=== PATIENT | female | born 1990 | race Caucasian/White ===

== ENCOUNTER 2018-08-21 18:00 | Emergency (ER) | payer MEDICAID, SELFPAY ==
[2018-08-21 18:00] VITALS: BP 108/74; PULSE 102; RESP 16; TEMP 36.4; O2SAT 98; BMI 21.2
--- NOTE | 2018-08-21 18:36 | ED.DCSUM_ITS ---
- ER Visit Summary Date of Service: 08/21/18 Chief Complaint: Left lower back pain rating the left leg History of Present Illness: The patient is a 27 F history of prior sciatica. No prior back surgery. Patient states she developed some lower back pain primarily in the left radiating down her left hamstring. No numbness or tingling. No weakness. No trauma. No fever. No prior back surgery. Denies any bowel or bladder incontinence or retention. Physical Examination: Well-appearing young female. Vital signs are stable afebrile. No distress. HEENT exam unremarkable. Neck nontender. Lungs clear to auscultation bilaterally. Heart regular rate and rhythm no murmur. Abdomen soft nontender normal bowel sounds no peritoneal signs. Moving all 4 extremities. Neurovascular intact. 5 out of 5 dorsi plantarflexion. No cauda equina. No saddle anesthesia. No medial thigh sensation. Negative straight leg raise bilaterally. Back exam spine is nontender tender mildly over the left SI joint. No redness or warmth. Right unremarkable. Neurologically she is awake alert with no focal motor or sensory deficits. No cauda equina. Test Results: None Emergency Department Course and Treatment: Motrin for pain and inflammation discharge. Treatment Plan: Motrin 600 3 times daily. Ice to her lower back. Follow-up if not improving return if worse. Disposition: Discharge Impression: Acute low back pain secondary to left-sided sciatica This note was generated with [employer] dictation software. It may contain incorrect words, spelling, and punctuation that were not noted in review of the chart prior to signing ED Disposition - Plan for ED Patient: Referrals: [facility] ,Out of [Primary Care Provider] -
--- NOTE | 2018-08-21 18:36 | ED.DEP ---
ED Disposition - Plan for ED Patient: Disposition: Home or Assisted Living Prescriptions: Ibuprofen [Motrin] 600 mg PO Q8H #20 tab Referrals: [facility],Out of [Primary Care Provider] - 1 Week if not improving Additional Instructions: Ice to left low back. Hot shower warm bath to relax the muscles. Motrin for pain and inflammation. Follow-up with your doctor if not improving or return to the ER if any bowel or bowel bladder incontinence or lower extremity weakness.
[2018-08-21] MEDS: Ibuprofen 600 MG Tablet PO (19:13)
== END 2018-08-21 19:15 | disposition home or self-care (01) ==
LOC: ED 18:49
PROVIDERS: Emergency Provider Emergency Medicine; Family Provider Nurse Practitioner Primary Care; PCP Nurse Practitioner Primary Care
DX: M54.42 Lumbago with sciatica, left side (principal); F32.9 Major depressive disorder, single episode, unspecified; F41.9 Anxiety disorder, unspecified; Z79.899 Other long term (current) drug therapy; Z72.0 Tobacco use
CPT/HCPCS: 99283

== ENCOUNTER 2022-10-25 02:19 | Emergency (ER) | payer MEDICAID, SELFPAY ==
[2022-10-25 02:22] VITALS: BP 110/64; PULSE 84; RESP 16; TEMP 36; O2SAT 95; BMI 20.2
--- NOTE | 2022-10-25 02:37 | EDS_ITS ---
HPI HPI - Psych History of Present Illness Chief Complaint: Suicidal Detail of Chief Complaint: Suicidal threats. Informant: patient and EMS Onset/Context/Timing Onset: Today Current Severity: Mild Maximum Severity: Mild Worsened by: Alcohol intoxication Associated Symptoms Associated Symptoms - Psych: Positive for Depressed; Negative for Angry, Hostile, Threatening, Confusion or Paranoia Narrative Narrative: 32-year-old female history of depression. History of drug and alcohol abuse. Admits to drinking alcohol tonight. Last used methamphetamines yesterday and marijuana today. Reportedly an ex-boyfriend called the police today because he was concerned she was suicidal. She may have sent text either him or his family talking about killing yourself. She has had prior similar incidences and prior admissions. The last one was 1 to 2 years ago she believes. She does see the counseling center but has not seen them since July. Prior similar symptoms: Yes Recent Illness/Hospitalization: No PFSH PFSH Home Medications Unobtainable 10/25/22 [History Last Taken Unknown] Allergy/AdvReac Type Severity Reaction Status Date / Time No Known Allergies Allergy Verified 10/25/22 02:20 Social History Smoking Status: Current every day smoker tobacco type: cigarettes ROS ROS ED ROS Narrative Denies recent illness. Review of Systems ROS Unobtainable: Denies due to encephalopathy Constitutional Constitutional ED: Denies chills or fever(s) Eyes Eyes: Denies blurry vision ENT ENT ED: Denies ear pain Cardiovascular Cardiovascular: Denies chest pain Respiratory/Chest Respiratory/Chest: Denies cough or dyspnea Gastrointestinal Gastrointestinal: Denies abdominal pain Genitourinary Genitourinary ED: Denies dysuria Musculoskeletal Musculoskeletal: Denies arthralgias Integumentary Denies abscess Neurologic Neurologic: Denies headache(s) Psychiatric Psychiatric: Reports depression and suicidal ideation; Denies anxiety Endocrine Endocrinology: Denies polydipsia Hematologic/Lymphatic Hematologic/Lymphatic: Denies easy bleeding Allergic/Immunologic Allergic/Immunologic ED: Denies mouth swelling EXAM Physical Exam Narrative Exam Narrative: 32-year-old female no acute distress. Vital signs stable afebrile. Does not look septic or toxic. He is diaphoretic. Awake and alert. H EENT exam unremarkable. Neck nontender no lymphadenopathy. No trauma. Lungs clear to auscultation bilaterally. Heart regular rhythm no murmur rate about 80. Chest were nontender. Abdomen soft nontender. Moving all 4 extremities. No trauma. No significant track yancey. Back nontender. Neurologically she is appears to b e intoxicated with a either alcohol or drugs or both but is awake alert. Answering questions and following commands. Const Vital Signs: 10/25/22 02:22 10/25/22 04:50 10/25/22 07:09 Temperature 96.8 F L Temperature Source Temporal Pulse Rate 84 16 L Respiratory Rate 16 16 Blood Pressure 110/64 Blood Pressure Mean 79 Pulse Ox 95 Oxygen Delivery Method Room Air Positive well nourished and well developed; Negative for obese, cachectic, contractures or unkempt General Appearance ED: well developed and NAD; Negative for unkempt, cachectic, contractures or pallor Nutritional Appearance: Negative for cachectic or obese HEENT Reports moist mucous membranes normocephalic and atraumatic; Negative for trauma or tenderness Eyes PERRL and EOMs intact bilaterally General Eye ED: Negative for pale conjunctiva or scleral icterus Neck no lymphadenopathy, supple and no JVD General: Negative for tenderness Resp normal respiratory effort and clear to auscultation bilaterally Effort and Inspection: Negative for retractions Auscultation: Negative for rales, rhonchi or wheezes Cardio S1 normal heart sound, S2 normal heart sound and no murmurs Palpation: Negative for other Rate: regular rate Rhythm: regular rhythm GI non-tender, non-distended and no masses Inspection: Negative for abdominal distention Palpation: soft; Negative for tender or guarding Bladder / Kidney Exam: No other Back/Spine no CVA tenderness General Back: Negative for CVA tenderness Cervical Spine: Negative for cervical spine tenderness Thoracic Spine / Upper Back: Negative for thoracic spinal tenderness Lumbar Spine / Lower Back: Negative for lumbar spinal tenderness Coccyx: Negative for other Extremity normal to inspection General Extremety ED: Negative for edema or tenderness General Extremity: Negative for edema Neuro oriented x3 and CN's II-XII intact bilaterally Sensorium / Orientation: alert, oriented to person, oriented to place, oriented to time and stuporous Motor Exam: strength 5/5 throughout Psych mental status grossly normal, thought process normal and cooperative; Negative for denies suicidal ideation Appearance: grossly normal; Negative for unkempt Attitude: calm Activity / Motor Behavior: appropriate eye contact Speech: normal speech Mood & Affect: depressed Thought Process: normal thought process Thought Content: suicidality Memory / Cognition: memory grossly intact Insight: limited Judgement: judgement good Skin Skin Narrative: Diaphoretic. General Skin Exam: Negative for jaundice or pallor Rashes: no rashes Trauma: Negative for abrasion or laceration Wounds: Negative for amputation MDM MDM MDM Narrative Medical decision making narrative: 32-year-old female history of methamphetamine and marijuana abuse. Admits to drinking tonight. Reportedly made threatening text to harm herself. She was brought in by police. She does have an underlying psychiatric history. Has not seen the counseling center for at least 3 to 4 months. Has had prior admissions and prior suicide attempts. She will undergo an ED mental health evaluation. She is medically cleared at this time. Her exam is benign other than she is intoxicated. Patient is resting comfortably at 3:15 AM. Her alcohol level is elevated. She will remain here until the morning and be assessed either by our social workers or the crisis team once her intoxication resolves. She be turned over to the morning physician. Patient will be admitted to a psychiatric facility that is being worked on currently by crisis. Repeat alcohol level came back and is only 74 now. Patient is currently resting comfortably at 7:30 in the morning. History & Record Review Discussion w/independent historian: Patient Additional record(s) reviewed:: No prior records and Other (No prior labs available in our system for comparison.) Lab Data Attestation: I reviewed the patient's lab results. Lab results narrative: CBC normal. White count of 10. H&H 13 and 40. Platelets 320. BMP shows gap of 6. Normal BUN and creatinine. Glucose 109. Serum test negative. Alcohol is elevated at 116. Repeat alcohol level is Labs: Laboratory Results - last 24 hr 10/25/22 10/25/22 10/25/22 02:40 04:31 04:42 WBC 10.2 RBC 4.28 Hgb 13.4 Hct 40.1 MCV 93.7 MCH 31.3 MCHC 33.4 RDW Std Deviation 45.1 H RDW Coeff of Abelardo 13.1 Plt Count 320 MPV 8.0 Immature Gran % (Auto) 0.400 Neut % (Auto) 59.3 Lymph % (Auto) 36.5 Cavalier % (Auto) 2.6 Eos % (Auto) 0.3 Baso % (Auto) 0.9 Absolute Neuts (auto) 6.1 Absolute Lymphs (auto) 3.73 Nucleated RBC % 0 Sodium 144 Potassium 3.5 Chloride 111 H Carbon Dioxide 27.0 Anion Gap 6 BUN 8 Creatinine 0.76 Estim Creat Clear Calc 87.05 Est GFR (MDRD) Af Amer 113 Est GFR (MDRD) Non-Af 94 BUN/Creatinine Ratio 10.5 Glucose 109 H Calcium 8.6 Serum , Qual NEGATIVE Urine Opiates Screen NEGATIVE Urine Methadone Screen NEGATIVE Ur Barbiturates Screen NEGATIVE Ur Phencyclidine Scrn NEGATIVE Ur Amphetamines Screen POSITIVE H MDMA (Ecstasy) Screen NEGATIVE U Benzodiazepines Scrn NEGATIVE Urine Cocaine Screen NEGATIVE U Cannabinoids Screen POSITIVE H Ur Drug Screen Comment Ethyl Alcohol 116.0 74.0 Discharge Plan Triage Chief Complaint: Suicidal Other Complaint: Substance Abuse ED Provider: Lefty Borrego Dx/Rx/DC Orders Clinical Impression: Chronic drug abuse, Depression with suicidal ideation, Depression, Acute alcohol intoxication Prescriptions: No Action Unobtainable Primary Care Provider: Care Physician,No Primary Referrals: Care Physician,No Primary [Primary Care Provider] -
[2022-10-25 02:47] LABS: Absolute Lymphocyte Count 3.73 X10^3/uL (0.83-4.51); Absolute Neutrophil Count 6.1 X10^3/uL (2.0-7.7); Basophil# 0.09 X10^3/uL; Basophil% 0.9 % (0-1); Eosinophil# 0.03 X10^3/uL; Eosinophils% 0.3 % (0-5); Hematocrit 40.1 % (37-47); Hemoglobin 13.4 g/dL (12.0-15.0); Lymphocyte # 3.73 X10^3/ul (0.83-4.51); Lymphocyte % 36.5 % (19-41); Mean Corp Hgb Conc 33.4 g/dL (32-36); Mean Corpuscular Hgb 31.3 pg (27.0-32.0); Mean Corpuscular Volume 93.7 fL (81-99); Monocyte# 0.27 X10^3/uL; Monocyte% 2.6 % (0-10); NRBC Flagged by Analyzer 0 % (0-5); Neutrophil # 6.05 X10^3/uL (2.7-7.7); Neutrophil % 59.3 % (47-70); Platelet Count 320 K/mm3 (150-450); RBC Distribution Width CV 13.1 % (11.6-14.6); RBC Distribution Width SD 45.1 fl (35.1-43.9); Red Blood Count 4.28 M/mm3 (4.2-5.4); White Blood Count 10.2 K/mm3 (4.4-11.0)
[2022-10-25 03:05] LABS: Internal QC Validated? YES +Cl - CLEAR BKGD; Pregnancy, Serum, hCG Quali. NEGATIVE Negative
[2022-10-25 03:10] LABS: Anion Gap 6 (5-15); BUN 8 mg/dL (7-18); BUN/Creat Ratio 10.5 RATIO (10-20); Calcium,Total 8.6 mg/dL (8.5-10.1); Chloride 111 mmol/L (98-107); Creatinine, Serum 0.76 mg/dL (0.55-1.02); EST Glomerular Filtration Rate 94 mL/min (>60); Est Glom Filt Rate - Afr Amer 113 mL/min (>60); Estimated Creatinine Clearance 87.05 ml/min; Glucose 109 mg/dL (74-106); Potassium 3.5 mmol/L (3.5-5.1); Sodium Level 144 mmol/L (136-145)
[2022-10-25] MEDS: Ondansetron ODT 4 MG Tablet PO (04:45)
[2022-10-25 04:50] VITALS: PULSE 16
[2022-10-25 05:04] LABS: Amphetamine Urine VISTA POSITIVE (<1000 ng/mL); Barbiturate Urine VISTA NEGATIVE (< 200 ng/mL); Benzodiazepine Urine VISTA NEGATIVE (< 200 ng/mL); Cocaine Urine VISTA NEGATIVE (< 300 ng/mL); Ecstacy Urine VISTA NEGATIVE (< 500 ng/mL); Methadone Urine VISTA NEGATIVE (< 300 ng/mL); PCP Urine VISTA NEGATIVE (< 25 ng/mL); THC Urine VISTA POSITIVE (< 50 ng/mL); Vista UDS pH Range 5
--- NOTE | 2022-10-25 05:08 | NURSING ---
CRISIS CALLED AT [id number]
[2022-10-25 07:09] VITALS: RESP 16
[2022-10-25 08:00] VITALS: RESP 16
--- NOTE | 2022-10-25 08:07 | NURSING ---
PT WAS ACCEPTED TO [facility]-- DINESH RAYA--DUAL DIAGNOSIS-- RN TO RN -[phone]--- CALLED PHYSICIANS TO SET UP TRANSPORT --ETA GIVEN [id number]
[2022-10-25 08:55] VITALS: BP 128/84; PULSE 77; RESP 16; TEMP 36.3; O2SAT 97
== END 2022-10-25 11:00 ==
PROVIDERS: Emergency Provider Emergency Medicine; Visit Provider Emergency Medicine
DX: F32.A Depression, unspecified (principal); F10.129 Alcohol abuse with intoxication, unspecified; F15.10 Other stimulant abuse, uncomplicated; R45.851 Suicidal ideations; F17.210 Nicotine dependence, cigarettes, uncomplicated; Y90.5 Blood alcohol level of 100-119 mg/100 ml
CPT/HCPCS: 36415; 80048; 80307; 82077; 84703; 85025; 87811; 99285

== ENCOUNTER 2023-06-10 15:09 | Emergency (ER) | payer MEDICAID, SELFPAY ==
[2023-06-10 15:11] VITALS: BP 104/62; PULSE 86; RESP 16; TEMP 36.2; O2SAT 97
--- NOTE | 2023-06-10 15:23 | EX.ED.DYSGE1 ---
HPI <DIONICIO Reno - Last Filed: 06/10/23 16:08> History of Present Illness Chief Complaint: Lower Extremity Injury Narrative Narrative: 32-year-old female with no significant medical history presents to the emergency department the right heel pain. Patient states that she woke up this morning and significant pain to the right heel. When thinking about her lifestyle the last several days, she is unable to remember if she had any injury, she did have a slight jog from the store to the car however does not remember any pain. She denies any history of surgery to this foot. Patient denies any other injury or fever or chills. PFSH <DIONICIO Reno - Last Filed: 06/10/23 16:08> PFS Home Medications buspirone 10 mg tablet 10 mg PO TID 08/21/18 [History Last Taken Unknown] ibuprofen 400 mg tablet 600 mg (1.5 x 400 mg) PO Q8H #20 tabs 08/21/18 [Rx Last Taken Unknown] mirtazapine 30 mg tablet 30 mg PO QHS 08/21/18 [History Last Taken Unknown] venlafaxine 150 mg capsule,extended release 24 hr 150 mg PO DAILY 08/21/18 [History Last Taken Unknown] ibuprofen 600 mg tablet 600 mg PO Q6H PRN PRN pain #20 TABLETS 06/10/23 [Rx Last Taken Unknown] Allergy/AdvReac Type Severity Reaction Status Date / Time No Known Allergies Allergy Verified 06/10/23 15:10 Social History Smoking Status: Current every day smoker tobacco type: cigarettes ROS <DIONICIO Reno - Last Filed: 06/10/23 16:08> ROS ED ROS Narrative Constitutional: Negative for fever, chills, weight loss, weakness Eyes: Negative for vision loss, vision change, double vision ENT: Negative for any sore throat, ear pain, congestion Cardiovascular: Negative for any chest pain, tightness, palpitations Respiratory: Negative for any cough, sputum production, hemoptysis, dyspnea, dyspnea on exertion, orthopnea Gastrointestinal: Negative for any abdominal pain, nausea, vomiting, diarrhea, constipation, blood in stool, blood in vomit : Negative for any urinary frequency, dysuria, retention, blood in urine Muscle skeletal: Negative for any neck pain, back pain. Positive for right foot pain right heel pain Neurological: Negative for any headache, syncope, dizziness Skin: Negative for any rashes, itching, abrasions, lacerations Psychiatric: Negative for any depression, anxiety, stress, suicidal ideation, homicidal ideation Hematologic: Negative for any excessive bruising, easy bleeding EXAM <Sae SebastianDIONICIO - Last Filed: 06/10/23 16:08> Physical Exam Narrative Exam Narrative: Vital signs reviewed. HEET: Head normocephalic atraumatic, TMs clear bilaterally. Posterior pharynx is clear, moist mucous membranes. Nares clear bilaterally. Neck: Supple with no lymphadenopathy or tenderness. No signs of meningismus. Cardiac: Regular rate and rhythm no murmurs gallops or rubs, equal peripheral pulses bilaterally. Respiratory: Lungs clear to auscultation bilaterally. No chest tenderness. Abdomen: Soft, nontender, nondistended. No abdominal bruit or pulsatile masses. No hepatosplenomegaly Extremities: No peripheral edema, no signs of gross trauma or deformity. Active full range of motion of all extremities. Full range of motion of the right foot. +2 pedal pulse. Patient does have some pain on palpation to the solar surface of the heel however there is no redness, there is no inflammation. There is no evidence of trauma or cellulitis. Neuro: Cranial nerves II through XII intact, no focal neurological deficits. Skin: Clean dry and intact with no rash, purpura, petechiae, vesicles or pustules. Backs/flank: No CVA tenderness, no midline spinal tenderness, no deformity. Psych: Normal mood and affect. No SI, HI or acute psychosis. Const Vital Signs: 06/10/23 15:11 06/10/23 16:17 Temperature 97.1 F L 97.2 F L Temperature Source Temporal Pulse Rate 86 65 Respiratory Rate 16 16 Blood Pressure 104/62 104/66 Blood Pressure Mean 76 78 Pulse Ox 97 97 Oxygen Delivery Method Room Air <Dr. Radha Manrique DO - Last Filed: 06/11/23 00:09> Physical Exam Const Vital Signs: 06/10/23 15:11 06/10/23 16:17 Temperature 97.1 F L 97.2 F L Temperature Source Temporal Pulse Rate 86 65 Respiratory Rate 16 16 Blood Pressure 104/62 104/66 Blood Pressure Mean 76 78 Pulse Ox 97 97 Oxygen Delivery Method Room Air [facility] <JAYDEN RenoC - Last Filed: 06/10/23 16:08> [facility] Radiography Diagnostic Testing: Clinical Impression(s) from Imaging Studies Foot X-Ray 06/10/23 15:33 IMPRESSION: Normal x-ray examination of the foot. Electronically Signed: Nilo Doe MD at 16:01 EST , Treatment and Re-Evaluation :: Patient appears to be in no obvious respiratory distress, patient's vital signs are stable, patient looks nontoxic. Presenting to the emergency department with 1 day of right foot pain. Patient's pain is mostly around the heel. Patient received x-rays of the right foot, she will also receive Tylenol. All radiologic examinations were read, reviewed by the emergency department attending. From these reads, a plan of care will be put in place. Patient's x-ray Of the foot shows no acute process. At this time, patient be given a postop shoe. Will follow-up with podiatry as well as be given a prescription for ibuprofen. She is instructed to ice, form gentle stretching. All questions answered, she was given strict return precaution. Patient is happy with the plan of care, patient stable for discharge <Dr. Radha Manrique DO - Last Filed: 06/11/23 00:09> [facility] Narrative Medical decision making narrative: I have personally performed a face to face assessment of the patient and have reviewed the HARRY Note. I performed a substantive portion of the visit including all aspects of the following. My cortes findings include: History is [patient presents to the emergency department complaint of right foot pain. Patient states that she woke up and when she stepped she noticed the pain in her heel that tends to radiate towards the big toe. She denies injury or trauma otherwise. She thought it might get better with time but has not. She not had discomfort like this before. Denies recent illness.] Exam is [HEENT-PERRLA, EOMI. Cranial nerves II through XII grossly intact. TMs clear. Mucous membranes moist. No adenopathy. Cardiovascular-regular rate and rhythm without murmur or ectopy Lungs-clear to auscultation, chest wall stable without crepitus or subcu emphysema Abdomen-normoactive bowel sounds, soft, nontender, no rebound or rigidity, no peritoneal signs. Extremities-intact ?4, normal range of motion, normal pulses, atraumatic] right foot-patient with tenderness palpation over the plantar aspect of the heel that reproduces her pain. There is no erythema or warmth. No puncture wounds. Neurovascular intact distally. Medical Decison Making [x-rays of patient's foot obtained 3 views were unremarkable. This point etiology of her pain unclear however I feel it is soft tissue. Not classic for plantar fasciitis. Patient advised to follow-up with podiatry and use ibuprofen for discomfort.] Other additions or changes: [None] Radiography Diagnostic Testing: Clinical Impression(s) from Imaging Studies Foot X-Ray 06/10/23 15:33 IMPRESSION: Normal x-ray examination of the foot. Electronically Signed: Nilo Doe MD at 16:01 EST , Three-view x-rays of the right foot obtained interpreted by myself as no evidence of fracture or dislocation. Radiology in agreement. Discharge Plan Triage Chief Complaint: Lower Extremity Injury ED Midlevel Provider: Sae Sebastian ED Provider: Radha Manrique Dx/Rx/DC Orders Clinical Impression: Acute foot pain Instructions: Shoes Choosing for Comfort, ED RICE Prescriptions: New ibuprofen 600 mg tablet 600 mg PO Q6H PRN PRN (Reason: pain) Qty: 20 0RF No Action venlafaxine 150 MG capsule,extended release 24hr 150 mg PO DAILY mirtazapine 30 tablet 30 mg PO QHS buspirone 10 MG tablet 10 mg PO TID ibuprofen 400 MG tablet 600 mg PO Q8H Qty: 20 0RF Primary Care Provider: Care Physician,No Primary Referrals: Tyrone Cano DPM [Med Staff - Active Staff] - Alice Solares [employer]LECTRON[employer]SEMBLER, ELECTRONICS ASSEMBLER-C [Non-Staff] - Disposition Disposition: Home, Self Care Discharge Date/Time: 06/10/23 16:18
--- NOTE | 2023-06-10 15:33 | RAD_ITS ---
STUDY: X-RAY - RIGHT FOOT CLINICAL: Female, 32 years old. foot pain TECHNIQUE: 3 view(s) of the foot. COMPARISON: None. FINDINGS: Normal talus, calcaneus, and tarsal bones. Normal visualized subtalar, talonavicular, calcaneocuboid, tarsal and tarsometatarsal articulations. Normal metatarsi. Normal metatarsophalangeal joint of the great toe. Normal tibial and fibular sesamoid bones. Normal interphalangeal joint of the great toe. Normal phalanges of the great toe. Normal second through fifth metatarsophalangeal joints. Normal interphalangeal joints and phalanges of the lesser toes. The soft tissue structures are unremarkable. There is no demonstrated fracture. RAD/Foot min 3 Views IMPRESSION: Normal x-ray examination of the foot. Electronically Signed: Nilo Doe MD at 16:01 EST ,
[2023-06-10] MEDS: Acetaminophen 500 MG Tablet 1000 MG PO (15:34)
--- OUTSIDE RECORDS SUMMARY | 2023-06-10 16:05 | XMS RPT_ITS | CCD ---
Author Name Unknown Address [address] [place] [address] Organization [facility] Care Team Providers Care Phone Banker Name Role Phone RICHA GRACE Attending Unavailable SUKUMAR PENA Primary Care [facility] Primary Care Provider FRANCESCO Grady Attending [facility] Primary Care Unavailable Medications Current Medications Medication Drug Class(es) Dates Sig (Normalized) Sig (Original) microencapsulated potassium chloride 10 meq extended release oral tablet (6 sources) Start: 02-12-2023 End: 02-15-2023 potassium chloride CR (Klor-Con M10) 10 MEQ ER tablet Take 2 tablets (20 mEq) by mouth daily for 3 days. Do not crush or chew. Do not start before February 12, 2023. 6 tablet 0 02/12/2023 02/15/2023 Active Completed/Discontinued Medications Medication Drug Class(es) Dates Sig (Normalized) Sig (Original) 50 ml sodium chloride 9 mg/ml injection (2 sources) Start: 02-11-2023 End: 02-11-2023 sodium chloride 0.9 % bolus 1,000 mL Problems Problem Classification Problem Date Documented Da te Episodic/Chronic Acute and unspecified renal failure (4 sources) Acute injury of kidney; Translations: [Acute kidney failure, unspecified] Onset: 02-11-2023 02-11-2023 Episodic Fluid and electrolyte disorders (4 sources) Hypokalemia; Translations: [Hypokalemia] Onset: 02-11-2023 02-11-2023 Episodic Poisoning by other medications and drugs (4 sources) Accidental furosemide overdose; Translations: [Poisoning by loop [high-ceiling] diuretics, accidental (unintentional), initial encounter] Onset: 02-11-2023 02-11-2023 Episodic Results Test Name Value Interpretation Reference Range Facil ity Vital Signs Date Time Vital Sign Value Performing Clinician Mera young 02-11-2023 17:30-0500 Diastolic blood pressure 84 mm[Hg] Francesco Phan MD Work Phone: [facility] 02-11-2023 17:30-0500 Heart rate 106 /min Francesco Phan MD Work Phone: [facility] 02-11-2023 17:30-0500 Respiratory rate 19 /min Francesco Phan MD Work Phone: [facility] 02-11-2023 17:30-0500 SaO2% (BldA) [Mass fraction] 100 % Francesco Phan MD Work Phone: [facility] 02-11-2023 17:30-0500 Systolic blood pressure 112 mm[Hg] Francesco mcfadden MD Work Phone: [facility] 02-11-2023 13:58-0500 Body temperature 99.3 [degF] Francesco Phan MD Work Phone: [facility] Encounters Encounter Date Encounter Type Care Provider Facility Start: 02-11-2023 End: 02-11-2023 Emergency department patient visit [facility] Start: 02-11-2023 End: 02-11-2023 Emergency department patient visit Francesco Phan MD Work Phone: [facility] ED Procedures Date Procedure Procedure Detail Performing Clinician Start: 02-11-2023 Urinalysis complete panel - Urine Francesco Phan MD Work Phone: Start: 02-11-2023 Urine test visual color cmprsn meths Francesco Phan MD Work Phone: Start: 02-11-2023 Urnls dip stick/tabl et reagent auto microscopy Francesco Phan MD Work Phone: Start: 02-11-2023 Comprehensive metabo lic panel Francesco Phan MD Work Phone: Start: 02-11-2023 End: 02-11-2023 Drug screen analgesics non-opioid 1 or 2 Francesco Phan MD Work Phone: Start: 02-11-2023 Ecg routine ecg w/le ast 12 lds trcg only w/o i&r Francesco Phan MD Work Phone: Plan of Treatment Date Care Activity Detail Author Start: 2040 Zoster Vaccines (1 of 2) Zoster Vacc morris (1 of 2) [facility] Start: 12-02-2022 Influenza vaccination Influenza Vacc ine (#1) [facility] Start: 2020 Screening for malign ant neoplasm of cervix [facility] Start: 09-21-2011 Screening for malign ant neoplasm of cervix Pap Smear [facility] Start: 2009 DTaP/Tdap/Td Vaccine s (1 - Tdap) DTaP/Tdap/Td Vaccines (1 - Tdap) [facility] Start: 2008 Hepatitis C screening Hepatitis C Sc reening [facility] Start: 2002 Depression Screening Depression Scre ening [facility] Start: 1996 Pneumococcal Vaccine : Pediatrics (0 to 5 Years) and At-Risk Patients (6 to 64 Years) (1 - PCV) Pneumococcal Vaccine: Pediatrics (0 to 5 Years) and At-Risk Patients (6 to 64 Years) (1 - PCV) [facility] Start: 09-21-1991 MMR Vaccines (1 of 1 - Standard series) MMR Vaccines (1 of 1 - Standard series) [facility] Start: 09-21-1991 Varicella vaccination Varicell a Vaccines (1 of 2 - 2-dose childhood series) [facility] Start: 03-22-1991 COVID-19 Vaccine (#1) COVID-19 Vacci ne (#1) [facility] Start: 1990 Hepatitis B Vaccines (1 of 3 - 3-dose series) Hepatitis B Vaccines (1 of 3 - 3-dose series) [facility] Start: 1990 HIV screening [facility] Screening [facility] Start: 1990 Lipid panel Lipid Panel [facility] Immunizations Immunization Date Immunization Notes Care Provider Remy hernandez 01-28-2013 influenza virus vacc ine, unspecified formulation Francesco Phan MD Work Phone: [facility] Payers Date Payer Category Payer Medicaid [employer] [facility] MEDICA[facility] ODM [id number] 2022-Present [phone] [address] [place] [address] Medicaid HMO [id number] 2022 Medicaid [id number] 2018 Medicaid [id number] 1990 Unknown [id number] Social History Date Type Detail Facility Start: 02-11-2023 Tobacco smoking status MEIS Smokes t obacco daily [facility] History of tobacco use Cigarette Smoker [facility] Start: 02-11-2023 Cigarettes smoked cu rrent (pack per day) - Reported 0.5 [facility] Start: 02-11-2023 Tobacco use and exposure Smoke less tobacco non-user [facility] Start: 02-11-2023 Alcohol intake Current drinke r of alcohol (finding) [facility] Start: 02-11-2023 Alcohol Use Disorder Identification Test - Consumption [AUDIT-C] [facility] How often to you hav e a drink containing alcohol? 2-3 time sa week [facility] How many standard dr inks containing alcohol do you have on a typical day? 10 or more [facility] How often do you hav e 6 or more drinks on 1 occasion? Daily or almost daily [facility] Start: 1990 Sex Assigned At Not on file [facility] Discharge instructions 02-11-2023 Discharge Instructions Note Date & Type Note Facility 02-11-2023 Hospital Discharg e instructions Francesco Phan MD - 02/11/2023 4:30 PM EST You were seen in the Emergency Department after taking lasix pills. Your workup here showed that you have dehydration, a mild kidney injury, and low potassium. You should take very frequent small sips of fluids to stay hydrated. Make sure to eat robust diet. Do not take any more Lasix. Follow-up with your primary care provider soon as possible. Return to the Emergency Department if you have: - Severe pain - High fever (102F) - Any other symptoms that concern you Please sign up for MyChart and review all results from your visit today. Please follow up with your primary care provider with any questions or concerns about your results today. Thank you for choosing [facility] for your care. Sincerely, Francesco Phan MD documented in this encounter [facility] Emergency department Note 02-11-2023 Misty Best RN - 02/11/2023 4:14 PM EST Note Date & Type Note Facility 02-11-2023 Emergency departm ent Note ASAM assessment has been completed. Pt presents after using an unknown substance that was found in belongings of a friend that she is holding. Pt believes the pills to have been lasix. She is an unemployed woman who lives in a trailer by herself. She has 3 children who are in the custody of others. Pt states that last year she was taken to court and due to not having electric or heat or water, she lost custody of her children. She states that she is barely holding onto this trailer and she thinks she may have to move in with someone as she still does not have any heat. She has an AA sponsor, Luiz, that is supportive of her. Pt states that Luiz has let her come over to do laundry and she does believe Luiz would allow her to stay with her. Pt has triggers related to the people, places and things that remind her of using. 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 She also states that she uses alcohol when she can get it, as well as consumes as much as she can. 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 Her last alcohol drink was 2 days ago. She states that not having her children is a trigger as she has decreased motivation to say no when she does not have responsibilities. She appears to be in a precontemplation stage of change. She states that she is connected with [address] and does have contact information when she wants to return. She voices an understanding that she needs to be ready to change before anyone can help her. 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 Pt was provided with verbal encouragement to actively change, allows for [facility] to follow up with her at cell [phone] and states that she thinks she will reach out to her AA sponsor. Misty Best RN 02/11/23 8180 [facility] Emergency department Note 02-11-2023 Misty Best RN - 02/11/2023 4:14 PM Jose Saul LPN - 02/11/2023 3:22 PM Jeanna Phan MD - 02/11/2023 1:39 PM Jose Saul LPN - 02/11/2023 1:39 PM EST Note Date & Type Note Facility 02-11-2023 Emergency departm ent Note ASA assessment has been completed. Pt presents after using an unknown substance that was found in belongings of a friend that she is holding. Pt believes the pills to have been lasix. She is an unemployed woman who lives in a trailer by herself. She has 3 children who are in the custody of others. Pt states that last year she was taken to court and due to not having electric or heat or water, she lost custody of her children. She states that she is barely holding onto this trailer and she thinks she may have to move in with someone as she still does not have any heat. She has an AA sponsor, Luiz, that is supportive of her. Pt states that Luiz has let her come over to do laundry and she does believe uLiz would allow her to stay with her. Pt has triggers related to the people, places and things that remind her of using. 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 She also states that she uses alcohol when she can get it, as well as consumes as much as she can. 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 Her last alcohol drink was 2 days ago. She states that not having her children is a trigger as she has decreased motivation to say no when she does not have responsibilities. She appears to be in a precontemplation stage of change. She states that she is connected with [employer] and does have contact information when she wants to return. She voices an understanding that she needs to be ready to change before anyone can help her. 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 Pt was provided with verbal encouragement to actively change, allows for [facility] to follow up with her at cell [phone] and states that she thinks she will reach out to her AA sponsor. Misty Best RN 02/11/23 1638 Father Cirilo, left for a few hours to run home, if we need him for anything in the mean time to give him a call. He is listed as the emergency contact. Kita Saul LPN 02/11/23 1523 [facility] ED EMERGENCY DEPARTMENT ENCOUNTER Pt Name: Glenda Barnett Birthdate 1990 Date of evaluation: 02/11/2023 Provider: Francesco Phan MD CHIEF COMPLAINT No chief complaint on file. HISTORY OF PRESENT ILLNESS I wore proper PPE for the entirety of this encounter. Glenda Barnett is a 32 y.o. female who presents to the emergency department with feeling crampy and dehydrated to about 24 hours after taking Lasix to get high. Patient says she typically takes uppers. She thought the reaction would be similar to that. She says that the pills were in an unlabeled bottle with Lasix written on a piece of paper in the bottle with the pills. She says she obtain this from a friend. She denies other drug use recently. She said that she feels improved with the fluids that EMS started. She says that yesterday she was nauseous and vomiting a lot. She continues to have mild abdominal cramping. Patient says that she does have adjustment disorder and occasionally will have suicidal thoughts but is not had any suicidal thoughts in the last 2 days and she confirms that she did not take the Lasix to kill herself. She was trying to get high. Nursing Notes were reviewed. REVIEW OF SYSTEMS Constitutional: as noted in HPI, and negative for fever/chills Eyes: as noted in HPI, and negative for vision changes ENT: as noted in HPI, and negative for cough CV: as noted in HPI, and negative for chest pain, negative for palpitations Resp: as noted in HPI, and negative for shortness of breath GI: as noted in HPI : as noted in HPI, and negative for urinary symptoms MSK: as noted in HPI Skin: as noted in HPI, and negative for rash Neuro: as noted in HPI, and negative for headaches, negative for acute focal weakness/numbness PAST MEDICAL HISTORY History reviewed. No pertinent past medical history. SURGICAL HISTORY History reviewed. No pertinent surgical history. CURRENT MEDICATIONS Previous Medications No medications on file ALLERGIES Patient has no known allergies. FAMILY HISTORY No family history on file. SOCIAL HISTORY Social History Socioeconomic History Marital status: Single Tobacco Use Smoking status: Every Day Packs/day: 0.50 Years: 17.00 Additional pack years: 0.00 Total pack years: 8.50 Types: Cigarettes Smokeless tobacco: Never Substance and Sexual Activity Alcohol use: Yes Drug use: Yes Types: Marijuana, Methamphetamines Sexual activity: Yes Partners: Male SCREENINGS PHYSICAL EXAM ED Triage Vitals Temp Pulse Resp BP -- -- -- -- SpO2 Temp src Heart Rate Source Patient Position -- -- -- -- BP Location FiO2 (%) -- -- Constitutional: No acute distress HEENT:Head: Atraumatic/normocephalic Eyes: Conjunctivae normal. ENT: Mucous membranes moist. CV: Tachycardic, regular RESP: CTAB, good respiratory effort, no increased wob GI: Abdomen soft, non-tender, non-distended, +BS, no guarding or rebound tenderness MSK: Normal bulk and tone, no gross deformity EXTR: Warm and well perfused, no edema SKIN: No rash/bruising/erythema PSYCH: Appropriate affect, cooperative behavior NEURO: Alert and oriented x 3, face symmetric, no slurred speech DIAGNOSTIC RESULTS Interpretation per the Radiologist below, if available at the time of this note: No orders to display LABS: Labs Reviewed COMPREHENSIVE METABOLIC PANEL - Abnormal Result Value SODIUM 136 POTASSIUM 2.9 (*) CHLORIDE 90 (*) CARBON DIOXIDE 28 ANION GAP 19 (*) UREA NITROGEN 23 (*) CREATININE 1.89 (*) GLUCOSE 92 CALCIUM 10.2 AST (SGOT) 61 (*) ALT 26 ALKALINE PHOSPHATASE 57 ALBUMIN 5.6 (*) BILIRUBIN, TOTAL 0.8 TOTAL PROTEIN 10.5 (*) eGFR 35.8 (*) CBC (HEMOGRAM) - Abnormal Auto WBC 15.5 (*) RBC 5.75 (*) Hemoglobin 18.1 (*) Hematocrit 50.4 (*) MCV 87.7 MCH 31.5 MCHC 35.9 RDW 12.3 Platelets 402 MPV 8.4 ACETAMINOPHEN LEVEL - Abnormal ACETAMINOPHEN <10.0 (*) COMPLETE URINALYSIS - Abnormal Color, Urine Light Yellow Clarity, Urine Clear pH, Urine 6.5 Leukocytes, Urine Negative Nitrite, Urine Negative Protein, Urine Negative Glucose, Urine Normal Bilirubin, Urine Negative Ketones, Urine Negative Urobilinogen, Urine Normal Blood, Urine 0.1 (*) Volume, Urine 12 mL RBC, Urine 0-2 WBC, Urine 0-2 Squamous Epithelial, Urine 3-5 Bacteria, Urine Few (*) Hyaline Casts, Urine 0-2 (*) Granular Casts, Urine 0-2 (*) SPECIFIC GRAVITY OF URINE (NUMERIC) 1.007 MAGNESIUM - Normal MAGNESIUM 2.2 SALICYLATE - Normal SALICYLATES <1.0 ETHANOL - Normal ETHANOL IN SER/PLAS <0.010 Narrative: NOTE: This result is for medical treatment only. Analysis performed using non-forensic procedures. COMPLETE URINALYSIS WITH REFLEX TO CULTURE Narrative: The following orders were created for panel order Urinalysis complete with reflex to Culture. Procedure Abnormality Status --------- ------ Complete Urinalysis[[id number]] Abnormal Final result Please view results for these tests on the individual orders. HCG QUALITATIVE URINE HCG,URINE QUAL Negative Narrative: is the most common reason for HCG in urine, although choriocarcinoma, hydatidiform mole, and certain nontrophoblastic malignancies also result in detectable urinary HCG levels. Sensitivity = 20mIU/mL. DRUGS OF ABUSE AMPHETAMINE SCREEN Negative BARBITURATES SCREEN Negative BENZODIAZEPINE SCREEN Negative COCAINE METAB. SCREEN Negative METHADONE SCREEN Negative OPIATES SCREEN Negative OXYCODONE SCREEN Negative PHENCYCLIDINE SCREEN Negative Narrative: The expected value for all of the drugs listed above is Negative. The following drugs or drug groups have been screened for by Immunoassay at the following thresholds: Amphetamine class (1000 ng/mL) Barbiturates (200 ng/mL) Benzodiazepines (200 ng/mL) Cocaine (300 ng/mL) Methadone (300 ng/mL) Opiates (300 ng/mL) Oxycodone (100 ng/mL) PCP (25 ng/mL) NOTE: These results are for medical treatment only. Analysis performed using non-forensic procedures. POSITIVE results are NOT confirmed by a more specific alternative method unless requested. If confirmation is needed, request confirmation under separate order. EMERGENCY DEPARTMENT COURSE and DIFFERENTIAL DIAGNOSIS/MDM: Vitals: Vitals: 02/11/23 1645 02/11/23 1700 02/11/23 1715 02/11/23 1730 BP: 112/84 112/84 112/84 112/84 BP Location: Right arm Right arm Patient Position: Lying Lying Pulse: 104 102 101 106 Resp: 16 19 13 19 Temp: TempSrc: SpO2: 100% 96% 100% 100% Medications sodium chloride 0.9 % bolus 1,000 mL (0 mL IntraVENous Stopped 02/11/231456) potassium chloride (Klor-Con) packet 60 mEq (60 mEq Oral Given 02/11/231456) potassium chloride IVPB 10 mEq (0 mEq IntraVENous Stopped 02/11/231716) I personally saw the patient and performed a substantive portion of the visit including all aspects of the medical decision making. Patient appears nontoxic. Tachycardic but normotensive. IV fluids running that EMS started. I given additional liter of IV fluids. Heart rate improved. Patient found to have severe hypokalemia and a mild acute kidney injury. P.o. and IV potassium given. Magnesium normal. Given the patient was not exactly sure that she took Lasix except for a piece of paper saying that was Lasix, I tested for other substances such as ethanol, urine drug screen, salicylates, Tylenol and they were all negative. Patient is a feels significantly improved here given her improvement in vitals and the fact that she is tolerating p.o. believe it was both safe and reasonable for her to be discharged home. I prescribed 3 days of potassium supplements and instructed to follow-up with her primary care provider soon as possible for repeat testing. Discharged home in good condition. ED Course as of 02/11/231737 Sat Feb 11, 2023 1459 CBC(!) Likely hemoconcentrated [DEJAH] 1509 Urinalysis complete with reflex to Culture(!) Few bacteria but negative leuk esterase, negative nitrate, only 0-2 WBCs so unlikely to be UTI [DEJAH] ED Course User Index [DEJAH] Francesco Phan MD Diagnoses as of 02/11/231737 Furosemide overdose, accidental or unintentional, initial encounter Acute kidney injury (HCC) Hypokalemia PROCEDURES: Unless otherwise noted below, none Procedures Patients symptoms are consistent with sepsis, severe sepsis, or septic shock (If yes use .sepsiscoremeasure ): no FINAL IMPRESSION 1. Furosemide overdose, accidental or unintentional, initial encounter 2. Acute kidney injury (HCC) 3. Hypokalemia DISPOSITION/PLAN Discharge 02/11/2023 05:32:14 PM PATIENT REFERRED TO: [place] [id number] Schedule an appointment as soon as possible for a visit DISCHARGE MEDICATIONS: New Prescriptions POTASSIUM CHLORIDE CR (KLOR-CON M10) 10 MEQ ER TABLET Take 2 tablets (20 mEq) by mouth daily for 3 days. Do not crush or chew. Do not start before February 12, 2023. (Please note: Portions of this note were completed with a voice recognition program. Efforts were made to edit the dictations but occasionally words and phrases are mis-transcribed.) Francesco Phan MD [facility] Physician [facility] Francesco Phan MD 02/11/231737 Pt presents to the ED via [facility]. Pt states yesterday she took unprescribed medication that she thinks was Lasix. The medication bottle did not have a pharmacy label on it, but had a paper inside the bottle with Lasix written on it. Pt states she took a lot in hopes to get high and didn't know this would be the effect it would have on her. Per ambulance pt was found in the bath tub when they arrived. Pt states she was hot and couldn't breathe at that time. Pt has a 20 in right hand placed by EMS with patency and fluids running. Pt is verbalizing weakness, cramping, emesis and unable to keep anything down, acid reflux, dry moth and states she feels dehydrated. Pt is alert and oriented x's 4. Pt is able to converse with said nurse and answer questions. documented in this encounter [facility] Emergency department Note 02-11-2023 Kita Saul LPN - 02/11/2023 3:22 PM EST Note Date & Type Note Facility 02-11-2023 Emergency department Note For matting of this note might be different from the original. Father Cirilo, left for a few hours to run home, if we need him for anything in the mean time to give him a call. He is listed as the emergency contact. Kita Saul LPN 02/11/23 1523 [facility] Ethanol (Bld) [Mass/Vol] 02-11-2023 Note Date & Type Note Facility 02-11-2023 Note NOTE: This result is for medical treatment only. Analysis performed using non-forensic procedures. [facility] Emergency department Triage note 02-11-2023 Kita Saul LPN - 02/11/2023 1:39 PM EST Note Date & Type Note Facility 02-11-2023 Emergency departm ent Triage note Pt presents to the ED via [facility]. Pt states yesterday she took unprescribed medication that she thinks was Lasix. The medication bottle did not have a pharmacy label on it, but had a paper inside the bottle with Lasix written on it. Pt states she took a lot in hopes to get high and didn't know this would be the effect it would have on her. Per ambulance pt was found in the bath tub when they arrived. Pt states she was hot and couldn't breathe at that time. Pt has a 20 in right hand placed by EMS with patency and fluids running. Pt is verbalizing weakness, cramping, emesis and unable to keep anything down, acid reflux, dry moth and states she feels dehydrated. Pt is alert and oriented x's 4. Pt is able to converse with said nurse and answer questions. [facility] Physician Emergency department Note 02-11-2023 Francesco Phan MD - 02/11/2023 1:39 PM EST Note Date & Type Note Facility 02-11-2023 Physician Emergen cy department Note [facility] ED EMERGENCY DEPARTMENT ENCOUNTER Pt Name: Glenda Barnett Birthdate 1990 Date of evaluation: 02/11/2023 Provider: Francesco Phan MD CHIEF COMPLAINT No chief complaint on file. HISTORY OF PRESENT ILLNESS I wore proper PPE for the entirety of this encounter. Glenda Barnett is a 32 y.o. female who presents to the emergency department with feeling crampy and dehydrated to about 24 hours after taking Lasix to get high. Patient says she typically takes uppers. She thought the reaction would be similar to that. She says that the pills were in an unlabeled bottle with Lasix written on a piece of paper in the bottle with the pills. She says she obtain this from a friend. She denies other drug use recently. She said that she feels improved with the fluids that EMS started. She says that yesterday she was nauseous and vomiting a lot. She continues to have mild abdominal cramping. Patient says that she does have adjustment disorder and occasionally will have suicidal thoughts but is not had any suicidal thoughts in the last 2 days and she confirms that she did not take the Lasix to kill herself. She was trying to get high. Nursing Notes were reviewed. REVIEW OF SYSTEMS Constitutional: as noted in HPI, and negative for fever/chills Eyes: as noted in HPI, and negative for vision changes ENT: as noted in HPI, and negative for cough CV: as noted in HPI, and negative for chest pain, negative for palpitations Resp: as noted in HPI, and negative for shortness of breath GI: as noted in HPI : as noted in HPI, and negative for urinary symptoms MSK: as noted in HPI Skin: as noted in HPI, and negative for rash Neuro: as noted in HPI, and negative for headaches, negative for acute focal weakness/numbness PAST MEDICAL HISTORY History reviewed. No pertinent past medical history. SURGICAL HISTORY History reviewed. No pertinent surgical history. CURRENT MEDICATIONS Previous Medications No medications on file ALLERGIES Patient has no known allergies. FAMILY HISTORY No family history on file. SOCIAL HISTORY Social History Socioeconomic History Marital status: Single Tobacco Use Smoking status: Every Day Packs/day: 0.50 Years: 17.00 Additional pack years: 0.00 Total pack years: 8.50 Types: Cigarettes Smokeless tobacco: Never Substance and Sexual Activity Alcohol use: Yes Drug use: Yes Types: Marijuana, Methamphetamines Sexual activity: Yes Partners: Male SCREENINGS PHYSICAL EXAM ED Triage Vitals Temp Pulse Resp BP -- -- -- -- SpO2 Temp src Heart Rate Source Patient Position -- -- -- -- BP Location FiO2 (%) -- -- Constitutional: No acute distress HEENT:Head: Atraumatic/normocephalic Eyes: Conjunctivae normal. ENT: Mucous membranes moist. CV: Tachycardic, regular RESP: CTAB, good respiratory effort, no increased wob GI: Abdomen soft, non-tender, non-distended, +BS, no guarding or rebound tenderness MSK: Normal bulk and tone, no gross deformity EXTR: Warm and well perfused, no edema SKIN: No rash/bruising/erythema PSYCH: Appropriate affect, cooperative behavior NEURO: Alert and oriented x 3, face symmetric, no slurred speech DIAGNOSTIC RESULTS Interpretation per the Radiologist below, if available at the time of this note: No orders to display LABS: Labs Reviewed COMPREHENSIVE METABOLIC PANEL - Abnormal Result Value SODIUM 136 POTASSIUM 2.9 (*) CHLORIDE 90 (*) CARBON DIOXIDE 28 ANION GAP 19 (*) UREA NITROGEN 23 (*) CREATININE 1.89 (*) GLUCOSE 92 CALCIUM 10.2 AST (SGOT) 61 (*) ALT 26 ALKALINE PHOSPHATASE 57 ALBUMIN 5.6 (*) BILIRUBIN, TOTAL 0.8 TOTAL PROTEIN 10.5 (*) eGFR 35.8 (*) CBC (HEMOGRAM) - Abnormal Auto WBC 15.5 (*) RBC 5.75 (*) Hemoglobin 18.1 (*) Hematocrit 50.4 (*) MCV 87.7 MCH 31.5 MCHC 35.9 RDW 12.3 Platelets 402 MPV 8.4 ACETAMINOPHEN LEVEL - Abnormal ACETAMINOPHEN <10.0 (*) COMPLETE URINALYSIS - Abnormal Color, Urine Light Yellow Clarity, Urine Clear pH, Urine 6.5 Leukocytes, Urine Negative Nitrite, Urine Negative Protein, Urine Negative Glucose, Urine Normal Bilirubin, Urine Negative Ketones, Urine Negative Urobilinogen, Urine Normal Blood, Urine 0.1 (*) Volume, Urine 12 mL RBC, Urine 0-2 WBC, Urine 0-2 Squamous Epithelial, Urine 3-5 Bacteria, Urine Few (*) Hyaline Casts, Urine 0-2 (*) Granular Casts, Urine 0-2 (*) SPECIFIC GRAVITY OF URINE (NUMERIC) 1.007 MAGNESIUM - Normal MAGNESIUM 2.2 SALICYLATE - Normal SALICYLATES <1.0 ETHANOL - Normal ETHANOL IN SER/PLAS <0.010 Narrative: NOTE: This result is for medical treatment only. Analysis performed using non-forensic procedures. COMPLETE URINALYSIS WITH REFLEX TO CULTURE Narrative: The following orders were created for panel order Urinalysis complete with reflex to Culture. Procedure Abnormality Status --------- ------ Complete Urinalysis[[id number]] Abnormal Final result Please view results for these tests on the individual orders. HCG QUALITATIVE URINE HCG,URINE QUAL Negative Narrative: is the most common reason for HCG in urine, although choriocarcinoma, hydatidiform mole, and certain nontrophoblastic malignancies also result in detectable urinary HCG levels. Sensitivity = 20mIU/mL. DRUGS OF ABUSE AMPHETAMINE SCREEN Negative BARBITURATES SCREEN Negative BENZODIAZEPINE SCREEN Negative COCAINE METAB. SCREEN Negative METHADONE SCREEN Negative OPIATES SCREEN Negative OXYCODONE SCREEN Negative PHENCYCLIDINE SCREEN Negative Narrative: The expected value for all of the drugs listed above is Negative. The following drugs or drug groups have been screened for by Immunoassay at the following thresholds: Amphetamine class (1000 ng/mL) Barbiturates (200 ng/mL) Benzodiazepines (200 ng/mL) Cocaine (300 ng/mL) Methadone (300 ng/mL) Opiates (300 ng/mL) Oxycodone (100 ng/mL) PCP (25 ng/mL) NOTE: These results are for medical treatment only. Analysis performed using non-forensic procedures. POSITIVE results are NOT confirmed by a more specific alternative method unless requested. If confirmation is needed, request confirmation under separate order. EMERGENCY DEPARTMENT COURSE and DIFFERENTIAL DIAGNOSIS/MDM: Vitals: Vitals: 02/11/23 1645 02/11/23 1700 02/11/23 1715 02/11/23 1730 BP: 112/84 112/84 112/84 112/84 BP Location: Right arm Right arm Patient Position: Lying Lying Pulse: 104 102 101 106 Resp: 16 19 13 19 Temp: TempSrc: SpO2: 100% 96% 100% 100% Medications sodium chloride 0.9 % bolus 1,000 mL (0 mL IntraVENous Stopped 02/11/231456) potassium chloride (Klor-Con) packet 60 mEq (60 mEq Oral Given 02/11/231456) potassium chloride IVPB 10 mEq (0 mEq IntraVENous Stopped 02/11/231716) I personally saw the patient and performed a substantive portion of the visit including all aspects of the medical decision making. Patient appears nontoxic. Tachycardic but normotensive. IV fluids running that EMS started. I given additional liter of IV fluids. Heart rate improved. Patient found to have severe hypokalemia and a mild acute kidney injury. P.o. and IV potassium given. Magnesium normal. Given the patient was not exactly sure that she took Lasix except for a piece of paper saying that was Lasix, I tested for other substances such as ethanol, urine drug screen, salicylates, Tylenol and they were all negative. Patient is a feels significantly improved here given her improvement in vitals and the fact that she is tolerating p.o. believe it was both safe and reasonable for her to be discharged home. I prescribed 3 days of potassium supplements and instructed to follow-up with her primary care provider soon as possible for repeat testing. Discharged home in good condition. ED Course as of 02/11/23 1738 Sat Feb 11, 2023 1459 CBC(!) Likely hemoconcentrated [DEJAH] 1509 Urinalysis complete with reflex to Culture(!) Few bacteria but negative leuk esterase, negative nitrate, only 0-2 WBCs so unlikely to be UTI [DEJAH] ED Course User Index [DEJAH] Francesco Phan MD Diagnoses as of 02/11/23 1738 Furosemide overdose, accidental or unintentional, initial encounter Acute kidney injury (HCC) Hypokalemia PROCEDURES: Unless otherwise noted below, none Procedures Patients symptoms are consistent with sepsis, severe sepsis, or septic shock (If yes use .sepsiscoremeasure ): no FINAL IMPRESSION 1. Furosemide overdose, accidental or unintentional, initial encounter 2. Acute kidney injury (HCC) 3. Hypokalemia DISPOSITION/PLAN Discharge 02/11/2023 05:32:14 PM PATIENT REFERRED TO: [facility] [place] [id number] Schedule an appointment as soon as possible for a visit DISCHARGE MEDICATIONS: New Prescriptions POTASSIUM CHLORIDE CR (KLOR-CON M10) 10 MEQ ER TABLET Take 2 tablets (20 mEq) by mouth daily for 3 days. Do not crush or chew. Do not start before February 12, 2023. (Please note: Portions of this note were completed with a voice recognition program. Efforts were made to edit the dictations but occasionally words and phrases are mis-transcribed.) Francesco Phan MD [facility] Physician Acute [facility] Francesco Phan MD 02/11/23 1738 [facility] Evaluation note Note Date & Type Note Facility documented in this encounter [facility] Health Summary Purpose Family History No Family History Records FoundNo Family History Records FoundNo Family History Records FoundNo Family History Records Found Advance Directives No Advanced Directives Records FoundNo Advanced Directives Records FoundNo Advanced Directives Records FoundNo Advanced Directives Records Found Additional Source Comments INFORMATION SOURCE (unrecogn ized section and content) DATE CREATED AUTHOR AUTHOR'S ORGANIZ ATION 07/05/2021 [facility] DATE CREATED AUTHOR AUTHOR'S ORGANIZ ATION 12/05/2021 [facility] DATE CREATED AUTHOR AUTHOR'S ORGANIZ ATION 02/12/2023 [facility] Scheduled Active and Recently Administ ered Medications (unrecognized section and content) Care Teams (unrecognized sec tion and content) FOR RECORDS PERTAINING TO PATIENTS WHO ARE OR HAVE BEEN ENROLLED IN A CHEMICAL DEPENDENCY/SUBSTANCEABUSE PROGRAM, SOME INFORMATION MAY BE OMITTED. This clinical summary was aggregated from multiple sources. Caution should be exercised in using it in the provision of clinical care. This summary normalizes information from multiple sources, and as a consequence, information in this document may materially change the coding, format and clinical context of patient data. In addition, data may be omitted in some cases. CLINICAL DECISIONS SHOULD BE BASED ON THE PRIMARY CLINICAL RECORDS. [facility] [employer] [facility]. provides no warranty or guarantee of the accuracy or completeness of information in this document.
[2023-06-10 16:17] VITALS: BP 104/66; PULSE 65; RESP 16; TEMP 36.2; O2SAT 97
== END 2023-06-10 16:18 | disposition home or self-care (01) ==
PROVIDERS: Emergency Provider Emergency Medicine; Visit Provider Emergency Medicine
DX: M79.671 Pain in right foot (principal); F17.210 Nicotine dependence, cigarettes, uncomplicated
CPT/HCPCS: 73630; 99283

== ENCOUNTER 2023-09-17 07:47 | Emergency (ER) | payer MEDICAID, SELFPAY ==
[2023-09-17 07:49] VITALS: BP 134/74; PULSE 97; RESP 16; TEMP 36.9; O2SAT 100; BMI 19.7
--- NOTE | 2023-09-17 08:04 | EDS_ITS ---
HPI HPI - Female History of Present Illness Chief Complaint: Vag Bld, Preg Detail of Chief Complaint: Patient presents with concern for dehydration Informant: patient Narrative Narrative: Patient presents with dark urine and lower abdominal cramping. She is little over 8 weeks . She had a pelvic ultrasound on the of this month that showed a viable . She had diagnosed on the with trichomonas vaginalis and started on Flagyl. She has been having vomiting and night frequently over the last 2 days. She is concerned she may be dehydrated. She is having no vaginal bleeding. She thought maybe she was miscarrying because she had lower abdominal cramping and numbness and tingling in her hands. Patient is G4, P3 with no prior miscarriages. [facility] Medical History (Updated 09/17/23 @ 09:[address] Radha Manrique DO) ETOH abuse Depression Home Medications ?Medication ?Instructions ?Recorded ?Last Taken ?Type metronidazole 500 mg tablet 500 mg PO BID 09/17/23 Unknown History ondansetron 4 mg disintegrating 4 mg PO Q6H PRN nausea and 09/17/23 Unknown Rx tablet vomiting #10 tabs sertraline 50 mg tablet 50 mg PO DAILY 09/17/23 Unknown History Allergy/AdvReac Type Severity Reaction Status Date / Time Penicillins (PCN) Allergy Hives Verified 09/17/23 07:48 Social History Smoking Status: Current every day smoker tobacco type: cigarettes ROS ROS ED Review of Systems ROS Unobtainable: other Constitutional Constitutional ED: Reports lethargy; Denies chills, fever(s), sweats or weight loss Eyes Eyes: Denies blurry vision, change in vision or diplopia ENT ENT ED: Denies rhinorrhea or sore throat Cardiovascular Cardiovascular: Denies chest pain, orthopnea or racing heartbeat Respiratory/Chest Respiratory/Chest: Denies cough, dyspnea, dyspnea on exertion, orthopnea or sputum Gastrointestinal Gastrointestinal: Reports abdominal pain, diarrhea, nausea and vomiting Genitourinary Genitourinary ED: Denies dysuria, hematuria or urinary frequency Musculoskeletal Musculoskeletal: Denies arthralgias, back pain, myalgias or neck pain Integumentary Denies abscess, Abrasions or rash Neurologic Neurologic: Denies headache(s) or weakness Psychiatric Psychiatric: Denies anxiety, depression or suicidal thoughts Endocrine Endocrinology: Denies polydipsia, polyphagia or polyuria Hematologic/Lymphatic Hematologic/Lymphatic: Denies easy bleeding, easy bruising or lymphadenopathy Allergic/Immunologic Allergic/Immunologic ED: Denies mouth swelling, tongue swelling or urticaria EXAM Physical Exam Const Vital Signs: 09/17/23 07:49 09/17/23 09:20 Temperature 98.4 F 98.4 F Temperature Source Oral Pulse Rate 97 71 Respiratory Rate 16 16 Blood Pressure 134/74 H 130/76 H Blood Pressure Mean 94 94 Pulse Ox 100 97 Oxygen Delivery Method Room Air Positive well nourished and well developed General Appearance ED: well developed and NAD HEENT Reports TM's clear and moist mucous membranes normocephalic and atraumatic; Negative for trauma or tenderness Tympanic Membrane ED: Yes TM's clear Eyes PERRL and EOMs intact bilaterally General Eye ED: Negative for pale conjunctiva or scleral icterus Neck no lymphadenopathy, supple and no JVD General: Negative for tenderness Chest Wall inspection of chest normal and palpation of chest normal Chest: Negative for tenderness Resp normal respiratory effort and clear to auscultation bilaterally Effort and Inspection: Negative for respiratory distress or pain with movement Auscultation: Negative for rhonchi, wheezes or diminished lung sounds Cardio regular rate, regular rhythm, S1 normal heart sound, S2 normal heart sound and no murmurs Peripheral Pulses: pulses 2+ throughout GI normal to inspection, nondistended, normoactive bowel sounds, soft to palpation, non-tender, non-distended and no masses Back/Spine no CVA tenderness and no thoracic nor lumbar tenderness Extremity normal to inspection General Extremety ED: Negative for edema General Extremity: Negative for edema Neuro oriented x3, CN's II-XII intact bilaterally, no sensory deficits noted and gait normal Sensorium / Orientation: awake, alert, oriented to person, oriented to place and oriented to time Motor Exam: strength 5/5 throughout and strength abnormal Psych mental status grossly normal Skin no rashes or lesions noted and no wounds MDM MDM MDM Narrative Medical decision making narrative: Patient presents with vomiting and diarrhea and lower abdominal cramping. Diagnosed few days ago with trichomonas and started on Flagyl 2 days ago. Patient believes she is about 8 weeks . She was concerned about miscarriage because of the lower abdominal cramping but she has had no vaginal bleeding. She is never had a miscarriage before. Had a transvaginal pelvic ultrasound from what she tells me 3 days ago and everything looked normal. I do not think she needs an emergent pelvic ultrasound. Clinically I do not think she is having a miscarriage. IV line established. She was given liter normal saline fluid bolus. CBC with differential white count 10.6 with hemoglobin 14 and platelet count of 369. Chemistries unremarkable other than a slightly depressed potassium of 3.2 for which I did give her 40 mEq potassium chloride p.o. Patient had a quantitative hCG which was 62,000. Urinalysis was normal. She did have ketones in her urine but no signs of infection. She did receive a liter fluid bolus here. Clinically she looks well. I do not feel she is having a miscarriage. I suspect her symptoms may be related possibly to viral gastroenteritis versus medication side effect of Flagyl. Patient will be given a prescription for Reglan. Advised to follow-up with her [facility] within next 3 to 5 days. Vies to return if worsening abdominal pain, fever, vomiting, vaginal bleeding, or condition should worsen anyway. Lab Data Attestation: I reviewed the patient's lab results. Labs: Laboratory Results - last 24 hr 09/17/23 09/17/23 08:19 08:25 WBC 10.6 RBC 4.59 Hgb 14.3 Hct 40.6 MCV 88.5 MCH 31.2 MCHC 35.2 RDW Std Deviation 40.4 RDW Coeff of Abelardo 12.4 Plt Count 369 MPV 8.1 Immature Gran % (Auto) 0.400 Neut % (Auto) 72.4 H Lymph % (Auto) 22.2 [place] % (Auto) 4.3 Eos % (Auto) 0.2 Baso % (Auto) 0.5 Absolute Neuts (auto) 7.7 Absolute Lymphs (auto) 2.35 Nucleated RBC % 0 Sodium 134 L Potassium 3.2 L Chloride 104 Carbon Dioxide 21.0 Anion Gap 9 BUN 8 Creatinine 0.68 Estim Creat Clear Calc 97.69 Est GFR (MDRD) Af Amer 127 Est GFR (MDRD) Non-Af 105 BUN/Creatinine Ratio 11.7 Glucose 96 Calcium 9.6 HCG, Quant 52459 H Urine Color Yellow Urine Clarity Clear Urine pH 6.0 Ur Specific [place] 1.020 Urine Protein 30 H Urine Glucose (UA) Normal Urine Ketones 150 A* Urine Occult Blood Negative Urine Nitrite Negative Urine Bilirubin Negative Urine Urobilinogen 4 H Ur Leukocyte Esterase 100 H Urine RBC 0 SEEN Urine WBC 0-5 SEEN Ur Squamous Epith Cells 0-5 SEEN Urine Bacteria RARE Urine Mucus 0 SEEN Discharge Plan Triage Chief Complaint: Vag Bld, Preg ED Provider: Radha Manrique Dx/Rx/DC Orders Clinical Impression: Vomiting, Abdominal pain, Acute dehydration, Acute hypokalemia Instructions: ED Abdominal Pain Unkn Cause Fem, ED Dehydration (Adult), ED Diet Vomiting Diarrhea Prescriptions: New ondansetron 4 mg tablet,disintegrating 4 mg PO Q6H PRN (Reason: nausea and vomiting) Qty: 10 0RF No Action metronidazole 500 mg tablet 500 mg PO BID sertraline 50 mg tablet 50 mg PO DAILY Primary Care Provider: Care Physician,No Primary Referrals: Nicole Aguilar MD [Med Staff - Active Staff] - 3-5 Days Care Physician,No Primary [Primary Care Provider] - Print Language: Upper Sorbian Disposition Disposition: Home, Self Care Discharge Date/Time: 09/17/23 09:22
[2023-09-17] MEDS: 0.9% Normal Saline (1000mL) 1,000 ML 1000 ML IV (08:23)
[2023-09-17] MEDS: Metoclopramide 10 MG/2 ML Vial IV (08:23)
[2023-09-17 08:31] LABS: Mucous, Urine 0 SEEN /hpf (<or=2+); Red Blood Cells-Urine 0 SEEN /hpf (0-5)
[2023-09-17 08:40] LABS: Anion Gap 9 (5-15); BUN 8 mg/dL (7-18); BUN/Creat Ratio 11.7 RATIO (10-20); Calcium,Total 9.6 mg/dL (8.5-10.1); Chloride 104 mmol/L (98-107); Creatinine, Serum 0.68 mg/dL (0.55-1.02); EST Glomerular Filtration Rate 105 mL/min (>60); Est Glom Filt Rate - Afr Amer 127 mL/min (>60); Estimated Creatinine Clearance 97.69 ml/min; Glucose 96 mg/dL (74-106); Potassium 3.2 mmol/L (3.5-5.1); Sodium Level 134 mmol/L (136-145)
[2023-09-17 08:46] LABS: Absolute Lymphocyte Count 2.35 X10^3/uL (0.83-4.51); Absolute Neutrophil Count 7.7 X10^3/uL (2.0-7.7); Basophil# 0.05 X10^3/uL; Basophil% 0.5 % (0-1); Eosinophil# 0.02 X10^3/uL; Eosinophils% 0.2 % (0-5); Hematocrit 40.6 % (37-47); Hemoglobin 14.3 g/dL (12.0-15.0); Lymphocyte # 2.35 X10^3/ul (0.83-4.51); Lymphocyte % 22.2 % (19-41); Mean Corp Hgb Conc 35.2 g/dL (32-36); Mean Corpuscular Hgb 31.2 pg (27.0-32.0); Mean Corpuscular Volume 88.5 fL (81-99); Mean Platelet Vol. 8.1 fl (6.2-12.0); Monocyte# 0.45 X10^3/uL; Monocyte% 4.3 % (0-10); NRBC Flagged by Analyzer 0 % (0-5); Neutrophil # 7.66 X10^3/uL (2.7-7.7); Neutrophil % 72.4 % (47-70); Platelet Count 369 K/mm3 (150-450); RBC Distribution Width CV 12.4 % (11.6-14.6); RBC Distribution Width SD 40.4 fl (35.1-43.9); Red Blood Count 4.59 M/mm3 (4.2-5.4); White Blood Count 10.6 K/mm3 (4.4-11.0)
[2023-09-17 08:52] LABS: Color, Urine Yellow (Yellow); Glucose, Dipstick Normal (Normal); Leukocyte Esterase-Dipstick 100 /ul (Negative); Nitrite-Dipstick Negative (Negative); Occult Blood-Urine Negative /ul (Negative); Protein-Dipstick 30 mg/dl (Negative); Urine Bilirubin Dipstick Negative (Negative); Urine Clarity Clear (Clear); Urine Urobilinogen 4 mg/dl (Normal)
[2023-09-17] MEDS: Potassium Chloride Oral Tablet 20 MEQ 40 MEQ PO (08:54)
[2023-09-17 08:55] LABS: Ketone-Dipstick 150 mg/dl (Negative)
[2023-09-17 09:00] LABS: hCG Titer Quant., Serum 62640 mIU/mL (1-3)
[2023-09-17 09:03] LABS: Bacteria RARE /hpf (None Seen); Squamous Epithelial Cells - UA 0-5 SEEN /hpf (5-10); White Blood Cells 0-5 SEEN /hpf (0-5)
[2023-09-17 09:20] VITALS: BP 130/76; PULSE 71; RESP 16; TEMP 36.9; O2SAT 97
== END 2023-09-17 09:22 | disposition home or self-care (01) ==
PROVIDERS: Emergency Provider Emergency Medicine; Visit Provider Emergency Medicine
DX: O99.341 Other mental disorders complicating pregnancy, first trimester (principal); Z3A.08 8 weeks gestation of pregnancy; E86.0 Dehydration; O99.281 Endocrine, nutritional and metabolic diseases complicating pregnancy, first trimester; R10.9 Unspecified abdominal pain; F32.A Depression, unspecified; Z79.899 Other long term (current) drug therapy; O21.9 Vomiting of pregnancy, unspecified; E87.6 Hypokalemia; O99.331 Smoking (tobacco) complicating pregnancy, first trimester; F17.210 Nicotine dependence, cigarettes, uncomplicated
CPT/HCPCS: 80048; 81001; 84702; 85025; 96361; 96374; 99283; J7030; A4216

== ENCOUNTER 2025-01-26 10:29 | Emergency (ER) | payer MEDICAID, SELFPAY ==
[2025-01-26 10:29] VITALS: BP 109/93; PULSE 81; RESP 14; TEMP 35.6; O2SAT 98; BMI 24.5
[2025-01-26 10:57] LABS: Hematocrit 43.9 % (37-47); Hemoglobin 14.5 g/dL (12.0-15.0); Immature Granulocytes Count 0.030 X10^3/uL (0.0-0.0); Mean Corp Hgb Conc 33.0 g/dL (32-36); Mean Corpuscular Volume 85.6 fL (81-99); Mean Platelet Vol. 8.5 fl (6.2-12.0); NRBC Flagged by Analyzer 0 % (0-5); Platelet Count 384 K/mm3 (150-450); RBC Distribution Width CV 14.6 % (11.6-14.6); RBC Distribution Width SD 45.6 fl (35.1-43.9); Red Blood Count 5.13 M/mm3 (4.2-5.4); White Blood Count 12.8 K/mm3 (4.4-11.0)
[2025-01-26 11:02] LABS: Internal QC Validated? YES +Cl - CLEAR BKGD; Pregnancy, Serum, hCG Quali. NEGATIVE Negative; Record Kit Lot#, Serum Preg. 980607
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
--- OUTSIDE RECORDS SUMMARY | 2025-01-26 11:24 | XMS RPT_ITS | CCD ---
Author Organization [facility] Care Team Providers Care Front End Loader Driver Name Role Phone RICHA GRACE Attending Unavailable ALICE SOLARES Primary Care Unavailable [facility] Primary Care Provider Unav ailable Kar Deluca MD Primary Care Provider [phone] KAR DELUCA Attending Unavailable KAR DELUCA Primary Care Unavailable Unavailable Primary Care Provider UnavailLEDA Oseguera Attending Unavailable Melisa Woodard MD Primary Care Provider [phone] Néstor Hill APRN, CNP Unavailable [facility] Primary Care Provider Unav ailable LUCINDA AVELAR MD Primary Care Unavailable MARII GAY Referring Unavailable KANWAL BOND Attending Unavailable KANWAL BOND Attending Unavailable LUCINDA PRIMARY MD ROSIO Primary Care Unavailable MARII GAY Referring Unavailable Care Physician, No Primary Primary Care Provider Unavailable Care Physician, No Primary Referring Provider Un available Alvarado Lara Attending Provider Care Physician, No Primary Primary Care Unava ilable Care Physician, No Primary Referring Unava ilable Alvarado Lara Attending Unavailable Care Physician, No Primary Primary Care Unava ilable Radha Manrique Attending Unavailable NO, PHYSICIAN Primary Care Unavailable LAVELL REA Attending Unavaila Néstor Gutierrez APRN, CNP Unavailable Melisa Woodard MD Primary Care Provider Néstor Hill APRN, CNP Unavailable Gianni LEAD BLEND[employer] - [employer], Néstor Contreras Unavailable MONO GIFFORD Attending Unavailable [facility] Primary Care Unavailable WEEMAN, MELISA Primary Care Unavailable MARII GAY Attending Unavailable WEEMAN, MELISA Primary Care Unavailable MARII GAY Attending Unavailable WEEMAN, MELISA Primary Care Unavailable KAMILLE PARR Attending Unavailable WEEMAN, MELISA Primary Care Unavailable MARII GAY Attending Unavailable MARII GAY Admitting Unavailable MARII GAY Attending Unavailable MARII GAY Admitting Unavailable CHERRIE MENDOZA Attending Unavailable WEEMAN, MELISA Primary Care Unavailable DANISHA, ALICE Admitting Unavailable DANISHA, ALICE Attending Unavailable WEEMAN, MELISA Primary Care Unavailable NÉSTOR ARCHER Attending Unavailable WEEMAN, MELISA Primary Care Unavailable MARII GAY Attending Unavailable WEEMAN, MELISA Primary Care Unavailable MARII GAY Attending Unavailable WEEMAN, MELISA Primary Care Unavailable MARII GAY Attending Unavailable NEVIN MAYER Attending Unavailable WEEMAN, MELISA Primary Care Unavailable WEEMAN, MELISA Primary Care Unavailable MARII GAY Referring Unavailable WEEMAN, MELISA Primary Care Unavailable MARII GAY Attending Unavailable Allergies Allergy Classification Reported Allergen(s) Allergy Type Date of Onset Reaction(s) Facility Penicillins (antibiotic) (7 sources) Penicillins Drug Allergy 04-09-2013 [facility] Work Phone: (20 sources) Penicillins; Translations: [PENICILLINS] Drug Allergy 04-09-2013 [facility] (2 sources) Penicillins Drug Allergy 04-09-2013 [facility] Work Phone: (1 source) Penicillins Allergy to substance 09-17-2023 [facility] (1 source) Penicillins Drug allergy (disorder) 09-17-2023 [facility] Repository Medications Current Medications Medication Drug Class(es) Dates Sig (Normalized) Sig (Original) benzocaine 0.2 mg/mg rectal ointment (2 sources) Standardized Chemical Allergen Start: 11-18-2024 End: 11-28-2024 benzocaine (Americaine) 20 % rectal ointment Insert into the rectum every 3 hours as needed for itching or hemorrhoids for up to 10 days. 28.4 g 11/18/2024 11/28/2024 Active ethinyl estradiol 0.035 mg / norgestimate 0.25 mg oral tablet (4 sources) Progestin, Estrogen Start: 12-30-2024 take 1 tablet by mouth once daily norgestimate-ethiny l estradiol (Sprintec 28) 0.25-35 MG-MCG tablet Indications: Encounter for initial prescription of contraceptive pills Take 1 tablet by mouth daily. 28 tablet 12 12/30/2024 Active Start: 04-09-2013 End: 09-14-2023 take 1 tablet by mouth once daily norgestimate 0.25 mg-ethinyl estradiol 35 mcg (SPRINTEC) 0.25-35 mg-mcg per tablet Take 1 tablet by mouth once daily. 0 04/09/2013 09/14/2023 Discontinued (Patient chooses alternative therapy) Start: 04-09-2013 take 1 tablet by louisa th once daily norgestimate 0.25 mg-ethinyl estradiol 35 mcg (SPRINTEC) 0.25-35 mg-mcg per tablet Take 1 tablet by mouth once daily. 0 04/09/2013 Active hydrocortisone 25 mg/ml rectal cream (2 sources) Corticosteroid Start: 11-18-2024 End: 12-18-2024 hydrocortisone (Anusol-HC) 2.5 % rectal cream Insert 1 Application into the rectum 2 times daily. Apply rectally 2 times daily 28 g 11/18/2024 12/18/2024 Active ibuprofen 600 mg oral tablet (11 sources) Nonsteroidal Anti-inflammatory Drug Start: 04-20-2024 End: 05-02-2024 take 1 tablet by mouth every six hours as needed for pain and pain ibuprofen 600 MG tablet Take 1 tablet (600 mg) by mouth every 6 hours as needed for mild pain (1-3) or moderate pain (4-6) for up to 10 days. 40 tablet 04/22/2024 05/02/2024 Active Start: 07-02-2021 End: 09-17-2023 take 1 tablet by mouth every six hours as needed for pain Ibuprofen 600 mg tablet Discontinued 600 mg PO EVERY 6 HOURS NEEDED as needed for pain June 10, 2023 1:00am September 17, 2023 7:57am Start: 08-21-2018 End: 09-17-2023 Ibuprofen 400 MG tablet Disc ontinued 600 mg PO Q8H August 21, 2018 12:00am September 17, 2023 7:57am Start: 08-21-2018 take 600 mg by mouth every eight hours Ibuprofen Active 600 MG PO Q8H August 20, 2018 11:00pm ondansetron 4 mg disintegrating oral tablet (1 source) Serotonin-3 Receptor Antagonist Start: 09-17-2023 take 1 tablet by mouth every six hours as needed for nausea and vomiting Ondansetron 4 mg tablet,disintegrating Active 4 mg PO EVERY 6 HOURS as needed for nausea and vomiting September 17, 2023 12:00am vit37/iron/folic acid (PRENATA ORAL) (5 sources) take 1 tablet by mouth once daily vit37/iron/folic acid (PRENATA ORAL) Take 1 tablet by mouth once daily. 0 Active sertraline 25 mg oral tablet (20 sources) Serotonin Reuptake Inhibitor Start: 12-05-2023 End: 04-22-2024 take 1 tablet by mouth in the morning sertraline (Zoloft) 25 MG tablet TAKE 1 TABLET BY MOUTH IN THE MORNING AND TAKE 1 TABLET AT BEDTIME 12/05/2023 Active Start: 09-14-2023 End: 11-06-2023 take 1 tablet by mouth once daily Sertraline 50 mg tablet Active 50 mg PO DAILY September 17, 2023 12:00am Start: 08-25-2020 End: 09-14-2023 sertraline (ZOLOFT) 100 mg t ablet terconazole 4 mg/ml vaginal cream (1 source) Azole Antifungal Start: 10-12-2023 End: 10-19-2023 terconazole (Terazol 7) 0.4 % vaginal cream Insert 1 applicator into the vagina Nightly for 7 days. 1 g 10/12/2023 10/19/2023 Active Completed/Discontinued Medications Medication Drug Class(es) Dates Sig (Normalized) Sig (Original) acetaminophen 325 mg oral tablet (2 sources) Start: 04-20-2024 End: 04-22-2024 take 1 tablet by mouth every six hours as needed aspirin 81 mg delayed release oral tablet (20 sources) Platelet Aggregation Inhibitor, Nonsteroidal Anti-inflammatory Drug Start: 09-14-2023 End: 04-22-2024 take 1 tablet by mouth in the morning aspirin 81 MG EC tablet Take 81 mg by mouth in the morning. 09/14/2023 04/22/2024 Discontinued (Stop taking at discharge) atomoxetine 10 mg oral capsule (3 sources) Norepinephrine Reuptake Inhibitor End: 09-14-2023 take 1 capsule by mouth once daily atomoxetine (STRATTERA) 10 mg capsule Take 10 mg by mouth once daily. 0 09/14/2023 Discontinued (Patient chooses alternative therapy) benzethonium chloride 2 mg/ml / benzocaine 200 mg/ml topical spray (2 sources) Standardized Chemical Allergen Start: 04-20-2024 End: 04-22-2024 Topical, As needed, pain, , Starting on 04/20/24 at 2050, , Apply to perineal area. Patient is capable and may self administer at bedside. busPIRone hydrochloride 10 mg oral tablet (2 sources) Start: 08-21-2018 End: 09-17-2023 take 1 tablet by mouth three times daily Buspirone 10 MG tablet Discontinued 10 mg PO THREE TIMES A DAY August 21, 2018 12:00am September 17, 2023 7:57am calcium chloride 0.0014 meq/ml / potassium chloride 0.004 meq/ml / sodium chloride 0.103 meq/ml / sodium lactate 0.028 meq/ml injectable solution (2 sources) Start: 04-20-2024 End: 04-20-2024 take 125 mL intravenously every hour 125 mL/hr, IntraVENous, Continuous, Starting on 04/20/24 at 0615, Pre-Delivery cariprazine 3 mg oral capsule (3 sources) Atypical Antipsychotic Start: 08-25-2020 End: 09-14-2023 VRAYLAR 3 mg capsule chlorhexidine (Hibiclens) 4 % solution 1 Application (2 sources) Start: 04-20-2024 End: 04-20-2024 1 Application, Topical, Daily, First dose on 04/20/24 at 0615, Pre-Delivery, Use solution to clean abdomen upon admission then once daily until delivered ciprofloxacin 500 mg oral tablet (5 sources) Quinolone Antimicrobial Start: 10-29-2024 End: 10-29-2024 take 500 mg by mouth once 500 mg, Oral, Once, On Mon10/29/24 at 1545, For 1 dose, Separate at least 2 hours before or 6 hours after antacids or other products containing calcium, iron, or zinc., Suspected Indication (Select all that apply): Intra-Abdominal Infection Start: 10-29-2024 End: 11-08-2024 take 1 tablet by mouth twice daily ciprofloxacin (Cipro) 500 MG tablet Take 1 tablet (500 mg) by mouth 2 times daily for 10 days. 20 tablet 10/29/2024 11/08/2024 Active docusate sodium 50 mg / sennosides, longterm 8.6 mg oral tablet (2 sources) Start: 04-22-2024 End: 04-22-2024 take 2 tablets by mouth every twenty-four hours as needed for constipation 2 tablet, Oral, Daily PRN, constipation, Starting on Mon04/22/24 at 0536 famotidine 20 mg oral tablet (2 sources) Histamine-2 Receptor Antagonist Start: 04-20-2024 End: 04-22-2024 ferrous sulfate 325 mg oral tablet (15 sources) Start: 04-20-2024 End: 04-22-2024 End: 04-22-2024 take 1 tablet by mouth once daily at breakfast ferrous sulfate 325 (65 Fe) MG EC tablet Take 325 mg by mouth daily (with breakfast). Do not crush, chew, or split. 04/22/2024 Discontinued (Stop taking at discharge) iopamidol (Isovue-370) 76 % injection 75 mL (2 sources) Start: 10-29-2024 End: 10-29-2024 take 75 mL intravenously once as needed 75 mL, IntraVENous, IMG once PRN, contrast, Starting on Mon10/29/24 at 1229, For 1 dose 1 ml ketorolac tromethamine 15 mg/ml cartridge (2 sources) Nonsteroidal Anti-inflammatory Drug, Cyclooxygenase Inhibitor Start: 11-18-2024 End: 11-18-2024 15 mg, IntraVENous, Once, On Mon11/18/24 at 2015, For 1 dose lamoTRIgine 200 mg oral tablet (3 sources) Mood Stabilizer, Anti-epileptic Agent Start: 08-25-2020 End: 09-14-2023 lamoTRIgine (LAMICTAL) 200 mg tablet lanolin 1000 mg/ml topical cream (2 sources) Start: 04-20-2024 End: 04-22-2024 Topical, As needed, dry skin, nipple discomfort, Starting on 04/20/24 at 2050, , Apply to affected area. lithium carbonate 150 mg oral capsule (3 sources) Start: 11-12-2024 End: 12-30-2024 lithium 150 MG capsule 11/12/2024 12/30/2024 Discontinued (Therapy completed) metroNIDAZOLE 500 mg oral tablet (10 sources) Nitroimidazole Antimicrobial Start: 10-29-2024 End: 10-29-2024 take 500 mg by mouth once 500 mg, Oral, Once, On Tu10/29/24 at 1545, For 1 dose, Suspected Indication (Select all that apply): Intra-Abdominal Infection Start: 10-29-2024 End: 11-08-2024 take 1 tablet by mouth three times daily metroNIDAZOLE (Flagyl) 500 MG tablet Take 1 tablet (500 mg) by mouth 3 times daily for 10 days. 30 tablet 10/29/2024 11/08/2024 Active Start: 09-15-2023 End: 09-22-2023 take 1 tablet by mouth twice daily Metronidazole 500 mg tablet Active 500 mg PO TWICE A DAY September 17, 2023 12:00am mineral oil 0.14 mg/mg / petrolatum 0.749 mg/mg / phenylephrine hydrochloride 0.0025 mg/mg rectal ointment (2 sources) alpha-1 Adrenergic Agonist Start: 04-22-2024 End: 04-22-2024 Rectal, 2 times daily PRN, hemorrhoids, Starting on 04/22/24 at 0537 mirtazapine 30 mg oral tablet (2 sources) Start: 08-21-2018 End: 09-17-2023 take 1 tablet by mouth at bedtime Mirtazapine 30 tablet Discontinued 30 mg PO AT BEDTIME August 21, 2018 12:00am September 17, 2023 7:58am mometasone furoate 1 mg/ml topical cream (3 sources) Corticosteroid Start: 04-09-2013 End: 09-14-2023 mometasone 0.1 % cream Indications: Dyshidrotic eczema Apply to areas twice a day. On for 4 days and off for 3 days. Repeat as needed. 15 g 1 04/09/2013 09/14/2023 Discontinued (Patient chooses alternative therapy) 24 hr nicotine 0.583 mg/hr transdermal system (20 sources) Cholinergic Nicotinic Agonist Start: 09-26-2023 End: 11-06-2023 nicotine (Nicoderm, Step 2) 14 MG/24HR patch Indications: High risk due to smoking in first trimester Place 1 patch on the skin Every 24 hours. 30 patch 09/26/2023 11/06/2023 Discontinued (Med list cleanup) Start: 09-26-2023 End: 11-06-2023 nicotine (Nicoderm, Step 3) 7 MG/24HR patch Indications: High risk due to smoking in first trimester Place 1 patch on the skin Every 24 hours. 30 patch 09/26/2023 11/06/2023 Discontinued (Med list cleanup) ondansetron ODT (Zofran-ODT) disintegrating tablet 4 mg (2 sources) Start: 04-20-2024 End: 04-22-2024 take 1 tablet by mouth every eight hours as needed for nausea and vomiting ondansetron ODT (Zofran-ODT) disintegrating tablet 4 mg oxytocin (Pitocin) 30 units in 500 mL infusion (6 sources) Start: 04-20-2024 End: 04-22-2024 125 annmarie-units/min (125 mL/hr), IntraVENous, Continuous PRN, bleeding, Starting on 04/20/24 at 1912, For 48 hours, , For Immediate Post Use Only. Give after delivery of placenta and initial 30 unit bolus. Bag 2 of 2: 125cc/hr (125 mu/min) for an additional infusion of 500cc (30 units). Start: 04-20-2024 End: 04-22-2024 Start: 04-20-2024 End: 04-20-2024 1-20 annmarie-units/min (1-20 m L/hr), IntraVENous, Continuous, Starting on 04/20/24 at 0945, Begin infusion at 1 annmarie-unit/min (1 annmarie-unit per min = 1 mL per hour) and increase by 1 annmarie-unit/min after 30 minutes. Then increase by 2 annmarie-units/min as needed, no faster than every 30 minutes, until labor is achieved. Labor is defined as contractions every 2-3 minutes with cervical changes or [place] units (MVU) greater than 200 in a 10-minute window. Maximum infusion rate: 20 annmarie-unit/min. Contact provider if maximum rate does not achieve desired response. Provider may order alternative titration goal or other clinically appropriate goal of titration rate (s). Smaller titration increments of 1 annmarie-units/min, not faster than every 30 minutes, may be used when approaching therapeutic goal. potassium chloride 20 meq powder for oral solution (8 sources) Start: 11-18-2024 End: 11-18-2024 take 1 [oz_av] by mouth once 40 mEq, Oral, Once, On Mon11/18/24 at 2125, For 1 dose, Dissolve each packet in 4 ounces of water = 5 mEq per 1 oz fluid., Indications: Hypokalemia Start: 02-12-2023 End: 02-15-2023 potassium chloride CR (Klor- Con M10) 10 MEQ ER tablet Take 2 tablets (20 mEq) by mouth daily for 3 days. Do not crush or chew. Do not start before February 12, 2023. 6 tablet 0 02/12/2023 02/15/2023 Active Start: 02-11-2023 End: 02-11-2023 potassium chloride IVPB 10 m Eq Start: 02-11-2023 End: 02-11-2023 potassium chloride (Klor-Con ) packet 60 mEq Vit-Fe Fumarate-FA ( Vitamins) 28-0.8 MG tablet (20 sources) Start: 01-30-2024 End: 11-04-2024 take 1 tablet by mouth once daily Vit-Fe Fumarate-FA ( Vitamins) 28-0.8 MG tablet Take 1 tablet by mouth daily. 90 tablet 11 01/30/2024 11/04/2024 Discontinued Start: 01-30-2024 End: 01-29-2025 take 1 tablet by mouth once daily Vit-Fe Fumarate-FA ( Vitamins) 28-0.8 MG tablet Take 1 tablet by mouth daily. 90 tablet 11 01/30/2024 01/29/2025 Active Start: 10-26-2023 End: 01-25-2024 take 1 tablet by mouth once daily Vit-Fe Fumarate-FA ( Vitamins) 28-0.8 MG tablet Take 1 tablet by mouth daily. 90 tablet 3 10/26/2023 01/25/2024 Discontinued (Reorder) Start: 10-26-2023 End: 10-25-2024 take 1 tablet by mouth once daily Vit-Fe Fumarate-FA ( Vitamins) 28-0.8 MG tablet Take 1 tablet by mouth daily. 90 tablet 3 10/26/2023 10/25/2024 Active vitamin (Prenatabs Rx) 29-1 MG tablet (12 sources) End: 11-06-2023 take 1 tablet by mouth in the morning vitamin (Prenatabs Rx) 29-1 MG tablet Take 1 tablet by mouth in the morning. 11/06/2023 Discontinued (Duplicate order) take 1 tablet by mouth in the mo rning vitamin (Prenatabs Rx) 29-1 MG tablet Take 1 tablet by mouth in the morning. Active promethazine hydrochloride 25 mg oral tablet (3 sources) Phenothiazine Start: 09-06-2020 End: 09-14-2023 take 1 tablet by mouth every eight hours as needed promethazine (PHENERGAN) 25 mg tablet Take 1 tablet by mouth every 8 hours as needed for nausea/vomiting. 9 tablet 0 09/06/2020 09/14/2023 Discontinued (Patient chooses alternative therapy) 50 ml sodium chloride 9 mg/ml injection (4 sources) Start: 11-18-2024 End: 11-18-2024 1,000 mL, IntraVENous, at 1,000 mL/hr, Administer over 1 Hours, Once, On Mon11/18/24 at 2014, For 1 dose Start: 02-11-2023 End: 02-11-2023 sodium chloride 0.9 % bolus 1,000 mL traMADol hydrochloride 50 mg oral tablet (3 sources) Opioid Agonist Start: 06-11-2013 End: 09-14-2023 take 1 tablet by mouth every six hours as needed traMADol (ULTRAM) 50 mg tablet Take 1 tablet by mouth every 6 hours as needed for Pain. 0 06/11/2013 09/14/2023 Discontinued (Patient chooses alternative therapy) 24 hr venlafaxine 150 mg extended release oral capsule (2 sources) Serotonin and Norepinephrine Reuptake Inhibitor Start: 08-21-2018 End: 09-17-2023 take 1 capsule by mouth once daily Venlafaxine 150 MG capsule,extended release 24hr Discontinued 150 mg PO DAILY August 21, 2018 12:00am September 17, 2023 7:58am witch veronica 500 mg/ml medicated pad (2 sources) Start: 04-20-2024 End: 04-22-2024 Topical, As needed, hemorrhoids, For perineal pain or discomfort, Starting on 04/20/24 at 2049, , Apply to perineal area. Patient is capable and may self administer at bedside. Problems Active Problems Problem Classification Problem Date Documented Da te Episodic/Chronic Acute and unspecified renal failure (2 sources) Acute injury of kidney; Translations: [Acute kidney failure, unspecified] 02-11-2023 Episodic Anxiety disorders (7 sources) Posttraumatic stress disorder; Translations: [Post-traumatic stress disorder, unspecified] Onset: 5 11-04-2024 Chronic Calculus of urinary tract (3 sources) Renal pain; Translations: [Unspecified renal colic] Onset: 4 08-29-2023 Episodic Conditions associated with dizziness or vertigo (3 sources) Dizziness; Translations: [Dizziness and giddiness] Onset: 5 11-04-2024 Episodic Contraceptive and procreative management (4 sources) Encounter for initial prescription of contraceptive pills; Translations: [Encounter for sterilization] Onset: Episodic Fluid and electrolyte disorders (4 sources) Hypokalemia; Translations: [Hypokalemia] 02-11-2023 Episodic Genitourinary symptoms and ill-defined conditions (1 source) Increased frequency of urination; Translations: [Frequency of micturition] 12-12-2023 Episodic Hemorrhoids (4 sources) Hemorrhoids; Translations: [Unspecified hemorrhoids] Onset: 5 11-18-2024 Episodic Mood disorders (14 sources) Depressive disorder; Translations: [Depression with suicidal ideation] Onset: 5 11-02-2022 Chronic Mood disorders (20 sources) Mood disorders; Translations: [Depression, unspecified] Onset: 4 09-26-2023 Nausea and vomiting (1 source) Vomiting; Translations: [Vomiting, unspecified] 09-25-2023 Episodic Neoplasms of unspecified nature or uncertain behavior (1 source) Essential thrombocythemia; Translations: [Essential (hemorrhagic) thrombocythemia] 11-15-2024 Chronic Noninfectious gastroenteritis (4 sources) Enteritis of small intestine; Translations: [Noninfective gastroenteritis and colitis, unspecified] Onset: 5 10-29-2024 Episodic Other complications of (2 sources) ultrasound scan abnormal; Translations: [Abnormal ultrasonic finding on screening of mother] 04-01-2024 Episodic Other connective tissue disease (2 sources) Foot pain; Translations: [Pain in unspecified foot] 06-10-2023 Episodic Other female genital disorders (1 source) Vaginal discharge; Translations: [Other specified noninflammatory disorders of vagina] 12-30-2024 Episodic Other female genital disorders (2 sources) Other specified noninflammatory disorders of vagina; Translations: [Other specified noninflammatory disorders of vagina] Onset: Episodic Other gastrointestinal disorders (4 sources) Diarrhea; Translations: [Diarrhea, unspecified] 11-18-2024 Episodic Other gastrointestinal disorders (2 sources) Diarrhea, unspecified; Translations: [Diarrhea, unspecified] Onset: Episodic Other screening for suspected conditions (not mental disorders or infectious disease) (1 source) ultrasound scan abnormal 04-01-2024 Chronic Poisoning by other medications and drugs (2 sources) Accidental furosemide overdose; Translations: [Poisoning by loop [high-ceiling] diuretics, accidental (unintentional), initial encounter] 02-11-2023 Episodic Residual codes; unclassified (1 source) Gestation period, 8 weeks; Translations: [8 weeks gestation of ] 09-14-2023 Episodic Residual codes; unclassified (1 source) Gestation period, 9 weeks; Translations: [9 weeks gestation of ] 09-26-2023 Episodic Residual codes; unclassified (1 source) 10 weeks gestation of ; Translations: [10 weeks gestation of ] Onset: Episodic Residual codes; unclassified (3 sources) Gestation period, 11 weeks; Translations: [11 weeks gestation of ] 10-10-2023 Episodic Residual codes; unclassified (1 source) Gestation period, 15 weeks; Translations: [15 weeks gestation of ] 11-07-2023 Episodic Residual codes; unclassified (1 source) Gestation period, 22 weeks; Translations: [22 weeks gestation of ] 12-26-2023 Episodic Residual codes; unclassified (2 sources) Gestation period, 26 weeks; Translations: [26 weeks gestation of ] 01-23-2024 Episodic Residual codes; unclassified (2 sources) Gestation period, 38 weeks; Translations: [38 weeks gestation of ] 04-16-2024 Episodic Screening and history of mental health and substance abuse codes (7 sources) H/O: depression; Translations: [Personal history of other mental and behavioral disorders] Onset: 4 09-11-2023 Episodic Substance-related disorders (20 sources) Chronic drug abuse; Translations: [Other psychoactive substance abuse, uncomplicated] Onset: 4 11-02-2022 Chronic Unclassified (2 sources) Routine Visit; Translations: [Routine Visit] Onset: 5 Unclassified (1 source) Maternal care for (suspected) central nervous system malformation or damage in fetus, choroid plexus cysts, fetus 1; Translations: [Maternal care for (suspected) central nervous system malformation or damage in fetus, choroid plexus cysts, fetus 1] Onset: 4 Unclassified (1 source) Other underimmunization status; Translations: [Other underimmunization status] Onset: 4 Unclassified (1 source) Maternal care for (suspected) central nervous system malformation or damage in fetus, choroid plexus cysts, not applicable or unspecified; Translations: [Maternal care for (suspected) central nervous system malformation or damage in fetus, choroid plexus cysts, not applicable or unspecified] Onset: 4 Past or Other Problems Problem Classification Problem Date Documented Date Episodic/Chronic Abdominal pain (5 sources) Abdominal pain; Translations: [Unspecified abdominal pain] Onset: 04-16-2024 09-25-2023 Episodic Alcohol-related disorders (20 sources) Alcohol use, unspecified with intoxication, unspecified; Translations: [Acute alcoholic intoxication] Onset: 11-06-2023 11-02-2022 Episodic Immunizations and screening for infectious disease (20 sources) Patient encounter status; Translations: [Encounter for screening for human papillomavirus (HPV)] Onset: 02-05-2024 09-14-2023 Episodic Other complications of ; puerperium affecting management of mother (20 sources) Central nervous system malformation in fetus affecting obstetrical care; Translations: [Choroid plexus cyst of fetus affecting care of mother, antepartum, single or unspecified fetus] Onset: 12-12-2023 12-12-2023 Episodic Other complications of (20 sources) H/O: premature delivery; Translations: [Supervision of other high risk pregnancies, unspecified trimester] Onset: 09-14-2023 Resolved: 12-26-2023 09-14-2023 Episodic Other complications of (20 sources) Trichomonal vaginitis in ; Translations: [Infection of other part of genital tract in , first trimester] Onset: 09-26-2023 09-26-2023 Episodic Other complications of (20 sources) High risk ; Translations: [Smoking (tobacco) complicating , first trimester] Onset: 09-26-2023 09-26-2023 Episodic Other complications of (20 sources) Depressive disorder in mother complicating ; Translations: [Other mental disorders complicating , unspecified trimester] Onset: 09-26-2023 09-26-2023 Episodic Other complications of (20 sources) Rubella non-immune; Translations: [Supervision of other high risk pregnancies, unspecified trimester] Onset: 10-04-2023 10-04-2023 Episodic Other complications of (2 sources) Infections of the genital tract in ; Translations: [Infection of other part of genital tract in , first trimester] Onset: 04-01-2024 10-11-2023 Episodic Other complications of (1 source) Other mental disorders complicating , first trimester; Translations: [Other mental disorders complicating , first trimester] Onset: 2023 Episodic Other complications of (2 sources) Other mental disorders complicating , unspecified trimester; Translations: [Other mental disorders complicating , unspecified trimester] Onset: 09-26-2023 Episodic Other complications of (1 source) Infection of other part of genital tract in , first trimester; Translations: [Infection of other part of genital tract in , first trimester] Onset: 11-07-2023 Episodic Other complications of (2 sources) Abnormal ultrasonic finding on screening of mother; Translations: [Abnormal ultrasonic finding on screening of mother] Onset: 04-01-2024 Episodic Other complications of (2 sources) Supervision of other high risk pregnancies, unspecified trimester; Translations: [Supervision of other high risk pregnancies, unspecified trimester] Onset: 10-04-2023 Episodic Other complications of (2 sources) Smoking (tobacco) complicating , first trimester; Translations: [Smoking (tobacco) complicating , first trimester] Onset: 09-26-2023 Episodic Other infections; including parasitic (20 sources) Infection by Trichomonas; Translations: [Trichomoniasis, unspecified] Onset: 09-15-2023 09-15-2023 Episodic Other infections; including parasitic (2 sources) Trichomonal vulvovaginitis; Translations: [Trichomonal vulvovaginitis] Onset: 04-01-2024 10-11-2023 Episodic Other infections; including parasitic (1 source) Trichomonal vulvovaginitis; Translations: [Trichomonal vulvovaginitis] Onset: 11-07-2023 Episodic Other and delivery including normal (14 sources) with uncertain dates; Translations: [Encounter for supervision of normal , unspecified, first trimester] Onset: 09-14-2023 09-14-2023 Episodic Other screening for suspected conditions (not mental disorders or infectious disease) (3 sources) Cancer cervix screening status; Translations: [Encounter for screening for malignant neoplasm of cervix] Onset: 02-05-2024 09-14-2023 Episodic Other skin disorders (7 sources) Vesicular eczema; Translations: [Dyshidrosis [pompholyx]] Onset: 04-09-2013 04-09-2013 Episodic Residual codes; unclassified (2 sources) Gestation period, 28 weeks; Translations: [28 weeks gestation of ] Onset: 02-05-2024 02-05-2024 Episodic Residual codes; unclassified (4 sources) Gestation period, 30 weeks; Translations: [30 weeks gestation of ] Onset: 02-20-2024 02-20-2024 Episodic Residual codes; unclassified (2 sources) Gestation period, 33 weeks; Translations: [33 weeks gestation of ] Onset: 03-11-2024 03-11-2024 Episodic Residual codes; unclassified (2 sources) Gestation period, 36 weeks; Translations: [36 weeks gestation of ] Onset: 04-01-2024 03-30-2024 Episodic Residual codes; unclassified (2 sources) Gestation period, 37 weeks; Translations: [37 weeks gestation of ] Onset: 04-08-2024 04-08-2024 Episodic Residual codes; unclassified (16 sources) Gestation period, 39 weeks; Translations: [39 weeks gestation of ] Onset: 04-20-2024 04-20-2024 Episodic Residual codes; unclassified (1 source) 39 weeks gestation of ; Translations: [39 weeks gestation of ] Onset: 04-20-2024 Episodic Residual codes; unclassified (1 source) 37 weeks gestation of ; Translations: [37 weeks gestation of ] Onset: 04-08-2024 Episodic Residual codes; unclassified (1 source) 36 weeks gestation of ; Translations: [36 weeks gestation of ] Onset: 04-01-2024 Episodic Residual codes; unclassified (1 source) 33 weeks gestation of ; Translations: [33 weeks gestation of ] Onset: 03-11-2024 Episodic Residual codes; unclassified (1 source) 30 weeks gestation of ; Translations: [30 weeks gestation of ] Onset: 02-20-2024 Episodic Residual codes; unclassified (1 source) 28 weeks gestation of ; Translations: [28 weeks gestation of ] Onset: 02-05-2024 Episodic Unclassified (1 source) Onset: 08-29-2023 08-29-2023 Unclassified (1 source) Maternal care for (suspected) central nervous system malformation or damage in fetus, choroid plexus cysts, fetus 1; Translations: [Maternal care for (suspected) central nervous system malformation or damage in fetus, choroid plexus cysts, fetus 1] Onset: 04-01-2024 Unclassified (1 source) Other underimmunization status; Translations: [Other underimmunization status] Onset: 02-20-2024 Unclassified (1 source) Maternal care for (suspected) central nervous system malformation or damage in fetus, choroid plexus cysts, not applicable or unspecified; Translations: [Maternal care for (suspected) central nervous system malformation or damage in fetus, choroid plexus cysts, not applicable or unspecified] Onset: 02-20-2024 Results Test Name Value Interpretation Reference Range Facil ity 36on 01-23-2025 36 Corrected result Alk Phos on 11/18/2024 should have been 59. This was done at an ER visit. Normal [facility] 36 Name of caller: Roma @ [facility] Contact phone number: [phone] Relationship to Patient: n/a Provider: Melisa Woodard Practice: [facility] Chief Complaint/Reason for Call: Lab had analyzer issues; as result, incorrect testing resulted. Please call Roma for explanation. Best time of day caller can be reached: any Patient advised that office/PCP has 24-48 business hours to return their call: No Normal [facility] Office Visiton 12-30-2024 Follow-up visit [id number] TusharcarynGlenda haskins 1990 F Date Provider Department Center 12/30/2024 [id number] GAY [facility] Family History Problem Relation Age of Onset No Known Problems Paternal Grandfather No Known Problems Paternal Grandmother No Known Problems Maternal Grandmother COPD Maternal Grandfather No Known Problems Father No Known Problems Mother No Known Problems Half-Brother No Known Problems Half-Brother Breast cancer Neg Hx Ovarian cancer Neg Hx Colon cancer Neg Hx Family Status - Relation Status Age at Paternal Grandfather Paternal Grandmother Maternal Grandmother Maternal Grandfather Father Alive Mother Alive Half-Brother Alive Half-Brother Alive Neg Hx Level of Service:36159 [place] PERIODIC PREVENTIVE MED EST PATIENT 18-39 YRS Reason for Visit and Comments: Annual Exam [83] Contraception [60] Normal [facility] Progress Noteon 12-30-2024 Progress Note Glenda Tobar Alonzo er 12/30/2024 34 y.o. Chief Complaint Patient presents with Annual Exam Contraception Primary Care Physician: Melisa Woodard MD HPI: Glenda Craftcarynjozef is a 34 y.o. female here today for annual exam. This is a Established patient patient. Recent c diff infection which has resolved, otherwise has been doing well, No other major medical changes. Having regular MP, feels like they are heavier with small clots and cramping since delivery. Also having some mood changes the week leading up to MP. No LMP recorded. Menses: regular. Flow moderate Intermenstrual bleeding: no Dysmenorrhea:moderate, occurring first 1-2 days of flow Contraception: no method [employer] Complaints: yes Sexually Active: yes Dyspareunia: No STD History: yes Pap smear: NILM in 2023, -HPV Family History: Denies history of breast, colon, ovarian, uterine, prostate or pancreatic cancer. Medical History[1] Surgical History[2] Family History[3] OB History Para Term AB Living 4 4 4 4 SAB IAB Ectopic Multiple Live Births 0 4 # Outcome Date GA Lbr Wesley/2nd Weight Sex Type Anes PTL Lv 4 Term 04/20/24 39w2d / 00:25 6 lb 4.7 oz (2.855 kg) M Vag-Spont None N SHAHZAD 3 Term 04/29/15 40w0d 7 lb 8 oz (3.402 kg) F Vag-Spont None N SHAHZAD 2 Term 01/23/13 37w0d 4 lb 6 oz (1.984 kg) M Vag-Spont None Y SHAHZAD 1 Term 11/24/11 39w0d 7 lb 6 oz (3.345 kg) F Vag-Spont None N SHAHZAD MEDICATIONS: Current Medications[4] ALLERGIES: Allergies as of 12/30/2024 - Reviewed 12/30/2024 Allergen Reaction Noted Penicillins Hives 04/09/2013 REVIEW OF SYSTEMS Review of Systems All other systems reviewed and are negative. PHYSICAL EXAMINATION: BP 114/62 Ht 5' 3 (1.6 m) Wt 147 lb (66.7 kg) No BMI 26.04 kg/m? Physical Exam Vitals and nursing note reviewed. Constitutional: General: She is not in acute distress. Appearance: Normal appearance. She is not toxic-appearing. HENT: Head: Normocephalic and atraumatic. Eyes: Extraocular Movements: Extraocular movements intact. Pulmonary: Effort: Pulmonary effort is normal. No respiratory distress. Abdominal: Palpations: Abdomen is soft. Tenderness: There is no abdominal tenderness. There is no guarding or rebound. Genitourinary: General: Normal vulva. Vagina: Normal. Cervix: Normal. Uterus: Normal. Adnexa: Right adnexa normal and left adnexa normal. Skin: General: Skin is warm and dry. Neurological: General: No focal deficit present. Mental Status: She is alert and oriented to person, place, and time. Psychiatric: Mood and Affect: Mood normal. Behavior: Behavior normal. Thought Content: Thought content normal. ASSESSMENT: 34 y.o. Diagnosis Plan 1. Women's annual routine gynecological examination 2. Vaginal discharge Sureswab(R) Advanced Vaginitis Plus, TMA ([facility]) 3. Encounter for initial prescription of contraceptive pills norgestimate-ethinyl estradiol (Sprintec 28) 0.25-35 MG-MCG tablet PLAN: - Having heavier MP and cramping with mood changes, would like to start on contraception. Will trial on OCPs, rx sent - Pap deferred, NILM in 2023 with neg HPV, sureswab collected for hx STI and increased discharge - Counseled on breast self awareness. - Counseled to exercise at least 30min three times per week. Take a daily multivitamin or 1000 Units of Vit D. - control and barrier recommendations discussed. - STD counseling and prevention reviewed. - Gardisil counseling completed for all patients 9-45 yo. - Routine health maintenance per patients PCP. Follow up in about 1 year (around 12/30/2025) for annual. Orders Placed This Encounter Procedures Sureswab(R) Advanced Vaginitis Plus, TMA ([facility]) [1] Past Medical History: Diagnosis Date Bipolar 1 disorder (HCC) Depression [2] Past Surgical History: Procedure Laterality Date ARM SURGERY (HISTORICAL) Left WISDOM TOOTH EXTRACTION [3] Family History Problem Relation Name Age of Onset No Known Problems Paternal Grandfather No Known Problems Paternal Grandmother No Known Problems Maternal Grandmother COPD Maternal Grandfather No Known Problems Father No Known Problems Mother No Known Problems Half-Brother No Known Problems Half-Brother Breast cancer Neg Hx Ovarian cancer Neg Hx Colon cancer Neg Hx [4] Current Outpatient Medications Medication Sig Dispense Refill sertraline (Zoloft) 25 MG tablet TAKE 1 TABLET BY MOUTH IN THE MORNING AND TAKE 1 TABLET AT BEDTIME lithium 150 MG capsule (Patient not taking: Reported on 11/18/2024) norgestimate-ethinyl estradiol (Sprintec 28) 0.25-35 MG-MCG tablet Take 1 tablet by mouth daily. 28 tablet 12 No current facility-administered medications for this visit. [facility] 36on 12-19-2024 36 Letter uploaded and mychart mssg sent [facility] 36 PT had appt this am that had to be cancelled due to provider being called away and she needs a note for her work stating she had an appt Please place in My Chart and let pt know Thank you Normal [facility] Progress Noteon 11-21-2024 Progress Note Chart reviewed of ED follow up Seen in [facility] ED on 11/19/2024 Reason: Diarrhea Discharge instructions: Result reviewed. Please contact patient, notify her of positive C. difficile result and prescribe oral vancomycin 125 mg orally 4 times daily for 10 days. Upcoming appointment date 11/05/2025 Notes and education provided Called and spoke to patient. Discussed importance of hand washing with warm water and soap, that purell will not work. After using restrooms and before food prep. Pt verbalized understanding and will follow orders completely, spoke with pcp and no follow up needed. Normal [facility] C. difficile toxin genes GREGG +probe Ql (Stl)on 11-19-2024 C. difficile toxin B tcdB gene GREGG+probe Ql (Stl) Detected Abnormal Not Detected [facility] Interpretation and review of laboratory results Abnormal [facility] This test screens fo r possible C. difficile infection. Additional testing is required and has been ordered by Laboratory. See C. difficile Toxins EIA for final results. Additional charges apply. Methodology: Real-time PCR [facility] ECG 12-LEADon 11-19-2024 ECG 12-LEAD IMPRESSION: Sinus rhythm Compared to ECG 02/11/23 Rate has slowed Repol abnormality no longer noted Electronically Signed On 11-19-2024 03:55:49 EDT by Kamille Parr Normal [facility] Gastrointestinal pathogens p joaquin GREGG+probe (Stl)Ordered By: Colleen Barragan on 11-19-2024 Adenovirus F 40/41 Not detected Not Detected [facility] Astrovirus Not detected Not Detected [facility] Campylobacter Not detected Not Detected [facility] ealt Cryptosporidium Not detected Not Detected [facility] Cyclospora cayetanensis Not detected Not Detected [facility] Entamoeba histolytica Not detected Not Detected [facility] Enterotoxigenic E coli (ETEC) Not detected Not Detected [facility] Escherichia coli O157 N/A Not Detected [facility] Giardia lamblia Not detected Not Detected [facility] Interpretation and review of laboratory results Normal [facility] Norovirus GI/GII Not detected Not Detected [facility] Plesiomonas shigelloides Not detected Not Detected [facility] Rotavirus A Not detected [facility] Salmonella Not detected Not Detected [facility] Sapovirus Not detected Not Detected [facility] Shiga toxin-producing E coli (STEC) Not detected Not Detected [facility] Shigella/Enteroinvasi ve E coli (EIEC) Not detected Not Detected [facility] Vibrio cholerae Not detected Not Detected [facility] Vibrio species Not detected Not Detected [facility] Yersinia enterocolitica Not detected Not Detected [facility] A positive Norovirus result on the Film Array GI panel should be interpreted in the context of the patient's history and clinical picture. If results are not consistent, result should be confirmed with a Norovirus specific assay. Methodology: Multiplex PCR [facility] No Panel Informationon 11-19 P [place] 58 degrees [facility] [place] Interval 179 ms [facility] QRS [place] 71 degrees [facility] QRSD Interval 83 ms [facility] h QT Interval 384 ms [facility] QTC Interval 437 ms [facility] T Wave [place] 38 degrees [facility] Sinus rhythm Compared to ECG 02/11/23 Rate has slowed Repol abnormality no longer noted Electronically Signed On 11-19-2024 03:55:49 EDT by Kamille Mclean D O - 11/19/2024 IMPRESSION: Sinus rhythm Compared to ECG 02/11/23 Rate has slowed Repol abnormality no longer noted Electronically Signed On 11-19-2024 03:55:49 EDT by Kamille Parr [facility] Vital signson 11-19-2024 Heart rate 78 /min bpm [facility] C. DIFFICILE BY PCR WITH REF ALEKSANDAR TO EIAon 11-18-2024 C. DIFFICILE BY PCR WITH REFLEX TO EIA C. DIFFICILE TOXIN PCR (A) Reference Detected Not Detected ORDER COMMENTS: (A) This test screens for possible C. difficile infection. Additional testing is required and has been ordered by Laboratory. See C. difficile Toxins EIA for final results. Additional charges apply. Methodology: Real-time PCR Normal [facility] Comment on above: Performed By: #### L [id number], [id number], [id number] #### Security Screener: KAVITA ZAMARRIPA ([phone]) [facility] ([facility]) [address] [place] [address] CBC W Auto Differential pane l (Bld)on 11-18-2024 Basophils (Bld) [#/Vol] 0.1 10*3/uL 0.0 - 0.2 10*3/uL [facility] Basophils/100 WBC (Bld) 0.3 % 0.0 - 2.0 % [facility] Eosinophils (Bld) [#/Vol] 0.1 10*3/uL 0.0 - 0.5 10*3/uL [facility] Eosinophils/100 WBC (Bld) 0.4 % 0.0 - 6.0 % [facility] Erythrocyte distribution width (RBC) [Ratio] 15 % 11.5 - 15.0 % [facility] Hematocrit (Bld) [Volume fraction] 35.4 % 35.0 - 47.0 % [facility] Hemoglobin (Bld) [Mass/Vol] 11.9 g/dL 11.7 - 16.0 g/dL [facility] Immature granulocytes (Bld) [#/Vol] 0.1 10*3/uL High NINF - 0.1 10*3/uL [facility] Immature granulocytes/100 WBC (Bld) 0.4 % 0.0 - 2.0 % [facility] Interpretation and review of laboratory results Abnormal [facility] Lymphocytes (Bld) [#/Vol] 2.1 10*3/uL 1.0 - 4.3 10*3/uL [facility] Lymphocytes/100 WBC (Bld) 12 % Low 15.0 - 45.0 % [facility] MCH (RBC) [Entitic mass] 27.9 pg 26.0 - 34.0 pg [facility] MCHC (RBC) [Mass/Vol] 33.6 % 30.5 - 36.0 % [facility] MCV (RBC) [Entitic vol] 83.1 fL 77.0 - 99.0 fL [facility] Monocytes (Bld) [#/Vol] 1.3 10*3/uL High 0.0 - 0.9 10*3/uL [facility] Monocytes/100 WBC (Bld) 7.5 % 5.0 - 13.0 % [facility] Neutrophils (Bld) [#/Vol] 13.8 10*3/uL High 1.8 - 7.5 10*3/uL [facility] Neutrophils/100 WBC (Bld) 79.4 % 38.0 - 82.0 % [facility] Nucleated RBC/100 WBC (Bld) [Ratio] 0 % [facility] Platelet mean volume (Bld) [Entitic vol] 8.6 fL Low 9.0 - 12.7 fL [facility] Comment on above: MPV is a calculated measurement using platelet volume ratio Platelets (Bld) [#/Vol] 351 10*3/uL 140 - 440 10*3/uL [facility] RBC (Bld) [#/Vol] 4.26 10*6/uL 3.80 - 5.2 0 10*6/uL [facility] WBC (Bld) [#/Vol] 17.4 10*3/uL High 3.6 - 10.7 10*3/uL [facility] CBC WITH AUTO DIFFERENTIALon 11-18-2024 Basophils (Bld) [#/Vol] 0.1 10*3/uL Normal 0.0-0.2 [facility] Comment on above: Performed By: #### L [id number] ####Security Screener: KAVITA ZAMARRIPA ([phone])[facility] YAMILE RITTMAN (SWRLAB)[address] [place] [address] [place] Basophils/100 WBC (Bld) 0.3 % Normal 0.0-2.0 [facility] Comment on above: Performed By: #### L [id number] ####Security Screener: KAVITA ZAMARRIPA ([phone])[facility] [place]AMILE RITTMAN (SWRLAB)[address] [place] [address] [place] Eosinophils (Bld) [#/Vol] 0.1 10*3/uL Normal 0.0-0.5 [facility] Comment on above: Performed By: #### L [id number] ####Security Screener: KAVITA ZAMARRIPA ([phone])[facility] [place]ILE [place]TM[place] (SWRLAB)[address] [place] [address] [place] Eosinophils/100 WBC (Bld) 0.4 % Normal 0.0-6.0 [facility] Comment on above: Performed By: #### L [id number] ####Security Screener: KAVITA ZAMARRIPA ([phone])[facility] [place] (SWRLAB)[address] [place] [address] Erythrocyte distribution width (RBC) [Ratio] 15.0 % Normal 11.5-15.0 [facility] Comment on above: Performed By: #### L [id number] ####Security Screener: KAVITA ZAMARRIPA ([phone])[facility] [place] (SWRLAB)[address] [place] [address] Hematocrit (Bld) [Volume fraction] 35.4 % Normal 35.0-47.0 [facility] Comment on above: Performed By: #### L [id number] ####Security Screener: KAVITA ZAMARRIPA ([id number])[facility] [place] (SWRLAB)[address] [place] [address] Hemoglobin (Bld) [Mass/Vol] 11.9 g/dL Normal 11.7-16.0 [facility] Comment on above: Performed By: #### L [id number] ####Security Screener: KAVITA ZAMARRIPA ([phone])[facility] [place] (SWRLAB)[address] [place] [address] IMMATURE GRANS % 0.4 % Normal 0.0-2.0 [facility] Comment on above: Performed By: #### L [id number] ####Security Screener: KAVITA ZAMARRIPA ([phone])[facility] [place] (SWRLAB)[address] [place] [address] IMMATURE GRANS ABSOLUTE 0.1 10*3/uL High <0.1 [facility] Comment on above: Performed By: #### L [id number] ####Security Screener: KAVITA ZAMARRIPA ([phone])[facility] [place] (SWRLAB)[address] [place] [address] Lymphocytes (Bld) [#/Vol] 2.1 10*3/uL Normal 1.0-4.3 [facility] Comment on above: Performed By: #### L [id number] ####Security Screener: KAVITA ZAMARRIPA ([phone])[facility] [place] (SWRLAB)[address] [place] [address] [place] Lymphocytes/100 WBC (Bld) 12.0 % Low 15.0-45.0 [facility] Comment on above: Performed By: #### L [id number] ####Security Screener: KAVITA ZAMARRIPA ([phone])[facility] [place] (SWRLAB)[address] [place] [address] MCH (RBC) [Entitic mass] 27.9 pg Normal 26.0-34.0 [facility] Comment on above: Performed By: #### L [id number] ####Security Screener: KAVITA ZAMARRIPA ([id number])[facility] [place] (SWRLAB)[address] [place] [address] MCHC 33.6 % Normal 30.5-36.0 [facility] Comment on above: Performed By: #### L [id number] ####Security Screener: KAVITA ZAMARRIPA ([phone])[facility] [place] (SWRLAB)[address] [place] [address] MCV (RBC) [Entitic vol] 83.1 fL Normal 77.0-99.0 [facility] Comment on above: Performed By: #### L [id number] ####Security Screener: KAVITA ZAMARRIPA ([phone])[facility] [place] (SWRLAB)[address] [place] [address] [place] Monocytes (Bld) [#/Vol] 1.3 10*3/uL High 0.0-0.9 [facility] Comment on above: Performed By: #### L [id number] ####Security Screener: KAVITA ZAMARRIPA ([phone])[facility] [place] (SWRLAB)[address] [place] [address] [place] Monocytes/100 WBC (Bld) 7.5 % Normal 5.0-13.0 [facility] Comment on above: Performed By: #### L [id number] ####Security Screener: KAVITA ZAMARRIPA ([phone])[facility] [place] (SWRLAB)[address] [place] [address] NEUTROPHILS ABSOLUTE 13.8 10*3/uL High 1.8-7.5 [facility] Comment on above: Performed By: #### L [id number] ####Security Screener: KAVITA ZAMARRIPA ([phone])[facility] [place] (SWRLAB)[address] [place] [address] Neutrophils/100 WBC (Bld) 79.4 % Normal 38.0-82.0 [facility] Comment on above: Performed By: #### L [id number] ####Security Screener: KAVITA ZAMARRIPA ([phone])[facility] [place] (SWRLAB)[address] [place] [address] NRBC 0.0 /100 WBCs Normal 0.0-2.0 [facility] Comment on above: Performed By: #### L [id number] ####Security Screener: KAVITA ZAMARRIPA ([phone])[facility], INCAntonieta OVALLE RITTMAN (SWRLAB)[address] [place] [address] Platelet mean volume (Bld) [Entitic vol] 8.6 fL Low 9.0-12.7 [facility] Comment on above: Result Comment: MPV is a calculated measurement using platelet volume ratio Performed By: #### L [id number] ####Security Screener: KAVITA ZAMARRIPA ([phone])[facility], INCAntonieta PAZYAMILE RITTMAN (SWRLAB)[address] [place] [address] [place] Platelets (Bld) [#/Vol] 351 10*3/uL Normal 140-440 [facility] Comment on above: Performed By: #### L [id number] ####Security Screener: KAVITA ZAMARRIPA ([phone])[facility], INCAntonieta OVALLE RITTMAN (SWRLAB)[address] [place] [address] [place] RBC (Bld) [#/Vol] 4.26 10*6/uL Normal 3.80-5.20 [facility] Comment on above: Performed By: #### L [id number] ####Security Screener: KAVITA ZAMARRIPA ([phone])[facility], INCAntonieta OVALLE RITTMAN (SWRLAB)[address] WBC (Bld) [#/Vol] 17.4 10*3/uL High 3.6-10.7 [facility] Comment on above: Performed By: #### L [id number] ####Security Screener: KAVITA ZAMARRIPA ([phone])[facility], INCAntonieta OVALLE RITTMAN (SWRLAB)[address] [place] [address] COMPLETE URINALYSIS WITH REF ALEKSANDAR TO CULTURE 11-18-2024 BILIRUBIN, TOTAL PRESENCE IN URINE Negative Normal Negative [facility] Comment on above: Performed By: #### L [id number] ####Security Screener: KAVITA ZAMARRPIA ([phone])[facility] INCAntonieta OVALLE RITTMAN (SWRLAB)[address] [place] [address] Clarity (U) Clear Normal Clear [facility] Comment on above: Performed By: #### L [id number] ####Security Screener: KAVITA ZAMARRIPA ([phone])[facility] INCAntonieta PAZYAMILE RITTMAN (SWRLAB)[address] [place] [address] Color (U) Colorless Normal Lt. Yellow [facility] Comment on above: Performed By: #### L [id number] ####Security Screener: KAVITA ZAMARRIPA ([phone])[facility] INCAntonieta PAZYAMILE RITTMAN (SWRLAB)[address] [place] [address] GLUCOSE (MG/DL) IN URINE Normal Normal Normal (<70) [facility] Comment on above: Performed By: #### L [id number] ####Security Screener: KAVITA ZAMARRIPA ([phone])[facility] INCA YAMILE RITTMAN (SWRLAB)[address] [place] [address] [place] HEMOGLOBIN PRESENCE IN URINE Negative Normal Negative [facility] Comment on above: Performed By: #### L [id number] ####Security Screener: KAVITA ZAMARRIPA ([phone])[facility], INCAntonieta OVALLE RITTMAN (SWRLAB)[address] [place] [address] [place] Ketones Ql (U) Negative Normal Negative [facility] Comment on above: Performed By: #### L [id number] ####Security Screener: KAVITA ZAMARRIPA ([phone])[facility] INCAntonieta OVALLE RITTMAN (SWRLAB)[address] [place] [address] LEUKOCYTE ESTERASE PRESENCE IN URINE BY TEST STRIP Negative Normal Negative [facility] Comment on above: Performed By: #### L [id number] ####Security Screener: KAVITA ZAMARRIPA ([phone])[facility], INCAntonieta O[place]LE RITTMAN (SWRLAB)[address] [place] [address] NITRITE PRESENCE IN URINE Negative Normal Negative [facility] Comment on above: Performed By: #### L [id number] ####Security Screener: KAVITA ZAMRARIPA ([phone])[facility] INCAntonieta OVALLE RITTMAN (SWRLAB)[address] [place] [address] pH (U) 5.0 [pH] Normal 5.0-8.0 [facility] Comment on above: Performed By: #### L [id number] ####Security Screener: KAVITA ZAMARRIPA ([phone])[facility], INCAntonieta OVALLE RITTMAN (SWRLAB)[address] [place] [address] [place] Protein (U) [Mass/Vol] Negative Normal Negative [facility] Comment on above: Performed By: #### L [id number] ####Security Screener: KAVITA ZAMARRIPA ([phone])[facility] INCAntonieta OVALLE RITTMAN (SWRLAB)[address] [place] [address] Specific gravity (U) [Rel density] 1.005 Normal 1.005-1.030 [facility] Comment on above: Result Comment: ORDE R COMMENTS: A specimen with <=10 WBC is not consistent with inflammation. This specimen will not reflex to a urine culture. Performed By: #### L [id number] ####Security Screener: KAVITA ZAMARRIPA ([phone])[facility] INCAntonieta OVALLE RITTMAN (SWRLAB)[address] [place] [address] UROBILINOGEN (MG/DL) IN URINE Normal Normal Normal (0-1) [facility] Comment on above: Performed By: #### L [id number] ####Security Screener: KAVITA ZAMARRIPA ([phone])[facility] YAMILE RITTMAN (SWRLAB)[address] [place] [address] COMPREHENSIVE METABOLIC PANE Arnold 11-18-2024 Albumin [Mass/Vol] 3.7 g/dL Normal 3.5-5.0 [facility] Comment on above: Performed By: #### Raquel WHALEN, [id number], [id number] ####Security Screener: KAVITA ZAMARRIPA ([phone])[facility], INCAntonieta YAMILE RITTMAN (SWRLAB)[address] [place] [address] ALP [Catalytic activity/Vol] 59 U/L Normal 40-150 [facility] Comment on above: Result Comment: Indra ected result: Previously reported as 589 U/L (reference range: 40-150 U/L) on 11/18/2024 at 2107 EDT. Performed By: #### Raquel WHALEN, [id number], [id number] ####Security Screener: KAVITA ZAMARRIPA ([phone])[facility], INCAntonieta YAMILE RITTMAN (SWRLAB)[address] [place] [address] ALT [Catalytic activity/Vol] 18 U/L Normal <30 [facility] Comment on above: Performed By: #### Raquel LYN99, [id number], [id number] ####Security Screener: KAVITA ZAMARRIPA ([phone])[facility] YAMILE RITTMAN (SWRLAB)[address] [place] [address] Anion gap [Moles/Vol] 8 mmol/L Normal 3-13 [facility] Comment on above: Performed By: #### L AB99, [id number], [id number] ####Security Screener: KAVITA ZAMARRIPA ([id number])[facility], INCAntonieta OVALLE RITTMAN (SWRLAB)[address] AST [Catalytic activity/Vol] 23 U/L Normal <34 [facility] Comment on above: Performed By: #### Raquel AB99, [id number], LAB17 ####Security Screener: KAVITA ZAMARRIPA ([id number])[facility] INCA YAMILE RITTMAN (SWRLAB)[address] Bilirubin [Mass/Vol] 0.3 mg/dL Normal <1.2 [facility] Comment on above: Performed By: #### Raquel LYN99, [id number], LAB17 ####Security Screener: KAVITA ZAMARRIPA ([phone])[facility] IN[facility] YAMILE RITTMAN (SWRLAB)[address] [place] [address] Calcium [Mass/Vol] 9.0 mg/dL Normal 8.4-10.2 [facility] Comment on above: Performed By: #### Raquel LYN99, [id number], LAB17 ####Security Screener: KAVITA ZAMARRIPA ([phone])[facility], INCAntonieta PAZYAMILE RITTMAN (SWRLAB)[address] [place] [address] [place] Chloride [Moles/Vol] 108 mmol/L High 98-107 [facility] Comment on above: Performed By: #### L AB99, [id number], LAB17 ####Security Screener: KAVITA ZAMARRIPA ([phone])[facility] INCAntonieta PAZYAMILE RITTMAN (SWRLAB)[address] [place] [address] [place] CO2 [Moles/Vol] 23 mmol/L Normal 22-29 [facility] Comment on above: Performed By: #### L AB99, [id number], LAB17 ####Security Screener: KAVITA ZAMARRIPA ([phone])[facility] IN[facility] YAMILE RITTMAN (SWRLAB)[address] [place] [address] [place] Creatinine [Mass/Vol] 0.74 mg/dL Normal 0.57-1.11 [facility] Comment on above: Performed By: #### L AB99, [id number], LAB17 ####Security Screener: KAVITA ZAMARRIPA ([id number])[facility], INCAntonieta SHAHTMAN (SWRLAB)[address] [place] [address] GLOMERULAR FILTRATION RATE ML/MIN/1.73 SQ M.PREDICTED >90.0 Normal >60.0 [facility] Comment on above: Result Comment: Calc ulation based on the Chronic Kidney Disease Epidemiology Collaboration (CKD-EPI) equation refit without adjustment for race Performed By: #### L AB99, [id number], LAB17 ####Security Screener: KAVITA ZAMARRIPA ([phone])[facility], INCAntonieta ORELLANAAN (SWRLAB)[address] [place] [address] [place] Glucose [Mass/Vol] 106 mg/dL High 74-100 [facility] Comment on above: Performed By: #### L AB99, [id number], LAB17 ####Security Screener: KAVITA ZAMARRIPA ([phone])[facility] INCAntonieta ORELLANAAN (SWRLAB)[address] [place] [address] [place] Potassium [Moles/Vol] 3.3 mmol/L Low 3.5-5.1 [facility] Comment on above: Result Comment: [facility] potassium values may be up to 0.5 mmol/L lower than serum values. Performed By: #### L AB99, [id number], LAB17 ####Security Screener: KAVITA ZAMARRIPA ([phone])[facility] INCAntonieta SHAHTMAN (SWRLAB)[address] [place] [address] [place] Protein [Mass/Vol] 7.1 g/dL Normal 6.4-8.3 [facility] Comment on above: Performed By: #### L AB99, [id number], LAB17 ####Security Screener: KAVITA ZAMARRIPA ([id number])[facility] YAMILE SHAHTMAN (SWRLAB)[address] Sodium [Moles/Vol] 139 mmol/L Normal 136-145 [facility] Comment on above: Performed By: #### L AB99, [id number], LAB17 ####Security Screener: KAVITA ZAMARRIPA ([id number])[facility] PABLOT[facility] (SWRLAB)[address] Urea nitrogen [Mass/Vol] 8 mg/dL Normal 8-21 [facility] Comment on above: Performed By: #### L AB99, [id number], LAB17 ####Security Screener: KAVITA ZAMARRIPA ([phone])[facility] PABLOTMAN (SWRLAB)[address] Comprehensive metabolic 1998 panelon 11-18-2024 Albumin [Mass/Vol] 3.7 g/dL 3.5 - 5.0 g/dL [facility] ALP [Catalytic activity/Vol] 589 U/L High 40 - 150 U/L [facility] ALT [Catalytic activity/Vol] 18 U[facility] Anion gap [Moles/Vol] 8 mmol/L 3 - 13 mmol/L [facility] AST [Catalytic activity/Vol] 23 U/L [facility] - [facility] U/L [facility] Bilirubin [Mass/Vol] 0.3 mg/dL [facility] 1.[facility] mg/dL [facility] Calcium [Mass/Vol] 9 mg/dL 8.4 - 10. 2 mg/dL [facility] Chloride [Moles/Vol] 108 mmol/L High 98 - 107 mmol/L [facility] CO2 [Moles/Vol] 23 mmol/L 22 - 29 mmol/L [facility] Creatinine [Mass/Vol] 0.74 mg/dL 0.57 - 1.11 mg/dL [facility] GFR/1.73 sq M.predicted (S/P/Bld) [Vol rate/Area] - PINF [facility] Comment on above: Calculation based on the Chronic Kidney Disease Epidemiology Collaboration (CKD-EPI) equation refit without adjustment for race Glucose [Mass/Vol] 106 mg/dL High 74 - 100 mg/dL [facility] Interpretation and review of laboratory results Abnormal [facility] Potassium [Moles/Vol] 3.3 mmol/L Low 3.5 - 5.1 mmol/L [facility] Comment on above: Plasma potassium jason ues may be up to 0.5 mmol/L lower than serum values. Protein [Mass/Vol] 7.1 g/dL 6.4 - 8.3 g/dL [facility] Sodium [Moles/Vol] 139 mmol/L 136 - 145 mmol/L [facility] Urea nitrogen [Mass/Vol] 8 mg/dL 8 - 21 mg/dL [facility] ED Nursing Noteon 11-18-2024 ED Nursing Note Pt to ER with complaint of lower abd pain and painful urination x 5 days. Pt seen recently for enteritis and took antibiotics which she states dehydrated her. Started taking lithium salts after finishing her antibiotic. States this was causing her problems and she stopped taking it. Now having lower abd pressure and pain with urination states she is not sure if it is related to the enteritis, or hemorrhoids or if something else is going on. Pt to bathroom to obtain urine specimen. Call light in reach. Normal [facility] ED Provider Noteon ED Provider Note Emergency Department Encounter [facility] ED Patient: Glenda Lara : 1990 Date of Evaluation: 11/18/2024 ED Provider: Kamille Parr DO Chief Complaint Chief Complaint Patient presents with Abdominal Pain Painful urination x 5 days SUN'AQ Glenda Lara is a 34 y.o. female who presents to the emergency department complaining of abdominal pain. Patient reports pain in the abdomen. She reported to triage nursing that she was having pain with urination. However she tells me that she is having issues with diarrhea. It seems she was seen in the emergency department for some abdominal pain, underwent CT scan and was found to have colitis. She was started on ciprofloxacin and Flagyl. She states she developed diarrhea a few days later. She followed up with her doctor following completion of the antibiotics and that she was started on lithium for bipolar disorder. She had diarrhea and discussed that so they actually stopped the lithium thinking this was a side effect of the medication. Patient continues to have diarrhea. She has developed hemorrhoids. She does have persistent abdominal pain. Additional history obtained from : n/a Barriers to obtaining history from patient: n/a ROS: Review of Systems completed as follows: (Bold = positive, Not bold = negative) GENERAL: fevers, chills, malaise NEURO: weakness, numbness of tingling, headache CARDIOVASCULAR: chest pain, syncope PULMONARY: shortness of breath, cough, wheezing GASTROINTESTINAL: nausea, vomiting, abdominal pain, diarrhea, constipation, MUSCULOSKELETAL: pain GENITAL/URINARY: dysuria, hematuria, increased urinary frequency, hesitancy, flank pain SKIN: rash, lesions, wound Past History Medical History[1] Surgical History[2] Social History[3] I have reviewed the history above as provided by nursing notes. Medications/Allergies Discharge Medication List as of 11/18/2024 10:08 PM CONTINUE these medications which have NOT CHANGED Details lithium 150 MG capsule Historical Med sertraline (Zoloft) 25 MG tablet TAKE 1 TABLET BY MOUTH IN THE MORNING AND TAKE 1 TABLET AT BEDTIME, Historical Med Allergies[4] I have reviewed the history above as provided by nursing notes. Physical Exam ED Triage Vitals Temp Heart Rate Resp BP 11/18/24195311/18/24195311/18/24195311/18/241953 36.7 ?C (98 ?F) 84 16 122/82 SpO2 Temp Source Heart Rate Source Patient Position 11/18/24195311/18/24195311/18/24 2221 11/18/241953 97 % Oral Monitor Sitting BP Location FiO2 (%) 11/18/241953 -- Right arm GENERAL: The patient appears nourished and normally developed. Vital signs as documented. EYES: PERRL. No scleral icterus or orbital trauma noted. HEENT: Mucous membranes moist. Nares patent without copious rhinorrhea. LUNGS: Lungs are clear to auscultation, without any respiratory distress. CARDIAC: Rhythm is regular. No murmur appreciated ABDOMEN: Mild diffuse tenderness, soft, with no obvious masses, and no peritoneal signs. Rectal examination performed with nurse at bedside. At the 8 o'clock position there is a small nonthrombosed hemorrhoid that is tender to palpation. No obvious bleeding. EXTREMITIES: Non edematous, with no obvious deformities. SKIN: Good color, with no significant rashes. No pallor. NEURO: No obvious neurological deficits, normal sensation and strength bilaterally. Diagnostics Labs: Results for orders placed or performed during the hospital encounter of 11/18/24 ECG 12 lead Collection Time: 11/18/24 8:22 PM Result Value Ref Range Heart Rate 78 bpm QRSD Interval 83 ms QT Interval 384 ms QTC Interval 437 ms P [place] 58 degrees QRS [place] 71 degrees T Wave [place] 38 degrees [place] Interval 179 ms Urinalysis Complete with reflex to Culture Collection Time: 11/18/24 8:24 PM Result Value Ref Range Color, Urine Colorless Lt. Yellow Clarity, Urine Clear Clear pH, Urine 5.0 5.0 - 8.0 pH Leukocytes, Urine Negative Negative Elena/uL Nitrite, Urine Negative Negative Protein, Urine Negative Negative mg/dL Glucose, Urine Normal Normal (<70) mg/dL Bilirubin, Urine Negative Negative mg/dL Ketones, Urine Negative Negative mg/dL Urobilinogen, Urine Normal Normal (0-1) mg/dL Blood, Urine Negative Negative mg/dL SPECIFIC GRAVITY OF URINE (NUMERIC) 1.005 1.005 - 1.030 hCG, urine, qualitative Collection Time: 11/18/24 8:24 PM Result Value Ref Range HCG,URINE QUAL Negative Negative CBC auto differential Collection Time: 11/18/24 8:30 PM Result Value Ref Range Auto WBC 17.4 (H) 3.6 - 10.7 10*3/uL RBC 4.26 3.80 - 5.20 10*6/uL Hemoglobin 11.9 11.7 - 16.0 g/dL Hematocrit 35.4 35.0 - 47.0 % MCV 83.1 77.0 - 99.0 fL MCH 27.9 26.0 - 34.0 pg MCHC 33.6 30.5 - 36.0 % RDW 15.0 11.5 - 15.0 % Platelets 351 140 - 440 10*3/uL MPV 8.6 (L) 9.0 - 12.7 fL nRBC 0.0 0.0 - 2.0 /100 WBCs Neutrophils Relative 79.4 38.0 - 82.0 % Lymphocytes Re (more content not included)... Normal [facility] GASTROINTESTINAL PCR PANELon 11-18-2024 GASTROINTESTINAL PCR PANEL CAMPYLOBACTER Reference Not Detected Not Detected PLESIOMONAS SHIGELLOIDES Reference Not Detected Not Detected SALMONELLA Reference Not Detected Not Detected VIBRIO SPECIES Reference Not Detected Not Detected VIBRIO CHOLERAE Reference Not Detected Not Detected YERSINIA ENTEROCOLITICA Reference Not Detected Not Detected ENTEROTOXIGENIC E COLI (ETEC) Reference Not Detected Not Detected SHIGA TOXIN-PRODUCING E COLI (STEC) Reference Not Detected Not Detected ESCHERICHIA COLI O157 Reference N/A Not Detected SHIGELLA/ENTEROINVASIV E E COLI (EIEC) Reference Not Detected Not Detected CRYPTOSPORIDIUM Reference Not Detected Not Detected CYCLOSPORA CAYETANENSIS Reference Not Detected Not Detected ENTAMOEBA HISTOLYTICA Reference Not Detected Not Detected GIARDIA LAMBLIA Reference Not Detected Not Detected ADENOVIRUS F 40/41 Reference Not Detected Not Detected ASTROVIRUS Reference Not Detected Not Detected NOROVIRUS GI/GII Reference Not Detected Not Detected ROTAVIRUS A Reference Not Detected Not Detected SAPOVIRUS Reference Not Detected Not Detected ORDER COMMENTS: A positive Norovirus result on the Film Array GI panel should be interpreted in the context of the patient's history and clinical picture. If results are not consistent, result should be confirmed with a Norovirus specific assay. Methodology: Multiplex PCR Normal [facility] Comment on above: Performed By: #### L [id number], [id number], [id number] #### Security Screener: KAVITA ZAMARRIPA ([phone]) [facility] ([facility]) [address] [place] [address] HCG QUALITATIVE URINEon 11-01 Beta HCG ( test) Ql (U) Negative Normal Negative [facility] Comment on above: Result Comment: Plea se note: Very dilute urine specimens, as indicated by a low specific gravity, may not contain desk representative levels of hCG. If is still suspected, a first morning urine specimen should be collected 48 hours later and tested. ORDER COMMENTS: is the most common reason for HCG in urine, although choriocarcinoma, hydatidiform mole, and certain nontrophoblastic malignancies also result in detectable urinary HCG levels. Sensitivity = 20mIU/mL. Performed By: #### L [id number] ####Security Screener: KAVITA ZAMARRIPA ([phone])[facility] (SWRLAB)[address] [place] [address] HIGH SENSITIVITY TROPONIN, S ERIAL BASELINEon 11-18-2024 TROPONIN HS SERIAL BASELINE <3 Normal <=14 [facility] Comment on above: Result Comment: In i ndividuals presenting with symptoms > 2h, a baseline troponin <= 5 ng/L suggests acute cardiac injury is unlikely and further serial testing is generally not indicated. Performed By: #### L AB99, [id number], LAB17 ####Security Screener: KAVITA ZAMARRIPA ([phone])[facility] (RLAB)[address] [place] [address] LAB ONLY - C DIFF EIAon 11-01 LAB ONLY - C DIFF EIA C DIFFICILE TOXINS A+B, EIA Reference Negative Negative ORDER COMMENTS: Results indicate colonization with C. Difficile. Correlate with clinical data and/or consider other causes for symptoms. Methodology: Enzyme Immunoassay Normal [facility] Comment on above: Performed By: #### L [id number], [id number], [id number] #### Security Screener: KAVITA ZAMARRIPA ([phone]) [facility] ([facility]) [address] [place] [address] LIPASEon 11-18-2024 Lipase [Catalytic activity/Vol] 81 U/L High <55 [facility] Comment on above: Performed By: #### L AB99, [id number], LAB17 ####Security Screener: KAVITA ZAMARRIPA ([phone])[facility] (RL[facility])[address] [place] [address] Laboratory - Chemistry and C hemistry - challengeon 11-18-2024 Lipase [Catalytic activity/Vol] 81 U/L High NINF - 55 U/L [facility] Laboratory - Chemistry and C hemistry - challengeOrdered By: Nevin Saul on 11-18-2024 Beta HCG ( test) Ql Negative Negative [facility] Comment on above: Please note: Very di lute urine specimens, as indicated by a low specific gravity, may not contain desk representative levels of hCG. If is still suspected, a first morning urine specimen should be collected 48 hours later and tested. Beta HCG ( test) Ql (U) is the most common reason for HCG in urine, although choriocarcinoma, hydatidiform mole, and certain nontrophoblastic malignancies also result in detectable urinary HCG levels. Sensitivity = 20mIU/mL. [facility] Lipase [Catalytic activity/V ol]on 11-18-2024 Interpretation and review of laboratory results Abnormal [facility] No Panel Informationon 11-18 Interpretation and review of laboratory results Normal [facility] Troponin HS Serial Baseline ng/L NINF - 14 ng/L [facility] Comment on above: In individuals prese nting with symptoms > 2h, a baseline troponin <= 5 ng/L suggests acute cardiac injury is unlikely and further serial testing is generally not indicated. [facility] No Panel InformationOrdered By: Nevin Saul on 11-18-2024 [facility] Urinalysis complete panel (U )on 11-18-2024 Bilirubin Ql (U) Negative Negative mg/dL [facility] Clarity (U) Clear Clear [facility] Color (U) Colorless Lt. Yellow [facility] Glucose Ql (U) Normal Normal (<70) mg/dL [facility] Hemoglobin Ql (U) Negative Negative mg/dL [facility] Interpretation and review of laboratory results Normal [facility] Ketones (U) [Mass/Vol] Negative Negative mg/dL [facility] Leukocyte esterase Test strip Ql (U) Negative Negative Elena/uL [facility] Nitrite Ql (U) Negative Negative [facility] th pH (U) 5.0 [pH] 5.0 - 8.0 pH [facility] Protein (U) [Mass/Vol] Negative Negative mg/dL [facility] Specific gravity (U) [Rel density] 1.005 1.005 - 1.030 [facility] Urobilinogen (U) [Mass/Vol] Normal Normal (0-1) mg/dL [facility] A specimen with <=10 WBC is not consistent with inflammation. This specimen will not reflex to a urine culture. [facility] XR Chest Single viewon 11-18 1. No acute finding. Report Dictated on Electronically Signed By: Melisa Levi MD Electronically Signed Date/Time: 11/18/2024 8:45 PM EDT [facility] RAD[facility]Y [facility] Patient Name: GLENDA LARA : 1990 Exam Date/Time: 11/18/2024 20:28 Procedure: XR CHEST 1 VIEW Ordering Provider: PARR DUSTIN Reason For Exam: shortness of breath SINGLE FRONTAL VIEW OF THE CHEST CLINICAL INDICATION: shortness of breath TECHNIQUE: Single frontal view of the chest COMPARISON: None FINDINGS: Lungs show no significant consolidation. No pleural effusion or pneumothorax. No vascular congestion. Heart size normal. [facility] Melisa Levi MD - 11/18/2024 Patient Name: GLENDA LARA : 1990 Exam Date/Time: 11/18/2024 20:28 Procedure: XR CHEST 1 VIEW Ordering Provider: PARR DUSTIN Reason For Exam: shortness of breath SINGLE FRONTAL VIEW OF THE CHEST CLINICAL INDICATION: shortness of breath TECHNIQUE: Single frontal view of the chest COMPARISON: None FINDINGS: Lungs show no significant consolidation. No pleural effusion or pneumothorax. No vascular congestion. Heart size normal. IMPRESSION: 1. No acute finding. Report Dictated on Electronically Signed By: Melisa Levi MD Electronically Signed Date/Time: 11/18/2024 8:45 PM EDT [facility] Radiology Study observation (narrative) [facility] XR Chest Single viewOrdered By: Melisa Levi on 11-18-2024 [facility] Work Phone: [phone] 11-15-2024 36 Message released to patient as written. Labs are good Please contact patient and let her know I have reordered some blood work her platelets were a bit elevated. Patient's further questions if applicable: no Were all questions from office addressed or relayed to the patient from encounter: Yes Normal [facility] 36 Left message for patient to call onto the office to go over lab results Normal [facility] 36 ----- Message from MONICA Fuentes CNP sent at 11/15/2024 8:41 AM EDT ----- Please contact patient and let her know I have reordered some blood work her platelets were a bit elevated. ----- Message ----- From: Albina Rivas Lab Results In Sent: 11/15/2024 4:22 AM EDT To: MONICA Leonardo CNP Normal [facility] Office Visiton 11-04-2024 Follow-up visit [id number] Glenda Lara 1990 F Date Provider Department Center 11/04/2024 [id number] ARCHER [facility] Family History Problem Relation Age of Onset No Known Problems Paternal Grandfather No Known Problems Paternal Grandmother No Known Problems Maternal Grandmother COPD Maternal Grandfather No Known Problems Father No Known Problems Mother No Known Problems Half-Brother No Known Problems Half-Brother Breast cancer Neg Hx Ovarian cancer Neg Hx Colon cancer Neg Hx Family Status - Relation Status Age at Paternal Grandfather Paternal Grandmother Maternal Grandmother Maternal Grandfather Father Alive Mother Alive Half-Brother Alive Half-Brother Alive Neg Hx Level of Service:96224 [place] INITIAL PREVENTIVE MEDICINE NEW PT AGE 18-39YRS Reason for Visit and Comments: Annual Exam [83] - Wellness visit Dizziness [172285] - Was seen in ED for Enterisit, present today with dizziness and fatigue Normal [facility] Progress Noteon 11-04-2024 Progress Note . [facility] [address] [facility] [address] [place] [address] Dept: [phone] Dept Visit type: Established Reason for Visit: Annual Exam (Wellness visit ) and Dizziness (Was seen in ED for Enterisit, present today with dizziness and fatigue ) Assessment and Plan Patient has been counseled on and is up to date on immunizations and age appropriate screening or has refused. Encouraged avoidance of tobacco and alcohol, safe sex practices, eat a healthy diet with plenty of vegetables, whole grains, and lean proteins. Exercise 3-5 times per week for 30-45 minutes, wear seatbelts, sunscreen. Dizziness - acute Labs ordered. Will follow-up with results once available. Depression - stable Followed by psychiatry 1. Routine general medical examination at a health care facility 2. Dizziness - CBC auto differential - Comprehensive metabolic panel - TSH - Vitamin D Deficiency Screening (Vit D 25) - Vitamin B12 3. Recurrent major depressive disorder, remission status unspecified (HCC) Follow up in about 1 year (around 11/04/2025). Subjective This is a 34-year-old female history significant for major depression, PTSD, adjustment disorder, polysubstance abuse today for annual exam. Depression/PTSD Patient currently taking sertraline 100 mg daily as prescribed by her psychiatrist. Ports stable mood no thoughts of self-harm no thoughts of SI. Dizziness Reports episodes of dizziness from time to time. She states episodes are not severe and do resolve spontaneously. Review of Systems Respiratory: Negative. Cardiovascular: Negative. Gastrointestinal: Negative. Endocrine: Negative for polyuria. Genitourinary: Negative. Musculoskeletal: Negative. Skin: Negative. Neurological: Positive for dizziness. Allergies[1] Current Medications[2] Medical History[3] Social History Tobacco Use Smoking status: Every Day Current packs/day: 0.50 Average packs/day: 0.5 packs/day for 17.0 years (8.5 ttl pk-yrs) Types: Cigarettes Smokeless tobacco: Never Substance Use Topics Alcohol use: Not Currently Surgical History[4] Family History[5] Objective BP 117/75 Pulse 68 Ht 5' 3 (1.6 m) Wt 145 lb (65.8 kg) SpO2 97% BMI 25.69 kg/m? Physical Exam Vitals reviewed. Constitutional: Appearance: Normal appearance. Cardiovascular: Rate and Rhythm: Normal rate and regular rhythm. Heart sounds: Normal heart sounds. Pulmonary: Effort: Pulmonary effort is normal. Breath sounds: Normal breath sounds. Musculoskeletal: General: Normal range of motion. Neurological: General: No focal deficit present. Mental Status: She is alert. Psychiatric: Mood and Affect: Mood normal. Data Reviewed and Summarized Labs: Imaging/Testing: Néstor Archer APRN - [facility] [1] Allergies Allergen Reactions Penicillins Hives [2] Current Outpatient Medications Medication Sig Dispense Refill ciprofloxacin (Cipro) 500 MG tablet Take 1 tablet (500 mg) by mouth 2 times daily for 10 days. 20 tablet 0 metroNIDAZOLE (Flagyl) 500 MG tablet Take 1 tablet (500 mg) by mouth 3 times daily for 10 days. 30 tablet 0 sertraline (Zoloft) 25 MG tablet TAKE 1 TABLET BY MOUTH IN THE MORNING AND TAKE 1 TABLET AT BEDTIME No current facility-administered medications for this visit. [3] Past Medical History: Diagnosis Date Bipolar 1 disorder (HCC) Depression [4] Past Surgical History: Procedure Laterality Date ARM SURGERY (HISTORICAL) Left WISDOM TOOTH EXTRACTION [5] Family History Problem Relation Name Age of Onset No Known Problems Paternal Grandfather No Known Problems Paternal Grandmother No Known Problems Maternal Grandmother COPD Maternal Grandfather No Known Problems Father No Known Problems Mother No Known Problems Half-Brother No Known Problems Half-Brother Breast cancer Neg Hx Ovarian cancer Neg Hx Colon cancer Neg Hx Normal [facility] CBC W Auto Differential pane l (Bld)on 10-29-2024 Basophils (Bld) [#/Vol] 0.1 10*3/uL 0.0 - 0.2 10*3/uL [facility] Basophils/100 WBC (Bld) 0.5 % 0.0 - 2.0 % [facility] Eosinophils (Bld) [#/Vol] 0.1 10*3/uL 0.0 - 0.5 10*3/uL [facility] Eosinophils/100 WBC (Bld) 0.5 % 0.0 - 6.0 % [facility] Erythrocyte distribution width (RBC) [Ratio] 15 % 11.5 - 15.0 % [facility] Hematocrit (Bld) [Volume fraction] 39.2 % 35.0 - 47.0 % [facility] Hemoglobin (Bld) [Mass/Vol] 13.1 g/dL 11.7 - 16.0 g/dL [facility] Immature granulocytes (Bld) [#/Vol] 0 10*3/uL NINF - 0.1 10*3/uL [facility] Immature granulocytes/100 WBC (Bld) 0.3 % 0.0 - 2.0 % [facility] Interpretation and review of laboratory results Abnormal [facility] Lymphocytes (Bld) [#/Vol] 2.2 10*3/uL 1.0 - 4.3 10*3/uL [facility] Lymphocytes/100 WBC (Bld) 19.4 % 15.0 - 45.0 % [facility] MCH (RBC) [Entitic mass] 27.9 pg 26.0 - 34.0 pg [facility] MCHC (RBC) [Mass/Vol] 33.4 % 30.5 - 36.0 % [facility] MCV (RBC) [Entitic vol] 83.4 fL 77.0 - 99.0 fL [facility] Monocytes (Bld) [#/Vol] 0.6 10*3/uL 0.0 - 0.9 10*3/uL [facility] Monocytes/100 WBC (Bld) 5.4 % 5.0 - 13.0 % [facility] Neutrophils (Bld) [#/Vol] 8.5 10*3/uL High 1.8 - 7.5 10*3/uL [facility] Neutrophils/100 WBC (Bld) 73.9 % 38.0 - 82.0 % [facility] Nucleated RBC/100 WBC (Bld) [Ratio] 0 % [facility] Platelet mean volume (Bld) [Entitic vol] 8.3 fL Low 9.0 - 12.7 fL [facility] Comment on above: MPV is a calculated measurement using platelet volume ratio Platelets (Bld) [#/Vol] 378 10*3/uL 140 - 440 10*3/uL [facility] RBC (Bld) [#/Vol] 4.7 10*6/uL 3.80 - 5.2 0 10*6/uL [facility] WBC (Bld) [#/Vol] 11.6 10*3/uL High 3.6 - 10.7 10*3/uL [facility] CBC WITH AUTO DIFFERENTIALon 10-29-2024 Basophils (Bld) [#/Vol] 0.1 10*3/uL Normal 0.0-0.2 [facility] Comment on above: Performed By: #### L [id number] ####Security Screener: KAVITA ZAMARRIPA ([phone])[facility] [place] (RLAB)[address] [place] [address] Basophils/100 WBC (Bld) 0.5 % Normal 0.0-2.0 [facility] Comment on above: Performed By: #### L [id number] ####Security Screener: KAVITA ZAMARRIPA ([phone])[facility] [place] (SWRLAB)[address] [place] [address] [place] Eosinophils (Bld) [#/Vol] 0.1 10*3/uL Normal 0.0-0.5 [facility] Comment on above: Performed By: #### L [id number] ####Security Screener: KAVITA ZAMARRIPA ([phone])[facility] [place] (SWRLAB)[address] [place] [address] Eosinophils/100 WBC (Bld) 0.5 % Normal 0.0-6.0 [facility] Comment on above: Performed By: #### L [id number] ####Security Screener: KAVITA ZAMARRIPA ([phone])[facility] [place] (SWRLAB)[address] [place] [address] Erythrocyte distribution width (RBC) [Ratio] 15.0 % Normal 11.5-15.0 [facility] Comment on above: Performed By: #### L [id number] ####Security Screener: KAVITA ZAMARRIPA ([phone])[facility] [place] (SWRLAB)[address] [place] [address] Hematocrit (Bld) [Volume fraction] 39.2 % Normal 35.0-47.0 [facility] Comment on above: Performed By: #### L [id number] ####Security Screener: KAVITA ZAMARRIPA ([phone])[facility]Anton[facility] [place] (SWRL[place])[address] [place] [address] Hemoglobin (Bld) [Mass/Vol] 13.1 g/dL Normal 11.7-16.0 [facility] Comment on above: Performed By: #### L [id number] ####Security Screener: KAVITA ZAMARRIPA ([phone])[facility] [place] (SWRL[place])[address] [place] [address] IMMATURE GRANS % 0.3 % Normal 0.0-2.0 [facility] Comment on above: Performed By: #### L [id number] ####Security Screener: KAVITA ZAMARRIPA ([phone])[facility] [place] (SWRL[place])[address] [place] [address] IMMATURE GRANS ABSOLUTE 0.0 10*3/uL Normal <0.1 [facility] Comment on above: Performed By: #### L [id number] ####Security Screener: KAVITA ZAMARRIPA ([phone])[facility] [place] (SWRL[place])[address] [place] [address] Lymphocytes (Bld) [#/Vol] 2.2 10*3/uL Normal 1.0-4.3 [facility] Comment on above: Performed By: #### L [id number] ####Security Screener: KAVITA ZAMARRIPA ([phone])[facility] [place] (SWRL[place])[address] [place] [address] Lymphocytes/100 WBC (Bld) 19.4 % Normal 15.0-45.0 [facility] Comment on above: Performed By: #### L [id number] ####Security Screener: KAVITA ZAMARRIPA ([phone])[facility] INCAnton[facility] [place] (SWRL[place])[address] [place] [address] MCH (RBC) [Entitic mass] 27.9 pg Normal 26.0-34.0 [facility] Comment on above: Performed By: #### L [id number] ####Security Screener: KAVITA ZAMARRIPA ([phone])[facility] [place] (SWRLAB)[address] [place] [address] MCHC 33.4 % Normal 30.5-36.0 [facility] Comment on above: Performed By: #### L [id number] ####Security Screener: KAVITA ZAMARRIPA ([phone])[facility] [place] (SWRL[place])[address] [place] [address] MCV (RBC) [Entitic vol] 83.4 fL Normal 77.0-99.0 [facility] Comment on above: Performed By: #### L [id number] ####Security Screener: KAVITA ZAMARRIPA ([phone])[facility] [place] (SWRL[place])[address] [place] [address] Monocytes (Bld) [#/Vol] 0.6 10*3/uL Normal 0.0-0.9 [facility] Comment on above: Performed By: #### L [id number] ####Security Screener: KAVITA ZAMARRIPA ([phone])[facility] [place] (SWRL[place])[address] [place] [address] [place] Monocytes/100 WBC (Bld) 5.4 % Normal 5.0-13.0 [facility] Comment on above: Performed By: #### L [id number] ####Security Screener: KAVITA ZAMARRIPA ([phone])[facility]Anton[facility] [place] (SWRLAB)[address] [place] [address] NEUTROPHILS ABSOLUTE 8.5 10*3/uL High 1.8-7.5 [facility] Comment on above: Performed By: #### L [id number] ####Security Screener: KAVITA ZAMARRIPA ([phone])[facility]Anton[facility] [place] (SWRL[place])[address] [place] [address] Neutrophils/100 WBC (Bld) 73.9 % Normal 38.0-82.0 [facility] Comment on above: Performed By: #### L [id number] ####Security Screener: KAVITA ZAMARRIPA ([phone])[facility] INCAnton[facility] [place] (SWRL[place])[address] [place] [address] [place] NRBC 0.0 /100 WBCs Normal 0.0-2.0 [facility] Comment on above: Performed By: #### L [id number] ####Security Screener: KAVITA ZAMARRIPA ([phone])[facility]Anton[facility] [place] (SWRL[place])[address] [place] [address] Platelet mean volume (Bld) [Entitic vol] 8.3 fL Low 9.0-12.7 [facility] Comment on above: Result Comment: MPV is a calculated measurement using platelet volume ratio Performed By: #### L [id number] ####Security Screener: KAVITA ZAMARRIPA ([phone])[facility] [place] (SWRL[place])[address] [place] [address] [place] Platelets (Bld) [#/Vol] 378 10*3/uL Normal 140-440 [facility] Comment on above: Performed By: #### L [id number] ####Security Screener: KAVITA ZAMARRIPA ([phone])[facility] (SWRLAB)[address] RBC (Bld) [#/Vol] 4.70 10*6/uL Normal 3.80-5.20 [facility] Comment on above: Performed By: #### L [id number] ####Security Screener: KAVITA ZAMARRIPA ([phone])[facility] [place] (SWRLAB)[address] [place] [address] [place] WBC (Bld) [#/Vol] 11.6 10*3/uL High 3.6-10.7 [facility] Comment on above: Performed By: #### L [id number] ####Security Screener: KAVITA ZAMARRIPA ([phone])[facility] [place] (SWRLAB)[address] [place] [address] COMPLETE URINALYSIS WITH REF ALEKSANDAR TO CULTUREon 10-29-2024 BACTERIA (#/HPF) IN URINE Few Abnormal Negative [facility] Comment on above: Performed By: #### L [id number] ####Security Screener: KAVITA ZAMARRIPA ([phone])[facility] [place] (SWRLAB)[address] [place] [address] BILIRUBIN, TOTAL PRESENCE IN URINE Negative Normal Negative [facility] Comment on above: Performed By: #### L [id number] ####Security Screener: KAVITA ZAMARRIPA ([id number])[facility] [place] (SWRLAB)[address] Clarity (U) Slightly Cloudy Abnormal Clear [facility] Comment on above: Performed By: #### L [id number] ####Security Screener: KAVITA ZAMARRIPA ([phone])[facility] [place] (SWRLAB)[address] [place] [address] [place] Color (U) Dark Yellow Abnormal Lt. Yellow [facility] Comment on above: Performed By: #### L [id number] ####Security Screener: KAVITA ZAMARRIPA ([phone])[facility] [place] (SWRLAB)[address] [place] [address] [place] GLUCOSE (MG/DL) IN URINE Normal Normal Normal (<70) [facility] Comment on above: Performed By: #### L [id number] ####Security Screener: KAVITA ZAMARRIPA ([phone])[facility] [place] (SWRLAB)[address] [place] [address] HEMOGLOBIN PRESENCE IN URINE Negative Normal Negative [facility] Comment on above: Performed By: #### L [id number] ####Security Screener: KAVITA ZAMARRIPA ([id number])[facility] [place] (SWRLAB)[address] [place] [address] [place] Ketones Ql (U) Negative Normal Negative [facility] Comment on above: Performed By: #### L [id number] ####Security Screener: KAVITA ZAMARRIPA ([id number])[facility] [place] (SWRLAB)[address] [place] [address] [place] LEUKOCYTE ESTERASE PRESENCE IN URINE BY TEST STRIP Negative Normal Negative [facility] Comment on above: Performed By: #### L [id number] ####Security Screener: KAVITA ZAMARRIPA ([id number])[facility] [place] (SWRLAB)[address] [place] [address] [place] MUCUS (#/LPF) IN URINE SEDIMENT Few Normal Negative [facility] Comment on above: Performed By: #### L [id number] ####Security Screener: KAVITA ZAMARRIPA ([id number])[facility] [place] (SWRL[place])[address] [place] [address] [place] NITRITE PRESENCE IN URINE Negative Normal Negative [facility] Comment on above: Performed By: #### L [id number] ####Security Screener: KAVITA ZAMARRIPA ([id number])[facility] [place] (SWRL[place])[address] [place] [address] [place] NON-SQUAMOUS EPITHELIAL (#/HPF) IN URINE 0-2 Abnormal Negative [facility] Comment on above: Performed By: #### L [id number] ####Security Screener: KAVITA ZAMARRIPA ([phone])[facility] [place] (SWRL[place])[address] [place] [address] [place] pH (U) 6.0 [pH] Normal 5.0-8.0 [facility] Comment on above: Performed By: #### L [id number] ####Security Screener: KAVITA ZAMARRIPA ([id number])[facility] [place] (SWRL[place])[address] [place] [address] Protein (U) [Mass/Vol] 20 mg/dL Abnormal Negative [facility] Comment on above: Performed By: #### L [id number] ####Security Screener: KAVITA ZAMARRIPA ([id number])[facility] [place] (SWRL[place])[address] [place] [address] [place] RBC (#/HPF) IN URINE SEDIMENT 0-2 Normal 0-2 [facility] Comment on above: Performed By: #### L [id number] ####Security Screener: KAVITA ZAMARRIPA ([phone])[facility] [place] (SWRL[place])[address] [place] [address] Specific gravity (U) [Rel density] 1.029 Normal 1.005-1.030 [facility] Comment on above: Result Comment: ORDE R COMMENTS: A specimen with <=10 WBC is not consistent with inflammation. This specimen will not reflex to a urine culture. Performed By: #### L [id number] ####Security Screener: KAVITA ZAMARRIPA ([id number])[facility] [place] (SWRL[place])[address] [place] [address] [place] Specimen volume (U) 12 mL Normal [facility] Comment on above: Performed By: #### L [id number] ####Security Screener: KAVITA ZAMARRIPA ([id number])[facility] [place] (SWRL[place])[address] SQUAMOUS EPITHELIAL CELLS (#/HPF) IN URINE SEDIMENT 3-5 Normal 3-5 [facility] Comment on above: Performed By: #### L [id number] ####Security Screener: KAVITA ZAMARRIPA ([id number])[facility] [place] (SWRL[place])[address] UROBILINOGEN (MG/DL) IN URINE 3 mg/dL Abnormal Normal (0-1) [facility] Comment on above: Performed By: #### L [id number] ####Security Screener: KAVITA ZAMARRIPA ([phone])[facility] [place] (SWRLAB)[address] [place] [address] WBC (LEUKOCYTE) (#/HPF) IN URINE SEDIMENT 0-2 Normal 0-5 [facility] Comment on above: Performed By: #### L [id number] ####Security Screener: KAVITA ZAMARRIPA ([phone])[facility] [place] (SWRLAB)[address] [place] [address] COMPREHENSIVE METABOLIC PANE Arnold 10-29-2024 Albumin [Mass/Vol] 3.9 g/dL Normal 3.5-5.0 [facility] Comment on above: Performed By: #### L [id number], LAB17 ####Security Screener: KAVITA ZAMARRIPA ([phone])[facility] [place] (SWRL[place])[address] ALP [Catalytic activity/Vol] 130 U/L Normal 40-150 [facility] Comment on above: Performed By: #### L AB99, LAB17 ####Security Screener: KAVITA ZAMARRIPA ([phone])[facility] [place] (SWRL[place])[address] [place] [address] [place] ALT [Catalytic activity/Vol] 13 U/L Normal <30 [facility] Comment on above: Performed By: #### L AB99, LAB17 ####Security Screener: KAVITA ZAMARRIPA ([id number])[facility] [place] (SWRL[place])[address] Anion gap [Moles/Vol] 8 mmol/L Normal 3-13 [facility] Comment on above: Performed By: #### L AB99, LAB17 ####Security Screener: KAVITA ZAMARRIPA ([id number])[facility] [place] (SWRLAB)[address] AST [Catalytic activity/Vol] 24 U/L Normal <34 [facility] Comment on above: Performed By: #### L AB99, LAB17 ####Security Screener: KAVITA ZAMARRIPA ([id number])[facility] [place] (SWRLAB)[address] [place] [address] [place] Bilirubin [Mass/Vol] 0.6 mg/dL Normal <1.2 [facility] Comment on above: Performed By: #### L 99, LAB17 ####Security Screener: KAVITA ZAMARRIPA ([phone])[facility] [place] (SWRLAB)[address] [place] [address] [place] Calcium [Mass/Vol] 9.0 mg/dL Normal 8.4-10.2 [facility] Comment on above: Performed By: #### L AB99, LAB17 ####Security Screener: KAVITA ZAMARRIPA ([id number])[facility] [place] (SWRLAB)[address] [place] [address] [place] Chloride [Moles/Vol] 107 mmol/L Normal 98-107 [facility] Comment on above: Performed By: #### L AB99, LAB17 ####Security Screener: KAVITA ZAMARRIPA ([phone])[facility], INCAntonieta PAZYAMILE RITTMAN (SWRLAB)[address] [place] [address] [place] CO2 [Moles/Vol] 24 mmol/L Normal 22-29 [facility] Comment on above: Performed By: #### L AB99, LAB17 ####Security Screener: KAVITA ZAMARRIPA ([phone])[facility], INCAntonieta OVALLE RITTMAN (SWRLAB)[address] [place] [address] [place] Creatinine [Mass/Vol] 0.81 mg/dL Normal 0.57-1.11 [facility] Comment on above: Performed By: #### L AB99, LAB17 ####Security Screener: KAVITA ZAMARRIPA ([phone])[facility], INCAntonieta OVALLE RITTMAN (SWRLAB)[address] [place] [address] [place] GLOMERULAR FILTRATION RATE ML/MIN/1.73 SQ M.PREDICTED >90.0 Normal >60.0 [facility] Comment on above: Result Comment: Calc ulation based on the Chronic Kidney Disease Epidemiology Collaboration (CKD-EPI) equation refit without adjustment for race Performed By: #### L AB99, LAB17 ####Security Screener: KVAITA ZAMARRIPA ([phone])[facility], INCAntonieta OVALLE RITTMAN (SWRLAB)[address] [place] [address] [place] Glucose [Mass/Vol] 86 mg/dL Normal 74-100 [facility] Comment on above: Performed By: #### L AB99, LAB17 ####Security Screener: KAVITA ZAMARRIPA ([phone])[facility], INCAntonieta OVALLE RITTMAN (SWRLAB)[address] [place] [address] [place] Potassium [Moles/Vol] 4.0 mmol/L Normal 3.5-5.1 [facility] Comment on above: Result Comment: [facility] potassium values may be up to 0.5 mmol/L lower than serum values. Performed By: #### L AB99, LAB17 ####Security Screener: KAVITA ZAMARRIPA ([phone])[facility], INCAntonieta OVALLE RITTMAN (SWRLAB)[address] [place] [address] [place] Protein [Mass/Vol] 7.7 g/dL Normal 6.4-8.3 [facility] Comment on above: Performed By: #### L AB99, LAB17 ####Security Screener: KAVITA ZAMARRIPA ([phone])[facility], INCAntonieta OVALLE RITTMAN (SWRLAB)[address] [place] [address] Sodium [Moles/Vol] 139 mmol/L Normal 136-145 [facility] Comment on above: Performed By: #### L AB99, LAB17 ####Security Screener: KAVITA ZAMARRIPA ([phone])[facility], INCAntonieta OVALLE RITTMAN (SWRLAB)[address] [place] [address] Urea nitrogen [Mass/Vol] 12 mg/dL Normal 8-21 [facility] Comment on above: Performed By: #### L AB99, LAB17 ####Security Screener: KAVITA ZAMARRIPA ([phone])[facility], INCAntonieta SHAHTMAN (SWRLAB)[address] [place] [address] CT ABDOMEN PELVIS W CONTRAST on 10-29-2024 CT ABDOMEN PELVIS W CONTRAST Patient Name: GLENDA LARA : 1990 Exam Date/Time: 10/29/2024 13:30 Procedure: CT ABDOMEN PELVIS W CONTRAST Ordering Provider: MENDOZA AUSTIN Reason For Exam: RLQ pain CT ABDOMEN AND PELVIS WITH CONTRAST CLINICAL INDICATION: RLQ pain TECHNIQUE: Axial CT images through the abdomen and pelvis with 3 mm reconstruction following dynamic intravenous infusion of 75 mL of Isovue-370 intravenous contrast media. Enteric contrast was not administered. Coronal and sagittal reconstructions included. Dose reduction was employed with automated exposure control. COMPARISON: None FINDINGS: Limitations: Examination is limited for evaluation of the gastrointestinal tract due to lack of oral contrast. Lung base: No significant abnormality within the visualized lung bases. Liver: Probable hepatic steatosis. Gallbladder/Biliary tree: Gallbladder appears within normal limits. No intra or extrahepatic biliary ductal dilatation Spleen: No significant abnormality detected. Pancreas: Homogeneous without adjacent stranding or other significant abnormality. Adrenals: No discrete mass or nodule detected. Kidneys/pelvic organs: Kidneys symmetrically enhance. Slight asymmetric fullness of the right greater than left renal collecting system without obstructing calculus. No nephrolithiasis. Urinary bladder appears within normal limits. Mild asymmetric enlargement of the right adnexa in relation to the left. Questionable small uterine fibroids. GI tract: No dilated loops of small bowel. There are several fluid-filled loops of small bowel which demonstrate questionable slight wall thickening including the terminal ileum. Normal appendix. A few colonic diverticula without acute diverticulitis. Peritoneal cavity/retroperitoneum : No pneumatosis or pneumoperitoneum. Trace pelvic ascites. No suspicious bulky adenopathy. Vasculature: Normal caliber abdominal aorta. There is slight localized dilatation involving portions of the main portal vein, likely incidental. Osseous structures/soft tissues: No acute osseous abnormality or aggressive appearing osseous lesion. Mild degenerative spondylosis in the visualized spine. Mild degenerative changes in the sacroiliac joints. IMPRESSION: 1. Questionable low-grade enteritis/ileitis. 2. Normal appendix. 3. Mild asymmetric enlargement of the right adnexa in relation to the left. This is of unclear clinical significance. Further evaluation with ultrasound could be considered. 4. Trace pelvic ascites Report Dictated on Electronically Signed By: Ramiro Castellanos MD Electronically Signed Date/Time: 10/29/2024 2:28 PM EDT ABDOMEN PAIN X 1 DAY Normal [facility] CT Abdomen and Pelvis W cont rast Katty 10-29-2024 1. Questionable low-grade enteritis/ileitis. 2. Normal appendix. 3. Mild asymmetric enlargement of the right adnexa in relation to the left. This is of unclear clinical significance. Further evaluation with ultrasound could be considered. 4. Trace pelvic ascites Report Dictated on Electronically Signed By: Ramiro Castellanos MD Electronically Signed Date/Time: 10/29/2024 2:28 PM EDT [facility] Patient Name: GLENDA LARA : 1990 Exam Date/Time: 10/29/2024 13:30 Procedure: CT ABDOMEN PELVIS W CONTRAST Ordering Provider: MENDOZA AUSTIN Reason For Exam: RLQ pain CT ABDOMEN AND PELVIS WITH CONTRAST CLINICAL INDICATION: RLQ pain TECHNIQUE: Axial CT images through the abdomen and pelvis with 3 mm reconstruction following dynamic intravenous infusion of 75 mL of Isovue-370 intravenous contrast media. Enteric contrast was not administered. Coronal and sagittal reconstructions included. Dose reduction was employed with automated exposure control. COMPARISON: None FINDINGS: Limitations: Examination is limited for evaluation of the gastrointestinal tract due to lack of oral contrast. Lung base: No significant abnormality within the visualized lung bases. Liver: Probable hepatic steatosis. Gallbladder/Biliary tree: Gallbladder appears within normal limits. No intra or extrahepatic biliary ductal dilatation Spleen: No significant abnormality detected. Pancreas: Homogeneous without adjacent stranding or other significant abnormality. Adrenals: No discrete mass or nodule detected. Kidneys/pelvic organs: Kidneys symmetrically enhance. Slight asymmetric fullness of the right greater than left renal collecting system without obstructing calculus. No nephrolithiasis. Urinary bladder appears within normal limits. Mild asymmetric enlargement of the right adnexa in relation to the left. Questionable small uterine fibroids. GI tract: No dilated loops of small bowel. There are several fluid-filled loops of small bowel which demonstrate questionable slight wall thickening including the terminal ileum. Normal appendix. A few colonic diverticula without acute diverticulitis. Peritoneal cavity/retroperitoneum : No pneumatosis or pneumoperitoneum. Trace pelvic ascites. No suspicious bulky adenopathy. Vasculature: Normal caliber abdominal aorta. There is slight localized dilatation involving portions of the main portal vein, likely incidental. Osseous structures/soft tissues: No acute osseous abnormality or aggressive appearing osseous lesion. Mild degenerative spondylosis in the visualized spine. Mild degenerative changes in the sacroiliac joints. [facility] Tawana Castellanos MD - 10/29/2024 [facility] 1990 [id number] Exam Date/Time: 10/29/2024 13:30 Procedure: CT ABDOMEN PELVIS W CONTRAST Ordering Provider: MENDOZA AUSTIN Reason For Exam: RLQ pain CT ABDOMEN AND PELVIS WITH CONTRAST CLINICAL INDICATION: RLQ pain TECHNIQUE: Axial CT images through the abdomen and pelvis with 3 mm reconstruction following dynamic intravenous infusion of 75 mL of Isovue-370 intravenous contrast media. Enteric contrast was not administered. Coronal and sagittal reconstructions included. Dose reduction was employed with automated exposure control. COMPARISON: None FINDINGS: Limitations: Examination is limited for evaluation of the gastrointestinal tract due to lack of oral contrast. Lung base: No significant abnormality within the visualized lung bases. Liver: Probable hepatic steatosis. Gallbladder/Biliary tree: Gallbladder appears within normal limits. No intra or extrahepatic biliary ductal dilatation Spleen: No significant abnormality detected. Pancreas: Homogeneous without adjacent stranding or other significant abnormality. Adrenals: No discrete mass or nodule detected. Kidneys/pelvic organs: Kidneys symmetrically enhance. Slight asymmetric fullness of the right greater than left renal collecting system without obstructing calculus. No nephrolithiasis. Urinary bladder appears within normal limits. Mild asymmetric enlargement of the right adnexa in relation to the left. Questionable small uterine fibroids. GI tract: No dilated loops of small bowel. There are several fluid-filled loops of small bowel which demonstrate questionable slight wall thickening including the terminal ileum. Normal appendix. A few colonic diverticula without acute diverticulitis. Peritoneal cavity/retroperitoneum : No pneumatosis or pneumoperitoneum. Trace pelvic ascites. No suspicious bulky adenopathy. Vasculature: Normal caliber abdominal aorta. There is slight localized dilatation involving portions of the main portal vein, likely incidental. Osseous structures/soft tissues: No acute osseous abnormality or aggressive appearing osseous lesion. Mild degenerative spondylosis in the visualized spine. Mild degenerative changes in the sacroiliac joints. IMPRESSION: 1. Questionable low-grade enteritis/ileitis. 2. Normal appendix. 3. Mild asymmetric enlargement of the right adnexa in relation to the left. This is of unclear clinical significance. Further evaluation with ultrasound could be considered. 4. Trace pelvic ascites Report Dictated on Electronically Signed By: Ramiro Castellanos MD Electronically Signed Date/Time: 10/29/2024 2:28 PM EDT [facility] Radiology Study observation (narrative) [facility] CT Abdomen and Pelvis W cont rast IVOrdered By: Tawana Castellanos on 10-29-2024 [facility] Work Phone: Comprehensive metabolic 1998 panelon 10-29-2024 Albumin [Mass/Vol] 3.9 g/dL 3.5 - 5.0 g/dL [facility] ALP [Catalytic activity/Vol] 130 U/L 40 - 150 U/L [facility] ALT [Catalytic activity/Vol] 13 U/L NINF - 30 U/L [facility] Anion gap [Moles/Vol] 8 mmol/L 3 - 13 mmol/L [facility] AST [Catalytic activity/Vol] 24 U/L NINF - 34 U/L [facility] Bilirubin [Mass/Vol] 0.6 mg/dL NINF - 1.2 mg/dL [facility] Calcium [Mass/Vol] 9 mg/dL 8.4 - 10. 2 mg/dL [facility] Chloride [Moles/Vol] 107 mmol/L 98 - 107 mmol/L [facility] CO2 [Moles/Vol] 24 mmol/L 22 - 29 mmol/L [facility] Creatinine [Mass/Vol] 0.81 mg/dL 0.57 - 1.11 mg/dL [facility] GFR/1.73 sq M.predicted (S/P/Bld) [Vol rate/Area] - PINF [facility] Comment on above: Calculation based on the Chronic Kidney Disease Epidemiology Collaboration (CKD-EPI) equation refit without adjustment for race Glucose [Mass/Vol] 86 mg/dL 74 - 100 mg/dL [facility] Potassium [Moles/Vol] 4 mmol/L 3.5 - 5.1 mmol/L [facility] Comment on above: Plasma potassium jason ues may be up to 0.5 mmol/L lower than serum values. Protein [Mass/Vol] 7.7 g/dL 6.4 - 8.3 g/dL [facility] Sodium [Moles/Vol] 139 mmol/L 136 - 145 mmol/L [facility] Urea nitrogen [Mass/Vol] 12 mg/dL 8 - 21 mg/dL [facility] ED Nursing Noteon 10-29-2024 ED Nursing Note Attempted IV and blo od draw x 2 without success. Normal [facility] ED Provider Noteon ED Provider Note EMERGENCY DEPARTMENT ENCOUNTER Pt Name: Glenda Lara Birthdate 1990 Date of evaluation: 10/29/2024 ED Provider: Cherrie Mendoza MD CHIEF COMPLAINT Chief Complaint Patient presents with Abdominal Pain X 1 day HISTORY OF PRESENT ILLNESS (Location/Symptom, Timing/Onset, Context/Setting, Quality, Duration, Modifying Factors, Severity) Note limiting factors. I wore appropriate PPE for the entirety of this encounter. HPI Glenda Lara is a 34 y.o. who presents to the emergency department with right lower quadrant abdominal pain, no fevers, history of ruptured ovarian cyst in the past, no dysuria or hematuria Nursing Notes were reviewed. Limitations to history: None Outside historians: None REVIEW OF SYSTEMS Review of Systems Pertinent positives and negatives as per HPI PAST MEDICAL HISTORY Medical History[1] SURGICAL HISTORY Surgical History[2] CURRENT MEDICATIONS Current Discharge Medication List CONTINUE these medications which have NOT CHANGED Details Vit-Fe Fumarate-FA ( Vitamins) 28-0.8 MG tablet Take 1 tablet by mouth daily. Qty: 90 tablet, Refills: 11 sertraline (Zoloft) 25 MG tablet TAKE 1 TABLET BY MOUTH IN THE MORNING AND TAKE 1 TABLET AT BEDTIME ALLERGIES Penicillins FAMILY HISTORY Family History[3] SOCIAL HISTORY Social History[4] PHYSICAL EXAM ED Triage Vitals [10/29/24 1221] Temp Heart Rate Resp BP 36.7 ?C (98.1 ?F) 91 16 126/68 SpO2 Temp Source Heart Rate Source Patient Position 97 % Temporal Monitor Sitting BP Location FiO2 (%) Right arm -- Physical Exam Tenderness in the periumbilical and right lower quadrant areas over McBurney's point, no peritoneal signs, no guarding, no CVA tenderness to percussion, heart regular rate and rhythm, lungs clear to auscultation bilaterally DIAGNOSTIC RESULTS RADIOLOGY (Per Emergency Physician): Interpretation per the Radiologist below, if available at the time of this note: US pelvis transvaginal Final Result 1. No acute pelvic abnormality. 2. Subtle intramural uterine fibroids. Report Dictated on Electronically Signed By: Jaqueline Méndez MD Electronically Signed Date/Time: 10/29/2024 3:[address] abdomen pelvis w contrast Final Result 1. Questionable low-grade enteritis/ileitis. 2. Normal appendix. 3. Mild asymmetric enlargement of the right adnexa in relation to the left. This is of unclear clinical significance. Further evaluation with ultrasound could be considered. 4. Trace pelvic ascites Report Dictated on Electronically Signed By: Ramiro Castellanos MD Electronically Signed Date/Time: 10/29/2024 2:28 PM EDT LABS: Labs Reviewed CBC WITH AUTO DIFFERENTIAL - Abnormal Result Value Auto WBC 11.6 (*) RBC 4.70 Hemoglobin 13.1 Hematocrit 39.2 MCV 83.4 MCH 27.9 MCHC 33.4 RDW 15.0 Platelets 378 MPV 8.3 (*) nRBC 0.0 Neutrophils Relative 73.9 Lymphocytes Relative 19.4 Monocytes Relative 5.4 Eosinophils Relative 0.5 Basophils Relative 0.5 Immature Grans % 0.3 Neutrophils Absolute 8.5 (*) Lymphocytes Absolute 2.2 Monocytes Absolute 0.6 Eosinophils Absolute 0.1 Basophils Absolute 0.1 Immature Grans Absolute 0.0 COMPLETE URINALYSIS WITH REFLEX TO CULTURE - Abnormal Color, Urine Dark Yellow (*) Clarity, Urine Slightly Cloudy (*) pH, Urine 6.0 Leukocytes, Urine Negative Nitrite, Urine Negative Protein, Urine 20 (*) Glucose, Urine Normal Bilirubin, Urine Negative Ketones, Urine Negative Urobilinogen, Urine 3 (*) Blood, Urine Negative Volume, Urine 12 mL RBC, Urine 0-2 WBC, Urine 0-2 Squamous Epithelial, Urine 3-5 Non-Squamous Epithalial Cells, Urine 0-2 (*) Bacteria, Urine Few (*) Mucus, Urine Few SPECIFIC GRAVITY OF URINE (NUMERIC) 1.029 Narrative: A specimen with <=10 WBC is not consistent with inflammation. This specimen will not reflex to a urine culture. COMPREHENSIVE METABOLIC PANEL - Normal SODIUM 139 POTASSIUM 4.0 CHLORIDE 107 CARBON DIOXIDE 24 ANION GAP 8 UREA NITROGEN 12 CREATININE 0.81 GLUCOSE 86 CALCIUM 9.0 AST (SGOT) 24 ALT 13 ALKALINE PHOSPHATASE 130 ALBUMIN 3.9 BILIRUBIN, TOTAL 0.6 TOTAL PROTEIN 7.7 eGFR >90.0 LIPASE - Normal LIPASE 18 HCG QUALITATIVE URINE HCG,URINE QUAL Negative Narrative: is the most common reason for HCG in urine, although choriocarcinoma, hydatidiform mole, and certain nontrophoblastic malignancies also result in detectable urinary HCG levels. Sensitivity = 20mIU/mL. All other labs were within normal range or not returned as of this dictation. EMERGENCY DEPARTMENT COURSE and DIFFERENTIAL DIAGNOSIS/MDM: Vitals: Vitals: 10/29/24 1221 10/29/24 1525 BP: 126/68 121/70 BP Location: Right arm Right arm Patient Position: Sitting Sitting Pulse: 91 83 Resp: 16 15 Temp: 36.7 ?C (98.1 ?F) TempSrc: Temporal (more content not included)... Normal [facility] HCG QUALITATIVE URINEon 10-02 Beta HCG ( test) Ql (U) Negative Normal Negative [facility] Comment on above: Result Comment: Plea se note: Very dilute urine specimens, as indicated by a low specific gravity, may not contain desk representative levels of hCG. If is still suspected, a first morning urine specimen should be collected 48 hours later and tested. ORDER COMMENTS: is the most common reason for HCG in urine, although choriocarcinoma, hydatidiform mole, and certain nontrophoblastic malignancies also result in detectable urinary HCG levels. Sensitivity = 20mIU/mL. Performed By: #### L [id number] ####Security Screener: KAVITA ZAMARRIPA ([phone])[facility] YAMILE [employer] (ArisokoRLAB)[address] [place] [address] LIPASEon 10-29-2024 Lipase [Catalytic activity/Vol] 18 U/L Normal <55 [facility] Comment on above: Performed By: #### L AB99, LAB17 ####Security Screener: KAVITA ZAMARRIPA ([phone])[facility] G3AN (ArisokoRLAB)[address] [place] [address] Laboratory - Chemistry and C hemistry - challengeon 10-29-2024 Lipase [Catalytic activity/Vol] 18 U/L NINF - 55 U/L [facility] Beta HCG ( test) Ql Negative Negative [facility] Comment on above: Please note: Very di lute urine specimens, as indicated by a low specific gravity, may not contain desk representative levels of hCG. If is still suspected, a first morning urine specimen should be collected 48 hours later and tested. Beta HCG ( test) Ql (U) is the most common reason for HCG in urine, although choriocarcinoma, hydatidiform mole, and certain nontrophoblastic malignancies also result in detectable urinary HCG levels. Sensitivity = 20mIU/mL. [facility] No Panel Informationon 10-29 Interpretation and review of laboratory results Normal [facility] US PELVIS TRANSVAGINALon US PELVIS TRANSVAGINAL Patient Name: GLENDA LARA : 1990 Exam Date/Time: 10/29/2024 14:45 Procedure: US PELVIS TRANSVAGINAL Ordering Provider: MENDOZA AUSTIN Reason For Exam: R adnexal abnormality on CT, RLQ/suprapubic pain EXAM: US Pelvis Transvaginal CLINICAL INDICATION: R adnexal abnormality on CT, RLQ/suprapubic pain TECHNIQUE: Real-time transvaginal pelvic ultrasound with image documentation. Transvaginal imaging was used for better evaluation of the endometrium and adnexa. COMPARISON: Obstetric ultrasound from 04/01/2024. CT abdomen pelvis from 10/29/2024. FINDINGS: UTERUS/CERVIX: Subtle posterior intramural uterine fibroid, measuring 2.2 x 2.0 x 2.2 cm. Additional subtle posterior intramural uterine fundal fibroid, measuring 1.1 x 0.9 x 0.9 cm. The uterus measures 9.8 x 4.1 x 5.7 cm. The endometrial stripe measures 0.6 cm in thickness. RIGHT OVARY: Unremarkable. Normal blood flow. The right ovary measures 3.2 x 2.3 x 2.5 cm with a volume of 9.64 ml. LEFT OVARY: Unremarkable. Normal blood flow. The left ovary measures 3.0 x 2.1 x 2.9 cm with a volume of 9.57 ml. FREE FLUID: No free fluid. BLADDER: Empty bladder which cannot be evaluated with this probe. IMPRESSION: 1. No acute pelvic abnormality. 2. Subtle intramural uterine fibroids. Report Dictated on Electronically Signed By: Jaqueline Méndez MD Electronically Signed Date/Time: 10/29/2024 3:38 PM EDT [facility] US Pelvis transvaginalon 1. No acute pelvic abnormality. 2. Subtle intramural uterine fibroids. Report Dictated on Electronically Signed By: Jaqueline Méndez MD Electronically Signed Date/Time: 10/29/2024 3:38 PM EDT [facility] Name[facility] GLENDA [facility] : 1990 [id number] Exam Date/Time: 10/29/2024 14:45 Procedure: US PELVIS TRANSVAGINAL Ordering Provider: MENDOZA AUSTIN Reason For Exam: R adnexal abnormality on CT, RLQ/suprapubic pain EXAM: US Pelvis Transvaginal CLINICAL INDICATION: R adnexal abnormality on CT, RLQ/suprapubic pain TECHNIQUE: Real-time transvaginal pelvic ultrasound with image documentation. Transvaginal imaging was used for better evaluation of the endometrium and adnexa. COMPARISON: Obstetric ultrasound from 04/01/2024. CT abdomen pelvis from 10/29/2024. FINDINGS: UTERUS/CERVIX: Subtle posterior intramural uterine fibroid, measuring 2.2 x 2.0 x 2.2 cm. Additional subtle posterior intramural uterine fundal fibroid, measuring 1.1 x 0.9 x 0.9 cm. The uterus measures 9.8 x 4.1 x 5.7 cm. The endometrial stripe measures 0.6 cm in thickness. RIGHT OVARY: Unremarkable. Normal blood flow. The right ovary measures 3.2 x 2.3 x 2.5 cm with a volume of 9.64 ml. LEFT OVARY: Unremarkable. Normal blood flow. The left ovary measures 3.0 x 2.1 x 2.9 cm with a volume of 9.57 ml. FREE FLUID: No free fluid. BLADDER: Empty bladder which cannot be evaluated with this probe. [facility] Jaqueline Méndez M D - 10/29/2024 Patient Name: GLENDA LARA : 1990 [id number] Exam Date/Time: 10/29/2024 14:45 Procedure: US PELVIS TRANSVAGINAL Ordering Provider: MENDOZA AUSTIN Reason For Exam: R adnexal abnormality on CT, RLQ/suprapubic pain EXAM: US Pelvis Transvaginal CLINICAL INDICATION: R adnexal abnormality on CT, RLQ/suprapubic pain TECHNIQUE: Real-time transvaginal pelvic ultrasound with image documentation. Transvaginal imaging was used for better evaluation of the endometrium and adnexa. COMPARISON: Obstetric ultrasound from 04/01/2024. CT abdomen pelvis from 10/29/2024. FINDINGS: UTERUS/CERVIX: Subtle posterior intramural uterine fibroid, measuring 2.2 x 2.0 x 2.2 cm. Additional subtle posterior intramural uterine fundal fibroid, measuring 1.1 x 0.9 x 0.9 cm. The uterus measures 9.8 x 4.1 x 5.7 cm. The endometrial stripe measures 0.6 cm in thickness. RIGHT OVARY: Unremarkable. Normal blood flow. The right ovary measures 3.2 x 2.3 x 2.5 cm with a volume of 9.64 ml. LEFT OVARY: Unremarkable. Normal blood flow. The left ovary measures 3.0 x 2.1 x 2.9 cm with a volume of 9.57 ml. FREE FLUID: No free fluid. BLADDER: Empty bladder which cannot be evaluated with this probe. IMPRESSION: 1. No acute pelvic abnormality. 2. Subtle intramural uterine fibroids. Report Dictated on Electronically Signed By: Jaqueline Méndez MD Electronically Signed Date/Time: 10/29/2024 3:38 PM EDT [facility] Radiology Study observation (narrative) [facility] US Pelvis transvaginalOrdere d By: Jaqueline Méndez on 10-29-2024 [facility] Work Phone: Urinalysis complete panel (U )Ordered By: Colette Dudley on 10-29-2024 Bacteria LM.HPF (Urine sed) [#/Area] Few Abnormal Negative /HPF [facility] h Bilirubin Ql (U) Negative Negative mg/dL [facility] Clarity (U) Slightly Cloudy Abnormal Clear [facility] He alth Color (U) Dark Yellow Abnormal Lt. Yellow [facility] Epithelial cells.squamous LM.HPF (Urine sed) [#/Area] 3-5 [facility] h Glucose Ql (U) Normal Normal (<70) mg/dL [facility] Hemoglobin Ql (U) Negative Negative mg/dL [facility] Interpretation and review of laboratory results Abnormal [facility] Ketones (U) [Mass/Vol] Negative Negative mg/dL [facility] Leukocyte esterase Test strip Ql (U) Negative Negative Elena/uL [facility] Mucus LM.HPF (Urine sed) [#/Area] Few Negative /LPF [facility] Nitrite Ql (U) Negative Negative [facility] th Non-Squamous Epithalial Cells, Urine 0-2 Abnormal Negative /HPF [facility] pH (U) 6.0 [pH] 5.0 - 8.0 pH [facility] Protein (U) [Mass/Vol] 20 mg/dL Abnormal Negative [facility] RBC LM.HPF (Urine sed) [#/Area] 0-2 [facility] Specific gravity (U) [Rel density] 1.029 1.005 - 1.030 [facility] Urobilinogen (U) [Mass/Vol] 3 mg/dL Abnormal Normal (0-1) [facility] Volume, Urine 12 mL [facility]alt h WBC LM.HPF (Urine sed) [#/Area] 0-2 [facility] A specimen with <=10 WBC is not consistent with inflammation. This specimen will not reflex to a urine culture. [facility] ED Prov Noteon 10-28-2024 ED Prov Note ED PROVIDER NOTE [facility] EMERGENCY DEPARTMENT NAME: Glenda Lara AGE: 34 y.o. : 1990 VISIT DATE: 10/28/2024 CSN: [id number] PCP: Christophe Gaitan MD Chief Complaint Patient presents with Abdominal Pain 34-year-old female patient presents ER for pelvic pain. Patient states symptoms began last evening after intercourse. Dull colicky pain in the right pelvic region. Radiates into the rectal area. No upper abdominal pain, no nausea or emesis, no change in bowel or bladder. No past medical history on file. Past Surgical History: Procedure Laterality Date VAGINAL DELIVERY WRIST SURGERY No family history on file. Social History [1] Previous Medications Medication Sig vitamin with Ca-Iron-FA 27-1 mg Tab Take 1 (one) tablet by mouth daily . Allergies[2] Review of Systems All other systems reviewed and are negative. Patient Vitals for the past 24 hrs: BP Temp Temp src Pulse Resp SpO2 Height Weight 10/28/24 1026 107/70 98.1 degrees F (36.7 degrees C) Temporal 61 18 97 % 5' 3 65.8 kg (145 lb) Physical Exam Vitals and nursing note reviewed. Constitutional: Appearance: Normal appearance. HENT: Head: Normocephalic and atraumatic. Right Ear: External ear normal. Left Ear: External ear normal. Nose: Nose normal. Mouth/Throat: Mouth: Mucous membranes are moist. Pharynx: Oropharynx is clear. Eyes: Extraocular Movements: Extraocular movements intact. Conjunctiva/sclera: Conjunctivae normal. Pupils: Pupils are equal, round, and reactive to light. Cardiovascular: Rate and Rhythm: Normal rate and regular rhythm. Musculoskeletal: General: Normal range of motion. Cervical back: Normal range of motion and neck supple. Pulmonary: Effort: Pulmonary effort is normal. Breath sounds: Normal breath sounds. Abdominal: General: Abdomen is flat. Bowel sounds are normal. Palpations: Abdomen is soft. Comments: Tenderness in the right pelvic region however no rebound or guarding, no palpable masses Genitourinary: Rectum: Normal. Neurological: General: No focal deficit present. Mental Status: She is alert and oriented to person, place, and time. Mental status is at baseline. Psychiatric: Mood and Affect: Mood normal. Thought Content: Thought content normal. Laboratory & Radiographic Imaging (if done): No results found for this visit on 10/28/24. No orders to display Procedures Medical Decision Making Patient presents for pelvic pain, on arrival to stable, no acute distress. Differentials include but not limited to ovarian torsion, TOA, ectopic, appendicitis. Recommended labs and transfer to [place] [facility] to ER for pelvic ultrasound however patient deferred. States she would like to go to a closer hospital, deferred transfer to any hospital, states she will talk with her fianc and see where he is willing to take her. She understands risks and benefits of incomplete workup and the possibility of life-threatening illness. She will sign out AMA and defer further testing at this point or transfer. . . Clinical Impression: No diagnosis found. ED Disposition None Follow-up Information Follow-up information has not been specified. Contact information for after-discharge care Follow-up information has not been specified. [1] Social History Socioeconomic History Marital status: Single Tobacco Use Smoking status: Every Day Current packs/day: 0.50 Types: Cigarettes Smokeless tobacco: Never Vaping Use Vaping status: Never Used Substance and Sexual Activity Drug use: Yes Types: Marijuana Comment: daily Social Drivers of Health Financial Resource Strain: High Risk (11/07/2023) Received from [facility] Overall Financial Resource Strain (CARDIA) Difficulty of Paying Living Expenses: Very hard Food Insecurity: No Food Insecurity (04/20/2024) Received from [facility] Hunger Vital Sign Worried About Running Out of Food in the Last Year: Never true Ran Out of Food in the Last Year: Never true Transportation Needs: No Transportation Needs (04/20/2024) Received from [facility] PRAPARE - Transportation Lack of Transportation (Medical): No Lack of Transportation (Non-Medical): No Physical Activity: Insufficiently Active (11/07/2023) Received from [facility] Exercise Vital Sign Days of Exercise per Week: 1 day Minutes of Exercise per Session: 10 min Stress: Stress Concern Present (11/07/2023) Received from [facility] [employer] - Occupational Stress Questionnaire Feeling of Stress : Very much Social Connections: Moderately Integrated (11/07/2023) Received from [facility] Social Connection and Isolation Panel [NHANES] Frequency of Communication with Friends and Family: Once a week Frequency of Social Gatherings with Friends and Family: Once a week Attends Evangelical Services: 1 to 4 times per year Active Member of (more content not included)... [facility] Office Visit Reporton 2024 Office Visit Report [facility] [address] [place] [address] OFFICE VISIT Date of Service: 08/15/24 MR#: [id number] Acct: [id number] Patient: GLENDA LARA Rep #: [id number] : 1990 Provider: RONNY Sadler Age/Sex: 33/F Location: [facility] Status: Signed Intake Vital Signs 09/17/23 07:49 Height 5 ft 4 in Intake Visit Reasons: PE NON DOT DRUG SCREEN/ [employer] Allergies Penicillins (PCN) Allergy (Verified 09/17/23 07:48) Hives Office Procedures [facility] Billing Sheet Testing Pre-Employment Drug Screen: Yes 08/19/24 1216 Date Alvarado Meredith Signature: Date (if applicable) CC: [facility] 36on 06-03-2024 36 Surgery cancelled. [facility] 36 Name of Caller: Monty sanchez Contact Reason for Appointment: Patient no longer wants to have the surgery done on 06/11. Does not want to reschedule. Thank you Office Name: ObGyn Medication Refills need, if any: No Medication Name: N/A [facility] 36on 05-07-2024 [address] [facility] [place] [facility] 36 S: Patient spoke wit h CAC nurse regarding question after appointment yesterday B: Onset of symptoms/concern today A: PT endorse delivered 04/20/24. Was seen in office for post visit yesterday. This morning had marble size blood clot. No changes with vaginal bleeding still less the same as was seen in office. Pt questioning - how long she should still be clotting and when should she call in? R: Patient understands care advice. No further needs at this time. Patient instructed to call back with new or worsening symptoms. Reason for Disposition ? Normal bleeding Protocols used: - Vaginal Bleeding and Yardry-VGWZE-ZH [facility] Progress Noteon 05-06-2024 Progress Note Glenda Tobar Alonzo er el 33 y.o. female SUBJECTIVE: 2 wks PP, s/p uncomplicated on 04/20 Bleeding minimal. No s/sx PP depression, Anderson Depression scale nml Not sexually active Planning BTL for contraception, consent signed today She is Baby doing well. BP 116/74 Wt 134 lb (60.8 kg) LMP 07/03/2023 Yes BMI 23.74 kg/m? Physical Exam Vitals reviewed. Constitutional: Appearance: Normal appearance. She is normal weight. HENT: Head: Normocephalic and atraumatic. Eyes: Conjunctiva/sclera: Conjunctivae normal. Cardiovascular: Rate and Rhythm: Normal rate. Pulses: Normal pulses. Pulmonary: Effort: Pulmonary effort is normal. Abdominal: General: Abdomen is flat. Palpations: Abdomen is soft. Tenderness: There is no abdominal tenderness. There is no guarding or rebound. Skin: Capillary Refill: Capillary refill takes less than 2 seconds. Neurological: General: No focal deficit present. Mental Status: She is alert and oriented to person, place, and time. Current Outpatient Medications: Vit-Fe Fumarate-FA ( Vitamins) 28-0.8 MG tablet, Take 1 tablet by mouth daily., Disp: 90 tablet, Rfl: 11 sertraline (Zoloft) 25 MG tablet, TAKE 1 TABLET BY MOUTH IN THE MORNING AND TAKE 1 TABLET AT BEDTIME, Disp: , Rfl: ASSESSMENT: 1. care and examination 2. (spontaneous vaginal delivery) 3. Consultation for sterilization PLAN: Doing well, pain controlled, breast feeding Contraception: desires BTL, see consent below Follow up: 4 weeks, pap NILM 09/26/23, rubella immune, NML 1 hr GTT Follow up in about 4 weeks (around 06/03/2024) for PP visit. Pt voiced her desire for permanent sterilization. We discussed the permanent, irreversible nature of the procedure, the risk of regret, and equally effective LARCs. Discussed if she were to desire future pregnancies, she would need IVF and the financial burden of such services. We discussed sterilization will not affect her quality of menses and she may need contraception for AUB control in the future. We discusses options for tubal ligation including Filshie clips, partial cauterization, and total salpingectomy. We discussed failure rates, risk of ectopic , and benefit of risk reduction for ovarian cancer with total salpingectomy. She has been informed to call the office is she misses a menstrual cycle after her sterilization. Consent requirements reviewed. She understands that her consent not does not obligate her to proceed. She no longer desires fertility. She was allowed to freely ask questions, voices good understanding, consents to the procedure and wishes to proceed with surgery. We discussed the risks of surgery including, but not limited to: [x] Bleeding, infection, visceral or major vascular injury, transfusion, additional surgery related to the complication [x] Serious injury necessitating ostomy creation creation for bowel or urinary tract [x] Possibility of delayed surgical injury (such as in cases of bowel or bladder), prolonged catheterization or fistula formation [x] Anesthetic complication, cardiovascular risks including VTE, neurologic compromise/neuropathy [x] Unexpected findings which may require different or additional procedures [x] Failure of the procedure to achieve the desired result [x] For endoscopic procedures, the possibility of conversion to open surgery, need for re-operation or rehospitalization [x] The remote possibility of [x] Pain control and risks of narcotic medications [x] Recovery period and post-op expectations All questions asked and answered. Patient is able to correctly repeat the pertinent facts and she indicates understanding of these issues and agrees with the plan. 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 N/A Housing Stability In the last 12 months, was there a time when you did not have a steady place to sleep or slept in a penitentiary (including now)? No Transportation Needs Has the lack of Transportation kept you from medical appointments? No In the past 12 months, has the lack of transportation kept you from meetings, work, or from getting things needed for daily living? No Food Insecurity Within the past 12 months, have you worried that your food would run out before you got the money to buy more? No Stress Do you feel stress - tense, restless, nervous, or anxious, or unable to sleep at night because you mind is troubled all the time? Mood stable Referral To Financial Resources: N/A Community Resources: Admission folder given upon admission to PP Unit Social Work:Yes; Hx THC this and substance use (methamphetamines; sober over 1 year) CLP: Declines Medical Information admitted at 39/2 weeks for active phase labor; s/p ; THC use antepartum, Cigarette use antepartum, Hx Substance Use; Depression - Reported quitting THC ~1wk ago - ~1/2 ppd of cigarettes - Attends AA - MAT, consented - Daily Zoloft 25mg -Sober from Methamphetamines over one year Discharge Plan Home or Community Resources: Admission folder given upon admission to PP unit Equipment: N/A Education Given: Discussion on the A. B. C's of safe sleep. Always place your baby on his or her back to sleep, use a firm sleep surface and your baby should not sleep in an adult bed, on a couch or chair. Keep soft objects, toys and loose bedding out of your baby's sleep area. Reviewed depression. It is common to have blues. This is a normal response to many of the hormonal changes, stress and lack of sleep that go with raising a and physically recovering from the . Don't hesitate to talk to your provider with any concerns. There are resources in your home going booklet. To help prevent germs from spreading to you and your baby, make sure everyone washes their hands before they handle your . Avoid crowds, and keep away from sick people, anyone who is sick with a cough or fever, including family members. Post- warning signs information reviewed with patient per nurse with discharge Additional Information: Patient is independent and has insurance. She is prepared with her baby supplies. To be discharged to home. Denies any concerns at this time. Mental Health Services: Resources in discharge folder Equipment: Developmental Delay: N/A Children's Services: N/A [facility] [id number] Follow up call to [facility]. Due to holiday, main hotline closed. Spoke to Sheriff Becerril who connected with oncall CSB worker Delicia López. She confirmed she did make contact with mother of baby/mob yesterday to inform her they were opening case and assigned worker will be in contact tomorrow. Per [place] [facility] worker, OK FOR MOB AND BABY TO BE DC [facility] 42on 04-22-2024 42 Follow up to observe latch. Baby was latched to right breast. Pt stated that latch started off deep but that baby had pulled back slightly and it became more shallow and painful. Upon observation baby was having many swallows at breast. Baby had been feeding for about 8 minutes. Pt unlatched baby and nipple was creased and bent - attempted to re latch baby but baby was asleep. Encouraged pt to continue to monitor latch and to re latch baby if latch appears shallow. Pt understanding and appreciative. Encouraged much skin to skin and to call out with any other questions or concerns. [facility] 42 Initial visit. This is pt's fourth baby. Pt has breast fed before. A BGT was drawn for baby due to jittery ness and sugar was 48. Assisted pt in latching baby onto breast. Initially latch was shallow and baby only had nipple in mouth. Able to assist pt in getting baby latched deeper to breast and reviewed how to achieve deep latch. Pt understanding and appreciative. Reviewed proper positioning and waiting for a wide open gape. Baby had many swallows at the breast and baby fed for 11 minutes. Much encouragement given. Shown section of Taking Care of Yourself and Baby' Booklet. Reviewed baby-led, cue based feedings (8-12x/day), how to know baby is getting enough, output parameters and milk storage guidelines. Discussed engorgement, plugged ducts and mastitis. Patient encouraged to seek help MAGGY for any concerns. phone number and [facility] information shared from booklet. Mom voiced understanding. No further questions. Pt plans on getting pump for home through [facility]. Will continue to monitor and support pt as needed. [facility] Nursing Noteon 04-22-2024 Nursing Note Discharge paperwork reviewed with patient at bedside. Follow-up to be in 4 weeks. Patient states understanding. All questions answered. Safe for self discharge. [facility] Progress Noteon 04-22-2024 Progress Note Patient interested i n quitting, currently being discharged by RN, accepting of handouts with contact information for future reference. [facility] Progress Note Nutrition rescreen completed. Patient assigned a level 1. VILLA Asencio [facility] Progress Note -- Attestation signed by Mono Gifford MD at 04/22/2024 10:33 AM Hospital Care (Independent): I independently saw and evaluated the patient. I agree with the findings and plan of care as documented in the resident's note. VAGINAL DELIVERY POST DAY # 2 Glenda Lara, 33 y.o. This patient was seen & examined today. Her was complicated by: Patient Active Problem List Diagnosis Trichomonal vaginitis during in first trimester Tetrahydrocannabinol (THC) use disorder, mild, abuse High risk due to smoking in first trimester 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 Rubella non-immune status, antepartum Acute alcoholic intoxication ([facility]) Hx of drug abuse (CMS/HCC) (HCC) Tetrahydrocannabinol (THC) use disorder, moderate, dependence ([facility]) Trichomoniasis Choroid plexus cyst of fetus affecting care of mother, antepartum care, antepartum 39 weeks gestation of Today she is doing well. Her lochia is light. She denies Headache, Chest Pain, Vision Changes, and Shortness of Breath. She is ambulating well. She is tolerating solids. Vital Signs: Vitals: 04/20/24 2009 04/20/24 2043 04/21/24 0743 04/21/24 195 BP: 118/73 119/72 117/68 120/75 BP Location: Left arm Patient Position: Sitting Pulse: 72 74 72 70 Resp: 18 18 16 Temp: 36.4 ?C (97.6 ?F) 36.3 ?C (97.3 ?F) 36.7 ?C (98.1 ?F) TempSrc: Temporal Temporal Temporal SpO2: 98% 97% 97% Weight: Height: Physical Exam: GENERAL APPEARANCE: alert, well appearing, in no apparent distress ABDOMEN : benign non-tender, without masses or organomegaly palpable EXTREMITIES: no redness or tenderness in the calves or thighs, no edema NEUROLOGIC: alert, oriented, normal speech, no focal findings or movement disorder noted UTERUS : normal size, well involuted, firm, non-tender Lab: Lab Results Component Value Date HGB 11.2 (L) 04/20/2024 Lab Results Component Value Date HCT 32.8 (L) 04/20/2024 A+ LABOR DELIVERY ??? SCD's ONLY (labor through ambulation) SCD's PLUS Prophylactic Anticoagulation until discharge SCD's PLUS Prophylactic Anticoagulation for 6 weeks SCD's PLUS Therapeutic Anticoagulation for 6 weeks Vaginal Delivery [] BMI >= 40 kg/m2 Delivery All patients Vaginal Delivery [] BMI >= 40 kg/m2 AND [] Antepartum hospitalization >= 72 hours within the past month Delivery 1 Major Risk Factor: [] BMI >= 35 kg/m2 [] Low Risk Thrombophilia [] PPH+RBCs, IR, or operation [] Infection+Antibiotics [] Antepartum hospitalization >= 72 hours within the past month [] PMH: Sickle Cell, SLE, Cardiac Dz, Active IBD, Active Cancer, Nephrotic Syndrome OR 2 Minor Risk Factors: [] Multiple gestation [] Age > 40 [] PPH >= 1,000cc [] (+)FMH of VTE [] Smoker [] Preeclampsia [] BMI >= 40 kg/m2 AND [] Low Risk Thrombophilia OR ANY OF THE FOLLOWING: [] High Risk Thrombophilia without prior VTE [] Low Risk Thrombophilia with (+)FMH of VTE [] Any single prior VTE ANY OF THE FOLLOWING: [] Already on LMWH/UFH [] Multiple prior VTE [] High Risk Thrombophilia with prior VTE Low Risk Thrombophilia: FVL (heterozygous), Prothrombin (heterozygous), Protein C, Protein S High Risk Thrombophilia: FVL (homozygous), Prothrombin (homozygous), FVL+Prothrombin (heterozygous), Antithrombin III, APLS Assessment/Plan: Glenda Lara is PPD # 2 s/p Care - Doing well, VSS - Male, s/p circumcision - breast feeding - Contraception: POP - Encourage ambulation - VTE Prophylaxis: Not Indicated THC/Cigarette use antepartum/Hx substance use/Depression - continue Zoloft 25mg - mood stable on morning rounds - MAT negative on admission - social work consulted and cleared - CPS to follow up with patient chart review Rubella Non-immune - MMR in period Disposition: Anticipate discharge today per private attending's discretion. Provider's Name: Marii Gay DO Amamador WattersDO 04/22/2024, 5:33 AM Normal [facility] [id number] 04-21-2024 [id number] 1330- SW consulted f or HX of THC use. Patient does not have a positive screen at this time. SW presented to bedside to speak with patient, introduced self and explained role. Present at bedside was patients significant other James Capps. Patient was observed to be holding baby, a clear indicated reid observed. Patient reports living with her significant other. 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 Patient reports having [employer] for insurance and plans to add baby (baby's father will also add him to his private insurance). Patient reports having access to a working vehicle and has a car seat. Patient plan to get WIC and denies any current food stamps. Patient has [facility] in [place] as an OBGYN and denies a current scheduler maintenance at this time. Patient reports having 2 bassinets for baby to sleep in. Patient reports her plan is to breast feed. Patient reports a hx of mental health via diagnosis of PTSD, manic depression and Bipolar Disorder. Patient reports she is currently connected to [facility] ([facility]), next appointment on 04/23/24. Patient is also reported to have a a hx of SI at 14 weeks. Patient reports a hx of alcohol abuse (she indicates she has been sober for 1 year), patient reports sober support; no current sponsor. Patient denies any hx of any detox or rehab. Patient also reports a hx of drug use methamphetamines and THC. Patient reports being sober from Meth for estimated a year and her last reported marijuana use was April 11 blunt form. Patient reports a hx with [facility] 2 past cases; lost custody of her other 3 children (one with the child's father and the other two with patients father). - SW spoke with bedside JV Daugherty, no current safety issues or concerns noted at this time. Baby Name: Rober Capps : [birth year] Weight: 6 lb 4.7 oz SW contacted [facility] [phone] to make a referral. TUSHAR spoke with Delicia. Delicia reports the case domenico be screened in. [facility] will follow up with patient. Delicia will initiate contact with patient on this date via phone call. Patient is cleared from SW standpoint and can discharge once medically cleared. Normal [facility] Progress Noteon 04-21-2024 Progress Note -- Attestation signed by Marii Gay DO at 04/21/2024 11:19 AM Hospital Care (Independent): I independently saw and evaluated the patient. I agree with the findings and plan of care as documented in the resident's note. Patient consented for circumcision. Discussed risk, benefits, alternatives to the procedure including risks of bleeding, infection, injury to surrounding tissues and taking too much or too little skin with possible need for revision in the future. Patient stated understanding, all questions were answered and patient desired to proceed with the procedure. VAGINAL DELIVERY POST DAY # 1 Glenda Lara, 33 y.o. This patient was seen & examined today. Her was complicated by: Patient Active Problem List Diagnosis Trichomonal vaginitis during in first trimester Tetrahydrocannabinol (THC) use disorder, mild, abuse High risk due to smoking in first trimester 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 Rubella non-immune status, antepartum Acute alcoholic intoxication (HCC) Hx of drug abuse (CMS/HCC) (HCC) Tetrahydrocannabinol (THC) use disorder, moderate, dependence ([facility]) Trichomoniasis Choroid plexus cyst of fetus affecting care of mother, antepartum care, antepartum 39 weeks gestation of Today she is doing well. Her lochia is light. She denies Headache, Chest Pain, Vision Changes, and Shortness of Breath. She is ambulating well. She is tolerating solids. Vital Signs: Vitals: 04/20/24193804/20/24195304/20/24200804/20/242042 BP: 126/80 125/72 118/73 119/72 BP Location: Left arm Patient Position: Sitting Pulse: 75 76 72 74 Resp: 18 Temp: 36.4 ?C (97.6 ?F) TempSrc: Temporal SpO2: 98% Weight: Height: Physical Exam: GENERAL APPEARANCE: alert, well appearing, in no apparent distress ABDOMEN : benign non-tender, without masses or organomegaly palpable EXTREMITIES: no redness or tenderness in the calves or thighs, no edema NEUROLOGIC: alert, oriented, normal speech, no focal findings or movement disorder noted UTERUS : normal size, well involuted, firm, non-tender Lab: Lab Results Component Value Date HGB 11.2 (L) 04/20/2024 Lab Results Component Value Date HCT 32.8 (L) 04/20/2024 A+ LABOR DELIVERY ??? SCD's ONLY (labor through ambulation) SCD's PLUS Prophylactic Anticoagulation until discharge SCD's PLUS Prophylactic Anticoagulation for 6 weeks SCD's PLUS Therapeutic Anticoagulation for 6 weeks Vaginal Delivery [] BMI >= 40 kg/m2 Delivery All patients Vaginal Delivery [] BMI >= 40 kg/m2 AND [] Antepartum hospitalization >= 72 hours within the past month Delivery 1 Major Risk Factor: [] BMI >= 35 kg/m2 [] Low Risk Thrombophilia [] PPH+RBCs, IR, or operation [] Infection+Antibiotics [] Antepartum hospitalization >= 72 hours within the past month [] PMH: Sickle Cell, SLE, Cardiac Dz, Active IBD, Active Cancer, Nephrotic Syndrome OR 2 Minor Risk Factors: [] Multiple gestation [] Age > 40 [] PPH >= 1,000cc [] (+)FMH of VTE [] Smoker [] Preeclampsia [] BMI >= 40 kg/m2 AND [] Low Risk Thrombophilia OR ANY OF THE FOLLOWING: [] High Risk Thrombophilia without prior VTE [] Low Risk Thrombophilia with (+)FMH of VTE [] Any single prior VTE ANY OF THE FOLLOWING: [] Already on LMWH/UFH [] Multiple prior VTE [] High Risk Thrombophilia with prior VTE Low Risk Thrombophilia: FVL (heterozygous), Prothrombin (heterozygous), Protein C, Protein S High Risk Thrombophilia: FVL (homozygous), Prothrombin (homozygous), FVL+Prothrombin (heterozygous), Antithrombin III, APLS Assessment/Plan: Glneda Lara is PPD # 1 s/p Care - Male, desires circumcision - breast feeding - Contraception: POP - Encourage ambulation - VTE Prophylaxis: Not Indicated THC/Cigarette use antepartum/Hx substance use/Depression - no THC use for 1wk - 1/2 ppd of cigarettes - Attends AA - MAT on admission negative - Zoloft 25mg daily Rubella non-immune - MMR per protocol Disposition: Continue current care. Provider's Name: DO Allison Street DO 04/21/2024, 5:37 AM [facility] [id number] 04-20-2024 [id number] 1300- SW was consult ed with no reason for consult indicated. SW spoke with bedside RN, no current issues or concerns indicated at this time. Per chart review patient is indicated to have a hx of marijuana and Methamphetamines. No current positive screen and last reported use for marijuana was 9 weeks ago, a year for Methamphetamines. SW presented to bedside to speak with patient. Family and the room and patient observed to be in pre mature labor pain. Patient denies any needs at this time for SW. SW to follow up with patient on drug use history once she has delivered. Documented expected deliverary date is 04/25/24. [facility] BLOOD TYPE AND SCREEN GELon 04-20-2024 ABO GROUPING A [facility] Comment on above: Order Comment: Speci men is valid for 3 days - nurse to verify valid specimen. Performed By: #### L [id number] #### Security Screener: KAVITA ZAMARRIPA ([id number]) [facility] ([facility]) [address] [place] [address] RH TYPE IN BLOOD Positive Normal [facility] Comment on above: Order Comment: Speci men is valid for 3 days - nurse to verify valid specimen. Performed By: #### L [id number] #### Security Screener: KAVITA ZAMARRIPA ([id number]) [facility] ([facility]) [address] [place] [address] Blood type and Crossmatch pa keren (Bld)on 04-20-2024 ABO group Nom (Bld) A [facility] Blood group antibody screen GEL Ql Negative [facility] D Ag Ql (RBC) Positive [facility] CBC (HEMOGRAM)on 04-20-2024 Erythrocyte distribution width (RBC) [Ratio] 13.0 % Normal 11.5-15.0 [facility] Comment on above: Performed By: #### L [id number] ####Security Screener: KAVITA ZAMARRIPA ([id number])[facility] ([facility])[address] [place] [address] Hematocrit (Bld) [Volume fraction] 32.8 % Low 35.0-47.0 [facility] Comment on above: Performed By: #### L [id number] ####Security Screener: KAVITA ZAMARRIPA ([id number])[address] Hemoglobin (Bld) [Mass/Vol] 11.2 g/dL Low 11.7-16.0 [facility] Comment on above: Performed By: #### L [id number] ####Security Screener: KAVITA ZAMARRIPA ([id number])[facility])[address] [place] [address] MCH (RBC) [Entitic mass] 30.3 pg Normal 26.0-34.0 [facility] Comment on above: Performed By: #### L [id number] ####Security Screener: KAVITA ZAMARRIPA ([id number])[facility] ([facility])[address] [place] [address] MCHC 34.1 % Normal 30.5-36.0 [facility] Comment on above: Performed By: #### L [id number] ####Security Screener: KAVITA ZAMARRIPA ([id number])[facility] ([facility])[address] [place] [address] MCV (RBC) [Entitic vol] 88.6 fL Normal 77.0-99.0 [facility] Comment on above: Performed By: #### L [id number] ####Security Screener: KAVITA ZAMARRIPA ([id number])[facility])[address] [place] [address] Platelet mean volume (Bld) [Entitic vol] 9.5 fL Normal 9.0-12.7 [facility] Comment on above: Performed By: #### L [id number] ####Security Screener: KAVITA ZAMARRIPA ([id number])[facility] ([facility])[address] [place] [address] Platelets (Bld) [#/Vol] 404 10*3/uL Normal 140-440 [facility] Comment on above: Performed By: #### L [id number] ####Security Screener: KAVITA ZAMARRIPA ([id number])[facility] ([facility])[address] [place] [address] RBC (Bld) [#/Vol] 3.70 10*6/uL Low 3.80-5.20 [facility] Comment on above: Performed By: #### L [id number] ####Security Screener: KAVITA ZAMARRIPA ([id number])[facility] ([facility])[address] [place] [address] WBC (Bld) [#/Vol] 14.7 10*3/uL High 3.6-10.7 [facility] Comment on above: Performed By: #### L [id number] ####Security Screener: KAVITA ZAMARRIPA ([id number])[facility])[address] [place] [address] CBC panel Auto (Bld)on 04-20 Erythrocyte distribution width (RBC) [Ratio] 13 % 11.5 - 15.0 % [facility] Hematocrit (Bld) [Volume fraction] 32.8 % Low 35.0 - 47.0 % [facility] Hemoglobin (Bld) [Mass/Vol] 11.2 g/dL Low 11.7 - 16.0 g/dL [facility] Interpretation and review of laboratory results Abnormal [facility] MCH (RBC) [Entitic mass] 30.3 pg 26.0 - 34.0 pg [facility] MCHC (RBC) [Mass/Vol] 34.1 % 30.5 - 36.0 % [facility] MCV (RBC) [Entitic vol] 88.6 fL 77.0 - 99.0 fL [facility] Platelet mean volume (Bld) [Entitic vol] 9.5 fL 9.0 - 12.7 fL [facility] Platelets (Bld) [#/Vol] 404 10*3/uL 140 - 440 10*3/uL [facility] RBC (Bld) [#/Vol] 3.7 10*6/uL Low 3.80 - 5.2 0 10*6/uL [facility] WBC (Bld) [#/Vol] 14.7 10*3/uL High 3.6 - 10.7 10*3/uL [facility] Labor and Delivery Noteon Labor and Delivery Note Vaginal Delivery Note Department of Obstetrics and Gynecology Patient: Glenda Lara : 1990 Date of delivery: 04/20/2024 Pre-operative Diagnosis: Gelnda Lara at 39w2d 1. Term or Single fetus 2. AOL-PROM 3. Hx Substance Abuse 4. Choroid Plexus Cyst Post-operative Diagnosis: Live Born male Delivering Credit Collections Manager & Cage Maker(s): Dr. Gay; Dr. Arteaga Infant Information: Information for the patient's : Fabian Lara [[id number]] Information for the patient's : Fabian Lara [[id number]] Description: normal Meconium Noted: No Anesthesia: none Complications: None Application and Delivery: Arlou M Swartzentruber at 39w2d admitted for AOL-PROM. Her labor course Pitocin and AROM with clear fluidand progressed to complete. She was known to be GBS negative and received no prophylaxis. After pushing with contractions the head delivered Cephalic, occiput anterior over an intact perineum. A nuchal cord was not present. The anterior, then posterior shoulder delivered easily and atraumatically followed by the rest of the . The was placed on the maternal abdomen and attended by the RN for evaluation. The infant was stimulated and dried. The cord was clamped and cut. The delivery of the placenta was spontaneous and appeared intact. Pitocin was started. The vagina was swept of all clots and debris. The perineum and vagina were evaluated. A No lacerations were found.. All counts were correct. Mother and baby tolerated procedure well. No uterotonics were required during delivery. EBL: 100ml QBL: VTE Prophylaxis: Not Indicated LABOR DELIVERY ??? SCD's ONLY (labor through ambulation) SCD's PLUS Prophylactic Anticoagulation until discharge SCD's PLUS Prophylactic Anticoagulation for 6 weeks SCD's PLUS Therapeutic Anticoagulation for 6 weeks Vaginal Delivery [] BMI >= 40 kg/m2 Delivery All patients Vaginal Delivery [] BMI >= 40 kg/m2 AND [] Antepartum hospitalization >= 72 hours within the past month Delivery 1 Major Risk Factor: [] BMI >= 35 kg/m2 [] Low Risk Thrombophilia [] PPH+RBCs, IR, or operation [] Infection+Antibiotics [] Antepartum hospitalization >= 72 hours within the past month [] PMH: Sickle Cell, SLE, Cardiac Dz, Active IBD, Active Cancer, Nephrotic Syndrome OR 2 Minor Risk Factors: [] Multiple gestation [] Age > 40 [] PPH >= 1,000cc [] (+)FMH of VTE [] Smoker [] Preeclampsia [] BMI >= 40 kg/m2 AND [] Low Risk Thrombophilia OR ANY OF THE FOLLOWING: [] High Risk Thrombophilia without prior VTE [] Low Risk Thrombophilia with (+)FMH of VTE [] Any single prior VTE ANY OF THE FOLLOWING: [] Already on LMWH/UFH [] Multiple prior VTE [] High Risk Thrombophilia with prior VTE Low Risk Thrombophilia: FVL (heterozygous), Prothrombin (heterozygous), Protein C, Protein S High Risk Thrombophilia: FVL (homozygous), Prothrombin (homozygous), FVL+Prothrombin (heterozygous), Antithrombin III, APLS Delivery Summary: Specimen: Cord blood Blood Type and Rh: A Rubella Immunity Status: No results found for: RUBELLAIGGQT Marii Gay, DO 04/20/2024, 6:11 PM Normal [facility] Laboratory - Drug toxicology Ordered By: Enmanuel Kuhn on 04-20-2024 Amphetamines Ql (U) Negative Negative [facility] Barbiturates screen method Nom (U) Negative Negative [facility] Benzodiazepines screen method Nom (U) Negative Negative [facility] Cocaine Ql (U) Negative Negative [facility] Ethanol [Mass/Vol] Negative Negative [facility] Methadone Ql (U) Negative Negative [facility] Opiates Screen Ql (U) Negative Negative [facility] MEDICATION ASSISTED TREATMEN T PANELon 04-20-2024 Amphetamines Ql (U) Negative Normal Negative [facility] Comment on above: Performed By: #### L [id number] ####Security Screener: KAVITA ZAMARRIPA ([id number])[facility] [place] [address] BARBITURATES Negative Normal Negative [facility] Comment on above: Performed By: #### L [id number] ####Security Screener: KAVITA ZAMARRIPA ([id number])[facility] [place] [address] Benzodiazepines Ql (U) Negative Normal Negative [facility] Comment on above: Performed By: #### L [id number] ####Security Screener: KAVITA ZAMARRIPA ([id number])[facility] [place] [address] BUPRENORPHINE SCREEN Negative Normal Negative [facility] Comment on above: Performed By: #### L [id number] ####Security Screener: KAVITA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 5. Choroid plexus cyst of fetus affecting care of mother, antepartum, single or unspecified fetus 6. Tetrahydrocannabinol (THC) use disorder, mild, abuse 7. 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 Sx resolved after she stopped. MONICA Rhodes CNM 02/20/24 Follow up in about 2 weeks (around 03/05/2024) for VARGHESE. Normal [facility] Progress Noteon 02-05-2024 Progress Note On Zoloft, mood stab le today Normal [facility] Progress Note NIP low risk Normal [facility] Progress Note Doing well, no acute OB complaints Normal 1 hr and CBC Discussed tdap and pt would like to consider until next appt 36 week growth US scheduled Triage precautions given Normal [facility] Progress Note ASSESSESMENT: Diagnosis Plan 1. care, antepartum 2. Hx of drug abuse ([facility]) ([facility]) 3. Choroid plexus cyst of fetus affecting care of mother, antepartum, fetus 1 of multiple gestation 4. 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 5. 28 weeks gestation of 6. 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 Denies cramping leaking or bleeding or LOF PHYSICAL EXAM: BP 117/67 Pulse 97 Wt 139 lb (63 kg) LMP 07/03/2023 BMI 23.67 kg/m? I have reviewed her pertinent history, lab results, medications and problem list. See episode for any changes. Well appearing, Alert & oriented Skin warm & dry Normal range of motion in all extremities. Abdomen soft nontender Normal resp effort Marii Gay DO 02/05/24 Follow up in about 2 weeks (around 02/19/2024) for VARGHESE. Normal [facility] Draw Kiton 10-11-2023 Draw Kit Collected and shippe d for testing. [facility] Comment on above: Auto resulted. [facility] CNPNon 09-29-2023 CNPN Telephone (OBGYWM) GLENDA LARA ([id number]) 1990 F Date Time Provider Department 09/29/23 [facility] During your visit today, we recorded the following information about you: Erika Bower RN 09/29/2023 9:25 AM Signed 10w1d Patient called with c/o side effects from Zoloft. States she was taking 25 MG and then increased to 50 MG on Monday. Last night at 7 PM she took 50 MG dose and by 10 PM when she went to bed she experienced her throat feeling like it was closing, dizziness, and lethargic. States she spoke to another doctor and was advised to go to Urgent Care and to notify the original prescriber. Denies new foods, medication, or possible environmental causes to her symptoms. Advised that she be seen as directed by her doctor. Patient plans to transfer her OB care to [facility]. Asked that we cancel her upcoming visits. MEGHAN Bower RN Allergies As of Date: 09/29/2023 Noted Allergy Reaction PENICILLINS 04/09/2013 4 - Hives Date Reviewed: 09/14/2023 Reviewed by: Balbina Hays LPN - Fully Assessed Reason for Visit: Medication Problem [65] Prescriptions as of 10/02/2023 - aspirin, enteric coated (ECOTRIN LOW STRENGTH) 81 mg EC tablet Take 1 tablet by mouth once daily. - sertraline (ZOLOFT) 50 mg tablet Take 1 tablet by mouth once daily. - vit37/iron/folic acid (PRENATA ORAL) Take 1 tablet by mouth once daily. Problem List As Of Date 09/29/2023 Noted Resolved Well adult exam [Z00.00] 04/09/2013 09/14/2023 Dyshidrotic eczema [L30.1] 04/09/2013 Routine gynecological examination [Z01.419] 09/14/2023 Supervision of normal [Z34.90] 09/14/2023 History of depression [Z86.59] 09/14/2023 Hx of drug abuse (HCC) [F19.11] 09/14/2023 Tetrahydrocannabinol (THC) use disorder, modera*09/14/2023 Hx of delivery, currently [O09*09/14/2023 Trichomoniasis [A59.9] 09/15/2023 Encounter Status:Closed by ERIKA BOWER on 10/02/23 [facility]2023 [facility] GLENDA LARA ([id number]) 1990 F Date Time Provider Department 09/26/23 [facility] During your visit today, we recorded the following information about you: Allergies As of Date: 09/26/2023 Noted Allergy Reaction PENICILLINS 04/09/2013 4 - Hives Date Reviewed: 09/14/2023 Reviewed by: Balbina Hays LPN - Fully Assessed Prescriptions as of 09/26/2023 - aspirin, enteric coated (ECOTRIN LOW STRENGTH) 81 mg EC tablet Take 1 tablet by mouth once daily. - sertraline (ZOLOFT) 50 mg tablet Take 1 tablet by mouth once daily. - vit37/iron/folic acid (PRENATA ORAL) Take 1 tablet by mouth once daily. Problem List As Of Date 09/26/2023 Noted Resolved Well adult exam [Z00.00] 04/09/2013 09/14/2023 Dyshidrotic eczema [L30.1] 04/09/2013 Routine gynecological examination [Z01.419] 09/14/2023 Supervision of normal [Z34.90] 09/14/2023 History of depression [Z86.59] 09/14/2023 Hx of drug abuse (HCC) [F19.11] 09/14/2023 Tetrahydrocannabinol (THC) use disorder, modera*09/14/2023 Hx of delivery, currently [O09*09/14/2023 Trichomoniasis [A59.9] 09/15/2023 Letter Text Encounter Status:Closed by BALBINA HAYS on 09/26/23 Normal [facility] CNCOon 09-18-2023 CNCO Letter Text Normal [facility] Basic Metabolic Profile (BMP )on 09-17-2023 BUN/CRE 11.7 RATIO Normal 10-20 [facility] Comment on above: Performed By: #### L 500.2500, L100.0100, L700.8000 #### [facility] [address] [place], [address] CA,Total 9.6 mg/dL Normal 8.5-10.1 [facility] Comment on above: Performed By: #### L 500.2500, L100.0100, L700.8000 #### [facility] [address] [place], [address] Chloride [Moles/Vol] 104 mmol/L Normal 98-107 [facility] Comment on above: Performed By: #### L 500.2500, L100.0100, L700.8000 #### [facility] [address] [place], [address] CO2 [Moles/Vol] 21.0 mmol/L Normal 21.0-32.0 [facility] Comment on above: Performed By: #### L 500.2500, L100.0100, L700.8000 #### [facility] [address] [place], [address] Creatinine [Mass/Vol] 0.68 mg/dL Normal 0.55-1.02 [facility] Comment on above: Result Comment: The validity of the calculated GFR GFRAA in patients over 70 years has not been determined. Clinical correlation is essential. Performed By: #### L 500.2500, L100.0100, L700.8000 #### [facility] [address] [place], [address] ECRCL 97.69 ml/min Normal [facility] Comment on above: Performed By: #### L 500.2500, L100.0100, L700.8000 #### [facility] [address] [place], [address] EST GFR - AA 127 mL/min Normal >60 [facility] Comment on above: Result Comment: Afri can [place]ian GFR Calc Performed By: #### L 500.2500, L100.0100, L700.8000 #### [facility] [address] [place], [address] GAP 9 Normal 5-15 [facility] Comment on above: Performed By: #### L 500.2500, L100.0100, L700.8000 #### [facility] [address] [place], [address] GFR/1.73 sq M.predicted among non-blacks MDRD (S/P/Bld) [Vol rate/Area] 105 mL/min/{1.73_m2} Normal >60 [facility] Comment on above: Result Comment: Non- GFR Calc Performed By: #### L 500.2500, L100.0100, L700.8000 #### [facility] [address] [place], [address] Glucose [Mass/Vol] 96 mg/dL Normal 74-106 [facility] Comment on above: Performed By: #### L 500.2500, L100.0100, L700.8000 #### [facility] [address] [place], [address] Potassium [Moles/Vol] 3.2 mmol/L Low 3.5-5.1 [facility] Comment on above: Performed By: #### L 500.2500, L100.0100, L700.8000 #### [facility] [address] [place], [address] Sodium [Moles/Vol] 134 mmol/L Low 136-145 [facility] Comment on above: Performed By: #### L 500.2500, L100.0100, L700.8000 #### [facility] [address] [place], [address] Urea nitrogen [Mass/Vol] 8 mg/dL Normal 7-18 [facility] Comment on above: Performed By: #### L 500.2500, L100.0100, L700.8000 #### [facility] [address] [place], [address] CBC W/Diff, Automatedon 06- Absolute Lymph 2.35 X10 3/uL Normal 0.83-4.51 [facility] Comment on above: Performed By: #### L 500.2500, L100.0100, L700.8000 #### [facility] [address] [place], [address] Absolute Neut 7.7 X10 3/uL Normal 2.0-7.7 [facility] Comment on above: Performed By: #### L 500.2500, L100.0100, L700.8000 #### [facility] [address] [place], [address] Basophils/100 WBC (Bld) 0.5 % Normal 0-1 [facility] Comment on above: Performed By: #### L 500.2500, L100.0100, L700.8000 #### [facility] [address] [place], [address] Eosinophils/100 WBC (Bld) 0.2 % Normal 0-5 [facility] Comment on above: Performed By: #### L 500.2500, L100.0100, L700.8000 #### [facility] [address] [place], [address] Erythrocyte distribution width (RBC) [Ratio] 12.4 % Normal 11.6-14.6 [facility] Comment on above: Performed By: #### L 500.2500, L100.0100, L700.8000 #### [facility] [address] [place], [address] Hematocrit (Bld) [Volume fraction] 40.6 % Normal 37-47 [facility] Comment on above: Performed By: #### L 500.2500, L100.0100, L700.8000 #### [facility] [address] [place], [address] Hemoglobin (Bld) [Mass/Vol] 14.3 g/dL Normal 12.0-15.0 [facility] Comment on above: Performed By: #### L 500.2500, L100.0100, L700.8000 #### [facility] [address] [place], [address] IG% 0.400 Normal 0.0-0.9 [facility] Comment on above: Result Comment: IG% - Immature Granulocytes (promyelocytes, myelocytes and metamyelocytes) > 1% indicates that a LEFT SHIFT is Present. Performed By: #### L 500.2500, L100.0100, L700.8000 #### [facility] [address] [place], [address] Lymphocytes/100 WBC (Bld) 22.2 % Normal 19-41 [facility] Comment on above: Performed By: #### L 500.2500, L100.0100, L700.8000 #### [facility] [address] [place], [address] MCH (RBC) [Entitic mass] 31.2 pg Normal 27.0-32.0 [facility] Comment on above: Performed By: #### L 500.2500, L100.0100, L700.8000 #### [facility] [address] [place], [address] MCHC (RBC) [Mass/Vol] 35.2 g/dL Normal 32-36 [facility] Comment on above: Performed By: #### L 500.2500, L100.0100, L700.8000 #### [facility] [address] [place], [address] MCV (RBC) [Entitic vol] 88.5 fL Normal 81-99 [facility] Comment on above: Performed By: #### L 500.2500, L100.0100, L700.8000 #### [facility] [address] [place], [address] Monocytes/100 WBC (Bld) 4.3 % Normal 0-10 [facility] Comment on above: Performed By: #### L 500.2500, L100.0100, L700.8000 #### [facility] [address] [place], [address] Neutrophils/100 WBC (Bld) 72.4 % High 47-70 [facility] Comment on above: Performed By: #### L 500.2500, L100.0100, L700.8000 #### [facility] [address] [place], [address] Nucleated RBC (Bld) [#/Vol] 0 10*3/uL Normal 0-5 [facility] Comment on above: Performed By: #### L 500.2500, L100.0100, L700.8000 #### [facility] [address] [place], [address] Platelet mean volume (Bld) [Entitic vol] 8.1 fL Normal 6.2-12.0 [facility] Comment on above: Performed By: #### L 500.2500, L100.0100, L700.8000 #### [facility] [address] [place], [address] Platelets (Bld) [#/Vol] 369 10*3/uL Normal 150-450 [facility] Comment on above: Performed By: #### L 500.2500, L100.0100, L700.8000 #### [facility] [address] [place], [address] RBC (Bld) [#/Vol] 4.59 10*6/uL Normal 4.2-5.4 [facility] Comment on above: Performed By: #### L 500.2500, L100.0100, L700.8000 #### [facility] [address] [place], [address] RDW SD 40.4 fl Normal 35.1-43.9 [facility] Comment on above: Performed By: #### L 500.2500, L100.0100, L700.8000 #### [facility] [address] [place], [address] WBC (Bld) [#/Vol] 10.6 10*3/uL Normal 4.4-11.0 [facility] Comment on above: Performed By: #### L 500.2500, L100.0100, L700.8000 #### [facility] [address] [place], [address] Emergency Department Summary on 09-17-2023 Emergency Department Summary [facility] Medical Records Department [address] [place] [address] Emergency Department Summary 09/17/23 MR#: [id number] Acct: [id number] Name: GLENDA LARA Rep #: [id number] : 1990 32 From: Radha Manrique DO PCP: Care Physician,No Primary Status:DEP ER Location: ED HPI HPI - Female History of Present Illness Chief Complaint: Vag Bld, Preg Detail of Chief Complaint: Patient presents with concern for dehydration Informant: patient Narrative Narrative: Patient presents with dark urine and lower abdominal cramping. She is little over 8 weeks . She had a pelvic ultrasound on the of this month that showed a viable . She had diagnosed on the with trichomonas vaginalis and started on Flagyl. She has been having vomiting and night frequently over the last 2 days. She is concerned she may be dehydrated. She is having no vaginal bleeding. She thought maybe she was miscarrying because she had lower abdominal cramping and numbness and tingling in her hands. Patient is G4, P3 with no prior miscarriages. [facility] Medical History (Updated 09/17/23 @ 09:[address] Radha Mnarique, ) ETOH abuse Depression Home Medications ???Medication ???Instructions ???Recorded ???Last Taken ???Type metronidazole 500 mg tablet 500 mg PO BID 09/17/23 Unknown History ondansetron 4 mg disintegrating 4 mg PO Q6H PRN nausea and 09/17/23 Unknown Rx tablet vomiting #10 tabs sertraline 50 mg tablet 50 mg PO DAILY 09/17/23 Unknown History Allergy/AdvReac Type Severity Reaction Status Date / Time Penicillins (PCN) Allergy Hives Verified 09/17/23 07:48 Social History Smoking Status: Current every day smoker tobacco type: cigarettes ROS ROS ED Review of Systems ROS Unobtainable: other Constitutional Constitutional ED: Reports lethargy; Denies chills, fever(s), sweats or weight loss Eyes Eyes: Denies blurry vision, change in vision or diplopia ENT ENT ED: Denies rhinorrhea or sore throat Cardiovascular Cardiovascular: Denies chest pain, orthopnea or racing heartbeat Respiratory/Chest Respiratory/Chest: Denies cough, dyspnea, dyspnea on exertion, orthopnea or sputum Gastrointestinal Gastrointestinal: Reports abdominal pain, diarrhea, nausea and vomiting Genitourinary Genitourinary ED: Denies dysuria, hematuria or urinary frequency Musculoskeletal Musculoskeletal: Denies arthralgias, back pain, myalgias or neck pain Integumentary Denies abscess, Abrasions or rash Neurologic Neurologic: Denies headache(s) or weakness Psychiatric Psychiatric: Denies anxiety, depression or suicidal thoughts Endocrine Endocrinology: Denies polydipsia, polyphagia or polyuria Hematologic/Lymphatic Hematologic/Lymphatic: Denies easy bleeding, easy bruising or lymphadenopathy Allergic/Immunologic Allergic/Immunologic ED: Denies mouth swelling, tongue swelling or urticaria EXAM Physical Exam Const Vital Signs: 09/17/23 07:49 09/17/23 09:20 Temperature 98.4 F 98.4 F Temperature Source Oral Pulse Rate 97 71 Respiratory Rate 16 16 Blood Pressure 134/74 H 130/76 H Blood Pressure Mean 94 94 Pulse Ox 100 97 Oxygen Delivery Method Room Air Positive well nourished and well developed General Appearance ED: well developed and NAD HEENT Reports TM's clear and moist mucous membranes normocephalic and atraumatic; Negative for trauma or tenderness Tympanic Membrane ED: Yes TM's clear Eyes PERRL and EOMs intact bilaterally General Eye ED: Negative for pale conjunctiva or scleral icterus Neck no lymphadenopathy, supple and no JVD General: Negative for tenderness Chest Wall inspection of chest normal and palpation of chest normal Chest: Negative for tenderness Resp normal respiratory effort and clear to auscultation bilaterally Effort and Inspection: Negative for respiratory distress or pain with movement Auscultation: Negative for rhonchi, wheezes or diminished lung sounds Cardio regular rate, regular rhythm, S1 normal heart sound, S2 normal heart sound and no murmurs Peripheral Pulses: pulses 2+ throughout GI normal to inspection, nondistended, normoactive bowel sounds, soft to palpation, non-tender, non- distended and no masses Back/Spine no CVA tenderness and no thoracic nor lumbar tenderness Extremity normal to inspection General Extremety ED: Negative for edema General Extremity: Negative for edema Neuro oriented x3, CN's II-XII intact bilaterally, no sensory deficits noted and gait normal Sensorium / Orientation: awake, alert, oriented to person, oriented to place and oriented to time Motor Exam: strength 5/5 throughout and strength abnormal Psych mental status grossly normal Skin no rashes or lesions noted and no wou (more content not included)... Normal [facility] Urinalysis, Completeon 09-16 BACTERIA RARE Normal None Seen [facility] Comment on above: Order Comment: CLEAN CATCH Performed By: #### L 400.0001 #### [facility] [address] [place], [address] EPI,SQUAMOUS 0-5 SEEN Normal 5-10 [facility] Comment on above: Order Comment: CLEAN CATCH Performed By: #### L 400.0001 #### [facility] [address] [place], [address] WBC 0-5 SEEN Normal 0-5 [facility] Comment on above: Order Comment: CLEAN CATCH Performed By: #### L 400.0001 #### [facility] [address] [place], [address] Mucus Ql (Urine sed) 0 SEEN Normal [facility] Comment on above: Order Comment: CLEAN CATCH Performed By: #### L 400.0001 #### [facility] [address] [place], [address] RBC 0 SEEN Normal 0-5 [facility] Comment on above: Order Comment: CLEAN CATCH Performed By: #### L 400.0001 #### [facility] [address] [place], [address] hCG Titer Quant., Serumon HCG QUANT. 09201 mIU/mL High 1-3 [facility] Comment on above: Result Comment: hCG levels with Gestational Age Gestational Age hCG mIU/mL (IU/L) 0.2 - 1 week 5 - 50 1-2 weeks 50 - 500 2-3 weeks 100 - 5000 3-4 weeks 500 - 76088 4-5 weeks 1000 - 70533 5-6 weeks 53787 - 100,000 6-8 weeks 82153 - 200,000 2-3 months 88619 - 100,000 Performed By: #### L 500.2500, L100.0100, L700.8000 #### [facility] [address] [place], [address] [facility] 09-15-[address] 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 - metroNIDAZOLE (FLAGYL) 500 mg tablet Take 1 tablet by mouth two times a day for 7 days. - aspirin, enteric coated (ECOTRIN LOW STRENGTH) 81 mg EC tablet Take 1 tablet by mouth once daily. - sertraline (ZOLOFT) 50 mg tablet Take 1 tablet by mouth once daily. - vit37/iron/folic acid (PRENATA ORAL) Take 1 tablet by mouth once daily. Problem List As Of Date 09/15/2023 Noted Resolved Well adult exam [Z00.00] 04/09/2013 09/14/2023 Dyshidrotic eczema [L30.1] 04/09/2013 Routine gynecological examination [Z01.419] 09/14/2023 Supervision of normal [Z34.90] 09/14/2023 History of depression [Z86.59] 09/14/2023 Hx of drug abuse (HCC) [F19.11] 09/14/2023 Tetrahydrocannabinol (THC) use disorder, modera*09/14/2023 Hx of delivery, currently [O09*09/14/2023 Trichomoniasis [A59.9] 09/15/2023 Encounter Status:Closed by ERIKA CHAVEZ on 09/15/23 [facility] REAL Telephone (OBGYWM) GLENDA LARA ([id number]) 1990 F Date Time Provider Department 09/15/23 LEDA COSTA During your visit today, we recorded the following information about you: Leda Costa APRN.CNP 09/15/2023 7:30 AM Signed +Trich, flagyl sent- per guidelines she can be treated in the 1st trimester. If she needs her partner treated, please gather information and I will send in an Rx for him. REANNA Markham Jennifer, RN 09/15/2023 8:13 AM Signed Patient notified. She would like partner treatment. RX pending. Patient also said that she took the ASA and Zoloft last night at the same time. Was violently ill afterwards. States she spoke with a [facility] after hours nurse and she recommended taking a half a tablet to start off with. She ate dinner 4 hours prior. Did advise patient it was best to take the Flagyl with food/milk. Please advise. JV Dowling Renee, APRN.CNP 09/15/2023 8:26 AM Signed I told her to start with a 1/2 tab of the Zoloft for 1 wk and I told her not to start the ASA until after her next visit. Leda Costa APRN.Erika Jade RN 09/15/2023 8:42 AM Signed Patient notified. Erika Bower RN Allergies As of Date: 09/15/2023 Noted Allergy Reaction PENICILLINS 04/09/2013 4 - Hives Date Reviewed: 09/14/2023 Reviewed by: Balbina Hays LPN - Fully Assessed Reason for Visit: Results [95] Primary Visit Diagnosis:Trichomonias is [A59.9] Order(s):metroNIDAZOLE (FLAGYL) 500 mg tabletTake 1 tablet by mouth two times a day for 7 days.Disp: 14 tabletRfl: 0 EXPEDITED PARTNER TREATMENT [[id number]] Order #: [id number]: 1 metroNIDAZOLE (FLAGYL) 500 mg tabletTake 1 tablet by mouth two times a day for 7 days.Disp: 14 tabletRfl: 0 Prescriptions as of 09/15/2023 - metroNIDAZOLE (FLAGYL) 500 mg tablet Take 1 tablet by mouth two times a day for 7 days. - metroNIDAZOLE (FLAGYL) 500 mg tablet Take 1 tablet by mouth two times a day for 7 days. - aspirin, enteric coated (ECOTRIN LOW STRENGTH) 81 mg EC tablet Take 1 tablet by mouth once daily. - sertraline (ZOLOFT) 50 mg tablet Take 1 tablet by mouth once daily. - vit37/iron/folic acid (PRENATA ORAL) Take 1 tablet by mouth once daily. Problem List As Of Date 09/15/2023 Noted Resolved Well adult exam [Z00.00] 04/09/2013 09/14/2023 Dyshidrotic eczema [L30.1] 04/09/2013 Routine gynecological examination [Z01.419] 09/14/2023 Supervision of normal [Z34.90] 09/14/2023 History of depression [Z86.59] 09/14/2023 Hx of drug abuse (HCC) [F19.11] 09/14/2023 Tetrahydrocannabinol (THC) use disorder, modera*09/14/2023 Hx of delivery, currently [O09*09/14/2023 Trichomoniasis [A59.9] 09/15/2023 Prescriptions ordered this encounter Disp Refills Start End METRONIDAZOLE 500 MG TABLET 14 t* 0 09/15/2023 09/22/2023 Route: ORAL Sig: Take 1 tablet by mouth two times a day for 7 days. METRONIDAZOLE 500 MG TABLET 14 t* 0 09/15/2023 09/22/2023 Route: ORAL Sig: Take 1 tablet by mouth two times a day for 7 days. Encounter Status:Closed by ERIKA BOWER on 09/15/23 Normal [facility] Bacteria Ur Culton Bacteria identified Cx Nom (U) ORGANISM ID: 1 10,000 -<50,000 CFU/ml Normal urogenital devante Normal [facility] Comment on above: Performed By: #### 6 30-4 #### [facility] CLIA [id number] [address] [place] [address] [place] C. trachomatis+N. gonorrhoea e DNA GREGG+probe Ql (Unsp spec)on 09-14-2023 C. trachomatis rRNA GREGG+probe Ql (Unsp spec) Negative Normal Negative for Chlamydia trachomatis by amplificaton [facility] Comment on above: Order Comment: Speci men Type: SWAB Ordering Facility: [facility] Address: [address] [place] [address] Performed By: #### 3 6902-5, TRVAMP #### [facility] CLIA [id number] [address] [place] [address] [place] N. gonorrhoeae rRNA GREGG+probe Ql (Unsp spec) Negative Normal Negative for Neisseria gonorrhoeae by amplification [facility] Comment on above: Order Comment: Speci men Type: SWAB Ordering Facility: [facility] Address: [address] [place] [address] Performed By: #### 3 6902-5, TRVAMP #### [facility] CLIA [id number] [address] [place] [address] [place] HIGH RISK HUMAN PAPILLOMA LAURA (HPV), PCR FOR DETECTION AND GENOTYPINGon 09-14-2023 HPV 16 Ag Ql (Unsp spec) Not detected Normal Not detected [facility] Comment on above: Order Comment: Speci men Type: SWAB Ordering Facility: [facility] Address: [address] [place] [address] Performed By: #### 3 6902-5, TRVAMP #### [facility] CLIA [id number] [address] [place] [address] [place] HPV 18 Ag Ql (Unsp spec) Not detected Normal Not detected [facility] Comment on above: Order Comment: Speci men Type: SWAB Ordering Facility: [facility] Address: [address] [place] [address] Performed By: #### 3 6902-5, TRVAMP #### [facility] CLIA [id number] [address] [place] [address] [place] HPV 31+33+35+39+45+51+52+ 56+58+59+66+68 DNA GREGG+probe Ql (Cvx) Not detected Normal Not detected [facility] Comment on above: Order Comment: Speci men Type: SWAB Ordering Facility: [facility] Address: [address] [place] [address] Result Comment: High Risk HPV Other Type includes HPV types 31, 33, 35, 39, 45, 51, 52, 56, 58, 59, 66 and 68. Performed By: #### 3 6902-5, TRVAMP #### [facility] CLIA [id number] [address] [place] [address] [place] PAP TESTon 09-14-2023 ADEQUACY Satisfactory for interpretation. Normal [facility] Comment on above: Order Comment: Speci men Type: SWAB Ordering Facility: [facility] Address: [address] [place] [address] Performed By: #### 3 6902-5, TRVAMP #### [facility] CLIA [id number] [address] [place] [address] [place] CASE REPORT Normal [facility] Comment on above: Order Comment: Speci men Type: SWAB Ordering Facility: [facility] Address: [address] [place] [address] Result Comment: Gyne cologic Cytology Report Case: [id number] Authorizing Provider: Leda Costa APRN.ELECTRICIAN FRONT Collected: 09/14/2023 09:20 AM Ordering Location: OB/Gynecology Received: 09/14/2023 11:36 AM First Screen: Erika Aguilar, CT, ASCP Specimen: Pap Test, ThinPrep, Cervix Performed By: #### 3 6902-5, TRVAMP #### [facility] CLIA [id number] [address] [place] [address] [place] CLINICAL HISTORY, CYTOLOGY, SALES FLOOR MANAGER Routine Exam Normal [facility] Comment on above: Order Comment: Speci men Type: SWAB Ordering Facility: [facility] Address: [address] [place] [address] Performed By: #### 3 6902-5, TRVAMP #### [facility] CLIA [id number] [address] [place] [address] [place] CYTOLOGY PAP OTHER INT Fungal organisms morphologically consistent with Luma species. Normal [facility] Comment on above: Order Comment: Speci men Type: SWAB Ordering Facility: [facility] Address: [address] [place] [address] Performed By: #### 3 6902-5, TRVAMP #### [facility] CLIA [id number] [address] [place] [address] [place] FINAL PERFORMING LAB Normal [facility] Comment on above: Order Comment: Speci men Type: SWAB Ordering Facility: [facility] Address: [address] [place] [address] Result Comment: Tech nical component, auto damage insurance appraiser screening performed at [facility], [address] [place] [id number] CLIA# [id number] Diagnostic interpretation performed at [facility], [address] [place] [place] [id number] CLIA# [id number] Dealer Sales Manager: Mario Adkins M.D. Performed By: #### 3 6902-5, TRVAMP #### [facility] CLIA [id number] [address] [place] [address] [place] HPV REFLEX Yes HPV Normal [facility] Comment on above: Order Comment: Speci men Type: SWAB Ordering Facility: [facility] Address: [address] [place] [address] Performed By: #### 3 6902-5, TRVAMP #### [facility] CLIA [id number] [address] [place] [address] [place] INTERPRETATION, CYTOLOGY, SALES FLOOR MANAGER Normal [facility] Comment on above: Order Comment: Speci men Type: SWAB Ordering Facility: [facility] Address: [address] [place] [address] Result Comment: Nega tive for intraepithelial lesion or malignancy. Performed By: #### 3 6902-5, TRVAMP #### [facility] CLIA [id number] [address] [place] [address] [place] LMP 07/03/2023 Normal [facility] Comment on above: Order Comment: Speci men Type: SWAB Ordering Facility: [facility] Address: [address] [place] [address] Performed By: #### 3 6902-5, TRVAMP #### [facility] CLIA [id number] [address] [place] [address] [place] PAP DISCLAIMER COMMENT The Pap Smear is a screening test for cervical cancer. False negative results occur with all screening tests, emphasizing the need for rescreening at recommended intervals, and clinical correlation. Normal [facility] Comment on above: Order Comment: Speci men Type: SWAB Ordering Facility: [facility] Address: [address] [place] [address] Performed By: #### 3 6902-5, TRVAMP #### [facility] CLIA [id number] [address] [place] [address] [place] PAP CHEMICAL PROCESSING SUPERVISOR COMMENT This specimen has be en analyzed by the ThinPrep Imaging System, an automated imaging and review system, which assists the laboratory in evaluating cells on ThinPrep Pap tests. Following automated imaging, selected penn from every slide are reviewed by a auto damage insurance appraiser. Normal [facility] Comment on above: Order Comment: Speci men Type: SWAB Ordering Facility: [facility] Address: [address] [place] [address] Performed By: #### 3 6902-5, TRVAMP #### [facility] CLIA [id number] [address] [place] [address] [place] POC MIDWIFE ULTRASOUNDon 09-14-19 24 Indication Confirmation of intrauterine . Confirmation of cardiac activity Impression 1. Single, live, intrauterine . 2. An intrauterine gestational sac with a yolk sac and pole are present. 3. [place] rump length measurement is NOT consistent with the dating provided. Therefore, dating is now based on today?s crown rump length. . 4. heart tones are within normal limits. Recommendations Follow up as clinically indicated. Method Transvaginal ultrasound examination. View: Adequate visualization Navarro . Number of embryos: 1 Dating LMP on: 07/03/2023 GA by LMP 10 w + 3 d JEAN by LMP: 04/08/2024 Ultrasound examination on: 09/14/2023 GA by U/S based upon: CRL GA by U/S 8 w + 0 d JEAN by U/S: 04/25/2024 Assigned: based on ultrasound (CRL), selected on 09/14/2023 Assigned GA 8 w + 0 d Assigned JEAN: 04/25/2024 Biometry Standard FHR 148 bpm CRL 15.3 mm 8w 0d 71% [place] Assessment Gestational sac: visualized Location: intrauterine Yolk sac: visualized Embryo: visualized CRL 15.3 mm 8w 0d 71% [place] Cardiac activity: present FHR 148 bpm General Evaluation Cardiac activity present. FHR 148 bpm Performed By: Leda Costa CNP Read By: Leda Costa CNP MATERNAL MEDICINE [facility] Radiology Study observation (narrative) [facility] TRICHOMONAS VAGINALIS NAATon 09-14-2023 T. vaginalis DNA GREGG+probe Ql (Unsp spec) Positive Abnormal Negative for Trichomonas vaginalis by amplification [facility] Comment on above: Order Comment: Speci men Type: SWAB Ordering Facility: [facility] Address: [address] [place] [address] Performed By: #### 3 [id number], TRVAMP #### [facility] CLIA [id number] [address] [place] [address] OF [facility] 09-11-2023 CNPN Telephone (4CQ) GLENDA LARA ([id number]) 1990 F Date Time Provider Department 09/11/23 KENIA CAVAZOS 4CQ During your visit today, we recorded the following information about you: Alicia Nam 09/11/2023 5:01 PM Signed Pt has consult to [facility] Hanane Pennington RN 09/12/2023 1:39 PM Signed Patient called back to OB and wanted to know when she would be scheduled with Dr Aquino, I did contact Chiqui Mckenzie and she will get back to patient. Patient has an appointment today with counselor at [facility] and states she will sign a release of records form to Dr Aquino and Dr Aguilar as asked previously by another nurse. Kenia Cavazos, LEAD BLENDER.[employer]ICIAN [employer] 09/12/2023 2:07 PM Signed Reviewed patient's chart, symptom, and history in detail. Do not recommend that she wait until December for medication related intervention. Looks like she was on various psychiatric medications in the past. Please have her call [phone] to schedule an appointment for the intensive outpatient program at [facility]. This will allow her access to an assessment by a Psychiatrist who is trained in Women's behavioral health within a week and consistent engagement in supportive therapy. She should also be recommended to schedule an appointment with a psychiatrist [facility] so that all her services are provided within the same organization for proper collaborative care. Have her schedule both the IOP intake and the appointment with psychiatry [facility] today so that she is able to get assessed as soon as possible. Chiqui Mckenzie LPN 09/13/2023 9:15 AM Signed See below for recommendations to give to patient. Karuna Del Angel RN 09/13/2023 4:34 PM Signed Patient notified. She has not been able to schedule with [facility] yet. Karuna Del Angel RN Allergies As of Date: 09/11/2023 Noted Allergy Reaction PENICILLINS 04/09/2013 4 - Hives Date Reviewed: 09/11/2023 Reviewed by: Yaa Becerra MA - Fully Assessed Prescriptions as of 09/13/2023 - vit37/iron/folic acid (PRENATA ORAL) Take 1 tablet by mouth once daily. - ibuprofen (MOTRIN) 600 mg tablet Take 1 tablet by mouth every 6 hours as needed for pain. - lamoTRIgine (LAMICTAL) 200 mg tablet - sertraline (ZOLOFT) 100 mg tablet - VRAYLAR 3 mg capsule - atomoxetine (STRATTERA) 10 mg capsule Take 10 mg by mouth once daily. - promethazine (PHENERGAN) 25 mg tablet Take 1 tablet by mouth every 8 hours as needed for nausea/vomiting. - traMADol (ULTRAM) 50 mg tablet Take 1 tablet by mouth every 6 hours as needed for Pain. - norgestimate 0.25 mg-ethinyl estradiol 35 mcg (SPRINTEC) 0.25-35 mg-mcg per tablet Take 1 tablet by mouth once daily. - mometasone 0.1 % cream Apply to areas twice a day. On for 4 days and off for 3 days. Repeat as needed. Problem List As Of Date 09/11/2023 Noted Resolved Well adult exam [Z00.00] 04/09/2013 Dyshidrotic eczema [L30.1] 04/09/2013 Routine gynecological examination [Z01.419] Encounter Status:Closed by KARUNA DEL ANGEL on 09/13/23 [facility] 09-07-2023 CNPN Telephone (OBGYWM) GLENDA LARA ([id number]) 1990 F Date Time Provider Department 09/07/23 LEDA COSTA OBGYWM During your visit today, we recorded the following information about you: Hanane Pennington, JV 09/07/2023 3:15 PM Signed Called patient to do intake questions for upcoming new OB appointment with Leda Costa. Patient states she is available on September 11 in the afternoon and I will call her at that time Karuna Del Angel, JV 09/11/2023 3:23 PM Signed [facility] 07/03/23 - 10 weeks Received call transfered from Osvaldo. When she was doing intake questions for NOB patient voiced thoughts of harming self. I spoke to patient then. She does have thoughts of harming self, but not others. No plan in place. She does have a [facility] and sees her again tomorrow. States she is going to set a safety plan with her tomorrow because she recently moved now. Housing is a concern for her too. Her counselor is aware of her thoughts that have been going on to and placed a referral for her to see the psychiatrist at [facility] too. She said that has been awhile and she hasn't been scheduled yet at this time. Feels she needs medication to help. She does have the crisis hotline number and feels she has a good support system too. Could referral be placed to try to get her seen here sooner with psych? Her NOB is with 09/13 at 8:15. Would likely benefit from social work consult too. Please advise. Lakisha Vigil MD 09/11/2023 3:52 PM Signed Filed consult Karuna Del Angel, JV 09/11/2023 4:42 PM Signed Left message for patient to call office. Let her know consult order is placed. Kenia Cavazos though is scheduling out until December. She could try calling the schedulers to see if another location has anything sooner if she doesn't mind traveling if needed. JV Jones Teresa, RN 09/12/2023 1:41 PM Signed Patient given message and wanted to know when she would be scheduled with Dr Aquino,. She did not want to go elsewhere. I did contact Chiqui Mckenzie and she will get back to patient after discussing with Dr Aquino. Patient has an appointment today with counselor at [facility] and states she will sign a release of records form to Dr Aquino and Dr Aguilar as asked previously by another nurse. Allergies As of Date: 09/07/2023 Noted Allergy Reaction PENICILLINS 04/09/2013 4 - Hives Date Reviewed: 12/05/2021 Reviewed by: Sujata Cano, JV - Fully Assessed Reason for Visit: Patient Update [1234] Primary Visit Diagnosis:History of depression [Z86.59] Order(s):CONSULT TO WOMEN'S BEHAVIORAL HEALTH [2775259] Order #: [id number]: 1 FUTURE Prescriptions as of 09/13/2023 - vit37/iron/folic acid (PRENATA ORAL) Take 1 tablet by mouth once daily. - ibuprofen (MOTRIN) 600 mg tablet Take 1 tablet by mouth every 6 hours as needed for pain. - lamoTRIgine (LAMICTAL) 200 mg tablet - sertraline (ZOLOFT) 100 mg tablet - VRAYLAR 3 mg capsule - atomoxetine (STRATTERA) 10 mg capsule Take 10 mg by mouth once daily. - promethazine (PHENERGAN) 25 mg tablet Take 1 tablet by mouth every 8 hours as needed for nausea/vomiting. - traMADol (ULTRAM) 50 mg tablet Take 1 tablet by mouth every 6 hours as needed for Pain. - norgestimate 0.25 mg-ethinyl estradiol 35 mcg (SPRINTEC) 0.25-35 mg-mcg per tablet Take 1 tablet by mouth once daily. - mometasone 0.1 % cream Apply to areas twice a day. On for 4 days and off for 3 days. Repeat as needed. Problem List As Of Date 09/07/2023 Noted Resolved Well adult exam [Z00.00] 04/09/2013 Dyshidrotic eczema [L30.1] 04/09/2013 Routine gynecological examination [Z01.419] Encounter Status:Closed by KARUNA DEL ANGEL on 09/13/23 Normal [facility] Bacteria identifiedon 2023 Bacteria identified Cx Nom (U) Test: Urine Culture Specimen Source: Clean Catch/Voided Specimen Type: Urine Specimen Date: 08/29/20231716 Result Date: 08/31/2023840 Result Status: Final result Abnormal: No Resulting Lab: [facility] [id number] [place] [id number] CULTURE No significant growth Normal [facility] Comment on above: Performed By: #### 6 30-4 #### JIL García ([id number]) [facility] ([facility]) [address] [place] [address] POCT UA Automated manually r esultedon 08-29-2023 Appearance (U) Clear Clear [facility] Work Phone: Glucose Test strip (U) [Mass/Vol] Negative NEGATIVE mg/dl [facility] Work Phone: Hemoglobin Ql (U) Negative NEGATIVE [facility] Work Phone: Interpretation and review of laboratory results Abnormal [facility] Work Phone: Leukocyte esterase Test strip Ql (U) SMALL (1+) Abnormal NEGATIVE [facility] Work Phone: Nitrite Ql (U) Negative NEGATIVE [facility] Work Phone: pH (U) 7.0 [pH] No Reference Range Established [facility] Work Phone: POC Bilirubin, Urine Negative NEGATIVE [facility] Work Phone: POC Color, Urine Yellow Straw, [place] ow, Light-Yellow [facility] Work Phone: POC Ketones, Urine Negative NEGATIVE mg/dl Un [facility] Work Phone: POC Protein, Urine Negative NEGATIVE, 30 (1+) mg/dl [facility] Work Phone: POC Specific [place], Urine 1.025 1.005 - 1.035 [facility] Work Phone: POC Urobilinogen, Urine 0.2 0.2, 1.0 EU/DL [facility] Work Phone: [facility] Work Phone: CBC panel Auto (Bld)Ordered By: Curt Quan on 02-11-2023 Erythrocyte distribution width (RBC) [Ratio] 12.3 % 11.5 - 14.5 % [facility] [employer] Hematocrit (Bld) [Volume fraction] 50.4 % High 35.0 - 47.0 % [facility] [employer] Hemoglobin (Bld) [Mass/Vol] 18.1 g/dL High 11.7 - 16.0 g/dL [facility] [employer] Interpretation and review of laboratory results Abnormal [facility] [employer] MCH (RBC) [Entitic mass] 31.5 pg 26.0 - 34.0 pg [facility] [employer] MCHC (RBC) [Mass/Vol] 35.9 % 32.0 - 36.0 % [facility] [employer] MCV (RBC) [Entitic vol] 87.7 fL 80.0 - 98.0 fL [facility] [employer] Platelet mean volume (Bld) [Entitic vol] 8.4 fL 7.4 - 12.4 fL [facility] Comment on above: MPV is a calculated measurement using platelet volume ratio Platelets (Bld) [#/Vol] 402 10*3/uL 140 - 440 10*3/uL [facility] [employer] RBC (Bld) [#/Vol] 5.75 10*6/uL High 3.8 - 5.20 10*6/uL [facility] [employer] WBC (Bld) [#/Vol] 15.5 10*3/uL High 3.6 - 10.7 10*3/uL [facility] Comprehensive metabolic 1998 panelon 02-11-2023 Albumin [Mass/Vol] 5.6 g/dL High 3.5 - 5.0 g/dL [facility] ALP [Catalytic activity/Vol] 57 U/L 38 - 126 U/L [facility] ALT [Catalytic activity/Vol] 26 U/L 0 - 34 U/L [facility] Anion gap [Moles/Vol] 19 mmol/L High 3 - 13 mmol/L [facility] AST [Catalytic activity/Vol] 61 U/L High 15 - 46 U/L [facility] Bilirubin [Mass/Vol] 0.8 mg/dL 0.2 - 1.3 mg/dL [facility] Calcium [Mass/Vol] 10.2 mg/dL 8.4 - 10. 4 mg/dL [facility] Chloride [Moles/Vol] 90 mmol/L Low 98 - 107 mmol/L [facility] CO2 [Moles/Vol] 28 mmol/L 22 - 30 mmol/L [facility] Creatinine [Mass/Vol] 1.89 mg/dL High 0.52 - 1.04 mg/dL [facility] GFR/1.73 sq M.predicted MDRD (S/P/Bld) [Vol rate/Area] 35.8 mL/min/{1.73_m2} Low - PINF [facility] Comment on above: Calculation based on the Chronic Kidney Disease Epidemiology Collaboration (CKD-EPI) equation refit without adjustment for race Glucose [Mass/Vol] 92 mg/dL 70 - 100 mg/dL [facility] Potassium [Moles/Vol] 2.9 mmol/L Low 3.5 - 5.1 mmol/L [facility] Protein [Mass/Vol] 10.5 g/dL High 6.3 - 8.2 g/dL [facility] Sodium [Moles/Vol] 136 mmol/L 135 - 145 mmol/L [facility] Urea nitrogen [Mass/Vol] 23 mg/dL High 7 - 17 mg/dL [facility] Ethanol (Bld) [Mass/Vol]on 04-13-2022 Ethanol [Mass/Vol] g/dL 0.000 - 0 .010 g/dL [facility] Laboratory - Chemistry and C hemistry - challengeon 02-11-2023 Beta HCG ( test) Ql Negative Negative [facility] Comment on above: Please note: Very di lute urine specimens, as indicated by a low specific gravity, may not contain desk representative levels of hCG. If is still suspected, a first morning urine specimen should be collected 48 hours later and tested. Beta HCG ( test) Ql (U) is the most common reason for HCG in urine, although choriocarcinoma, hydatidiform mole, and certain nontrophoblastic malignancies also result in detectable urinary HCG levels. Sensitivity = 20mIU/mL. [facility] Magnesium [Mass/Vol] 2.2 mg/dL 1.6 - 2.3 mg/dL [facility] - Drug toxicology on 02-11-2023 Amphetamines Screen method >1000 ng/mL Ql (U) Negative [facility] Barbiturates Screen method >200 ng/mL Ql (U) Negative [facility] Benzodiazepines Ql (U) Negative [facility] Methadone Screen Ql (U) Negative [facility] Opiates Screen Ql (U) Negative [facility] oxyCODONE Ql (U) Negative [facility] alth Phencyclidine Ql (U) Negative [facility] Acetaminophen [Mass/Vol] ug/mL Low 10.0 - 30.0 ug/mL [facility] Salicylates [Mass/Vol] mg/dL NINF - 20.0 mg/dL [facility] No Panel Informationon 02-11 COCAINE METAB. SCREEN Negative [facility] The expected value f or all of the drugs listed above is [...] is needed, request confirmation under separate order. [facility] Interpretation and review of laboratory results Abnormal [facility] Interpretation and review of laboratory results Normal [facility] P [place] 83 degrees [facility] [place] Interval 122 ms [facility] QRS [place] 83 degrees [facility] QRSD Interval 83 ms [facility] QT Interval 317 ms [facility] QTC Interval 469 ms [facility] T Wave [place] -73 degrees [facility] Sinus tachycardia LAE, consider biatrial enlargement Repol abnrm suggests ischemia, diffuse leads No previous ECG available for comparison Electronically Signed On 02-11-2023 13:53:14 EST by Jam Phan CV Jam Light MD - 02/11/2023 IMPRESSION: Sinus tachycardia LAE, consider biatrial enlargement Repol abnrm suggests ischemia, diffuse leads No previous ECG available for comparison Electronically Signed On 02-11-2023 13:53:14 EST by Jam Phan [facility] Urinalysis complete panel (U )on 02-11-2023 Bacteria LM.HPF (Urine sed) [#/Area] Few Abnormal Negative /HPF [facility] Bilirubin Ql (U) Negative Negative mg/dL [facility] Clarity (U) Clear Clear [facility] Color (U) Light Yellow Lt. Yellow [facility] Epithelial cells.squamous LM.HPF (Urine sed) [#/Area] 3-5 [facility] Glucose Ql (U) Normal Normal (<70) mg/dL [facility] Granular casts LM.HPF (Urine sed) [#/Area] 0-2 Abnormal Negative /LPF [facility] Hemoglobin Ql (U) 0.1 mg/dL Abnormal Negative [facility] ealth Hyaline casts Auto (Urine sed) [#/Area] 0-2 Abnormal Negative /LPF [facility] Interpretation and review of laboratory results Abnormal [facility] Ketones (U) [Mass/Vol] Negative Negative mg/dL [facility] Leukocyte esterase Test strip Ql (U) Negative Negative Elena/uL [facility] Nitrite Ql (U) Negative Negative [facility] pH (U) 6.5 [pH] 5.0 - 8.0 pH [facility] Protein (U) [Mass/Vol] Negative Negative mg/dL [facility] RBC LM.HPF (Urine sed) [#/Area] 0-2 [facility] Specific gravity (U) [Rel density] 1.007 1.005 - 1.030 [facility] Urobilinogen (U) [Mass/Vol] Normal Normal (0-1) mg/dL [facility] Volume, Urine 12 mL [facility]alt [facility] WBC LM.HPF (Urine sed) [#/Area] 0-2 [facility] Vital signson 02-11-2023 Heart rate 132 /min bpm [facility] ED NOTEon 12-05-2021 ED NOTE HNO ID: [id number] Author: Sujata Cano RN Service: Nursing Author Type: Registered Nurse Type: ED Notes Filed: 12/05/2021 10:28 AM Note Text: Patient informed: the name of medication, why we are giving it, possible side effects, what they may expect to feel, and was offered a chance to ask questions, prior to the administration of Zofran, Tylenol Normal [facility] ED NOTE HNO ID: [id number] Author: Sujata Cano RN Service: Nursing Author Type: Registered Nurse Type: ED Notes Filed: 12/05/2021 10:14 AM Note Text: Pt reports right shoulder pain for at least 3 weeks. No known injury/falls. Pt reports pain at 2/10, movement does not worsen pain. Pt also reports that right arm goes numb several times a day. Pt is also reporting nausea beginning yesterday Pt does not take medication at home for discomfort Normal [facility] ED PROV NOTEon 12-05-2021 ED PROV NOTE HNO ID: [id number] Author: Librado Wolfe MD Service: Emergency Medicine Author Type: Physician Type: ED Provider Notes Filed: 12/05/2021 5:30 PM Note Text: ED Provider Note Patient Name: Glenda Lara : 1990 SERVICE DATE: 12/05/21 History Patient presents with: Pain (Shoulder Pain) Patient presenting to emergency room for evaluation of right-sided neck shoulder and arm pain. She also has some mild lower abdominal cramping that feels like her menstrual cycles coming on. She has very irregular menses, and is not on control and does not use contraception. She could be but she does not know. She has some increased urinary frequency but believe this to be attributable to her [employer] coffee. Her pain in her shoulder has been ongoing for several weeks, it is described as a rock type sensation in her neck and upper arm. It is occasionally accompanied by tingling in her lower arm, that resolved spontaneously. Today and yesterday it was associated with some mild nausea. No emesis. Current everyday marijuana smoker. Current smoker. No cardiac history. No chest pain or pressure or shortness of breath. No increased cough or productive cough. No fevers or chills. No redness or warmth. Has only tried rest for her symptoms and nothing else at home. Denies other acute sick symptoms. Pain rated as 6 out of 10. PAST MEDICAL HISTORY Diagnosis Date - NEGATIVE MEDICAL HISTORY - Psychiatric disorder depression, anxiety - Routine gynecological examination Sees Dr. Cornejo's PAST SURGICAL HISTORY Procedure Laterality Date - ORTHOPEDICS SURGERY HX left wrist - PAST SURGICAL HISTORY OF Plates in right wrist due to Fx FAMILY HISTORY Problem Relation Age of Onset - Alzheimer's Disease Maternal Grandfather - Coronary Artery Disease Maternal Grandfather 60's - Headache Mother - Lipids Maternal Grandfather Social History Tobacco Use - Smoking status: Every Day Packs/day: 0.50 Years: 6.00 Pack years: 3.00 Types: Cigarettes - Smokeless tobacco: Never Vaping Use - Vaping Use: Some days - Substances: Nicotine, Flavoring - Devices: Pre-filled or refillable cartridge, Refillable tank Substance and Sexual Activity - Alcohol use: Never - Drug use: Yes Types: Marijuana Comment: medical marijuana card for PTSD , daily - Sexual activity: Yes ALLERGIES Allergen Reactions - Penicillins Hives Review of Systems Constitutional: Negative for activity change, chills and fever. HENT: Negative for ear discharge and ear pain. Eyes: Negative for pain and discharge. Respiratory: Negative for cough and shortness of breath. Cardiovascular: Negative for chest pain and palpitations. Gastrointestinal: Positive for abdominal pain. Negative for diarrhea, nausea and vomiting. Genitourinary: Negative for dysuria and flank pain. Musculoskeletal: Positive for neck pain. Negative for back pain. Right shoulder pain Skin: Negative for color change, rash and wound. Neurological: Negative for dizziness, seizures and numbness. Psychiatric/Behavioral : Negative for self-injury and suicidal ideas. Physical Exam Vitals [12/05/21 1007] BP Pulse Temp Temp src Resp SpO2 Weight Height 124/76 83 36.4 ?C (97.6 ?F) Temporal 14 100 % 54.4 kg (120 lb) 1.6 m (5' 3) Physical Exam Vitals and nursing note reviewed. Constitutional: General: She is not in acute distress. Appearance: She is well-developed. She is not diaphoretic. HENT: Head: Normocephalic and atraumatic. Right Ear: External ear normal. Left Ear: External ear normal. Eyes: General: No scleral icterus. Pupils: Pupils are equal, round, and reactive to light. Cardiovascular: Rate and Rhythm: Normal rate and regular rhythm. Heart sounds: Normal heart sounds. No murmur heard. No friction rub. No gallop. Pulmonary: Effort: Pulmonary effort is normal. No respiratory distress. Breath sounds: Normal breath sounds. No stridor. No wheezing or rales. Chest: Chest wall: No tenderness. Abdominal: General: There is no distension. Palpations: Abdomen is soft. There is no mass. Tenderness: There is no abdominal tenderness. There is no right CVA tenderness, left CVA tenderness, guarding or rebound. Hernia: No hernia is present. Comments: No focal tenderness palpation in the abdomen. No tenderness to deep palpation over McBurney's point. Negative Medina sign. No guarding rigidity or rebound. Musculoskeletal: General: No tenderness or deformity. Normal range of motion. Cervical back: Normal range of motion and neck supple. Comments: No notable tenderness or pain with movement of the right shoulder. No warmth or redness. She does have some mild increased tension in the trapezius muscle on the right side. No tenderness to palpation in the midline of the C, T or L-spine's. No warmth or redness. Full range of motion of her neck. Skin: General: Skin is warm a (more content not included)... Normal [facility] HCG Preg Ur Qlon 12-05-2021 HCG ( test) Ql (U) Negative Normal Negative [facility] Comment on above: Order Comment: Speci men Type: URINE SPECIMEN Ordering Facility: [facility] Address: [address] [place] [address] Result Comment: This test is intended to aid in the early detection of . Very dilute urine samples, as indicated by a low specific gravity, may not contain desk representative levels of hCG. This test detects intact hCG only. This test does not reliably detect hCG degradation products, including free-beta subunit and beta-core fragment. Therefore, this test may show reduced reactivity in urine after 8 weeks gestation. A number of conditions other than , including trophoblastic disease and certain non-trophoblastic neoplasms cause elevated levels of hCG. As with any assay employing mouse antibodies, the possibility exists for interference by human anti-mouse antibodies (HAMA) in the specimen. The test provides a presumptive diagnosis for . Performed By: #### 2 106-3 #### [facility] CLIA [id number] [address] [id number] [facility] Urinalysis complete panel (U )on 12-05-2021 Bilirubin Ql (U) Negative Normal Negative [facility] Comment on above: Order Comment: Speci men Type: URINE SPECIMEN Ordering Facility: [facility] Address: [address] [place] [address] Performed By: #### 2 4356-8 #### [facility] CLIA [id number] [address] [id number] [facility] Clarity (Unsp spec) Clear Normal Clear [facility] Comment on above: Order Comment: Speci men Type: URINE SPECIMEN Ordering Facility: [facility] Address: [address] [place] [address] Performed By: #### 2 4356-8 #### [facility] CLIA [id number] [address] [id number] [facility] Color (U) Yellow Normal Yellow [facility] Comment on above: Order Comment: Speci men Type: URINE SPECIMEN Ordering Facility: [facility] Address: [address] [place] [address] Performed By: #### 2 4356-8 #### [facility] CLIA [id number] [address] [id number] [facility] Glucose Test strip (U) [Mass/Vol] Negative Normal Negative [facility] Comment on above: Order Comment: Speci men Type: URINE SPECIMEN Ordering Facility: [facility] Address: [address] [place] [address] Performed By: #### 2 4356-8 #### [facility] CLIA [id number] [address] [place] [address] [place] Hemoglobin Ql (U) Negative Normal Negative [facility] Comment on above: Order Comment: Speci men Type: URINE SPECIMEN Ordering Facility: [facility] Address: [address] [place] [address] Performed By: #### 2 4356-8 #### [facility] CLIA [id number] [address] [place] [address] [place] Ketones Ql (U) Negative Normal Negative [facility] Comment on above: Order Comment: Speci men Type: URINE SPECIMEN Ordering Facility: [facility] Address: [address] [place] [address] Performed By: #### 2 4356-8 #### [facility] CLIA [id number] [address] Leukocyte esterase Test strip Ql (U) Negative Normal Negative [facility] Comment on above: Order Comment: Speci men Type: URINE SPECIMEN Ordering Facility: [facility] Address: [address] [place] [address] Performed By: #### 2 4356-8 #### [facility] CLIA [id number] [address] [place] Nitrite Ql (U) Negative Normal Negative [facility] Comment on above: Order Comment: Speci men Type: URINE SPECIMEN Ordering Facility: [facility] Address: [address] [place] [address] Performed By: #### 2 4356-8 #### [facility] CLIA [id number] [address] [place] pH (U) 8.5 [pH] High 5.0-8.0 [facility] Comment on above: Order Comment: Speci men Type: URINE SPECIMEN Ordering Facility: [facility] Address: [address] [place] [address] Performed By: #### 2 4356-8 #### [facility] CLIA [id number] [address] [place] [address] Protein (U) [Mass/Vol] Negative Normal Negative [facility] Comment on above: Order Comment: Speci men Type: URINE SPECIMEN Ordering Facility: [facility] Address: [address] [place] [address] Performed By: #### 2 4356-8 #### [facility] CLIA [id number] [address] [place] [address] RBC LM.HPF (Urine sed) [#/Area] 0-3 /HPF Normal 0-3 /HPF [facility] Comment on above: Order Comment: Speci men Type: URINE SPECIMEN Ordering Facility: [facility] Address: [address] [place] [address] Performed By: #### 2 4356-8 #### [facility] CLIA [id number] [address] [place] [address] Specific gravity (U) [Rel density] 1.015 Normal 1.005-1.030 [facility] Comment on above: Order Comment: Speci men Type: URINE SPECIMEN Ordering Facility: [facility] Address: [address] [place] [address] Performed By: #### 2 4356-8 #### [facility] CLIA [id number] [address] [place] [address] Urobilinogen Ql (U) 0.2 EU/dL Normal 0.2-1.0 EU/dL [facility] Comment on above: Order Comment: Speci men Type: URINE SPECIMEN Ordering Facility: [facility] Address: [address] [place] [address] Performed By: #### 2 4356-8 #### [facility] CLIA [id number] [address] WBC LM.HPF (Urine sed) [#/Area] 0-5 /HPF Normal 0-5 /HPF [facility] Comment on above: Order Comment: Speci men Type: URINE SPECIMEN Ordering Facility: [facility] Address: [address] [place], [place] [address] [address] Performed By: #### 2 4356-8 #### [facility] CLIA [id number] [address] [place] [address] [place] Vital Signs Date Time Vital Sign Value Performing Clinician Facility 12-30-2024 11:28-0400 Body height 160 cm Marii Gay DO Work Phone: [facility] 12-30-2024 11:28-0400 Body mass index (BMI) [Ratio] 26.04 kg/m2 Marii Gay DO Work Phone: [facility] 12-30-2024 11:28-0400 Body weight 66.68 kg Marii Gay DO Work Phone: [facility] 12-30-2024 11:28-0400 Diastolic blood pressure 62 mm[Hg] Marii Gay DO Work Phone: [facility] 12-30-2024 11:28-0400 Systolic blood pressure 114 mm[Hg] Marii Gay DO Work Phone: [facility] 11-18-2024 22:21-0400 Diastolic blood pressure 77 mm[Hg] Kamille Nesheim DO Work Phone: [facility] 11-18-2024 22:21-0400 Heart rate 81 /min Kamille Nesheim DO Work Phone: [facility] 11-18-2024 22:21-0400 Respiratory rate 16 /min Kamille Nesheim DO Work Phone: [facility] 11-18-2024 22:21-0400 SaO2% (BldA) [Mass fraction] 99 % Kamille Nesheim DO Work Phone: [facility] 11-18-2024 22:21-0400 Systolic blood pressure 119 mm[Hg] [facility] 11-18-2024 19:54-0400 Body height 160 cm Kamille Nesheim DO Work Phone: [facility] 11-18-2024 19:54-0400 Body mass index (BMI) [Ratio] 24.8 kg/m2 Kamille Nesheim DO Work Phone: [facility] 11-18-2024 19:54-0400 Body temperature 98.01 [degF] Kamille Nesheim DO Work Phone: [facility] 11-18-2024 19:54-0400 Body weight 63.5 kg Kamille Nesheim DO Work Phone: [facility] 11-04-2024 10:30-0400 Body height 160 cm Néstor Archer APRN - [employer] Work Phone: [facility] 11-04-2024 10:30-0400 Body mass index (BMI) [Ratio] 25.69 kg/m2 Néstor Archer APRN - [employer] Work Phone: [facility] 11-04-2024 10:30-0400 Body weight 65.77 kg Néstor Archer APRN - [employer] Work Phone: [facility] 11-04-2024 10:30-0400 Diastolic blood pressure 75 mm[Hg] Néstor Archer APRN - [employer] Work Phone: [facility] 11-04-2024 10:30-0400 Heart rate 68 /min Néstor Archer APRN - [employer] Work Phone: [facility] 11-04-2024 10:30-0400 SaO2% (BldA) [Mass fraction] 97 % Néstor Archer APRN - [employer] Work Phone: [facility] 11-04-2024 10:30-0400 Systolic blood pressure 117 mm[Hg] Néstor Archer APRN - [employer] Work Phone: [facility] 10-29-2024 15:51-0400 Diastolic blood pressure 71 mm[Hg] Cherrie Mendoza MD Work Phone: [facility] 10-29-2024 15:51-0400 Heart rate 75 /min Cherrie Mendoza MD Work Phone: [facility] 10-29-2024 15:51-0400 SaO2% (BldA) [Mass fraction] 98 % Cherrie Mendoza MD Work Phone: [facility] 10-29-2024 15:51-0400 Systolic blood pressure 102 mm[Hg] Cherrie Mendoza MD Work Phone: [facility] 10-29-2024 15:25-0400 Respiratory rate 15 /min Cherrie Mendoza MD Work Phone: [facility] 10-29-2024 12:21-0400 Body height 160 cm Cherrie Mendoza MD Work Phone: [facility] 10-29-2024 12:21-0400 Body mass index (BMI) [Ratio] 24.8 kg/m2 Cherrie Mendoza MD Work Phone: [facility] 10-29-2024 12:21-0400 Body temperature 98.1 [degF] Cherrie Mendoza MD Work Phone: [facility] 10-29-2024 12:21-0400 Body weight 63.5 kg Cherrie Mendoza MD Work Phone: [facility] 05-06-2024 10:36-0500 Body mass index (BMI) [Ratio] 23.74 kg/m2 Marii Gay DO Work Phone: [facility] 05-06-2024 10:36-0500 Body weight 60.78 kg Marii Gay DO Work Phone: [facility] 05-06-2024 10:36-0500 Diastolic blood pressure 74 mm[Hg] Marii Gay DO Work Phone: [facility] 05-06-2024 10:36-0500 Systolic blood pressure 116 mm[Hg] Marii Gay DO Work Phone: [facility] 04-22-2024 07:43-0500 Body temperature 97.39 [degF] Marii Gay DO Work Phone: [facility] 04-22-2024 07:43-0500 Diastolic blood pressure 70 mm[Hg] Marii Gay DO Work Phone: [facility] 04-22-2024 07:43-0500 Heart rate 82 /min Marii Gay DO Work Phone: [facility] 04-22-2024 07:43-0500 Respiratory rate 16 /min Marii Gay DO Work Phone: [facility] 04-22-2024 07:43-0500 SaO2% (BldA) [Mass fraction] 97 % Marii Gay DO Work Phone: [facility] 04-22-2024 07:43-0500 Systolic blood pressure 122 mm[Hg] Marii Gay DO Work Phone: [facility] 04-20-2024 06:33-0500 Body height 160 cm Marii Gay DO Work Phone: [facility] 04-20-2024 06:33-0500 Body mass index (BMI) [Ratio] 29.05 kg/m2 Marii Gay DO Work Phone: [facility] 04-20-2024 06:33-0500 Body weight 74.39 kg Marii Gay DO Work Phone: [facility] 04-16-2024 19:05-0500 Heart rate 91 /min Alice Cano MD Work Phone: [facility] 04-16-2024 18:53-0500 Diastolic blood pressure 71 mm[Hg] Alice Cano MD Work Phone: [facility] 04-16-2024 18:53-0500 Systolic blood pressure 122 mm[Hg] Alice Cano MD Work Phone: [facility] 04-16-2024 18:52-0500 Body height 160 cm Alice Cano MD Work Phone: [facility] 04-16-2024 18:52-0500 Body mass index (BMI) [Ratio] 26.22 kg/m2 Alice Cano MD Work Phone: [facility] 04-16-2024 18:52-0500 Body temperature 97.9 [degF] Alice Cano MD Work Phone: [facility] 04-16-2024 18:52-0500 Body weight 67.13 kg Alice Cano MD Work Phone: [facility] 04-16-2024 18:52-0500 Respiratory rate 18 /min Alice Cano MD Work Phone: [facility] 04-16-2024 09:35-0500 Body mass index (BMI) [Ratio] 25.24 kg/m2 Mono Gifford MD Work Phone: [facility] 04-16-2024 09:35-0500 Body weight 67.22 kg Mono Gifford MD Work Phone: [facility] 04-16-2024 09:35-0500 Diastolic blood pressure 71 mm[Hg] Mono Gifford MD Work Phone: [facility] 04-16-2024 09:35-0500 Heart rate 98 /min Mono Gifford MD Work Phone: [facility] 04-16-2024 09:35-0500 Systolic blood pressure 116 mm[Hg] Moon Gifford MD Work Phone: [facility] 04-08-2024 10:42-0500 Body mass index (BMI) [Ratio] 25.38 kg/m2 Marii Loveon DO Work Phone: [facility] 04-08-2024 10:42-0500 Body weight 67.59 kg Marii Gay DO Work Phone: [facility] 04-08-2024 10:42-0500 Diastolic blood pressure 64 mm[Hg] Marii Loveon DO Work Phone: [facility] 04-08-2024 10:42-0500 Systolic blood pressure 108 mm[Hg] Marii Gay DO Work Phone: [facility] 04-01-2024 10:00-0500 Body mass index (BMI) [Ratio] 25.04 kg/m2 Marii Gay DO Work Phone: [facility] 04-01-2024 10:00-0500 Body weight 66.68 kg Marii Gay DO Work Phone: [facility] 04-01-2024 10:00-0500 Diastolic blood pressure 56 mm[Hg] Marii Gay DO Work Phone: [facility] 04-01-2024 10:00-0500 Systolic blood pressure 100 mm[Hg] Marii Gay DO Work Phone: [facility] 03-11-2024 08:53-0500 Body mass index (BMI) [Ratio] 24.7 kg/m2 Marii Gay DO Work Phone: [facility] 03-11-2024 08:53-0500 Body weight 65.77 kg Marii Gay DO Work Phone: [facility] 03-11-2024 08:53-0500 Diastolic blood pressure 60 mm[Hg] Marii Gay DO Work Phone: [facility] 03-11-2024 08:53-0500 Systolic blood pressure 118 mm[Hg] Marii Gay DO Work Phone: [facility] 02-20-2024 09:00-0500 Body mass index (BMI) [Ratio] 24.42 kg/m2 Nevin Sedlak LEAD BLENDER - CNM Work Phone: [facility] 02-20-2024 09:00-0500 Body weight 65.05 kg Nevin Sedlak LEAD BLENDER - CNM Work Phone: [facility] 02-20-2024 09:00-0500 Diastolic blood pressure 68 mm[Hg] Nevin Sedlak LEAD BLENDER - CNM Work Phone: [facility] 02-20-2024 09:00-0500 Heart rate 95 /min Nevinamara Gautamk LEAD BLENDER - CNM Work Phone: [facility] 02-20-2024 09:00-0500 Systolic blood pressure 114 mm[Hg] Nevin Sedlak LEAD BLENDER - CNM Work Phone: [facility] 02-05-2024 09:19-0500 Body mass index (BMI) [Ratio] 23.67 kg/m2 Marii Gay DO Work Phone: [facility] 02-05-2024 09:19-0500 Body weight 63.05 kg Marii Gay DO Work Phone: [facility] 02-05-2024 09:19-0500 Diastolic blood pressure 67 mm[Hg] Marii Gay DO Work Phone: [facility] 02-05-2024 09:19-0500 Heart rate 97 /min Marii Gay DO Work Phone: [facility] 02-05-2024 09:19-0500 Systolic blood pressure 117 mm[Hg] Marii Gay DO Work Phone: [facility] 01-23-2024 07:59-0400 Body mass index (BMI) [Ratio] 23.4 kg/m2 Nevin Whipplelak LEAD BLENDER - CNM Work Phone: [facility] 01-23-2024 07:59-0400 Body weight 62.32 kg Nevin Gautamk LEAD BLENDER - CNM Work Phone: [facility] 01-23-2024 07:59-0400 Diastolic blood pressure 63 mm[Hg] Nevin Sedlak LEAD BLENDER - CNM Work Phone: [facility] 01-23-2024 07:59-0400 Heart rate 86 /min Nevin Sedlak LEAD BLENDER - CNM Work Phone: [facility] 01-23-2024 07:59-0400 Systolic blood pressure 118 mm[Hg] Nevin Mayer LEAD BLENDER - CNM Work Phone: [facility] 12-26-2023 08:27-0400 Body mass index (BMI) [Ratio] 22.18 kg/m2 Nevinamara Mayer LEAD BLENDER - CNM Work Phone: [facility] 12-26-2023 08:27-0400 Body weight 59.06 kg Nevin Mayer LEAD BLENDER - CNM Work Phone: [facility] 12-26-2023 08:27-0400 Diastolic blood pressure 68 mm[Hg] Nevinamara Gautamk LEAD BLENDER - CNM Work Phone: [facility] 12-26-2023 08:27-0400 Heart rate 88 /min Nevinamara Gautamk LEAD BLENDER - CNM Work Phone: [facility] 12-26-2023 08:27-0400 Systolic blood pressure 111 mm[Hg] Nevin Mayer LEAD BLENDER - CNM Work Phone: [facility] 12-12-2023 09:11-0400 Body mass index (BMI) [Ratio] 21.02 kg/m2 Nevin Mayer LEAD BLENDER - CNM Work Phone: [facility] 12-12-2023 09:11-0400 Body weight 55.97 kg Nevinamara Mayer LEAD BLENDER - CNM Work Phone: [facility] 12-12-2023 09:11-0400 Diastolic blood pressure 60 mm[Hg] Nevinamara Gautamk LEAD BLENDER - CNM Work Phone: [facility] 12-12-2023 09:11-0400 Heart rate 76 /min Nevinamara Mayer LEAD BLENDER - CNM Work Phone: [facility] 12-12-2023 09:11-0400 Systolic blood pressure 113 mm[Hg] Nevinamara Gautamk LEAD BLENDER - CNM Work Phone: [facility] 11-07-2023 08:06-0400 Body mass index (BMI) [Ratio] 20.34 kg/m2 Nevin Mayer APRN - CNM Work Phone: [facility] 11-07-2023 08:06-0400 Body weight 54.16 kg Nevin Mayer APRN - CNM Work Phone: [facility] 11-07-2023 08:06-0400 Diastolic blood pressure 71 mm[Hg] Nevin Mayer LEAD BLENDER - CNM Work Phone: [facility] 11-07-2023 08:06-0400 Heart rate 88 /min Nevin Mayer LEAD BLENDER - CNM Work Phone: [facility] 11-07-2023 08:06-0400 Systolic blood pressure 125 mm[Hg] Nevin Mayer LEAD BLENDER - CNM Work Phone: [facility] 11-06-2023 11:14-0400 Body height 163.2 cm Néstor Archer APRN - [employer] Work Phone: [facility] 11-06-2023 11:14-0400 Body mass index (BMI) [Ratio] 20.27 kg/m2 Néstor Archer LEAD BLENDER - [employer] Work Phone: [facility] 11-06-2023 11:14-0400 Body weight 53.98 kg Néstor Archer APRN - [employer] Work Phone: [facility] 11-06-2023 11:14-0400 Diastolic blood pressure 59 mm[Hg] Néstor Archer APRN - [employer] Work Phone: [facility] 11-06-2023 11:14-0400 Heart rate 79 /min Néstor Archer APRN - [employer] Work Phone: [facility] 11-06-2023 11:14-0400 Respiratory rate 16 /min Néstor Archer APRN - [employer] Work Phone: [facility] 11-06-2023 11:14-0400 SaO2% (BldA) [Mass fraction] 97 % Néstor Archer LEAD BLENDER - [employer] Work Phone: [facility] 11-06-2023 11:14-0400 Systolic blood pressure 94 mm[Hg] Néstor Archer LEAD BLENDER - [employer] Work Phone: [facility] 10-10-2023 08:29-0400 Body weight 55.97 kg Nevin Sedlak LEAD BLENDER - CNM Work Phone: [facility] 10-10-2023 08:29-0400 Diastolic blood pressure 62 mm[Hg] Nevin Sedlak LEAD BLENDER - CNM Work Phone: [facility] 10-10-2023 08:29-0400 Heart rate 86 /min Nevin Sedlak LEAD BLENDER - CNM Work Phone: [facility] 10-10-2023 08:29-0400 Systolic blood pressure 116 mm[Hg] Nevin Sedlak LEAD BLENDER - CNM Work Phone: [facility] 09-26-2023 09:20-0400 Body weight 53.71 kg Nevin Sedlak LEAD BLENDER - CNM Work Phone: [facility] 09-26-2023 09:20-0400 Diastolic blood pressure 74 mm[Hg] Nevin Sedlak LEAD BLENDER - CNM Work Phone: [facility] 09-26-2023 09:20-0400 Heart rate 82 /min Nevin Sedlak LEAD BLENDER - CNM Work Phone: [facility] 09-26-2023 09:20-0400 Systolic blood pressure 124 mm[Hg] Nevin Sedlak LEAD BLENDER - CNM Work Phone: [facility] 09-14-2023 08:16-0400 Body height 163.2 cm Leda Costa APRN.[employer] Work Phone: [facility] 09-14-2023 08:16-0400 Body mass index (BMI) [Ratio] 20.34 kg/m2 Leda Cawood LEAD BLENDER.[employer] Work Phone: [facility] 09-14-2023 08:16-0400 Body weight 54.16 kg Leda Myrna LEAD BLENDER.[employer] Work Phone: [facility] 09-14-2023 08:16-0400 Diastolic blood pressure 64 mm[Hg] Leda Myrna LEAD BLENDER.[employer] Work Phone: [facility] 09-14-2023 08:16-0400 Systolic blood pressure 110 mm[Hg] Leda Cawood LEAD BLENDER.[employer] Work Phone: [facility] 08-29-2023 17:05-0400 Body temperature 98.01 [degF] Kar Deluca MD Work Phone: [facility] 08-29-2023 17:05-0400 Diastolic blood pressure 68 mm[Hg] Kar Deluca MD Work Phone: [facility] 08-29-2023 17:05-0400 Heart rate 88 /min Kar Deluca MD Work Phone: [facility] 08-29-2023 17:05-0400 SaO2% (BldA) [Mass fraction] 98 % Kar Deluca MD Work Phone: [facility] 08-29-2023 17:05-0400 Systolic blood pressure 110 mm[Hg] Kar Deluca MD Work Phone: [facility] 06-10-2023 16:17-0500 Body temperature 97.2 [degF] [facility] 06-10-2023 16:17-0500 Diastolic blood pressure 66 mm[Hg] [facility] 06-10-2023 16:17-0500 Heart rate 65 /min [facility] 06-10-2023 16:17-0500 Respiratory rate 16 /min [facility] 06-10-2023 16:17-0500 SaO2% (BldA) [Mass fraction] 97 % [facility] 06-10-2023 16:17-0500 Systolic blood pressure 104 mm[Hg] [facility] 06-10-2023 15:11-0500 Body height 160.02 cm [facility] 02-11-2023 17:30-0500 Diastolic blood pressure 84 mm[Hg] Jam Phan MD Work Phone: [facility] 02-11-2023 17:30-0500 Heart rate 106 /min Jam Phan MD Work Phone: [facility] 02-11-2023 17:30-0500 Respiratory rate 19 /min Jam Phan MD Work Phone: [facility] 02-11-2023 17:30-0500 SaO2% (BldA) [Mass fraction] 100 % Jam Phan MD Work Phone: [facility] 02-11-2023 17:30-0500 Systolic blood pressure 112 mm[Hg] Jam Phan MD Work Phone: [facility] 02-11-2023 13:58-0500 Body temperature 99.3 [degF] Jam Phan MD Work Phone: [facility] Encounters Encounter Date Encounter Type Care Provider Facility Start: 12-30-2024 End: 12-30-2024 Patient encounter procedure Marii Gay DO Work Phone: [facility] Start: 12-30-2024 End: 12-30-2024 Periodic preventive med est patient 18-39 yrs Marii Gay DO Work Phone: [facility] Comment on above: Women's annual routi ne gynecological examination (Primary Dx); Vaginal discharge; Encounter for initial prescription of contraceptive pills Start: 12-30-2024 End: 12-30-[address] [facility] Start: 11-19-2024 End: 01-19-2025 Follow-up encounter Kamille Parr DO Work Phone: [facility] Comment on above: C. DIFFICILE by PCR with Reflex to EIA Start: 11-18-2024 End: 11-18-2024 Emergency department patient visit Kamille Parr DO Work Phone: [facility] Comment on above: Diarrhea, unspecifie d type (Primary Dx); Hemorrhoids, unspecified hemorrhoid type Start: 11-15-2024 End: 11-15-2024 Orders Only Néstor Archer LEAD BLENDER - [employer] Work Phone: [facility] Comment on above: Essential thrombocyt hemia (HCC) (Primary Dx) CBC auto differentia l, TSH, Vitamin D Deficiency Screening (Vit D 25), Additional followed-up results: 2 Start: 11-04-2024 End: 11-04-2024 Initial preventive medicine new pt age 18-39yrs Néstor Archer LEAD BLENDER - [employer] Work Phone: [facility] Comment on above: Routine general medi laci examination at a health care facility (Primary Dx); Dizziness; Recurrent major depressive disorder, remission status unspecified (HCC) Start: 11-04-2024 End: 11-04-2024 Patient encounter status Néstor Archer LEAD BLENDER [employer] Work Phone: [facility] Work Phone: Start: 11-04-2024 End: 11-04-2024 ambulatory MELISA WOODARD [facility] Start: 11-04-2024 End: 11-04-2024 Encounter for general adult medical examination without abnormal findings NÉSTOR ARCHER [facility] Start: 10-29-2024 End: 10-29-2024 Emergency department patient visit Cherrie Mendoza MD Work Phone: [facility] ED Comment on above: Enteritis (Primary D x) Start: 10-28-2024 End: 10-28-2024 Emergency department patient visit PHYSICIAN LUCINDA [facility] Start: 08-15-2024 End: 08-15-2024 Patient encounter procedure Alvarado Figueroa [facility] Work Phone: Start: 08-15-2024 End: 08-15-2024 ambulatory No Primary Care Physician [facility] Work Phone: Start: 05-28-2024 [facility] Start: 05-07-2024 End: 05-08-2024 ambulatory Minerva Rios RN [facility] Clinical Communication Start: 05-07-2024 End: 05-08-2024 Patient encounter procedure Minerva Rios RN [facility] Clinical Communication Start: 05-06-2024 End: 05-06-2024 ambulatory MELISA [facility] Start: 05-06-2024 End: 05-06-2024 care visit Marii Gay DO Work Phone: [facility] Comment on above: care and examination (Primary Dx); (spontaneous vaginal delivery); Consultation for sterilization Start: 04-20-2024 End: 04-22-2024 Evaluation and management of inpatient Marii Gay DO Work Phone: [facility] Baby [facility]4 Start: 04-17-2024 End: 04-17-2024 ambulatory [facility] Start: 04-16-2024 End: 04-16-2024 ambulatory [facility] Start: 04-16-2024 End: 04-16-2024 Subsequent hospital visit by physician Alice Cano MD Work Phone: [facility] OB Triage H2 Start: 04-16-2024 End: 04-16-2024 Office outpatient visit 15 minutes Mono Gifford MD Work Phone: [facility] Comment on above: Supervision of high risk in third trimester (Primary Dx); 38 weeks gestation of ; Trichomonal vaginitis during in first trimester Start: 04-16-2024 End: 04-16-[address] [facility] Start: 04-08-2024 End: 04-08-2024 Office outpatient visit 15 minutes Marii Gay DO Work Phone: [facility] Comment on above: care, antep artum (Primary Dx); Hx of drug abuse (CMS/HCC) (HCC); Choroid plexus cyst of fetus affecting care of mother, antepartum, fetus 1 of multiple gestation; Abnormal ultrasound; 37 weeks gestation of Start: 04-08-2024 End: 04-08-2024 ambulatory [facility] Start: 04-01-2024 End: 04-01-2024 Office outpatient visit 15 minutes Marii Gay DO Work Phone: [facility] Obstetrics [facility] Gyne[facility] Comment on above: care, antep artum (Primary Dx); Hx of drug abuse (CMS/HCC) (HCC); Choroid plexus cyst of fetus affecting care of mother, antepartum, fetus 1 of multiple gestation; 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 ; Trichomonal vaginitis during in first trimester; 36 weeks gestation of ; Abnormal ultrasound Start: 04-01-2024 End: 04-01-2024 ambulatory MELISA [facility] Start: 03-11-2024 End: 03-11-2024 Office outpatient visit 15 minutes Marii Gay DO Work Phone: [facility] Obstetrics [facility] Comment on above: care, antep artum (Primary Dx); Choroid plexus cyst of fetus affecting care of mother, antepartum, fetus 1 of multiple gestation; Hx of drug abuse (CMS/HCC) (HCC); 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 ; 33 weeks gestation of Start: 03-11-2024 End: 03-11-2024 ambulatory MELISA [facility] Start: 02-20-2024 End: 02-20-2024 ambulatory NEVIN MAYER [facility] Start: 02-20-2024 End: 02-20-2024 Office outpatient visit 15 minutes Nevin Loera CNM Work Phone: [facility] Obstetrics [facility] Comment on above: Rubella non-immune s tatus, antepartum (Primary Dx); Trichomonal vaginitis during in first trimester; High risk due to smoking in first trimester; 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 ; Choroid plexus cyst of fetus affecting care of mother, antepartum, single or unspecified fetus; Tetrahydrocannabinol (THC) use disorder, mild, abuse; 30 weeks gestation of Start: 02-05-2024 End: 02-05-[address] [facility] Start: 02-05-2024 End: 02-05-2024 Office outpatient visit 15 minutes Marii Gay DO Work Phone: [facility] Comment on above: care, antep artum (Primary Dx); Hx of drug abuse (CMS/HCC) (HCC); Choroid plexus cyst of fetus affecting care of mother, antepartum, fetus 1 of multiple gestation; 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 ; 28 weeks gestation of ; Encounter for screening for growth restriction Start: 01-25-2024 End: 01-30-2024 Hayley Lord APRN - [employer] Work Phone: [facility] Start: 01-23-2024 End: 01-23-2024 Office outpatient visit 15 minutes Nevin Mayer APRN - ISAIAS Work Phone: [facility] Comment on above: Rubella non-immune s tatus, antepartum (Primary Dx); Trichomonal vaginitis during in first trimester; High risk due to smoking in first trimester; 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 ; Choroid plexus cyst of fetus affecting care of mother, antepartum, single or unspecified fetus; Tetrahydrocannabinol (THC) use disorder, moderate, dependence (HCC); 26 weeks gestation of Start: 12-26-2023 End: 12-26-2023 Office outpatient visit 15 minutes Nevin Mayer APRN - [employer] Work Phone: [facility] Comment on above: Rubella non-immune s tatus, antepartum (Primary Dx); Trichomonal vaginitis during in first trimester; High risk due to smoking in first trimester; 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 ; Choroid plexus cyst of fetus affecting care of mother, antepartum, single or unspecified fetus; Tetrahydrocannabinol (THC) use disorder, moderate, dependence (HCC); 22 weeks gestation of Start: 12-12-2023 End: 12-12-2023 Office outpatient visit 15 minutes Nevin Leyla [employer] Work Phone: [facility] Obstetrics and Gynecology [facility] Comment on above: Rubella non-immune s tatus, antepartum (Primary Dx); Trichomonal vaginitis during in first trimester; High risk due to smoking in first trimester; 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 ; Choroid plexus cyst of fetus affecting care of mother, antepartum, single or unspecified fetus; Tetrahydrocannabinol (THC) use disorder, mild, abuse; Screening, , for anatomic survey; Urinary frequency Start: 11-07-2023 End: 11-07-2023 Office outpatient visit 15 minutes Nevin Mayer APRN [employer] Work Phone: [facility]stetrics & Gynecology Comment on above: Rubella non-immune s tatus, antepartum (Primary Dx); Trichomonal vaginitis during in first trimester; High risk due to smoking in first trimester; 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 ; Tetrahydrocannabinol (THC) use disorder, mild, abuse; 15 weeks gestation of ; Screening, , for anatomic survey Start: 11-06-2023 End: 11-06-2023 Initial preventive medicine new pt age 18-39yrs Néstor Archer APRN [employer] Work Phone: [facility] Internal Medicine Comment on above: Routine general [facility] laci examination at a health care facility (Primary Dx); Screening for diabetes mellitus; Screening cholesterol level; Polysubstance abuse (CMS/HCC) (HCC); Recurrent major depressive disorder, remission status unspecified (HCC) Start: 11-06-2023 End: 11-06-2023 Patient encounter status Néstor Archer APRN [employer] Work Phone: [facility] [employer] Work Phone: Start: 10-12-2023 End: 10-12-2023 Orders Only Nevin Mayer APRN [employer] Work Phone: [facility]stetrics & Gynecology Start: 10-11-2023 End: 01-10-2024 Transcribe Orders Nevin Mayer APRN - CNM Work Phone: [facility] Comment on above: Infection of other p art of genital tract in , first trimester (Primary Dx); Trichomonal vulvovaginitis Start: 10-10-2023 End: 10-10-2023 Office outpatient visit 15 minutes Nevin Mayer APRN - CNM Work Phone: [facility]etrics & Gynecology Comment on above: Rubella non-immune s tatus, antepartum (Primary Dx); Trichomonal vaginitis during in first trimester; High risk due to smoking in first trimester; 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 ; 11 weeks gestation of Start: 09-29-2023 End: 10-02-2023 ambulatory [facility] Start: 09-29-2023 End: 10-02-2023 Patient encounter procedure Minerva Rios RN [facility] Clinical Communication Start: 09-29-2023 End: 09-29-2023 Telephone encounter Nevin Mayer APRN - CNM Work Phone: [facility] Comment on above: Medication Problem Start: 09-26-2023 Telephone encounter Leda Flaherty errol [employer] Work Phone: OB/Gynecology Start: 09-26-2023 End: 09-26-2023 Office outpatient visit 25 minutes Nevin Mayer APRN - CNM Work Phone: [facility] Comment on above: GA: 9w5d Start: 09-17-2023 End: 09-17-2023 Emergency department patient visit No Primary Care Physician Facility:[facility] Start: 09-15-2023 Telephone encounter Leda [facility] errol LEAD [employer] Work Phone: OB/Gynecology Comment on above: Results Support Worker - O ther (PRAF) Start: 09-14-2023 End: 09-14-2023 ambulatory LEDA COSTA Facility:[facility] Start: 09-14-2023 End: 09-14-2023 Patient encounter procedure Leda Costa [employer] Work Phone: OB/Gynecology Comment on above: with uncer tain dates in first trimester (Primary Dx); History of depression; Encounter for supervision of other normal in first trimester; Cervical cancer screening; Special screening examination for human papillomavirus (HPV); 8 weeks gestation of ; Hx of drug abuse (HCC); Tetrahydrocannabinol (THC) use disorder, moderate, dependence (HCC); Hx of delivery, currently Start: 09-11-2023 Telephone encounter Kenia torrez [employer]AD [employer] Work Phone: [address] [place] [address] Start: 09-07-2023 Telephone encounter Leda norton [employer]AD [employer] Work Phone: OB/Gynecology Comment on above: Patient Update Start: 08-29-2023 End: 08-29-2023 ambulatory [facility] Ambulatory Start: 08-29-2023 End: 08-29-2023 Office outpatient new 20 minutes Kar Deluca MD Work Phone: [facility]/Peds Comment on above: Kidney pain Start: 06-10-2023 End: 06-10-2023 Emergency department patient visit [facility] Work Phone: Start: 02-11-2023 End: 02-11-2023 Emergency department patient visit Jam Phan MD Work Phone: [facility] ED Comment on above: Furosemide overdose, accidental or unintentional, initial encounter (Primary Dx); Acute kidney injury (HCC); Hypokalemia Start: 06-15-2018 End: 06-15-2018 Emergency department patient visit RICHA GRACE Facility:[facility] Start: 04-09-2013 End: 09-14-2023 Patient encounter status Leda Costa [employer] Work Phone: [facility] End: 09-14-2023 Patient encounter status Leda Costa [employer] Work Phone: [facility] Procedures Date Procedure Procedure Detail Performing Clinician Start: 11-18-2024 Iadna-dna/rna gi pth gn multiplex probe tq 12-25 Kamille Parr DO Work Phone: Start: 11-18-2024 Inf agent det nuclei c acid clostridium amp probe Kamille Parr DO Work Phone: Start: 11-18-2024 Radiologic exam ches t single view Kamille Parr DO Work Phone: Start: 11-18-2024 Comprehensive metabo lic panel Kamille Parr DO Work Phone: Start: 11-18-2024 Urnls dip stick/tabl et rgnt auto w/o microscopy Kamille Parr DO Work Phone: Start: 11-18-2024 Ecg routine ecg w/le ast 12 lds trcg only w/o i&r Kamille Parr DO Work Phone: Start: 11-14-2024 Thyrotropin [Units/v olume] in Serum or Plasma Kamille Parr DO Work Phone: Start: 10-29-2024 Us transvaginal Cherrie Mendoza MD Work Phone: Start: 10-29-2024 Ct abdomen & pelvis w/contrast material Cherrie Mendoza MD Work Phone: Start: 10-29-2024 Comprehensive metabo lic panel Cherrie Mendoza MD Work Phone: Start: 10-29-2024 Urine test visual color cmprsn meths Cherrie Mendoza MD Work Phone: Start: 10-29-2024 Urnls dip stick/tabl et reagent auto microscopy Cherrie Mendoza MD Work Phone: Start: 05-06-2024 care Care NORAH Wray GAY Start: 04-20-2024 MEDICATION ASSISTED TREATMENT PANEL Kamille Aguilar MD Work Phone: Start: 04-20-2024 Antibody screen MONO GIFFORD Comment on above: Order Comment: Speci men is valid for 3 days - nurse to verify valid specimen. Performed By: #### L [id number] #### Security Screener: KAVITA ZAMARRIPA ([phone]) [facility] ([facility]) [address] [place] [address] Start: 04-20-2024 Blood count complete automated Kamille Aguilar MD Work Phone: Start: 04-20-2024 Blood typing serologic abo Kamille Aguilar MD Work Phone: Start: 11-07-2023 Lipid 1996 panel - S duong or Plasma Nevin Mayer LEAD BLENDER - CNM Work Phone: Start: 09-26-2023 Microscopic observat ion [Identifier] in Cervix by Cyto stain Cece Sung RN Start: 09-14-2023 Us uterus l imited 1/ fetuses Leda Costa [employer] Work Phone: Start: 08-29-2023 Urnls dip stick/tabl et rgnt auto w/o microscopy Kar Deluca MD Work Phone: Start: 06-10-2023 X-ray of both feet Start: 02-11-2023 Urinalysis complete panel - Urine Jam Phan MD Work Phone: Start: 02-11-2023 Urine test visual color cmprsn meths Jam Phan MD Work Phone: Start: 02-11-2023 Urnls dip stick/tabl et reagent auto microscopy Jam Phan MD Work Phone: Start: 02-11-2023 Comprehensive metabo lic panel Jam Phan MD Work Phone: Start: 02-11-2023 End: 02-11-2023 Drug screen analgesics non-opioid 1 or 2 Jam Phan MD Work Phone: Start: 02-11-2023 Ecg routine ecg w/le ast 12 lds trcg only w/o i&r Jam Phan MD Work Phone: Plan of Treatment Date Care Activity Detail Author Start: 2065 RSV Immunization for Adults (1 - 1-dose 75+ series) RSV Immunization for Adults (1 - 1-dose 75+ series) [facility] Start: 2050 RSV Vaccine (1 - 1-dose 60+ series) RSV Vaccine (1 - 1-dose 60+ series) [facility] Start: 2040 Zoster Vaccines (1 of 2) Zoster Vaccines (1 of 2) [facility] Start: 02-19-2034 DTaP/Tdap/Td Vaccines (2 - Td or Tdap) DTaP/Tdap/Td Vaccines (2 - Td or Tdap) [facility] Start: 11-06-2028 Lipid panel Lipid Panel [facility] Start: 09-25-2028 Screening for malignant neoplasm of cervix [facility] Start: 09-13-2028 Screening for malignant neoplasm of cervix Cervical Cancer Screening [facility] Start: 09-25-2026 Screening for malignant neoplasm of cervix Pap Smear [facility] Start: 11-14-2025 Thyroid stimulating hormone measurement TSH Level [facility] Start: 11-05-2025 End: 11-05-2025 Patient encounter procedure 11/05/2025 9:40 AM EDT Office Visit [facility] Internal Medicine [facility] [address] [place] [phone] Néstor Archer, LEAD BLENDER - [facility] [address] [place] [phone] [facility] Internal Medicine [facility] Start: 05-07-2025 Depression Monitoring Depression Monitoring [facility] Start: 12-19-2024 End: 12-19-2024 Patient encounter procedure 12/19/2024 8:15 AM EDT Office Visit [facility] [address] [place] [address] Marii Gay, [address] [place] [address] [facility] Obstetrics and Gynecology - [place] Start: 12-02-2024 COVID-19 Vaccine ( season) COVID-19 Vaccine ( season) [facility] Start: 12-02-2024 Influenza vaccination Influenza Vaccine (#1) [facility] Start: 11-15-2024 End: 01-15-2025 CBC W Auto Differential panel - Blood CBC auto differential Lab Routine Essential thrombocythemia (HCC) Expected: 11/15/2024 (Approximate), Expires: 01/15/2025 [facility] Work Phone: Comment on above: Expected: 11/15/2024 (Approximate), Expi res: 01/15/2025 Start: 11-15-2024 End: 11-15-2025 Ferritin [Mass/volume] in Serum or Plasma Ferritin Lab Routine Essential thrombocythemia (HCC) Expected: 11/15/2024 (Approximate), Expires: 11/15/2025 [facility] Comment on above: Expected: 11/15/2024 (Approximate), Expi res: 11/15/2025 Start: 11-15-2024 End: 11-15-2025 Iron and Iron binding capacity panel - Serum or Plasma Iron and TIBC Lab Routine Essential thrombocythemia (HCC) Expected: 11/15/2024 (Approximate), Expires: 11/15/2025 [facility] Comment on above: Expected: 11/15/2024 (Approximate), Expi res: 11/15/2025 Start: 11-15-2024 End: 11-15-2025 Peripheral blood smear Peripheral blood smear Pathology and Cytology Routine Essential thrombocythemia (HCC) Expected: 11/15/2024 (Approximate), Expires: 11/15/2025 [facility] Comment on above: Expected: 11/15/2024 (Approximate), Expi res: 11/15/2025 Start: 11-04-2024 End: 11-04-2025 25-hydroxyvitamin D3 [Mass/volume] in Serum or Plasma Vitamin D Deficiency Screening (Vit D 25) Lab Routine Dizziness Expected: 11/04/2024 (Approximate), Expires: 11/04/2025 [facility] Comment on above: Expected: 11/04/2024 (Approximate), Expi res: 11/04/2025 Start: 11-04-2024 End: 01-04-2025 CBC W Auto Differential panel - Blood CBC auto differential Lab Routine Dizziness Expected: 11/04/2024 (Approximate), Expires: 01/04/2025 [facility] Work Phone: Comment on above: Expected: 11/04/2024 (Approximate), Expi res: 01/04/2025 Start: 11-04-2024 End: 11-04-2025 Cobalamin (Vitamin B12) [Mass/volume] in Serum or Plasma Vitamin B12 Lab Routine Dizziness Expected: 11/04/2024 (Approximate), Expires: 11/04/2025 [facility] Comment on above: Expected: 11/04/2024 (Approximate), Expi res: 11/04/2025 Start: 11-04-2024 End: 11-04-2025 Comprehensive metabolic 1998 panel - Serum or Plasma Comprehensive metabolic panel Lab Routine Dizziness Expected: 11/04/2024 (Approximate), Expires: 11/04/2025 [facility] Comment on above: Expected: 11/04/2024 (Approximate), Expi res: 11/04/2025 Start: 11-04-2024 End: 11-04-2025 Thyrotropin [Units/volume] in Serum or Plasma TSH Lab Routine Dizziness Expected: 11/04/2024 (Approximate), Expires: 11/04/2025 [facility] Comment on above: Expected: 11/04/2024 (Approximate), Expi res: 11/04/2025 Start: 11-04-2024 End: 11-04-2024 Patient encounter procedure [facility] Start: 10-18-2024 Depression Monitoring Depression Monitoring [facility] Start: 06-25-2024 End: 06-25-2024 Patient encounter procedure 06/25/2024 9:15 AM EDT Office Visit [facility] Obstetrics and Gynecology - [place] [address] [place] [phone] Marii Gay, DO [address] [place] [address] [facility] Obstetrics and Gynecology [facility] Start: 06-17-2024 End: 06-17-2024 ambulatory 06/17/2024 8:00 AM EDT Visit [facility] Ob[facility]etrics [facility] [address] [place] [phone] Marii Gay, DO [address] [place] [address] [facility] Start: 06-11-2024 End: 06-11-2024 Admission to same day surgery center 06/11/2024 1:00 PM EDT - 06/11/2024 2:00 PM EDT Surgery H MAIN OR [address] [place] [phone] Marii Gay, DO [address] [place] [address] LAPAROSCOPIC BILATERAL SALPINGECTOMY [79319 (CPT )] [facility] MAIN OR Comment on above: LAPAROSCOPIC BILATERAL SALPINGECTOMY [58 661 (CPT )] Start: 06-11-2024 End: 06-11-2024 Laparoscopy w/rmvl adnexal structures LAPAROSCOPIC, SALPINGO-OOPHORECTOMY Encounter for sterilization 06/11/2024 1:00 PM EDT [facility] Operating Room Start: 06-11-2024 Subsequent hospital visit by physician 06/11/2024 1:00 PM EDT Hospital Encounter [facility] MAIN OR [address] [place] [phone] Marii Gay, DO [address] [place] [address] [facility] MAIN OR Start: 06-04-2024 End: 06-04-2024 Admission to establishment 06/04/2024 8:00 AM EST Pre-Admission Testing [facility] Pre-Admit Testing [address] [place] [phone] [facility] Pre-Admit Testing Start: 05-09-2024 Depression Monitoring Depression Monitoring [facility] Start: 04-23-2024 End: 04-23-2024 Patient encounter procedure 04/23/2024 1:40 PM EST Routine [facility]s [facility] - [place] [address] [place] [address] Mono Gifford MD [address] [place] [address] [address] [place] [address] [facility] - [place] Start: 04-15-2024 End: 04-15-2024 Patient encounter procedure 04/15/2024 9:15 AM EST Routine [facility] - [place] [address] [place] [address] Nevin Mayer APRN - ISAIAS [address] [place] [address] [facility] [place] Start: 04-08-2024 End: 04-08-2024 Patient encounter procedure 04/08/2024 9:30 AM EST Routine [facility] - [place] [address] [place] [phone] Marii Gay, DO [address] [place] [address] [facility] [place] Start: 04-01-2024 End: 04-01-2024 Patient encounter procedure 04/01/2024 10:00 AM EST Routine [facility] - [place] [address] [place] [address] Marii Gay, DO [address] [place] [address] [facility] [place] Start: 04-01-2024 End: 04-01-2024 Professional / ancillary services management 04/01/2024 9:00 AM EST Ancillary Procedure [facility] [place] [address] [place] [phone] [facility] Start: 03-27-2024 Depression Monitoring Depression Monitoring [facility] Start: 03-11-2024 End: 03-11-2024 Patient encounter procedure 03/11/2024 8:45 AM EST Routine [facility] [address] [place] [phone] Marii Gay M, DO [address] [place] [address] [facility] Start: 02-29-2024 RSV Immunization aged 60 or older (1 - Risk 1-dose series) RSV Immunization aged 60 or older (1 - Risk 1-dose series) [facility] Start: 02-29-2024 RSV Immunization for Adults (1 - Risk 1-dose series) RSV Immunization for Adults (1 - Risk 1-dose series) [facility] Start: 02-20-2024 End: 02-20-2024 Patient encounter procedure 02/20/2024 8:45 AM EST Routine [facility]s [facility] [address] [place] [phone] Nevin Mayer APRN - ISAIAS [address] [place], [place] [id number] [facility] Start: 02-05-2024 End: 02-04-2025 US for US OB follow up transabdominal approach Imaging Routine Encounter for screening for growth restriction Expected: 02/05/2024, Expires: 02/04/2025 [facility] Work Phone: Comment on above: Expected: 02/05/2024, Expires: Start: 02-05-2024 End: 02-05-2024 Patient encounter procedure 02/05/2024 8:45 AM EST Routine [facility] - [place] [address] [address] [place] [id number] Marii Gay M, DO [address] [place], [place] [id number] [facility] [place] Start: 01-23-2024 End: 01-22-2025 CBC panel - Blood by Automated count [facility] Comment on above: Expected: 01/23/2024 (Approximate), Expi res: 01/22/2025 Ordered: 01/23/2024 Start: 01-23-2024 End: 01-22-2025 Glucose Gestational Screen 50g ([facility]) [facility] Work Phone: Comment on above: Expected: 01/23/2024 (Approximate), Expi res: 01/22/2025 Start: 01-23-2024 End: 01-23-2024 Patient encounter procedure 01/23/2024 8:00 AM EDT Routine [facility] [place] [address] [place] [address] eNvin Mayer APRN - CNM [address] [place], [place] [id number] [facility] [place] Start: 12-26-2023 End: 12-26-2023 Patient encounter procedure 12/26/2023 8:45 AM EDT Routine [facility] - [place] [address] [place] [address] Nevin Mayer APRN - CNM [address] [place], [place] [id number] [facility] - [place] Start: 12-26-2023 End: 12-26-2023 Professional / ancillary services management 12/26/2023 8:00 AM EDT Ancillary Procedure [facility] [place] [address] [place] [address] [facility] Start: 12-12-2023 End: 12-11-2024 US for US OB follow up transabdominal approach Imaging Routine Screening, , for anatomic survey Expected: 12/12/2023, Expires: 12/11/2024 [facility] Work Phone: Comment on above: Expected: 12/12/2023, Expires: Start: 12-12-2023 End: 12-12-2023 Patient encounter procedure [facility] Start: 12-03-2023 COVID-19 Vaccine () COVID-19 Vaccine ( season) [facility] Start: 12-03-2023 COVID-19 Vaccine () COVID-19 Vaccine () [facility] Start: 12-03-2023 Influenza vaccination [facility] Start: 11-07-2023 End: 11-06-2024 US for US OB 14+ weeks anatomy scan Imaging Routine Screening, , for anatomic survey Expected: 11/07/2023, Expires: 11/06/2024 [facility] [employer] Work Phone: Comment on above: Expected: 11/07/2023, Expires: Start: 11-07-2023 End: 11-06-2024 US Pelvis transvaginal US OB transvaginal Imaging Routine Screening, , for anatomic survey Expected: 11/07/2023, Expires: 11/06/2024 [facility] Comment on above: Expected: 11/07/2023, Expires: Start: 11-07-2023 End: 11-07-2023 Patient encounter procedure 11/07/2023 8:00 AM EDT Routine [facility] [address] [place] [id number] Nevin Mayer APRN - ISAIAS [address] [place] [address] [facility] Start: 11-06-2023 End: 11-05-2024 Comprehensive metabolic 1998 panel - Serum or Plasma Comprehensive metabolic panel Lab Routine Routine general medical examination at a health care facility Expected: 11/06/2023 (Approximate), Expires: 11/05/2024 [facility] Comment on above: Expected: 11/06/2023 (Approximate), Expi res: 11/05/2024 Start: 11-06-2023 End: 11-05-2024 Hemoglobin A1c measurement Hemoglobin A1c Lab Routine Screening for diabetes mellitus Expected: 11/06/2023 (Approximate), Expires: 11/05/2024 [facility] Work Phone: Comment on above: Expected: 11/06/2023 (Approximate), Expi res: 11/05/2024 Start: 11-06-2023 End: 11-05-2024 Lipid 1996 panel - Serum or Plasma Lipid panel Lab Routine Screening cholesterol level Expected: 11/06/2023 (Approximate), Expires: 11/05/2024 [facility] Comment on above: Expected: 11/06/2023 (Approximate), Expi res: 11/05/2024 Start: 11-06-2023 End: 11-06-2023 Patient encounter procedure 11/06/2023 11:00 AM EDT Office Visit [facility] [address] [place] [address] Néstor Archer, LEAD BLENDER - ELECTRICIAN FRONT [address] [place] [phone] [facility] Start: 10-26-2023 End: 10-26-2023 Patient encounter procedure 10/26/2023 8:00 AM EDT Routine [facility] [address] [place] [address] Rowan Ochoa PA-C [address] [facility] [address] [place] [address] [facility] Start: 10-12-2023 End: 10-12-2023 Patient encounter procedure OB/Gynecology Comment on above: [facility] Start: 10-12-2023 End: 10-12-2023 Patient encounter procedure 10/12/2023 10:20 AM EDT Routine Office Visit OB/Gynecology [address] [place] [address] Nicole Aguilar MD [address] [place] [address] 07-03-2023 Last period OB/Gynecology Comment on above: 07-03-2023 Last period Start: 10-10-2023 End: 10-10-2023 Patient encounter procedure 10/10/2023 8:15 AM EDT Routine [facility] [address] [place] [id number] Nevin Mayer APRN - NICHOLE [address] [place], [place] [id number] [facility] Start: 09-26-2023 End: 09-25-2024 ABO and Rh group panel - Blood ABO/Rh Lab Routine Trichomonal vaginitis during in first trimester Expected: 09/26/2023 (Approximate), Expires: 09/25/2024 [facility] Comment on above: Expected: 09/26/2023 (Approximate), Expi res: 09/25/2024 Start: 09-26-2023 End: 09-25-2024 Blood group antibody screen [Presence] in Serum or Plasma by GEL Antibody screen Lab Routine Trichomonal vaginitis during in first trimester Expected: 09/26/2023 (Approximate), Expires: 09/25/2024 [facility] Comment on above: Expected: 09/26/2023 (Approximate), Expi res: 09/25/2024 Start: 09-26-2023 End: 09-25-2024 CBC panel - Blood by Automated count CBC Lab Routine Trichomonal vaginitis during in first trimester Expected: 09/26/2023 (Approximate), Expires: 09/25/2024 [facility] Comment on above: Expected: 09/26/2023 (Approximate), Expi res: 09/25/2024 Start: 09-26-2023 End: 09-25-2024 Hemoglobinopathy evaluation Hemoglobinopathy evaluation Lab Routine Trichomonal vaginitis during in first trimester Expected: 09/26/2023 (Approximate), Expires: 09/25/2024 [facility] Comment on above: Expected: 09/26/2023 (Approximate), Expi res: 09/25/2024 Start: 09-26-2023 End: 09-25-2024 Hepatitis B virus surface Ag [Presence] in Serum or Plasma by Immunoassay Hepatitis B surface antigen Lab Routine Trichomonal vaginitis during in first trimester Expected: 09/26/2023 (Approximate), Expires: 09/25/2024 [facility] Comment on above: Expected: 09/26/2023 (Approximate), Expi res: 09/25/2024 Start: 09-26-2023 End: 09-25-2024 Hepatitis C virus Ab [Presence] in Serum or Plasma by Immunoassay Hepatitis C antibody Lab Routine Trichomonal vaginitis during in first trimester Expected: 09/26/2023 (Approximate), Expires: 09/25/2024 [facility] Comment on above: Expected: 09/26/2023 (Approximate), Expi res: 09/25/2024 Start: 09-26-2023 End: 09-25-2024 HIV 1/2 ANTIGEN/ANTIBODY, 4TH GEN W/RFL,SCREENING ([facility]) HIV 1/2 Antigen/Antibody, 4th Gen w/rfl, screening ([facility]) Lab Routine Trichomonal vaginitis during in first trimester Expected: 09/26/2023 (Approximate), Expires: 09/25/2024 [facility] Comment on above: Expected: 09/26/2023 (Approximate), Expi res: 09/25/2024 Start: 09-26-2023 End: 11-26-2023 Horizon 14 (Schaefer-Ethnic Standard) [facility] Comment on above: Expected: 09/26/2023, Expires: Start: 09-26-2023 End: 11-26-2023 PANORAMA TEST [facility] Comment on above: Expected: 09/26/2023, Expires: Start: 09-26-2023 End: 09-25-2024 Reagin Ab [Presence] in Serum by RPR RPR Lab Routine Trichomonal vaginitis during in first trimester Expected: 09/26/2023 (Approximate), Expires: 09/25/2024 [facility] Comment on above: Expected: 09/26/2023 (Approximate), Expi res: 09/25/2024 Start: 09-26-2023 End: 09-25-2024 Rubella antibody, IgG Rubella antibody, IgG Lab Routine Trichomonal vaginitis during in first trimester Expected: 09/26/2023 (Approximate), Expires: 09/25/2024 [facility] Comment on above: Expected: 09/26/2023 (Approximate), Expi res: 09/25/2024 Start: 09-26-2023 End: 09-25-2024 THC (marijuana), urine, confirmation THC (marijuana), urine, confirmation Lab Routine Tetrahydrocannabinol (THC) use disorder, mild, abuse Expected: 09/26/2023 (Approximate), Expires: 09/25/2024 [facility] Comment on above: Expected: 09/26/2023 (Approximate), Expi res: 09/25/2024 Start: 09-18-2023 End: 09-18-2023 ambulatory 09/18/2023 11:15 AM EDT Results Only [facility] [address] [place] [address] [facility] Start: 09-14-2023 End: 12-14-2023 CARRIER SCREEN, STANDARD CARRIER SCREEN, STANDARD Lab Routine 8 weeks gestation of Expected: 09/14/2023, Expires: 12/14/2023 [facility] Comment on above: Expected: 09/14/2023, Expires: Start: 09-14-2023 End: 12-14-2023 CBC panel - Blood by Automated count COMPLETE BLOOD COUNT Lab Routine with uncertain dates in first trimester History of depression Encounter for supervision of other normal in first trimester Expected: 09/14/2023, Expires: 12/14/2023 [facility] Comment on above: Expected: 09/14/2023, Expires: Start: 09-14-2023 End: 12-14-2023 Hemoglobin A1c in Blood HEMOGLOBIN A1C Lab Routine with uncertain dates in first trimester History of depression Encounter for supervision of other normal in first trimester Expected: 09/14/2023, Expires: 12/14/2023 [facility] Comment on above: Expected: 09/14/2023, Expires: Start: 09-14-2023 End: 12-14-2023 Hepatitis B virus surface Ag [Presence] in Serum HEPATITIS B SURFACE ANTIGEN Lab Routine with uncertain dates in first trimester History of depression Encounter for supervision of other normal in first trimester Expected: 09/14/2023, Expires: 12/14/2023 [facility] Comment on above: Expected: 09/14/2023, Expires: 4 Start: 09-14-2023 End: 12-14-2023 Hepatitis C virus Ab [Presence] in Serum HEPATITIS C ANTIBODY IA WITH CONFIRMATION Lab Routine with uncertain dates in first trimester History of depression Encounter for supervision of other normal in first trimester Expected: 09/14/2023, Expires: 12/14/2023 [facility] Comment on above: Expected: 09/14/2023, Expires: 4 Start: 09-14-2023 End: 12-14-2023 HIV 1+2 Ab [Presence] in Serum or Plasma by Immunoassay HIV 1/2 COMBO WITH REFLEX TO DIFFERENTIATION Lab Routine with uncertain dates in first trimester History of depression Encounter for supervision of other normal in first trimester Expected: 09/14/2023, Expires: 12/14/2023 [facility] Comment on above: Expected: 09/14/2023, Expires: 4 Start: 09-14-2023 End: 09-13-2024 NUCHAL TRANSLUCENCY WHI NUCHAL TRANSLUCENCY WHI Anc Imaging Routine 8 weeks gestation of Expected: 09/14/2023, Expires: 09/13/2024 [facility] Comment on above: Expected: 09/14/2023, Expires: 5 Start: 09-14-2023 End: 09-13-2024 OBSTETRIC ULTRASOUND WHI OBSTETRIC ULTRASOUND WHI Anc Imaging Routine with uncertain dates in first trimester Expected: 09/14/2023, Expires: 09/13/2024 [facility] Work Phone: Comment on above: Expected: 09/14/2023, Expires: 5 Start: 09-14-2023 End: 12-14-2023 RUBELLA IGG ANTIBODY RUBELLA IGG ANTIBODY Lab Routine with uncertain dates in first trimester History of depression Encounter for supervision of other normal in first trimester Expected: 09/14/2023, Expires: 12/14/2023 [facility] Comment on above: Expected: 09/14/2023, Expires: 4 Start: 09-14-2023 End: 12-14-2023 SYPHILIS TOTAL W/REFLEX SYPHILIS TOTAL W/REFLEX Lab Routine with uncertain dates in first trimester History of depression Encounter for supervision of other normal in first trimester Expected: 09/14/2023, Expires: 12/14/2023 [facility] Comment on above: Expected: 09/14/2023, Expires: 4 Start: 09-14-2023 End: 12-14-2023 TYPE + SCREEN TYPE + SCREEN Blood Bank Routine with uncertain dates in first trimester History of depression Encounter for supervision of other normal in first trimester Expected: 09/14/2023, Expires: 12/14/2023 [facility] Comment on above: Expected: 09/14/2023, Expires: 4 Start: 09-14-2023 End: 09-14-2023 Patient encounter procedure 09/14/2023 8:15 AM EDT Initial Office Visit OB/Gynecology [address] [place] [address] Leda Costa APRN.ELECTRICIAN FRONT [address] [place] [address] Encounter for supervision of normal first in first trimester (Primary Dx); 10 weeks gestation of OB/Gynecology Comment on above: Encounter for supervision of normal firs t in first trimester (Primary Dx); 10 weeks gestation of Start: 06-10-2023 [facility] Start: 04-03-2023 Behavioral Health Screening Behavioral Health Screening [facility] Start: 12-02-2022 COVID-19 Vaccine () COVID-19 Vaccine () [facility] Start: 12-02-2022 Influenza vaccination Influenza Vaccine (#1) [facility] Start: 2020 Screening for malignant neoplasm of cervix [facility] Start: 2012 DTaP/Tdap/Td Vaccines (1 - Tdap) DTaP/Tdap/Td Vaccines (1 - Tdap) [facility] Start: 09-21-2011 Screening for malignant neoplasm of cervix [facility] Start: 2009 DTaP/Tdap/Td Vaccines (1 - Tdap) DTaP/Tdap/Td Vaccines (1 - Tdap) [facility] Start: 2009 Hepatitis A Vaccines (1 of 2 - Risk 2-dose series) Hepatitis A Vaccines (1 of 2 - Risk 2-dose series) [facility] Start: 2009 Hepatitis B Vaccine (1 of 3 - 19+ 3-dose series) Hepatitis B Vaccine (1 of 3 - 19+ 3-dose series) [facility] Start: 2009 Hepatitis B Vaccines (1 of 3 - 19+ 3-dose series) Hepatitis B Vaccines (1 of 3 - 19+ 3-dose series) [facility] Start: 2009 Pneumococcal Vaccine: Pediatrics (0 to 5 Years) and At-Risk Patients (6 to 49 Years) (1 of 2 - PCV) Pneumococcal Vaccine: Pediatrics (0 to 5 Years) and At-Risk Patients (6 to 49 Years) (1 of 2 - PCV) [facility] Start: 2009 Urine microalbumin profile DTaP,Tdap,Td Vaccine (1 - Tdap) [facility] Start: 2008 Hepatitis C screening Hepatitis C Screening [facility] Start: 2008 HIV screening HIV Screening [facility] Start: 09-21-2003 Varicella vaccination Varicella Vaccines (1 of 2 - 13+ 2-dose series) [facility] Start: 2002 Depression Screening Depression Screening [facility] Start: 1996 Pneumococcal Vaccine: Pediatrics (0 to 5 Years) and At-Risk Patients (6 to 64 Years) (1 - PCV) Pneumococcal Vaccine: Pediatrics (0 to 5 Years) and At-Risk Patients (6 to 64 Years) (1 - PCV) [facility] Start: 1996 Pneumococcal Vaccine: Pediatrics (0 to 5 Years) and At-Risk Patients (6 to 64 Years) (1 of 2 - PCV) Pneumococcal Vaccine: Pediatrics (0 to 5 Years) and At-Risk Patients (6 to 64 Years) (1 of 2 - PCV) [facility] Start: 09-21-1991 MMR Vaccines (1 of 1 - Standard series) MMR Vaccines (1 of 1 - Standard series) [facility] Start: 09-21-1991 Varicella vaccination Varicella Vaccines (1 of 2 - 2-dose childhood series) [facility] Start: 03-22-1991 COVID-19 Vaccine (#1) COVID-19 Vaccine (#1) [facility] Start: 1990 Hepatitis B Vaccines (1 of 3 - 3-dose series) Hepatitis B Vaccines (1 of 3 - 3-dose series) [facility] Start: 1990 HIV screening HIV Screening [facility] Start: 1990 Lipid panel Lipid Panel [facility] Start: 1990 Yearly Adult Physical Yearly Adult Physical [facility] Bacteria identified in Urine by Culture Urine Culture Microbiology Routine Kidney pain 08/29/2023 5:17 PM EDT [facility] Service Area Work Phone: Bacteria identified in Urine by Culture URINE CULTURE Microbiology Routine with uncertain dates in first trimester History of depression Encounter for supervision of other normal in first trimester 09/14/2023 9:20 AM EDT [facility] Bacteria identified in Urine by Culture Urine culture Microbiology Routine Urinary frequency Ordered: 12/12/2023 [facility] Comment on above: Ordered: 12/12/2023 Chlamydia trachomatis+Neisseria gonorrhoeae DNA [Presence] in Unspecified specimen by GREGG with probe detection GONORRHEA/CHLAMYDIA NAAT Lab Routine with uncertain dates in first trimester History of depression Encounter for supervision of other normal in first trimester 09/14/2023 9:20 AM T [facility] End: 11-19-2024 Clostridioides difficile toxin A+B tcdA+tcdB genes [Presence] in Stool by GREGG with probe detection [facility] Work Phone: Comment on above: Once (Lab) for 1 Occurrences starting until 11/19/2024 Cytology Cervical or vaginal smear or scraping study Pap Smear Pathology and Cytology Routine Trichomonal vaginitis during in first trimester Ordered: 09/26/2023 [facility] Work Phone: Comment on above: Ordered: 09/26/2023 Drug Monitor Panel 5 Screen, Urine ([facility]) Drug Monitor Panel 5 Screen, Urine ([facility]) Lab Routine Tetrahydrocannabinol (THC) use disorder, mild, abuse Ordered: 09/26/2023 [facility] Comment on above: Ordered: 09/26/2023 HIGH RISK HUMAN PAPILLOMA VIRUS (HPV), PCR FOR DETECTION AND GENOTYPING HIGH RISK HUMAN PAPILLOMA VIRUS (HPV), PCR FOR DETECTION AND GENOTYPING Lab Routine Cervical cancer screening Special screening examination for human papillomavirus (HPV) 09/14/2023 9:20 AM T [facility] PAP TEST PAP TEST Lab Rou jen Cervical cancer screening Special screening examination for human papillomavirus (HPV) 09/14/2023 9:20 AM T [facility] Patient Education Shoes Choosing for Comfort ED [facility] Work Phone: Patient referral [facility] Work Phone: Streptococcus agalac tiae DNA [Presence] in Unspecified specimen by GREGG with probe detection Group B Strep Screen PCR Microbiology Routine care, antepartum Ordered: 04/01/2024 [facility] Work Phone: Comment on above: Ordered: 04/01/2024 SURESWAB(R) ADVANCED VAGINITIS PLUS, TMA ([facility]) Sureswab(R) Advanced Vaginitis Plus, TMA ([facility]) Lab Routine Trichomonal vaginitis during in first trimester Ordered: 10/10/2023 [facility] Work Phone: Comment on above: Ordered: 10/10/2023 SURESWAB(R) ADVANCED VAGINITIS PLUS, TMA ([facility]) Sureswab(R) Advanced Vaginitis Plus, TMA ([facility]) Lab Routine Trichomonal vaginitis during in first trimester Ordered: 04/16/2024 [facility] Work Phone: Comment on above: Ordered: 04/16/2024 SURESWAB(R) ADVANCED VAGINITIS PLUS, TMA ([facility]) Sureswab(R) Advanced Vaginitis Plus, TMA ([facility]) Lab Routine Vaginal discharge Ordered: 12/30/2024 [facility] Work Phone: Comment on above: Ordered: 12/30/2024 TRICHOMONAS VAGINALI S NAAT TRICHOMONAS VAGINALIS NAAT Lab Routine Encounter for supervision of other normal in first trimester 09/14/2023 9:20 AM EDT [facility] Immunizations Immunization Date Immunization Notes Care Provider Fa [facility] 02-20-2024 tetanus toxoid, redu ubaldo diphtheria toxoid, and acellular pertussis vaccine, adsorbed Nevin Mayer LEAD BLENDER - CNM Work Phone: [facility] 01-28-2013 influenza virus vaccine, unspecified formulation Jam Phan MD Work Phone: [facility] NEGATED: Highlighted row has not occurred!04-22-2024 measles, mumps and rubella virus vaccine Marii Gay DO Work Phone: [facility] Comment on above: Deferred: Patient Re fused NEGATED: Highlighted row has not occurred!04-22-2024 tetanus toxoid, reduced diphtheria toxoid, and acellular pertussis vaccine, adsorbed Marii Gay DO Work Phone: [facility] Comment on above: Deferred: No longer needed Payers Date Payer Category Payer Self-pay [id number] 2022 Medicaid [id number] 2022 Medicaid [facility] ODM [id number] 2022 Unknown JENNI TAYLOR [id number] 2022-Present [address] [place] [address] [id number] 2022 Unknown [id number] 2018 Medicaid [id number] 1990 Unknown [id number] 1990 Unknown [id number] 1990 Unknown [id number] 1990 Unknown [id number] 1990 Unknown [id number] Unknown [id number] Unknown [id number] Social History Date Type Detail Facility Start: 02-11-2023 End: 09-26-2023 Tobacco smoking status ALIS Smokes tobacco daily [facility] History of tobacco use Cigarette Smoker [facility] Start: 02-11-2023 End: 04-20-2024 Cigarettes smoked current (pack per day) - Reported 0.5 [facility] Start: 02-11-2023 End: 09-26-2023 Tobacco use and exposure Smokeless tobacco non-user [facility] Start: 02-11-2023 Alcohol intake Current drinker of alcohol (finding) [facility] Start: 02-11-2023 End: 04-20-2024 Alcohol Use Disorder Identification Test - Consumption [AUDIT-C] [facility] How often to you hav e a drink containing alcohol? 2-3 time sa week [facility] How many standard dr inks containing alcohol do you have on a typical day? 10 or more [facility] How often do you hav e 6 or more drinks on 1 occasion? Daily or almost daily [facility] Start: 1990 Sex Assigned At Not on file [facility] Start: 06-10-2023 Tobacco smoking status ALIS Unknown if ever smoked [facility] Start: 1990 Sex Assigned At Female [facility] Start: 08-29-2023 Tobacco smoking status NHIS Never smoked tobacco [facility] Work Phone: Start: 08-19-2023 End: 08-29-2023 Exposure to SARS-CoV-2 (event) Not sure [facility] Start: 12-05-2021 Alcohol intake Lifetime non-drinker (finding) [facility] The thought of denisa godoy myself has occurred to me Yes, quite often [facility] National Score (1-10 0), lower number is lower risk 76 [facility] Start: 09-11-2023 Gender identity Identifies as female gender (finding) [facility] Start: 09-11-2023 Sexual orientation Heterosexual (finding) [facility] Start: 09-11-2023 End: 11-04-2024 Alcohol intake Ex-drinker (finding) [facility] Start: 09-11-2023 Education 13 [facility] Start: 09-11-2023 Alcohol Comment Sober since 03/27/2023 [facility] Start: 07-17-2023 [facility] History of tobacco use Passive smoker [facility] Has the [employer], [employer], [employer], or water company threatened to shut off services in your home in past 12Mo Yes [facility] Within the last year , have you been kicked, hit, slapped, or otherwise physically hurt by your partner or ex-partner? No [facility] Are you now , , , , never or living with a partner? Never [facility] How hard is it for y ou to pay for the very basics like food, housing, medical care, and heating Hard [facility] Do you feel stress - tense, restless, nervous, or anxious, or unable to sleep at night because your mind is troubled all the time - these days [OSQ] Only a little [facility] (I/We) worried wheth er (my/our) food would run out before (I/we) got money to buy more. Sometimes true [facility] Has the [employer], [employer] threatened to shut off services in your home in past 12Mo Already shut off [facility] Are you now , , , , never or living with a partner? Living with partner [facility] How often to you hav e a drink containing alcohol? Never [facility] How hard is it for y ou to pay for the very basics like food, housing, medical care, and heating Very hard [facility] Do you feel stress - tense, restless, nervous, or anxious, or unable to sleep at night because your mind is troubled all the time - these days [OSQ] Very much [facility] Start: 11-01-2021 Sex Female (finding) [facility] [employer] (I/We) worried wheth er (my/our) food would run out before (I/we) got money to buy more. Never true [facility] Functional Status Date Assessment Result Facility 11-18-2024 Total score [AUDIT-C] 0 11/19/19 7:56 PM Jil Burgess RN [facility] 11-04-2024 Patient Health [facility] ionnaire 2 item (PHQ-2) [Reported] [facility] 10-29-2024 Total score [AUDIT-C] 0 10/30/19 12:25 PM Jil Burgess RN [facility] Clinical Notes 02-11-2023 to 12-30-2024 Marii Gay, DO - 12/30/2024 11:15 AM EDTDischarge InstructionsAttachKevyndennys Parr, DO - 11/18/2024 7:38 PM Ralph Saravia RN - 11/18/2024 7:38 PM EDTDischarge Instructions Note Date & Type Note Facility 12-30-2024 History of Present illness Narrative Images from the original note were not included. Glenda Lara 12/30/2024 34 y.o. Chief Complaint Patient presents with Annual Exam Contraception Primary Care Physician: Melisa Woodard MD HPI: Glenda Lara is a 34 y.o. female here today for annual exam. This is a Established patient patient. Recent c diff infection which has resolved, otherwise has been doing well, No other major medical changes. Having regular MP, feels like they are heavier with small clots and cramping since delivery. Also having some mood changes the week leading up to MP. No LMP recorded. Menses: regular. Flow moderate Intermenstrual bleeding: no Dysmenorrhea:moderate, occurring first 1-2 days of flow Contraception: no method [employer] Complaints: yes Sexually Active: yes Dyspareunia: No STD History: yes Pap smear: NILM in 2023, -HPV Family History: Denies history of breast, colon, ovarian, uterine, prostate or pancreatic cancer. Medical History[1] Surgical History[2] Family History[3] OB History Para Term AB Living 4 4 4 4 SAB IAB Ectopic Multiple Live Births 0 4 # Outcome Date GA Lbr Wesley/2nd Weight Sex Type Anes PTL Lv 4 Term 04/20/24 39w2d / 00:25 6 lb 4.7 oz (2.855 kg) M Vag-Spont None N SHAHZAD 3 Term 04/29/15 40w0d 7 lb 8 oz (3.402 kg) F Vag-Spont None N SHAHZAD 2 Term 01/23/13 37w0d 4 lb 6 oz (1.984 kg) M Vag-Spont None Y SHAHZAD 1 Term 11/24/11 39w0d 7 lb 6 oz (3.345 kg) F Vag-Spont None N SHAHZAD MEDICATIONS: Current Medications[4] ALLERGIES: Allergies as of 12/30/2024 - Reviewed 12/30/2024 Allergen Reaction Noted Penicillins Hives 04/09/2013 REVIEW OF SYSTEMS Review of Systems All other systems reviewed and are negative. PHYSICAL EXAMINATION: BP 114/62 Ht 5' 3 (1.6 m) Wt 147 lb (66.7 kg) No BMI 26.04 kg/m Physical Exam Vitals and nursing note reviewed. Constitutional: General: She is not in acute distress. Appearance: Normal appearance. She is not toxic-appearing. HENT: Head: Normocephalic and atraumatic. Eyes: Extraocular Movements: Extraocular movements intact. Pulmonary: Effort: Pulmonary effort is normal. No respiratory distress. Abdominal: Palpations: Abdomen is soft. Tenderness: There is no abdominal tenderness. There is no guarding or rebound. Genitourinary: General: Normal vulva. Vagina: Normal. Cervix: Normal. Uterus: Normal. Adnexa: Right adnexa normal and left adnexa normal. Skin: General: Skin is warm and dry. Neurological: General: No focal deficit present. Mental Status: She is alert and oriented to person, place, and time. Psychiatric: Mood and Affect: Mood normal. Behavior: Behavior normal. Thought Content: Thought content normal. ASSESSMENT: 34 y.o. Diagnosis Plan 1. Women's annual routine gynecological examination 2. Vaginal discharge Sureswab(R) Advanced Vaginitis Plus, TMA ([facility]) 3. Encounter for initial prescription of contraceptive pills norgestimate-ethinyl estradiol (Sprintec 28) 0.25-35 MG-MCG tablet PLAN: - Having heavier MP and cramping with mood changes, would like to start on contraception. Will trial on OCPs, rx sent - Pap deferred, NILM in 2023 with neg HPV, sureswab collected for hx STI and increased discharge - Counseled on breast self awareness. - Counseled to exercise at least 30min three times per week. Take a daily multivitamin or 1000 Units of Vit D. - control and barrier recommendations discussed. - STD counseling and prevention reviewed. - Gardisil counseling completed for all patients 9-45 yo. - Routine health maintenance per patients PCP. Follow up in about 1 year (around 12/30/2025) for annual. Orders Placed This Encounter Procedures Sureswab(R) Advanced Vaginitis Plus, TMA ([facility]) [1] Past Medical History: Diagnosis Date Bipolar 1 disorder (HCC) Depression [2] Past Surgical History: Procedure Laterality Date ARM SURGERY (HISTORICAL) Left WISDOM TOOTH EXTRACTION [3] Family History Problem Relation Name Age of Onset No Known Problems Paternal Grandfather No Known Problems Paternal Grandmother No Known Problems Maternal Grandmother COPD Maternal Grandfather No Known Problems Father No Known Problems Mother No Known Problems Half-Brother No Known Problems Half-Brother Breast cancer Neg Hx Ovarian cancer Neg Hx Colon cancer Neg Hx [4] Current Outpatient Medications Medication Sig Dispense Refill sertraline (Zoloft) 25 MG tablet TAKE 1 TABLET BY MOUTH IN THE MORNING AND TAKE 1 TABLET AT BEDTIME lithium 150 MG capsule (Patient not taking: Reported on 11/18/2024) norgestimate-ethinyl estradiol (Sprintec 28) 0.25-35 MG-MCG tablet Take 1 tablet by mouth daily. 28 tablet 12 No current facility-administered medications for this visit. documented in this encounter [facility] 11-18-2024 Hospital Discharge instructions Kamille Parr DO - 11/18/2024 10:03 PM EDT We will contact you if your stool studies show any infections that require additional treatment. Otherwise please follow with your primary care doctor. I also encourage you to call and schedule appoint with gastroenterology due to persistent diarrhea. Continue to drink fluids. Take Tylenol and Motrin as needed for pain. Return for any severe worsening symptoms. Continue to use the Preparation H on the hemorrhoid as we discussed. The following attachments cannot be sent through Care Everywhere.Diarrhea, Adult ED ([place])Hemorrhoids ED ([place])documented in this encounter [facility] 11-18-2024 Emergency department Note Emergency Department Encounter [facility] ED Patient: Glenda Lara : 1990 Date of Evaluation: 11/18/2024 ED Provider: Kamille Parr DO Chief Complaint Chief Complaint Patient presents with Abdominal Pain Painful urination x 5 days RAFAELA Lara is a 34 y.o. female who presents to the emergency department complaining of abdominal pain. Patient reports pain in the abdomen. She reported to triage nursing that she was having pain with urination. However she tells me that she is having issues with diarrhea. It seems she was seen in the emergency department for some abdominal pain, underwent CT scan and was found to have colitis. She was started on ciprofloxacin and Flagyl. She states she developed diarrhea a few days later. She followed up with her doctor following completion of the antibiotics and that she was started on lithium for bipolar disorder. She had diarrhea and discussed that so they actually stopped the lithium thinking this was a side effect of the medication. Patient continues to have diarrhea. She has developed hemorrhoids. She does have persistent abdominal pain. Additional history obtained from : n/a Barriers to obtaining history from patient: n/a ROS: Review of Systems completed as follows: (Bold = positive, Not bold = negative) GENERAL: fevers, chills, malaise NEURO: weakness, numbness of tingling, headache CARDIOVASCULAR: chest pain, syncope PULMONARY: shortness of breath, cough, wheezing GASTROINTESTINAL: nausea, vomiting, abdominal pain, diarrhea, constipation, MUSCULOSKELETAL: pain GENITAL/URINARY: dysuria, hematuria, increased urinary frequency, hesitancy, flank pain SKIN: rash, lesions, wound Past History Medical History[1] Surgical History[2] Social History[3] I have reviewed the history above as provided by nursing notes. Medications/Allergies Discharge Medication List as of 11/18/2024 10:08 PM CONTINUE these medications which have NOT CHANGED Details lithium 150 MG capsule Historical Med sertraline (Zoloft) 25 MG tablet TAKE 1 TABLET BY MOUTH IN THE MORNING AND TAKE 1 TABLET AT BEDTIME, Historical Med Allergies[4] I have reviewed the history above as provided by nursing notes. Physical Exam ED Triage Vitals Temp Heart Rate Resp BP 11/18/24195311/18/24195311/18/24195311/18/241953 36.7 C (98 F) 84 16 122/82 SpO2 Temp Source Heart Rate Source Patient Position 11/18/24195311/18/24195311/18/242220 08/18/25 1954 97 % Oral Monitor Sitting BP Location FiO2 (%) 11/18/241953 -- Right arm GENERAL: The patient appears nourished and normally developed. Vital signs as documented. EYES: PERRL. No scleral icterus or orbital trauma noted. HEENT: Mucous membranes moist. Nares patent without copious rhinorrhea. LUNGS: Lungs are clear to auscultation, without any respiratory distress. CARDIAC: Rhythm is regular. No murmur appreciated ABDOMEN: Mild diffuse tenderness, soft, with no obvious masses, and no peritoneal signs. Rectal examination performed with nurse at bedside. At the 8 o'clock position there is a small nonthrombosed hemorrhoid that is tender to palpation. No obvious bleeding. EXTREMITIES: Non edematous, with no obvious deformities. SKIN: Good color, with no significant rashes. No pallor. NEURO: No obvious neurological deficits, normal sensation and strength bilaterally. Diagnostics Labs: Results for orders placed or performed during the hospital encounter of 11/18/24 ECG 12 lead Collection Time: 11/18/24 8:22 PM Result Value Ref Range Heart Rate 78 bpm QRSD Interval 83 ms QT Interval 384 ms QTC Interval 437 ms P [place] 58 degrees QRS [place] 71 degrees T Wave [place] 38 degrees [place] Interval 179 ms Urinalysis Complete with reflex to Culture Collection Time: 11/18/24 8:24 PM Result Value Ref Range Color, Urine Colorless Lt. Yellow Clarity, Urine Clear Clear pH, Urine 5.0 5.0 - 8.0 pH Leukocytes, Urine Negative Negative Elena/uL Nitrite, Urine Negative Negative Protein, Urine Negative Negative mg/dL Glucose, Urine Normal Normal (<70) mg/dL Bilirubin, Urine Negative Negative mg/dL Ketones, Urine Negative Negative mg/dL Urobilinogen, Urine Normal Normal (0-1) mg/dL Blood, Urine Negative Negative mg/dL SPECIFIC GRAVITY OF URINE (NUMERIC) 1.005 1.005 - 1.030 hCG, urine, qualitative Collection Time: 11/18/24 8:24 PM Result Value Ref Range HCG,URINE QUAL Negative Negative CBC auto differential Collection Time: 11/18/24 8:30 PM Result Value Ref Range Auto WBC 17.4 (H) 3.6 - 10.7 10*3/uL RBC 4.26 3.80 - 5.20 10*6/uL Hemoglobin 11.9 11.7 - 16.0 g/dL Hematocrit 35.4 35.0 - 47.0 % MCV 83.1 77.0 - 99.0 fL MCH 27.9 26.0 - 34.0 pg MCHC 33.6 30.5 - 36.0 % RDW 15.0 11.5 - 15.0 % Platelets 351 140 - 440 10*3/uL MPV 8.6 (L) 9.0 - 12.7 fL nRBC 0.0 0.0 - 2.0 /100 WBCs Neutrophils Relative 79.4 38.0 - 82.0 % Lymphocytes Relative 12.0 (L) 15.0 - 45.0 % Monocytes Relative 7.5 5.0 - 13.0 % Eosinophils Relative 0.4 0.0 - 6.0 % Basophils Relative 0.3 0.0 - 2.0 % Immature Grans % 0.4 0.0 - 2.0 % Neutrophils Absolute 13.8 (H) 1.8 - 7.5 10*3/uL Lymphocytes Absolute 2.1 1.0 - 4.3 10*3/uL Monocytes Absolute 1.3 (H) 0.0 - 0.9 10*3/uL Eosinophils Absolute 0.1 0.0 - 0.5 10*3/uL Basophils Absolute 0.1 0.0 - 0.2 10*3/uL Immature Grans Absolute 0.1 (H) <0.1 10*3/uL Comprehensive metabolic panel Collection Time: 11/18/24 8:30 PM Result Value Ref Range SODIUM 139 136 - 145 mmol/L POTASSIUM 3.3 (L) 3.5 - 5.1 mmol/L CHLORIDE 108 (H) 98 - 107 mmol/L CARBON DIOXIDE 23 22 - 29 mmol/L ANION GAP 8 3 - 13 mmol/L UREA NITROGEN 8 8 - 21 mg/dL CREATININE 0.74 0.57 - 1.11 mg/dL GLUCOSE 106 (H) 74 - 100 mg/dL CALCIUM 9.0 8.4 - 10.2 mg/dL AST (SGOT) 23 <34 U/L ALT 18 <30 U/L ALKALINE PHOSPHATASE 589 (H) 40 - 150 U/L ALBUMIN 3.7 3.5 - 5.0 g/dL BILIRUBIN, TOTAL 0.3 <1.2 mg/dL TOTAL PROTEIN 7.1 6.4 - 8.3 g/dL eGFR >90.0 >60.0 mL/min/1.73m*2 Lipase Collection Time: 11/18/24 8:30 PM Result Value Ref Range LIPASE 81 (H) <55 U/L Serial Troponin, High Sensitivity Collection Time: 11/18/24 8:30 PM Result Value Ref Range Troponin HS Serial Baseline <3 <=14 ng/L Radiographs: XR chest 1 view Final Result 1. No acute finding. Report Dictated on Electronically Signed By: Melisa Levi MD Electronically Signed Date/Time: 11/18/2024 8:45 PM EDT EMERGENCY DEPARTMENT COURSE and DIFFERENTIAL DIAGNOSIS/MDM: Vitals: Vitals: 11/18/24195311/18/24 222 BP: 122/82 119/77 BP Location: Right arm Right arm Patient Position: Sitting Sitting Pulse: 84 81 Resp: 16 16 Temp: 36.7 C (98 F) TempSrc: Oral SpO2: 97% 99% Weight: 63.5 kg (140 lb) Height: 1.6 m (5' 3) The patient presented with a chief complaint of abdominal pain, diarrhea, urinary symptoms and hemorrhoid. Vital signs reviewed. Patient does have a hemorrhoid on exam. She has abdominal pain. Considered colitis, enteritis, C. difficile as patient was recently on antibiotics, electrolyte abnormalities. Will check labs. Patient was found to have a leukocytosis. Her metabolic panel shows an elevation of her alkaline phosphatase and some mild hypokalemia of 3.3. Her lipase is double the normal limit but not 3 times. Her high-sensitivity troponin is normal. An EKG is personally interpreted showing sinus rhythm without acute ischemic findings. Urinalysis shows no markers for infection. Chest x-ray as patient had reported some shortness of breath and chest pain to myself did not show an acute coronary syndrome. With a normal EKG, low risk factors her heart score is 0. We discussed patient's abdominal pain that was her presenting issue. Discussed my concerns about this potentially be related to recent antibiotics use. Discussed her recent CT scan. We discussed the risk of radiation and repeat CT scan. Ultimately patient would like to avoid additional CT scan at this time. She did provide a stool sample and this will be sent for C. difficile testing, GI panel testing. We will treat accordingly. Patient we discharged to follow-up with her primary care doctor and was also given referral to gastroenterology. Diagnoses as of 11/19/24 0325 Diarrhea, unspecified type Hemorrhoids, unspecified hemorrhoid type ED Medications managed: Medications sodium chloride 0.9 % bolus 1,000 mL (0 mL IntraVENous Stopped 11/18/242137) ketorolac (Toradol) injection 15 mg (15 mg IntraVENous Given 11/18/242031) potassium chloride (Klor-Con) packet 40 mEq (40 mEq Oral Given 11/18/242143) Patients symptoms are consistent with sepsis, severe sepsis or septic shock (if yes, use .sepsiscoremeasure) - no Final Impression 1. Diarrhea, unspecified type 2. Hemorrhoids, unspecified hemorrhoid type DISPOSITION discharge Comment: Please note this report has been produced using speech recognition software and may contain errors related to that system including errors in grammar, punctuation, and spelling, as well as words and phrases that may be inappropriate. If there are any questions or concerns please feel free to contact the dictating provider for clarification. Kamille Parr DO [employer] [facility] [employer] [1] Past Medical History: Diagnosis Date Bipolar 1 disorder (HCC) Depression [2] Past Surgical History: Procedure Laterality Date ARM SURGERY (HISTORICAL) Left WISDOM TOOTH EXTRACTION [3] Social History Socioeconomic History Marital status: Single Tobacco Use Smoking status: Every Day Current packs/day: 0.50 Average packs/day: 0.5 packs/day for 17.0 years (8.5 ttl pk-yrs) Types: Cigarettes Smokeless tobacco: Never Vaping Use Vaping status: Former Substances: Nicotine, THC Devices: Disposable, Pre-filled or refillable cartridge Passive vaping exposure: Yes Substance and Sexual Activity Alcohol use: Not Currently Drug use: Yes Types: Marijuana 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, everything else has been over a year- 04/20/24 Sexual activity: Yes Partners: Male Social Drivers of Health Financial Resource Strain: High Risk (11/07/2023) Overall Financial Resource Strain (CARDIA) Difficulty of Paying Living Expenses: Very hard Food Insecurity: No Food Insecurity (04/20/2024) Hunger Vital Sign Worried About Running Out of Food in the Last Year: Never true Ran Out of Food in the Last Year: Never true Recent Concern: Food Insecurity - Food Insecurity Present (04/20/2024) Hunger Vital Sign Worried About Running Out of Food in the Last Year: Sometimes true Ran Out of Food in the Last Year: Never true Transportation Needs: No Transportation Needs (04/20/2024) PRAPARE - Transportation Lack of Transportation (Medical): No Lack of Transportation (Non-Medical): No Physical Activity: Insufficiently Active (11/07/2023) Exercise Vital Sign Days of Exercise per Week: 1 day Minutes of Exercise per Session: 10 min Stress: Stress Concern Present (11/07/2023) [employer] - Occupational Stress Questionnaire Feeling of Stress : Very much Social Connections: Moderately Integrated (11/07/2023) Social Connection and Isolation Panel [NHANES] Frequency of Communication with Friends and Family: Once a week Frequency of Social Gatherings with Friends and Family: Once a week Attends Evangelical Services: 1 to 4 times per year Active Member of Clubs or Organizations: Yes Attends Club or Organization Meetings: 1 to 4 times per year Marital Status: Living with partner Intimate Partner Violence: Not At Risk (04/20/2024) Humiliation, Afraid, Rape, and Kick questionnaire Fear of Current or Ex-Partner: No Emotionally Abused: No Physically Abused: No Sexually Abused: No Housing Stability: High Risk (04/20/2024) Housing Stability Vital Sign Unable to Pay for Housing in the Last Year: No Number of Times Moved in the Last Year: 2 Homeless in the Last Year: No [4] Allergies Allergen Reactions Penicillins Hives Kamille Parr DO 11/19/24 0329 Pt to ER with complaint of lower abd pain and painful urination x 5 days. Pt seen recently for enteritis and took antibiotics which she states dehydrated her. Started taking lithium salts after finishing her antibiotic. States this was causing her problems and she stopped taking it. Now having lower abd pressure and pain with urination states she is not sure if it is related to the enteritis, or hemorrhoids or if something else is going on. Pt to bathroom to obtain urine specimen. Call light in reach. documented in this encounter [facility] 11-18-2024 Emergency department Triage note Pt to ER with complaint of lower abd pain and painful urination x 5 days. Pt seen recently for enteritis and took antibiotics which she states dehydrated her. Started taking lithium salts after finishing her antibiotic. States this was causing her problems and she stopped taking it. Now having lower abd pressure and pain with urination states she is not sure if it is related to the enteritis, or hemorrhoids or if something else is going on. Pt to bathroom to obtain urine specimen. Call light in reach. [facility] 11-18-2024 Physician Emergency department Note Emergency Department Encounter [facility] ED Patient: Glenda Lara : 1990 Date of Evaluation: 11/18/2024 ED Provider: Kamille Parr DO Chief Complaint Chief Complaint Patient presents with Abdominal Pain Painful urination x 5 days RAFAELA Lara is a 34 y.o. female who presents to the emergency department complaining of abdominal pain. Patient reports pain in the abdomen. She reported to triage nursing that she was having pain with urination. However she tells me that she is having issues with diarrhea. It seems she was seen in the emergency department for some abdominal pain, underwent CT scan and was found to have colitis. She was started on ciprofloxacin and Flagyl. She states she developed diarrhea a few days later. She followed up with her doctor following completion of the antibiotics and that she was started on lithium for bipolar disorder. She had diarrhea and discussed that so they actually stopped the lithium thinking this was a side effect of the medication. Patient continues to have diarrhea. She has developed hemorrhoids. She does have persistent abdominal pain. Additional history obtained from : n/a Barriers to obtaining history from patient: n/a ROS: Review of Systems completed as follows: (Bold = positive, Not bold = negative) GENERAL: fevers, chills, malaise NEURO: weakness, numbness of tingling, headache CARDIOVASCULAR: chest pain, syncope PULMONARY: shortness of breath, cough, wheezing GASTROINTESTINAL: nausea, vomiting, abdominal pain, diarrhea, constipation, MUSCULOSKELETAL: pain GENITAL/URINARY: dysuria, hematuria, increased urinary frequency, hesitancy, flank pain SKIN: rash, lesions, wound Past History Medical History[1] Surgical History[2] Social History[3] I have reviewed the history above as provided by nursing notes. Medications/Allergies Discharge Medication List as of 11/18/2024 10:08 PM CONTINUE these medications which have NOT CHANGED Details lithium 150 MG capsule Historical Med sertraline (Zoloft) 25 MG tablet TAKE 1 TABLET BY MOUTH IN THE MORNING AND TAKE 1 TABLET AT BEDTIME, Historical Med Allergies[4] I have reviewed the history above as provided by nursing notes. Physical Exam ED Triage Vitals Temp Heart Rate Resp BP 11/18/24195311/18/24195311/18/24195311/18/241953 36.7 C (98 F) 84 16 122/82 SpO2 Temp Source Heart Rate Source Patient Position 11/18/24195311/18/24195311/18/24 2221 11/18/241953 97 % Oral Monitor Sitting BP Location FiO2 (%) 11/18/241953 -- Right arm GENERAL: The patient appears nourished and normally developed. Vital signs as documented. EYES: PERRL. No scleral icterus or orbital trauma noted. HEENT: Mucous membranes moist. Nares patent without copious rhinorrhea. LUNGS: Lungs are clear to auscultation, without any respiratory distress. CARDIAC: Rhythm is regular. No murmur appreciated ABDOMEN: Mild diffuse tenderness, soft, with no obvious masses, and no peritoneal signs. Rectal examination performed with nurse at bedside. At the 8 o'clock position there is a small nonthrombosed hemorrhoid that is tender to palpation. No obvious bleeding. EXTREMITIES: Non edematous, with no obvious deformities. SKIN: Good color, with no significant rashes. No pallor. NEURO: No obvious neurological deficits, normal sensation and strength bilaterally. Diagnostics Labs: Results for orders placed or performed during the hospital encounter of 11/18/24 ECG 12 lead Collection Time: 11/18/24 8:22 PM Result Value Ref Range Heart Rate 78 bpm QRSD Interval 83 ms QT Interval 384 ms QTC Interval 437 ms P [place] 58 degrees QRS [place] 71 degrees T Wave [place] 38 degrees [place] Interval 179 ms Urinalysis Complete with reflex to Culture Collection Time: 11/18/24 8:24 PM Result Value Ref Range Color, Urine Colorless Lt. Yellow Clarity, Urine Clear Clear pH, Urine 5.0 5.0 - 8.0 pH Leukocytes, Urine Negative Negative Elena/uL Nitrite, Urine Negative Negative Protein, Urine Negative Negative mg/dL Glucose, Urine Normal Normal (<70) mg/dL Bilirubin, Urine Negative Negative mg/dL Ketones, Urine Negative Negative mg/dL Urobilinogen, Urine Normal Normal (0-1) mg/dL Blood, Urine Negative Negative mg/dL SPECIFIC GRAVITY OF URINE (NUMERIC) 1.005 1.005 - 1.030 hCG, urine, qualitative Collection Time: 11/18/24 8:24 PM Result Value Ref Range HCG,URINE QUAL Negative Negative CBC auto differential Collection Time: 11/18/24 8:30 PM Result Value Ref Range Auto WBC 17.4 (H) 3.6 - 10.7 10*3/uL RBC 4.26 3.80 - 5.20 10*6/uL Hemoglobin 11.9 11.7 - 16.0 g/dL Hematocrit 35.4 35.0 - 47.0 % MCV 83.1 77.0 - 99.0 fL MCH 27.9 26.0 - 34.0 pg MCHC 33.6 30.5 - 36.0 % RDW 15.0 11.5 - 15.0 % Platelets 351 140 - 440 10*3/uL MPV 8.6 (L) 9.0 - 12.7 fL nRBC 0.0 0.0 - 2.0 /100 WBCs Neutrophils Relative 79.4 38.0 - 82.0 % Lymphocytes Relative 12.0 (L) 15.0 - 45.0 % Monocytes Relative 7.5 5.0 - 13.0 % Eosinophils Relative 0.4 0.0 - 6.0 % Basophils Relative 0.3 0.0 - 2.0 % Immature Grans % 0.4 0.0 - 2.0 % Neutrophils Absolute 13.8 (H) 1.8 - 7.5 10*3/uL Lymphocytes Absolute 2.1 1.0 - 4.3 10*3/uL Monocytes Absolute 1.3 (H) 0.0 - 0.9 10*3/uL Eosinophils Absolute 0.1 0.0 - 0.5 10*3/uL Basophils Absolute 0.1 0.0 - 0.2 10*3/uL Immature Grans Absolute 0.1 (H) <0.1 10*3/uL Comprehensive metabolic panel Collection Time: 11/18/24 8:30 PM Result Value Ref Range SODIUM 139 136 - 145 mmol/L POTASSIUM 3.3 (L) 3.5 - 5.1 mmol/L CHLORIDE 108 (H) 98 - 107 mmol/L CARBON DIOXIDE 23 22 - 29 mmol/L ANION GAP 8 3 - 13 mmol/L UREA NITROGEN 8 8 - 21 mg/dL CREATININE 0.74 0.57 - 1.11 mg/dL GLUCOSE 106 (H) 74 - 100 mg/dL CALCIUM 9.0 8.4 - 10.2 mg/dL AST (SGOT) 23 <34 U/L ALT 18 <30 U/L ALKALINE PHOSPHATASE 589 (H) 40 - 150 U/L ALBUMIN 3.7 3.5 - 5.0 g/dL BILIRUBIN, TOTAL 0.3 <1.2 mg/dL TOTAL PROTEIN 7.1 6.4 - 8.3 g/dL eGFR >90.0 >60.0 mL/min/1.73m*2 Lipase Collection Time: 11/18/24 8:30 PM Result Value Ref Range LIPASE 81 (H) <55 U/L Serial Troponin, High Sensitivity Collection Time: 11/18/24 8:30 PM Result Value Ref Range Troponin HS Serial Baseline <3 <=14 ng/L Radiographs: XR chest 1 view Final Result 1. No acute finding. Report Dictated on Electronically Signed By: Melisa Levi MD Electronically Signed Date/Time: 11/18/2024 8:45 PM EDT EMERGENCY DEPARTMENT COURSE and DIFFERENTIAL DIAGNOSIS/MDM: Vitals: Vitals: 11/18/24195311/18/24 2221 BP: 122/82 119/77 BP Location: Right arm Right arm Patient Position: Sitting Sitting Pulse: 84 81 Resp: 16 16 Temp: 36.7 C (98 F) TempSrc: Oral SpO2: 97% 99% Weight: 63.5 kg (140 lb) Height: 1.6 m (5' 3) The patient presented with a chief complaint of abdominal pain, diarrhea, urinary symptoms and hemorrhoid. Vital signs reviewed. Patient does have a hemorrhoid on exam. She has abdominal pain. Considered colitis, enteritis, C. difficile as patient was recently on antibiotics, electrolyte abnormalities. Will check labs. Patient was found to have a leukocytosis. Her metabolic panel shows an elevation of her alkaline phosphatase and some mild hypokalemia of 3.3. Her lipase is double the normal limit but not 3 times. Her high-sensitivity troponin is normal. An EKG is personally interpreted showing sinus rhythm without acute ischemic findings. Urinalysis shows no markers for infection. Chest x-ray as patient had reported some shortness of breath and chest pain to myself did not show an acute coronary syndrome. With a normal EKG, low risk factors her heart score is 0. We discussed patient's abdominal pain that was her presenting issue. Discussed my concerns about this potentially be related to recent antibiotics use. Discussed her recent CT scan. We discussed the risk of radiation and repeat CT scan. Ultimately patient would like to avoid additional CT scan at this time. She did provide a stool sample and this will be sent for C. difficile testing, GI panel testing. We will treat accordingly. Patient we discharged to follow-up with her primary care doctor and was also given referral to gastroenterology. Diagnoses as of 11/19/24 0325 Diarrhea, unspecified type Hemorrhoids, unspecified hemorrhoid type ED Medications managed: Medications sodium chloride 0.9 % bolus 1,000 mL (0 mL IntraVENous Stopped 11/18/242137) ketorolac (Toradol) injection 15 mg (15 mg IntraVENous Given 11/18/242031) potassium chloride (Klor-Con) packet 40 mEq (40 mEq Oral Given 11/18/242143) Patients symptoms are consistent with sepsis, severe sepsis or septic shock (if yes, use .sepsiscoremeasure) - no Final Impression 1. Diarrhea, unspecified type 2. Hemorrhoids, unspecified hemorrhoid type DISPOSITION discharge Comment: Please note this report has been produced using speech recognition software and may contain errors related to that system including errors in grammar, punctuation, and spelling, as well as words and phrases that may be inappropriate. If there are any questions or concerns please feel free to contact the dictating provider for clarification. Kamille Parr, DO [employer] [1] Past Medical History: Diagnosis Date Bipolar 1 disorder (HCC) Depression [2] Past Surgical History: Procedure Laterality Date ARM SURGERY (HISTORICAL) Left WISDOM TOOTH EXTRACTION [3] Social History Socioeconomic History Marital status: Single Tobacco Use Smoking status: Every Day Current packs/day: 0.50 Average packs/day: 0.5 packs/day for 17.0 years (8.5 ttl pk-yrs) Types: Cigarettes Smokeless tobacco: Never Vaping Use Vaping status: Former Substances: Nicotine, THC Devices: Disposable, Pre-filled or refillable cartridge Passive vaping exposure: Yes Substance and Sexual Activity Alcohol use: Not Currently Drug use: Yes Types: Marijuana 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, everything else has been over a year- 04/20/24 Sexual activity: Yes Partners: Male Social Drivers of Health Financial Resource Strain: High Risk (11/07/2023) Overall Financial Resource Strain (CARDIA) Difficulty of Paying Living Expenses: Very hard Food Insecurity: No Food Insecurity (04/20/2024) Hunger Vital Sign Worried About Running Out of Food in the Last Year: Never true Ran Out of Food in the Last Year: Never true Recent Concern: Food Insecurity - Food Insecurity Present (04/20/2024) Hunger Vital Sign Worried About Running Out of Food in the Last Year: Sometimes true Ran Out of Food in the Last Year: Never true Transportation Needs: No Transportation Needs (04/20/2024) PRAPARE - Transportation Lack of Transportation (Medical): No Lack of Transportation (Non-Medical): No Physical Activity: Insufficiently Active (11/07/2023) Exercise Vital Sign Days of Exercise per Week: 1 day Minutes of Exercise per Session: 10 min Stress: Stress Concern Present (11/07/2023) [employer] - Occupational Stress Questionnaire Feeling of Stress : Very much Social Connections: Moderately Integrated (11/07/2023) Social Connection and Isolation Panel [NHANES] Frequency of Communication with Friends and Family: Once a week Frequency of Social Gatherings with Friends and Family: Once a week Attends Evangelical Services: 1 to 4 times per year Active Member of Clubs or Organizations: Yes Attends Club or Organization Meetings: 1 to 4 times per year Marital Status: Living with partner Intimate Partner Violence: Not At Risk (04/20/2024) Humiliation, Afraid, Rape, and Kick questionnaire Fear of Current or Ex-Partner: No Emotionally Abused: No Physically Abused: No Sexually Abused: No Housing Stability: High Risk (04/20/2024) Housing Stability Vital Sign Unable to Pay for Housing in the Last Year: No Number of Times Moved in the Last Year: 2 Homeless in the Last Year: No [4] Allergies Allergen Reactions Penicillins Hives Kamille Parr DO 11/19/24 0329 [facility] 11-15-2024 Telephone encounter Note Message released to patient as written. Labs are good Please contact patient and let her know I have reordered some blood work her platelets were a bit elevated. Patient's further questions if applicable: no Were all questions from office addressed or relayed to the patient from encounter: Yes [facility] 11-15-2024 Miscellaneous Notes Message released to patient as written. Labs are good Please contact patient and let her know I have reordered some blood work her platelets were a bit elevated. Patient's further questions if applicable: no Were all questions from office addressed or relayed to the patient from encounter: Yes Left message for patient to call onto the office to go over lab results ----- Message from MONICA Fuentes CNP sent at 11/15/2024 8:41 AM EDT ----- Please contact patient and let her know I have reordered some blood work her platelets were a bit elevated. ----- Message ----- From: Albina Rivas Lab Results In Sent: 11/15/2024 4:22 AM EDT To: MONICA Leonardo CNP documented in this encounter [facility] 11-15-2024 Telephone encounter Note Left message for patient to call onto the office to go over lab results [facility] 11-15-2024 Telephone encounter Note ----- Message from MONICA Fuenets CNP sent at 11/15/2024 8:41 AM EDT ----- Please contact patient and let her know I have reordered some blood work her platelets were a bit elevated. ----- Message ----- From: [facility] Results In Sent: 11/15/2024 4:22 AM EDT To: MONICA Leonardo CNP [facility] 11-04-2024 History of Present illness Narrative Images from the original note were not included. . [facility] [address] [facility] [address] [place] [address] Dept: [phone] Dept Visit type: Established Reason for Visit: Annual Exam (Wellness visit ) and Dizziness (Was seen in ED for Enterisit, present today with dizziness and fatigue ) Assessment and Plan Patient has been counseled on and is up to date on immunizations and age appropriate screening or has refused. Encouraged avoidance of tobacco and alcohol, safe sex practices, eat a healthy diet with plenty of vegetables, whole grains, and lean proteins. Exercise 3-5 times per week for 30-45 minutes, wear seatbelts, sunscreen. Dizziness - acute Labs ordered. Will follow-up with results once available. Depression - stable Followed by psychiatry 1. Routine general medical examination at a health care facility 2. Dizziness - CBC auto differential - Comprehensive metabolic panel - TSH - Vitamin D Deficiency Screening (Vit D 25) - Vitamin B12 3. Recurrent major depressive disorder, remission status unspecified (HCC) Follow up in about 1 year (around 11/04/2025). Subjective This is a 34-year-old female history significant for major depression, PTSD, adjustment disorder, polysubstance abuse today for annual exam. Depression/PTSD Patient currently taking sertraline 100 mg daily as prescribed by her psychiatrist. Ports stable mood no thoughts of self-harm no thoughts of SI. Dizziness Reports episodes of dizziness from time to time. She states episodes are not severe and do resolve spontaneously. Review of Systems Respiratory: Negative. Cardiovascular: Negative. Gastrointestinal: Negative. Endocrine: Negative for polyuria. Genitourinary: Negative. Musculoskeletal: Negative. Skin: Negative. Neurological: Positive for dizziness. Allergies[1] Current Medications[2] Medical History[3] Social History Tobacco Use Smoking status: Every Day Current packs/day: 0.50 Average packs/day: 0.5 packs/day for 17.0 years (8.5 ttl pk-yrs) Types: Cigarettes Smokeless tobacco: Never Substance Use Topics Alcohol use: Not Currently Surgical History[4] Family History[5] Objective BP 117/75 Pulse 68 Ht 5' 3 (1.6 m) Wt 145 lb (65.8 kg) SpO2 97% BMI 25.69 kg/m Physical Exam Vitals reviewed. Constitutional: Appearance: Normal appearance. Cardiovascular: Rate and Rhythm: Normal rate and regular rhythm. Heart sounds: Normal heart sounds. Pulmonary: Effort: Pulmonary effort is normal. Breath sounds: Normal breath sounds. Musculoskeletal: General: Normal range of motion. Neurological: General: No focal deficit present. Mental Status: She is alert. Psychiatric: Mood and Affect: Mood normal. Data Reviewed and Summarized Labs: Imaging/Testing: Néstor Archer APRN - [facility] [1] Allergies Allergen Reactions Penicillins Hives [2] Current Outpatient Medications Medication Sig Dispense Refill ciprofloxacin (Cipro) 500 MG tablet Take 1 tablet (500 mg) by mouth 2 times daily for 10 days. 20 tablet 0 metroNIDAZOLE (Flagyl) 500 MG tablet Take 1 tablet (500 mg) by mouth 3 times daily for 10 days. 30 tablet 0 sertraline (Zoloft) 25 MG tablet TAKE 1 TABLET BY MOUTH IN THE MORNING AND TAKE 1 TABLET AT BEDTIME No current facility-administered medications for this visit. [3] Past Medical History: Diagnosis Date Bipolar 1 disorder (HCC) Depression [4] Past Surgical History: Procedure Laterality Date ARM SURGERY (HISTORICAL) Left WISDOM TOOTH EXTRACTION [5] Family History Problem Relation Name Age of Onset No Known Problems Paternal Grandfather No Known Problems Paternal Grandmother No Known Problems Maternal Grandmother COPD Maternal Grandfather No Known Problems Father No Known Problems Mother No Known Problems Half-Brother No Known Problems Half-Brother Breast cancer Neg Hx Ovarian cancer Neg Hx Colon cancer Neg Hx documented in this encounter [facility] 10-29-2024 Emergency department Note Attempted IV and blood draw x 2 without success. [facility] 10-29-2024 Emergency department Note Attempted IV and blood draw x 2 without success. EMERGENCY DEPARTMENT ENCOUNTER Pt Name: Glenda Lara Birthdate 1990 Date of evaluation: 10/29/2024 ED Provider: Cherrie Mendoza MD CHIEF COMPLAINT Chief Complaint Patient presents with Abdominal Pain X 1 day HISTORY OF PRESENT ILLNESS (Location/Symptom, Timing/Onset, Context/Setting, Quality, Duration, Modifying Factors, Severity) Note limiting factors. I wore appropriate PPE for the entirety of this encounter. HPI Glenda Lara is a 34 y.o. who presents to the emergency department with right lower quadrant abdominal pain, no fevers, history of ruptured ovarian cyst in the past, no dysuria or hematuria Nursing Notes were reviewed. Limitations to history: None Outside historians: None REVIEW OF SYSTEMS Review of Systems Pertinent positives and negatives as per HPI PAST MEDICAL HISTORY Medical History[1] SURGICAL HISTORY Surgical History[2] CURRENT MEDICATIONS Current Discharge Medication List CONTINUE these medications which have NOT CHANGED Details Vit-Fe Fumarate-FA ( Vitamins) 28-0.8 MG tablet Take 1 tablet by mouth daily. Qty: 90 tablet, Refills: 11 sertraline (Zoloft) 25 MG tablet TAKE 1 TABLET BY MOUTH IN THE MORNING AND TAKE 1 TABLET AT BEDTIME ALLERGIES Penicillins FAMILY HISTORY Family History[3] SOCIAL HISTORY Social History[4] PHYSICAL EXAM ED Triage Vitals [10/29/24 1221] Temp Heart Rate Resp BP 36.7 C (98.1 F) 91 16 126/68 SpO2 Temp Source Heart Rate Source Patient Position 97 % Temporal Monitor Sitting BP Location FiO2 (%) Right arm -- Physical Exam Tenderness in the periumbilical and right lower quadrant areas over McBurney's point, no peritoneal signs, no guarding, no CVA tenderness to percussion, heart regular rate and rhythm, lungs clear to auscultation bilaterally DIAGNOSTIC RESULTS RADIOLOGY (Per Emergency Physician): Interpretation per the Radiologist below, if available at the time of this note: US pelvis transvaginal Final Result 1. No acute pelvic abnormality. 2. Subtle intramural uterine fibroids. Report Dictated on Electronically Signed By: Jaqueline Méndez MD Electronically Signed Date/Time: 10/29/2024 3:[address] abdomen pelvis w contrast Final Result 1. Questionable low-grade enteritis/ileitis. 2. Normal appendix. 3. Mild asymmetric enlargement of the right adnexa in relation to the left. This is of unclear clinical significance. Further evaluation with ultrasound could be considered. 4. Trace pelvic ascites Report Dictated on Electronically Signed By: Ramiro Castellanos MD Electronically Signed Date/Time: 10/29/2024 2:28 PM EDT LABS: Labs Reviewed CBC WITH AUTO DIFFERENTIAL - Abnormal Result Value Auto WBC 11.6 (*) RBC 4.70 Hemoglobin 13.1 Hematocrit 39.2 MCV 83.4 MCH 27.9 MCHC 33.4 RDW 15.0 Platelets 378 MPV 8.3 (*) nRBC 0.0 Neutrophils Relative 73.9 Lymphocytes Relative 19.4 Monocytes Relative 5.4 Eosinophils Relative 0.5 Basophils Relative 0.5 Immature Grans % 0.3 Neutrophils Absolute 8.5 (*) Lymphocytes Absolute 2.2 Monocytes Absolute 0.6 Eosinophils Absolute 0.1 Basophils Absolute 0.1 Immature Grans Absolute 0.0 COMPLETE URINALYSIS WITH REFLEX TO CULTURE - Abnormal Color, Urine Dark Yellow (*) Clarity, Urine Slightly Cloudy (*) pH, Urine 6.0 Leukocytes, Urine Negative Nitrite, Urine Negative Protein, Urine 20 (*) Glucose, Urine Normal Bilirubin, Urine Negative Ketones, Urine Negative Urobilinogen, Urine 3 (*) Blood, Urine Negative Volume, Urine 12 mL RBC, Urine 0-2 WBC, Urine 0-2 Squamous Epithelial, Urine 3-5 Non-Squamous Epithalial Cells, Urine 0-2 (*) Bacteria, Urine Few (*) Mucus, Urine Few SPECIFIC GRAVITY OF URINE (NUMERIC) 1.029 Narrative: A specimen with <=10 WBC is not consistent with inflammation. This specimen will not reflex to a urine culture. COMPREHENSIVE METABOLIC PANEL - Normal SODIUM 139 POTASSIUM 4.0 CHLORIDE 107 CARBON DIOXIDE 24 ANION GAP 8 UREA NITROGEN 12 CREATININE 0.81 GLUCOSE 86 CALCIUM 9.0 AST (SGOT) 24 ALT 13 ALKALINE PHOSPHATASE 130 ALBUMIN 3.9 BILIRUBIN, TOTAL 0.6 TOTAL PROTEIN 7.7 eGFR >90.0 LIPASE - Normal LIPASE 18 HCG QUALITATIVE URINE HCG,URINE QUAL Negative Narrative: is the most common reason for HCG in urine, although choriocarcinoma, hydatidiform mole, and certain nontrophoblastic malignancies also result in detectable urinary HCG levels. Sensitivity = 20mIU/mL. All other labs were within normal range or not returned as of this dictation. EMERGENCY DEPARTMENT COURSE and DIFFERENTIAL DIAGNOSIS/MDM: Vitals: Vitals: 10/29/24 1221 10/29/24 1525 BP: 126/68 121/70 BP Location: Right arm Right arm Patient Position: Sitting Sitting Pulse: 91 83 Resp: 16 15 Temp: 36.7 C (98.1 F) TempSrc: Temporal SpO2: 97% 98% Weight: 63.5 kg (140 lb) Height: 1.6 m (5' 3) Medications ciprofloxacin (Cipro) tablet 500 mg (has no administration in time range) metroNIDAZOLE (Flagyl) tablet 500 mg (has no administration in time range) iopamidol (Isovue-370) 76 % injection 75 mL (75 mL IntraVENous Given 10/29/24 1351) SCREENINGS MDM elements: The patient presented with chief complaint of with right lower quadrant abdominal pain no other symptoms no fevers no vomiting no diarrhea. The differential diagnosis associated with this patient's presentation includes appendicitis, kidney stone, infection, ruptured ovarian cyst. Our workup consisted of ordering/reviewing: CT, labs, urine. To aid in management, I performed an independent interpretation of CT scan(s) interpreted by me shows enteritis versus ileitis, questionable swelling in the area of the right adnexa Ultrasound(s) interpreted by me shows no acute abnormality. The patient will be Discharged. Patient is in agreement with this plan. PROCEDURES: Unless otherwise noted below, none Procedures CRITICAL CARE TIME None FINAL IMPRESSION 1. Enteritis DISPOSITION Discharge 10/29/2024 03:40:50 PM [facility] TO[facility] [address] [place] [phone] Schedule an appointment as soon as possible for a visit As needed DISCHARGE MEDICATIONS: Current Discharge Medication List START taking these medications Details ciprofloxacin (Cipro) 500 MG tablet Take 1 tablet (500 mg) by mouth 2 times daily for 10 days. Qty: 20 tablet, Refills: 0 metroNIDAZOLE (Flagyl) 500 MG tablet Take 1 tablet (500 mg) by mouth 3 times daily for 10 days. Qty: 30 tablet, Refills: 0 (Comment: Please note this report has been produced using speech recognition software and may contain errors related to that system including errors in grammar, punctuation, and spelling, as well as words and phrases that may be inappropriate. If there are any questions or concerns please feel free to contact the dictating provider for clarification.) Cherrie Mendoza MD (electronically signed) Emergency Medicine Provider [1] Past Medical History: Diagnosis Date Bipolar 1 disorder (HCC) Depression [2] Past Surgical History: Procedure Laterality Date ARM SURGERY (HISTORICAL) Left WISDOM TOOTH EXTRACTION [3] Family History Problem Relation Name Age of Onset No Known Problems Paternal Grandfather No Known Problems Paternal Grandmother No Known Problems Maternal Grandmother COPD Maternal Grandfather No Known Problems Father No Known Problems Mother No Known Problems Half-Brother No Known Problems Half-Brother Breast cancer Neg Hx Ovarian cancer Neg Hx Colon cancer Neg Hx [4] Social History Socioeconomic History Marital status: Single Tobacco Use Smoking status: Every Day Current packs/day: 0.50 Average packs/day: 0.5 packs/day for 17.0 years (8.5 ttl pk-yrs) Types: Cigarettes Smokeless tobacco: Never Vaping Use Vaping status: Former Substances: Nicotine, THC Devices: Disposable, Pre-filled or refillable cartridge Passive vaping exposure: Yes Substance and Sexual Activity Alcohol use: Not Currently Drug use: Yes Types: Marijuana 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, everything else has been over a year- 04/20/24 Sexual activity: Yes Partners: Male Social Drivers of Health Financial Resource Strain: High Risk (11/07/2023) Overall Financial Resource Strain (CARDIA) Difficulty of Paying Living Expenses: Very hard Food Insecurity: No Food Insecurity (04/20/2024) Hunger Vital Sign Worried About Running Out of Food in the Last Year: Never true Ran Out of Food in the Last Year: Never true Recent Concern: Food Insecurity - Food Insecurity Present (04/20/2024) Hunger Vital Sign Worried About Running Out of Food in the Last Year: Sometimes true Ran Out of Food in the Last Year: Never true Transportation Needs: No Transportation Needs (04/20/2024) PRAPARE - Transportation Lack of Transportation (Medical): No Lack of Transportation (Non-Medical): No Physical Activity: Insufficiently Active (11/07/2023) Exercise Vital Sign Days of Exercise per Week: 1 day Minutes of Exercise per Session: 10 min Stress: Stress Concern Present (11/07/2023) [employer] - Occupational Stress Questionnaire Feeling of Stress : Very much Social Connections: Moderately Integrated (11/07/2023) Social Connection and Isolation Panel [NHANES] Frequency of Communication with Friends and Family: Once a week Frequency of Social Gatherings with Friends and Family: Once a week Attends Evangelical Services: 1 to 4 times per year Active Member of Clubs or Organizations: Yes Attends Club or Organization Meetings: 1 to 4 times per year Marital Status: Living with partner Intimate Partner Violence: Not At Risk (04/20/2024) Humiliation, Afraid, Rape, and Kick questionnaire Fear of Current or Ex-Partner: No Emotionally Abused: No Physically Abused: No Sexually Abused: No Housing Stability: High Risk (04/20/2024) Housing Stability Vital Sign Unable to Pay for Housing in the Last Year: No Number of Times Moved in the Last Year: 2 Homeless in the Last Year: No Cherrie Mendoza MD 10/29/24 1542 documented in this encounter [facility] 10-29-2024 Physician Emergency department Note EMERGENCY DEPARTMENT ENCOUNTER Pt Name: Glenda Lara Birthdate 1990 Date of evaluation: 10/29/2024 ED Provider: Cherrie Mendoza MD CHIEF COMPLAINT Chief Complaint Patient presents with Abdominal Pain X 1 day HISTORY OF PRESENT ILLNESS (Location/Symptom, Timing/Onset, Context/Setting, Quality, Duration, Modifying Factors, Severity) Note limiting factors. I wore appropriate PPE for the entirety of this encounter. HPI Glenda Lara is a 34 y.o. who presents to the emergency department with right lower quadrant abdominal pain, no fevers, history of ruptured ovarian cyst in the past, no dysuria or hematuria Nursing Notes were reviewed. Limitations to history: None Outside historians: None REVIEW OF SYSTEMS Review of Systems Pertinent positives and negatives as per HPI PAST MEDICAL HISTORY Medical History[1] SURGICAL HISTORY Surgical History[2] CURRENT MEDICATIONS Current Discharge Medication List CONTINUE these medications which have NOT CHANGED Details Vit-Fe Fumarate-FA ( Vitamins) 28-0.8 MG tablet Take 1 tablet by mouth daily. Qty: 90 tablet, Refills: 11 sertraline (Zoloft) 25 MG tablet TAKE 1 TABLET BY MOUTH IN THE MORNING AND TAKE 1 TABLET AT BEDTIME ALLERGIES Penicillins FAMILY HISTORY Family History[3] SOCIAL HISTORY Social History[4] PHYSICAL EXAM ED Triage Vitals [10/29/24 1221] Temp Heart Rate Resp BP 36.7 C (98.1 F) 91 16 126/68 SpO2 Temp Source Heart Rate Source Patient Position 97 % Temporal Monitor Sitting BP Location FiO2 (%) Right arm -- Physical Exam Tenderness in the periumbilical and right lower quadrant areas over McBurney's point, no peritoneal signs, no guarding, no CVA tenderness to percussion, heart regular rate and rhythm, lungs clear to auscultation bilaterally DIAGNOSTIC RESULTS RADIOLOGY (Per Emergency Physician): Interpretation per the Radiologist below, if available at the time of this note: US pelvis transvaginal Final Result 1. No acute pelvic abnormality. 2. Subtle intramural uterine fibroids. Report Dictated on Electronically Signed By: Jaqueline Méndez MD Electronically Signed Date/Time: 10/29/2024 3:[address] abdomen pelvis w contrast Final Result 1. Questionable low-grade enteritis/ileitis. 2. Normal appendix. 3. Mild asymmetric enlargement of the right adnexa in relation to the left. This is of unclear clinical significance. Further evaluation with ultrasound could be considered. 4. Trace pelvic ascites Report Dictated on Electronically Signed By: Ramiro Castellanos MD Electronically Signed Date/Time: 10/29/2024 2:28 PM EDT LABS: Labs Reviewed CBC WITH AUTO DIFFERENTIAL - Abnormal Result Value Auto WBC 11.6 (*) RBC 4.70 Hemoglobin 13.1 Hematocrit 39.2 MCV 83.4 MCH 27.9 MCHC 33.4 RDW 15.0 Platelets 378 MPV 8.3 (*) nRBC 0.0 Neutrophils Relative 73.9 Lymphocytes Relative 19.4 Monocytes Relative 5.4 Eosinophils Relative 0.5 Basophils Relative 0.5 Immature Grans % 0.3 Neutrophils Absolute 8.5 (*) Lymphocytes Absolute 2.2 Monocytes Absolute 0.6 Eosinophils Absolute 0.1 Basophils Absolute 0.1 Immature Grans Absolute 0.0 COMPLETE URINALYSIS WITH REFLEX TO CULTURE - Abnormal Color, Urine Dark Yellow (*) Clarity, Urine Slightly Cloudy (*) pH, Urine 6.0 Leukocytes, Urine Negative Nitrite, Urine Negative Protein, Urine 20 (*) Glucose, Urine Normal Bilirubin, Urine Negative Ketones, Urine Negative Urobilinogen, Urine 3 (*) Blood, Urine Negative Volume, Urine 12 mL RBC, Urine 0-2 WBC, Urine 0-2 Squamous Epithelial, Urine 3-5 Non-Squamous Epithalial Cells, Urine 0-2 (*) Bacteria, Urine Few (*) Mucus, Urine Few SPECIFIC GRAVITY OF URINE (NUMERIC) 1.029 Narrative: A specimen with <=10 WBC is not consistent with inflammation. This specimen will not reflex to a urine culture. COMPREHENSIVE METABOLIC PANEL - Normal SODIUM 139 POTASSIUM 4.0 CHLORIDE 107 CARBON DIOXIDE 24 ANION GAP 8 UREA NITROGEN 12 CREATININE 0.81 GLUCOSE 86 CALCIUM 9.0 AST (SGOT) 24 ALT 13 ALKALINE PHOSPHATASE 130 ALBUMIN 3.9 BILIRUBIN, TOTAL 0.6 TOTAL PROTEIN 7.7 eGFR >90.0 LIPASE - Normal LIPASE 18 HCG QUALITATIVE URINE HCG,URINE QUAL Negative Narrative: is the most common reason for HCG in urine, although choriocarcinoma, hydatidiform mole, and certain nontrophoblastic malignancies also result in detectable urinary HCG levels. Sensitivity = 20mIU/mL. All other labs were within normal range or not returned as of this dictation. EMERGENCY DEPARTMENT COURSE and DIFFERENTIAL DIAGNOSIS/MDM: Vitals: Vitals: 10/29/24 1221 10/29/24 1525 BP: 126/68 121/70 BP Location: Right arm Right arm Patient Position: Sitting Sitting Pulse: 91 83 Resp: 16 15 Temp: 36.7 C (98.1 F) TempSrc: Temporal SpO2: 97% 98% Weight: 63.5 kg (140 lb) Height: 1.6 m (5' 3) Medications ciprofloxacin (Cipro) tablet 500 mg (has no administration in time range) metroNIDAZOLE (Flagyl) tablet 500 mg (has no administration in time range) iopamidol (Isovue-370) 76 % injection 75 mL (75 mL IntraVENous Given 10/29/24 1351) SCREENINGS MDM elements: The patient presented with chief complaint of with right lower quadrant abdominal pain no other symptoms no fevers no vomiting no diarrhea. The differential diagnosis associated with this patient's presentation includes appendicitis, kidney stone, infection, ruptured ovarian cyst. Our workup consisted of ordering/reviewing: CT, labs, urine. To aid in management, I performed an independent interpretation of CT scan(s) interpreted by me shows enteritis versus ileitis, questionable swelling in the area of the right adnexa Ultrasound(s) interpreted by me shows no acute abnormality. The patient will be Discharged. Patient is in agreement with this plan. PROCEDURES: Unless otherwise noted below, none Procedures CRITICAL CARE TIME None FINAL IMPRESSION 1. Enteritis DISPOSITION Discharge 10/29/2024 03:40:50 PM [facility] REFERR[facility]: [facility] [address] [place] [id number] Schedule an appointment as soon as possible for a visit As needed DISCHARGE MEDICATIONS: Current Discharge Medication List START taking these medications Details ciprofloxacin (Cipro) 500 MG tablet Take 1 tablet (500 mg) by mouth 2 times daily for 10 days. Qty: 20 tablet, Refills: 0 metroNIDAZOLE (Flagyl) 500 MG tablet Take 1 tablet (500 mg) by mouth 3 times daily for 10 days. Qty: 30 tablet, Refills: 0 (Comment: Please note this report has been produced using speech recognition software and may contain errors related to that system including errors in grammar, punctuation, and spelling, as well as words and phrases that may be inappropriate. If there are any questions or concerns please feel free to contact the dictating provider for clarification.) Cherrie Mendoza MD (electronically signed) Emergency Medicine Provider [1] Past Medical History: Diagnosis Date Bipolar 1 disorder (HCC) Depression [2] Past Surgical History: Procedure Laterality Date ARM SURGERY (HISTORICAL) Left WISDOM TOOTH EXTRACTION [3] Family History Problem Relation Name Age of Onset No Known Problems Paternal Grandfather No Known Problems Paternal Grandmother No Known Problems Maternal Grandmother COPD Maternal Grandfather No Known Problems Father No Known Problems Mother No Known Problems Half-Brother No Known Problems Half-Brother Breast cancer Neg Hx Ovarian cancer Neg Hx Colon cancer Neg Hx [4] Social History Socioeconomic History Marital status: Single Tobacco Use Smoking status: Every Day Current packs/day: 0.50 Average packs/day: 0.5 packs/day for 17.0 years (8.5 ttl pk-yrs) Types: Cigarettes Smokeless tobacco: Never Vaping Use Vaping status: Former Substances: Nicotine, THC Devices: Disposable, Pre-filled or refillable cartridge Passive vaping exposure: Yes Substance and Sexual Activity Alcohol use: Not Currently Drug use: Yes Types: Marijuana 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, everything else has been over a year- 04/20/24 Sexual activity: Yes Partners: Male Social Drivers of Health Financial Resource Strain: High Risk (11/07/2023) Overall Financial Resource Strain (CARDIA) Difficulty of Paying Living Expenses: Very hard Food Insecurity: No Food Insecurity (04/20/2024) Hunger Vital Sign Worried About Running Out of Food in the Last Year: Never true Ran Out of Food in the Last Year: Never true Recent Concern: Food Insecurity - Food Insecurity Present (04/20/2024) Hunger Vital Sign Worried About Running Out of Food in the Last Year: Sometimes true Ran Out of Food in the Last Year: Never true Transportation Needs: No Transportation Needs (04/20/2024) PRAPARE - Transportation Lack of Transportation (Medical): No Lack of Transportation (Non-Medical): No Physical Activity: Insufficiently Active (11/07/2023) Exercise Vital Sign Days of Exercise per Week: 1 day Minutes of Exercise per Session: 10 min Stress: Stress Concern Present (11/07/2023) [employer] - Occupational Stress Questionnaire Feeling of Stress : Very much Social Connections: Moderately Integrated (11/07/2023) Social Connection and Isolation Panel [NHANES] Frequency of Communication with Friends and Family: Once a week Frequency of Social Gatherings with Friends and Family: Once a week Attends Evangelical Services: 1 to 4 times per year Active Member of Clubs or Organizations: Yes Attends Club or Organization Meetings: 1 to 4 times per year Marital Status: Living with partner Intimate Partner Violence: Not At Risk (04/20/2024) Humiliation, Afraid, Rape, and Kick questionnaire Fear of Current or Ex-Partner: No Emotionally Abused: No Physically Abused: No Sexually Abused: No Housing Stability: High Risk (04/20/2024) Housing Stability Vital Sign Unable to Pay for Housing in the Last Year: No Number of Times Moved in the Last Year: 2 Homeless in the Last Year: No Cherrie Mendoza MD 10/29/24 1542 [facility] 05-07-2024 Telephone encounter Note Call routed to Dr Ana worrell sent [facility] 05-07-2024 Miscellaneous Notes Call routed to Dr Ana worrell sent S: Patient spoke with [facility] nurse regarding question after appointment yesterday B: Onset of symptoms/concern today A: PT endorse delivered 04/20/24. Was seen in office for post visit yesterday. This morning had marble size blood clot. No changes with vaginal bleeding still less the same as was seen in office. Pt questioning - how long she should still be clotting and when should she call in? R: Patient understands care advice. No further needs at this time. Patient instructed to call back with new or worsening symptoms. Reason for Disposition Normal bleeding Protocols used: - Vaginal Bleeding and [id number] documented in this encounter [facility] 05-07-2024 Telephone encounter Note S: Patient spoke with [facility] nurse regarding question after appointment yesterday B: Onset of symptoms/concern today A: PT endorse delivered 04/20/24. Was seen in office for post visit yesterday. This morning had marble size blood clot. No changes with vaginal bleeding still less the same as was seen in office. Pt questioning - how long she should still be clotting and when should she call in? R: Patient understands care advice. No further needs at this time. Patient instructed to call back with new or worsening symptoms. Reason for Disposition Normal bleeding Protocols used: - Vaginal Bleeding and [id number]-AK [facility] 05-06-2024 History of Present illness Narrative Glenda Lara el 33 y.o. female SUBJECTIVE: 2 wks PP, s/p uncomplicated on 04/20 Bleeding minimal. No s/sx PP depression, Anderson Depression scale nml Not sexually active Planning BTL for contraception, consent signed today She is Baby doing well. BP 116/74 Wt 134 lb (60.8 kg) LMP 07/03/2023 Yes BMI 23.74 kg/m Physical Exam Vitals reviewed. Constitutional: Appearance: Normal appearance. She is normal weight. HENT: Head: Normocephalic and atraumatic. Eyes: Conjunctiva/sclera: Conjunctivae normal. Cardiovascular: Rate and Rhythm: Normal rate. Pulses: Normal pulses. Pulmonary: Effort: Pulmonary effort is normal. Abdominal: General: Abdomen is flat. Palpations: Abdomen is soft. Tenderness: There is no abdominal tenderness. There is no guarding or rebound. Skin: Capillary Refill: Capillary refill takes less than 2 seconds. Neurological: General: No focal deficit present. Mental Status: She is alert and oriented to person, place, and time. Current Outpatient Medications: Vit-Fe Fumarate-FA ( Vitamins) 28-0.8 MG tablet, Take 1 tablet by mouth daily., Disp: 90 tablet, Rfl: 11 sertraline (Zoloft) 25 MG tablet, TAKE 1 TABLET BY MOUTH IN THE MORNING AND TAKE 1 TABLET AT BEDTIME, Disp: , Rfl: ASSESSMENT: 1. care and examination 2. (spontaneous vaginal delivery) 3. Consultation for sterilization PLAN: Doing well, pain controlled, breast feeding Contraception: desires BTL, see consent below Follow up: 4 weeks, pap NILM 09/26/23, rubella immune, NML 1 hr GTT Follow up in about 4 weeks (around 06/03/2024) for PP visit. Pt voiced her desire for permanent sterilization. We discussed the permanent, irreversible nature of the procedure, the risk of regret, and equally effective LARCs. Discussed if she were to desire future pregnancies, she would need IVF and the financial burden of such services. We discussed sterilization will not affect her quality of menses and she may need contraception for AUB control in the future. We discusses options for tubal ligation including Filshie clips, partial cauterization, and total salpingectomy. We discussed failure rates, risk of ectopic , and benefit of risk reduction for ovarian cancer with total salpingectomy. She has been informed to call the office is she misses a menstrual cycle after her sterilization. Consent requirements reviewed. She understands that her consent not does not obligate her to proceed. She no longer desires fertility. She was allowed to freely ask questions, voices good understanding, consents to the procedure and wishes to proceed with surgery. We discussed the risks of surgery including, but not limited to: [x] Bleeding, infection, visceral or major vascular injury, transfusion, additional surgery related to the complication [x] Serious injury necessitating ostomy creation creation for bowel or urinary tract [x] Possibility of delayed surgical injury (such as in cases of bowel or bladder), prolonged catheterization or fistula formation [x] Anesthetic complication, cardiovascular risks including VTE, neurologic compromise/neuropathy [x] Unexpected findings which may require different or additional procedures [x] Failure of the procedure to achieve the desired result [x] For endoscopic procedures, the possibility of conversion to open surgery, need for re-operation or rehospitalization [x] The remote possibility of [x] Pain control and risks of narcotic medications [x] Recovery period and post-op expectations All questions asked and answered. Patient is able to correctly repeat the pertinent facts and she indicates understanding of these issues and agrees with the plan. Plan: Laparoscopic Bilateral Salpingectomy documented in this encounter [facility] 04-22-2024 History of Present illness Narrative Patient interested in quitting, currently being discharged by RN, accepting of handouts with contact information for future reference. Nutrition rescreen completed. Patient assigned a level 1. VILLA Asencio Images from the original note were not included. VAGINAL DELIVERY POST DAY # 2 Glenda Lara, 33 y.o. This patient was seen & examined today. Her was complicated by: Patient Active Problem List Diagnosis Trichomonal vaginitis during in first trimester Tetrahydrocannabinol (THC) use disorder, mild, abuse High risk due to smoking in first trimester 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 Rubella non-immune status, antepartum Acute alcoholic intoxication (HCC) Hx of drug abuse (CMS/HCC) (HCC) Tetrahydrocannabinol (THC) use disorder, moderate, dependence ([facility]) Trichomoniasis Choroid plexus cyst of fetus affecting care of mother, antepartum care, antepartum 39 weeks gestation of Today she is doing well. Her lochia is light. She denies Headache, Chest Pain, Vision Changes, and Shortness of Breath. She is ambulating well. She is tolerating solids. Vital Signs: Vitals: 04/20/24200804/20/24 2043 04/21/24 0743 04/21/24 195 BP: 118/73 119/72 117/68 120/75 BP Location: Left arm Patient Position: Sitting Pulse: 72 74 72 70 Resp: Temp: 36.4 C (97.6 F) 36.3 C (97.3 F) 36.7 C (98.1 F) TempSrc: Temporal Temporal Temporal SpO2: 98% 97% 97% Weight: Height: Physical Exam: GENERAL APPEARANCE: alert, well appearing, in no apparent distress ABDOMEN : benign non-tender, without masses or organomegaly palpable EXTREMITIES: no redness or tenderness in the calves or thighs, no edema NEUROLOGIC: alert, oriented, normal speech, no focal findings or movement disorder noted UTERUS : normal size, well involuted, firm, non-tender Lab: Lab Results Component Value Date HGB 11.2 (L) 04/20/2024 Lab Results Component Value Date HCT 32.8 (L) 04/20/2024 A+ LABOR DELIVERY ??? SCD's ONLY (labor through ambulation) SCD's PLUS Prophylactic Anticoagulation until discharge SCD's PLUS Prophylactic Anticoagulation for 6 weeks SCD's PLUS Therapeutic Anticoagulation for 6 weeks Vaginal Delivery [] BMI >= 40 kg/m2 Delivery All patients Vaginal Delivery [] BMI >= 40 kg/m2 AND [] Antepartum hospitalization >= 72 hours within the past month Delivery 1 Major Risk Factor: [] BMI >= 35 kg/m2 [] Low Risk Thrombophilia [] PPH+RBCs, IR, or operation [] Infection+Antibiotics [] Antepartum hospitalization >= 72 hours within the past month [] PMH: Sickle Cell, SLE, Cardiac Dz, Active IBD, Active Cancer, Nephrotic Syndrome OR 2 Minor Risk Factors: [] Multiple gestation [] Age > 40 [] PPH >= 1,000cc [] (+)FMH of VTE [] Smoker [] Preeclampsia [] BMI >= 40 kg/m2 AND [] Low Risk Thrombophilia OR ANY OF THE FOLLOWING: [] High Risk Thrombophilia without prior VTE [] Low Risk Thrombophilia with (+)FMH of VTE [] Any single prior VTE ANY OF THE FOLLOWING: [] Already on LMWH/UFH [] Multiple prior VTE [] High Risk Thrombophilia with prior VTE Low Risk Thrombophilia: FVL (heterozygous), Prothrombin (heterozygous), Protein C, Protein S High Risk Thrombophilia: FVL (homozygous), Prothrombin (homozygous), FVL+Prothrombin (heterozygous), Antithrombin III, APLS Assessment/Plan: Glenda Lara is PPD # 2 s/p Care - Doing well, VSS - Male, s/p circumcision - breast feeding - Contraception: POP - Encourage ambulation - VTE Prophylaxis: Not Indicated THC/Cigarette use antepartum/Hx substance use/Depression - continue Zoloft 25mg - mood stable on morning rounds - MAT negative on admission - social work consulted and cleared - CPS to follow up with patient chart review Rubella Non-immune - MMR in period Disposition: Anticipate discharge today per private attending's discretion. Provider's Name: DO Allison Street DO 04/22/2024, 5:33 AM Cosigned by Mono Gifford MD at 04/22/2024 10:33 AM EST Associated attestation - Mono Gifford MD - 04/22/2024 10:33 AM EST Hospital Care (Independent): I independently saw and evaluated the patient. I agree with the findings and plan of care as documented in the resident's note. Images from the original note were not included. VAGINAL DELIVERY POST DAY # 1 Glenda Lara, 33 y.o. This patient was seen & examined today. Her was complicated by: Patient Active Problem List Diagnosis Trichomonal vaginitis during in first trimester Tetrahydrocannabinol (THC) use disorder, mild, abuse High risk due to smoking in first trimester 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 Rubella non-immune status, antepartum Acute alcoholic intoxication (HCC) Hx of drug abuse (CMS/HCC) (HCC) Tetrahydrocannabinol (THC) use disorder, moderate, dependence ([facility]) Trichomoniasis Choroid plexus cyst of fetus affecting care of mother, antepartum care, antepartum 39 weeks gestation of Today she is doing well. Her lochia is light. She denies Headache, Chest Pain, Vision Changes, and Shortness of Breath. She is ambulating well. She is tolerating solids. Vital Signs: Vitals: 04/20/24 1939 04/20/244 04/20/24200804/20/242042 BP: 126/80 125/72 118/73 119/72 BP Location: Left arm Patient Position: Sitting Pulse: 75 76 72 74 Resp: 18 Temp: 36.4 C (97.6 F) TempSrc: Temporal SpO2: 98% Weight: Height: Physical Exam: GENERAL APPEARANCE: alert, well appearing, in no apparent distress ABDOMEN : benign non-tender, without masses or organomegaly palpable EXTREMITIES: no redness or tenderness in the calves or thighs, no edema NEUROLOGIC: alert, oriented, normal speech, no focal findings or movement disorder noted UTERUS : normal size, well involuted, firm, non-tender Lab: Lab Results Component Value Date HGB 11.2 (L) 04/20/2024 Lab Results Component Value Date HCT 32.8 (L) 04/20/2024 A+ LABOR DELIVERY ??? SCD's ONLY (labor through ambulation) SCD's PLUS Prophylactic Anticoagulation until discharge SCD's PLUS Prophylactic Anticoagulation for 6 weeks SCD's PLUS Therapeutic Anticoagulation for 6 weeks Vaginal Delivery [] BMI >= 40 kg/m2 Delivery All patients Vaginal Delivery [] BMI >= 40 kg/m2 AND [] Antepartum hospitalization >= 72 hours within the past month Delivery 1 Major Risk Factor: [] BMI >= 35 kg/m2 [] Low Risk Thrombophilia [] PPH+RBCs, IR, or operation [] Infection+Antibiotics [] Antepartum hospitalization >= 72 hours within the past month [] PMH: Sickle Cell, SLE, Cardiac Dz, Active IBD, Active Cancer, Nephrotic Syndrome OR 2 Minor Risk Factors: [] Multiple gestation [] Age > 40 [] PPH >= 1,000cc [] (+)FMH of VTE [] Smoker [] Preeclampsia [] BMI >= 40 kg/m2 AND [] Low Risk Thrombophilia OR ANY OF THE FOLLOWING: [] High Risk Thrombophilia without prior VTE [] Low Risk Thrombophilia with (+)FMH of VTE [] Any single prior VTE ANY OF THE FOLLOWING: [] Already on LMWH/UFH [] Multiple prior VTE [] High Risk Thrombophilia with prior VTE Low Risk Thrombophilia: FVL (heterozygous), Prothrombin (heterozygous), Protein C, Protein S High Risk Thrombophilia: FVL (homozygous), Prothrombin (homozygous), FVL+Prothrombin (heterozygous), Antithrombin III, APLS Assessment/Plan: Glenda Lara is PPD # 1 s/p Care - Male, desires circumcision - breast feeding - Contraception: POP - Encourage ambulation - VTE Prophylaxis: Not Indicated THC/Cigarette use antepartum/Hx substance use/Depression - no THC use for 1wk - 1/2 ppd of cigarettes - Attends AA - MAT on admission negative - Zoloft 25mg daily Rubella non-immune - MMR per protocol Disposition: Continue current care. Provider's Name: DO Allison Street DO 04/21/2024, 5:37 AM Cosigned by Marii Gay DO at 04/21/2024 11:19 AM EST Associated attestation - Marii Gay DO - 04/21/2024 11:19 AM EST Hospital Care (Independent): I independently saw and evaluated the patient. I agree with the findings and plan of care as documented in the resident's note. Patient consented for circumcision. Discussed risk, benefits, alternatives to the procedure including risks of bleeding, infection, injury to surrounding tissues and taking too much or too little skin with possible need for revision in the future. Patient stated understanding, all questions were answered and patient desired to proceed with the procedure. Images from the original note were not included. Labor Progress Note Date: 04/20/2024 Time: 9:45 AM Subjective: Glenda Lara is a 33 y.o. female at 39w2d admitted for AOL-PROM Complications: THC Use Cigarette Use Hx Substance Use Depression Thickened Moderator band Choroid Plexus Cyst SVE on admission: /- GBS: []Pos []Neg []Unknown Cx:/-3 FHT: cat I Alcova:q2-7 mins A/P: 1. AOL-PROM. SVE remains unchanged on recheck, still a tight 5 cm. Ctx spaced. Plan to start pitocin . FHT overall reassuring with moderate variability and accels. BP NT. CCM. Cx:Defer FHP: defer FHT: Cat I Alcova:q3-4min FHR Cat I with a baseline of 130 's, moderate variability, accelerations present, and decelerations absent. Pitocin at 1 cc/hr. Asked RN to titrate. Feels comfortable titrating without IUPC at this time. Will defer check considering patient is broken. Continue to titrate per protocol. BP's normotensive. Continue to monitor. CCM Bella Arteaga MD 04/20/2024 11:48 AM Pt remains comfortable in bed, planning on going natural. SVE remains 5/80/-3, forebag palpated and ruptured with copious clear fluid. FHT cat I and reactive. CCM. Cx:5/80/-2 FHT: Cat I Alcova:q 2-3 mins A/P: 1. AOL-PROM: Cat I FHT with baseline 140, moderate variability, spontaneous accelerations, and no decelerations. BP normotensive since last note time. Pitocin at 4 cc/hr, patient declining titration at this time. Dr. Gay updated. [facility]. LORENA SHAW DO 04/20/2024 3:17 PM . See note. Images from the original note were not included. Department of Obstetrics and Gynecology Labor and Delivery Triage Note CHIEF COMPLAINT: Leaking fluid HISTORY OF PRESENT ILLNESS: The patient is a 33 y.o. 39w2d. OB History 4 Para 3 Term 3 AB Living 3 SAB IAB Ectopic Multiple Live Births 3 Estimated Due Date: Estimated Date of Delivery: 04/25/24 REVIEW OF SYSTEMS: Pertinent items are noted in HPI. APPEARANCE: Pain: yes PHYSICAL EXAM: Vital Signs: VS wnl-reviewed/Respirations normal effort There were no vitals filed for this visit. Speculum Exam: pooled fluid appearing copious and clear, Nitrizine test is positive heart rate: Category I Cervix: 5/60/-3 Membranes: Ruptured clear fluid BSUS: vertex presentation IMPRESSION: Active labor DISCUSSED WITH PNC PROVIDER: Dr. Gay DISPOSITION: Admit to L&D Cosigned by Janet Willis MD at 04/20/2024 6:41 AM EST documented in this encounter [facility] 04-22-2024 Nurse Note Discharge paperwork reviewed with patient at bedside. Follow-up to be in 4 weeks. Patient states understanding. All questions answered. Safe for self discharge. [facility] 04-22-2024 Nurse Note Discharge paperwork reviewed with patient at bedside. Follow-up to be in 4 weeks. Patient states understanding. All questions answered. Safe for self discharge. documented in this encounter [facility] 04-22-2024 Note Formatting of this n ote might be different from the original. Date: 04/22/2024 Name: Glenda Lara : 1990 [facility] Patient Information Primary Caregiver: Self Accompanied by/Relationship: S/O;Family Marital Status: Single Support System: SO/Family Evangelical/Cultural Factors: None Activities of Daily Living Communication: See demographics Living Arrangements Current Residence: Private residence Lives With: S/O; Family Support System: S/O; Family Income Information Income Source: Not Employed Financial Resource 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 N/A Housing Stability In the last 12 months, was there a time when you did not have a steady place to sleep or slept in a penitentiary (including now)? No Transportation Needs Has the lack of Transportation kept you from medical appointments? No In the past 12 months, has the lack of transportation kept you from meetings, work, or from getting things needed for daily living? No Food Insecurity Within the past 12 months, have you worried that your food would run out before you got the money to buy more? No Stress Do you feel stress - tense, restless, nervous, or anxious, or unable to sleep at night because you mind is troubled all the time? Mood stable Referral To Financial Resources: N/A Community Resources: Admission folder given upon admission to PP Unit Social Work:Yes; Hx THC this and substance use (methamphetamines; sober over 1 year) CLP: Declines Medical Information admitted at 39/2 weeks for active phase labor; s/p ; THC use antepartum, Cigarette use antepartum, Hx Substance Use; Depression - Reported quitting THC ~1wk ago - ~1/2 ppd of cigarettes - Attends AA - MAT, consented - Daily Zoloft 25mg -Sober from Methamphetamines over one year Discharge Plan Home or Community Resources: Admission folder given upon admission to PP unit Equipment: N/A Education Given: Discussion on the A. B. C's of safe sleep. Always place your baby on his or her back to sleep, use a firm sleep surface and your baby should not sleep in an adult bed, on a couch or chair. Keep soft objects, toys and loose bedding out of your baby's sleep area. Reviewed depression. It is common to have blues. This is a normal response to many of the hormonal changes, stress and lack of sleep that go with raising a and physically recovering from the . Don't hesitate to talk to your provider with any concerns. There are resources in your home going booklet. To help prevent germs from spreading to you and your baby, make sure everyone washes their hands before they handle your . Avoid crowds, and keep infant away from sick people, anyone who is sick with a cough or fever, including family members. Post- warning signs information reviewed with patient per nurse with discharge Additional Information: Patient is independent and has insurance. She is prepared with her baby supplies. To be discharged to home. Denies any concerns at this time. Mental Health Services: Resources in discharge folder Equipment: Developmental Delay: N/A Children's Services: N/A [facility] 04-22-2024 Note Formatting of this n ote might be different from the original. Date: 04/22/2024 Name: Glenda Lara : 1990 [facility] Information [place] Patient Information Primary Caregiver: Self Accompanied by/Relationship: S/O;Family Marital Status: Single Support System: SO/Family Evangelical/Cultural Factors: None Activities of Daily Living Communication: See demographics Living Arrangements Current Residence: Private residence Lives With: S/O; Family Support System: S/O; Family Income Information Income Source: Not Employed Financial Resource 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 N/A Housing Stability In the last 12 months, was there a time when you did not have a steady place to sleep or slept in a penitentiary (including now)? No Transportation Needs Has the lack of Transportation kept you from medical appointments? No In the past 12 months, has the lack of transportation kept you from meetings, work, or from getting things needed for daily living? No Food Insecurity Within the past 12 months, have you worried that your food would run out before you got the money to buy more? No Stress Do you feel stress - tense, restless, nervous, or anxious, or unable to sleep at night because you mind is troubled all the time? Mood stable Referral To Financial Resources: N/A Community Resources: Admission folder given upon admission to PP Unit Social Work:Yes; Hx THC this and substance use (methamphetamines; sober over 1 year) CLP: Declines Medical Information admitted at 39/2 weeks for active phase labor; s/p ; THC use antepartum, Cigarette use antepartum, Hx Substance Use; Depression - Reported quitting THC ~1wk ago - ~1/2 ppd of cigarettes - Attends AA - MAT, consented - Daily Zoloft 25mg -Sober from Methamphetamines over one year Discharge Plan Home or Community Resources: Admission folder given upon admission to PP unit Equipment: N/A Education Given: Discussion on the A. B. C's of safe sleep. Always place your baby on his or her back to sleep, use a firm sleep surface and your baby should not sleep in an adult bed, on a couch or chair. Keep soft objects, toys and loose bedding out of your baby's sleep area. Reviewed depression. It is common to have blues. This is a normal response to many of the hormonal changes, stress and lack of sleep that go with raising a and physically recovering from the . Don't hesitate to talk to your provider with any concerns. There are resources in your home going booklet. To help prevent germs from spreading to you and your baby, make sure everyone washes their hands before they handle your . Avoid crowds, and keep away from sick people, anyone who is sick with a cough or fever, including family members. Post- warning signs information reviewed with patient per nurse with discharge Additional Information: Patient is independent and has insurance. She is prepared with her baby supplies. To be discharged to home. Denies any concerns at this time. Mental Health Services: Resources in discharge folder Equipment: Developmental Delay: N/A Children's Services: N/A [facility] 04-22-2024 Miscellaneous Notes Date: 04/22/2024 Name: Glenda Lara : 1990 [facility] Patient Information Primary Caregiver: Self Accompanied by/Relationship: S/O;Family Marital Status: Single Support System: SO/Family Evangelical/Cultural Factors: None Activities of Daily Living Communication: See demographics Living Arrangements Current Residence: Private residence Lives With: S/O; Family Support System: S/O; Family Income Information Income Source: Not Employed Financial Resource 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 N/A Housing Stability In the last 12 months, was there a time when you did not have a steady place to sleep or slept in a penitentiary (including now)? No Transportation Needs Has the lack of Transportation kept you from medical appointments? No In the past 12 months, has the lack of transportation kept you from meetings, work, or from getting things needed for daily living? No Food Insecurity Within the past 12 months, have you worried that your food would run out before you got the money to buy more? No Stress Do you feel stress - tense, restless, nervous, or anxious, or unable to sleep at night because you mind is troubled all the time? Mood stable Referral To Financial Resources: N/A Community Resources: Admission folder given upon admission to PP Unit Social Work:Yes; Hx THC this and substance use (methamphetamines; sober over 1 year) CLP: Declines Medical Information admitted at 39/2 weeks for active phase labor; s/p ; THC use antepartum, Cigarette use antepartum, Hx Substance Use; Depression - Reported quitting THC ~1wk ago - ~1/2 ppd of cigarettes - Attends AA - MAT, consented - Daily Zoloft 25mg -Sober from Methamphetamines over one year Discharge Plan Home or Community Resources: Admission folder given upon admission to PP unit Equipment: N/A Education Given: Discussion on the A. B. C's of safe sleep. Always place your baby on his or her back to sleep, use a firm sleep surface and your baby should not sleep in an adult bed, on a couch or chair. Keep soft objects, toys and loose bedding out of your baby's sleep area. Reviewed depression. It is common to have blues. This is a normal response to many of the hormonal changes, stress and lack of sleep that go with raising a and physically recovering from the . Don't hesitate to talk to your provider with any concerns. There are resources in your home going booklet. To help prevent germs from spreading to you and your baby, make sure everyone washes their hands before they handle your . Avoid crowds, and keep away from sick people, anyone who is sick with a cough or fever, including family members. Post- warning signs information reviewed with patient per nurse with discharge Additional Information: Patient is independent and has insurance. She is prepared with her baby supplies. To be discharged to home. Denies any concerns at this time. Mental Health Services: Resources in discharge folder Equipment: Developmental Delay: N/A Children's Services: N/A Follow up to observe latch. Baby was latched to right breast. Pt stated that latch started off deep but that baby had pulled back slightly and it became more shallow and painful. Upon observation baby was having many swallows at breast. Baby had been feeding for about 8 minutes. Pt unlatched baby and nipple was creased and bent - attempted to re latch baby but baby was asleep. Encouraged pt to continue to monitor latch and to re latch baby if latch appears shallow. Pt understanding and appreciative. Encouraged much skin to skin and to call out with any other questions or concerns. Follow up call to [facility]. Due to holiday, main hotline closed. Spoke to Sheriff Becerril who connected with [facility] CSB worker Delicia López. She confirmed she did make contact with mother of baby/mob yesterday to inform her they were opening case and assigned worker will be in contact tomorrow. Per [place] [facility] worker, OK FOR MOB AND BABY TO BE DC Initial visit. This is pt's fourth baby. Pt has breast fed before. A BGT was drawn for baby due to jittery ness and sugar was 48. Assisted pt in latching baby onto breast. Initially latch was shallow and baby only had nipple in mouth. Able to assist pt in getting baby latched deeper to breast and reviewed how to achieve deep latch. Pt understanding and appreciative. Reviewed proper positioning and waiting for a wide open gape. Baby had many swallows at the breast and baby fed for 11 minutes. Much encouragement given. Shown section of Taking Care of Yourself and Baby' Booklet. Reviewed baby-led, cue based feedings (8-12x/day), how to know baby is getting enough, output parameters and milk storage guidelines. Discussed engorgement, plugged ducts and mastitis. Patient encouraged to seek help MAGGY for any concerns. phone number and [facility] Support Group information shared from booklet. Mom voiced understanding. No further questions. Pt plans on getting pump for home through WIC. Will continue to monitor and support pt as needed. 1330- SW consulted for HX of THC use. Patient does not have a positive screen at this time. SW presented to bedside to speak with patient, introduced self and explained role. Present at bedside was patients significant other James Capps. Patient was observed to be holding baby, a clear indicated reid observed. Patient reports living with her significant other. 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 Patient reports having [employer] for insurance and plans to add baby (baby's father will also add him to his private insurance). Patient reports having access to a working vehicle and has a car seat. Patient plan to get WIC and denies any current food stamps. Patient has [facility] in [place] as an OBGYN and denies a current scheduler maintenance at this time. Patient reports having 2 bassinets for baby to sleep in. Patient reports her plan is to breast feed. Patient reports a hx of mental health via diagnosis of PTSD, manic depression and Bipolar Disorder. Patient reports she is currently connected to [facility] (Allison Alonso), next appointment on 04/23/24. Patient is also reported to have a a hx of SI at 14 weeks. Patient reports a hx of alcohol abuse (she indicates she has been sober for 1 year), patient reports sober support; no current sponsor. Patient denies any hx of any detox or rehab. Patient also reports a hx of drug use methamphetamines and THC. Patient reports being sober from Meth for estimated a year and her last reported marijuana use was April 11 blunt form. Patient reports a hx with [facility] CPS 2 past cases; lost custody of her other 3 children (one with the child's father and the other two with patients father). - SW spoke with bedside JV Daugherty, no current safety issues or concerns noted at this time. Baby Name: Rober Capps : 04/[birth year] Weight: 6 lb 4.7 oz TUSHAR contacted [facility] [phone] to make a referral. TUSHAR spoke with Delicia. Delicia reports the case domenico be screened in. CPS will follow up with patient. Delicia will initiate contact with patient on this date via phone call. Patient is cleared from SW standpoint and can discharge once medically cleared. Images from the original note were not included. Vaginal Delivery Note Department of Obstetrics and Gynecology Patient: Glenda Lara : 1990 Date of delivery: 04/20/2024 Pre-operative Diagnosis: Glenda Lara at 39w2d 1. Term or Single fetus 2. AOL-PROM 3. Hx Substance Abuse 4. Choroid Plexus Cyst Post-operative Diagnosis: Live Born male Delivering Credit Collections Manager & Cage Maker(s): Dr. Gay; Dr. Arteaga Information: Information for the patient's : Fabian Lara [[id number]] Information for the patient's : Fabian Lara [[id number]] Description: normal Meconium Noted: No Anesthesia: none Complications: None Application and Delivery: Glenda Lara at 39w2d admitted for AOL-PROM. Her labor course Pitocin and AROM with clear fluidand progressed to complete. She was known to be GBS negative and received no prophylaxis. After pushing with contractions the head delivered Cephalic, occiput anterior over an intact perineum. A nuchal cord was not present. The anterior, then posterior shoulder delivered easily and atraumatically followed by the rest of the infant. The infant was placed on the maternal abdomen and attended by the RN for evaluation. The infant was stimulated and dried. The cord was clamped and cut. The delivery of the placenta was spontaneous and appeared intact. Pitocin was started. The vagina was swept of all clots and debris. The perineum and vagina were evaluated. A No lacerations were found.. All counts were correct. Mother and baby tolerated procedure well. No uterotonics were required during delivery. EBL: 100ml QBL: VTE Prophylaxis: Not Indicated LABOR DELIVERY ??? SCD's ONLY (labor through ambulation) SCD's PLUS Prophylactic Anticoagulation until discharge SCD's PLUS Prophylactic Anticoagulation for 6 weeks SCD's PLUS Therapeutic Anticoagulation for 6 weeks Vaginal Delivery [] BMI >= 40 kg/m2 Delivery All patients Vaginal Delivery [] BMI >= 40 kg/m2 AND [] Antepartum hospitalization >= 72 hours within the past month Delivery 1 Major Risk Factor: [] BMI >= 35 kg/m2 [] Low Risk Thrombophilia [] PPH+RBCs, IR, or operation [] Infection+Antibiotics [] Antepartum hospitalization >= 72 hours within the past month [] PMH: Sickle Cell, SLE, Cardiac Dz, Active IBD, Active Cancer, Nephrotic Syndrome OR 2 Minor Risk Factors: [] Multiple gestation [] Age > 40 [] PPH >= 1,000cc [] (+)FMH of VTE [] Smoker [] Preeclampsia [] BMI >= 40 kg/m2 AND [] Low Risk Thrombophilia OR ANY OF THE FOLLOWING: [] High Risk Thrombophilia without prior VTE [] Low Risk Thrombophilia with (+)FMH of VTE [] Any single prior VTE ANY OF THE FOLLOWING: [] Already on LMWH/UFH [] Multiple prior VTE [] High Risk Thrombophilia with prior VTE Low Risk Thrombophilia: FVL (heterozygous), Prothrombin (heterozygous), Protein C, Protein S High Risk Thrombophilia: FVL (homozygous), Prothrombin (homozygous), FVL+Prothrombin (heterozygous), Antithrombin III, APLS Delivery Summary: Specimen: Cord blood Blood Type and Rh: A Rubella Immunity Status: No results found for: RUBELLAIGGQT Marii Gay DO 04/20/2024, 6:11 PM Henny- TUSHAR was consulted with no reason for consult indicated. SW spoke with bedside RN, no current issues or concerns indicated at this time. Per chart review patient is indicated to have a hx of marijuana and Methamphetamines. No current positive screen and last reported use for marijuana was 9 weeks ago, a year for Methamphetamines. SW presented to bedside to speak with patient. Family and the room and patient observed to be in pre mature labor pain. Patient denies any needs at this time for SW. SW to follow up with patient on drug use history once she has delivered. Documented expected deliverary date is 04/25/24. documented in this encounter [facility] 04-22-2024 Obstetrics Note Follow up to observe latch. Baby was latched to right breast. Pt stated that latch started off deep but that baby had pulled back slightly and it became more shallow and painful. Upon observation baby was having many swallows at breast. Baby had been feeding for about 8 minutes. Pt unlatched baby and nipple was creased and bent - attempted to re latch baby but baby was asleep. Encouraged pt to continue to monitor latch and to re latch baby if latch appears shallow. Pt understanding and appreciative. Encouraged much skin to skin and to call out with any other questions or concerns. [facility] 04-22-2024 Note Formatting of this n ote might be different from the original. Follow up call to [facility]. Due to holiday, main hotline closed. Spoke to Sheriff Becerril who connected Sw with oncall CSB worker Delicia López. She confirmed she did make contact with mother of baby/mob yesterday to inform her they were opening case and assigned worker will be in contact tomorrow. Per [place] CS[facility] worker, OK FOR MOB AND BABY TO BE DC [employer] Work Phone: 04-22-2024 Note Formatting of this n ote might be different from the original. Follow up call to [facility]. Due to holiday, main hotline closed. Spoke to Sheriff Becerril who [facility] Delicia Venkateshkate. She confirmed she did make contact with mother of baby/mob yesterday to inform her they were opening case and assigned worker will be in contact tomorrow. Per [place] CSB worker, OK FOR MOB AND BABY TO BE DC [employer] Phone: 04-22-2024 Obstetrics Note Initial visit. This is pt's fourth baby. Pt has breast fed before. A BGT was drawn for baby due to jittery ness and sugar was 48. Assisted pt in latching baby onto breast. Initially latch was shallow and baby only had nipple in mouth. Able to assist pt in getting baby latched deeper to breast and reviewed how to achieve deep latch. Pt understanding and appreciative. Reviewed proper positioning and waiting for a wide open gape. Baby had many swallows at the breast and baby fed for 11 minutes. Much encouragement given. Shown section of Taking Care of Yourself and Baby' Booklet. Reviewed baby-led, cue based feedings (8-12x/day), how to know baby is getting enough, output parameters and milk storage guidelines. Discussed engorgement, plugged ducts and mastitis. Patient encouraged to seek help MAGGY for any concerns. phone number and [facility] Support Group information shared from booklet. Mom voiced understanding. No further questions. Pt plans on getting pump for home through [facility]. Will continue to monitor and support pt as needed. [facility] 04-22-2024 Hospital Discharge instructions Mono Gifford MD - 04/22/2024 10:36 AM EST Images from the original note were not included. Thank you for allowing us to care of you at [facility]. This time can be one of many emotional ups and downs and many changes in your life. In these first weeks try to take good care of yourself because you will likely feel very tired. It may take 4 to 6 weeks to feel like yourself again, and possibly longer if you had a . FOLLOW-UP: Your follow-up care is a cortes part of your treatment and safety. Follow-up with your OB providerin 4 weeks or as specified by your OB provider. If you had high blood pressure, visit your OB provider within 3-5 days after being home. Most women's blood pressure will return to pre- levels after delivery. However, some patients continue to have problems with their blood pressure, and some even get worse. Very high blood pressure can lead to seizures or stroke which can be life threatening. If ordered by your provider, take your blood pressure at home and call your OB provider if you have a high reading. Your OB provider can write you a prescription for a blood pressure monitor if you do not have one. Be sure to make and go to all appointments, and call your OB provider if you are having problems. It's also a good idea to know your test results and keep a list of the medicines you take. BLEEDING Vaginal bleeding will decrease in amount over the next few weeks. Bleeding may order picker/assembler and then decrease again around 7-10 days . Use pads instead of tampons for the bloody flow that may last as long as 2 weeks. You will notice that as your activity increases, your flow may increase. Call your provider if you are saturating one maxi pad in an hour & passing large clots for 3 hours or more. ACTIVITY NO SEXUAL activity for 6 weeks or until advised by your OB provider; Nothing in vagina: intercourse, tampons, or douching. Begin to think about your reproductive life plan. Talk to your OB provider about if and when you would like to get in the future. The recommendation for safe spacing is 18-24 months. Showering is okay; NO tub baths, swimming, or hot tubs. Gradually increase your activity. Resume exercise regimen only after advised by your )OB provider. Avoid lifting anything heavier than ten pounds or a gallon of milk for six weeks. Avoid driving 1 week for vaginal delivery and 2 weeks for section, or longer if you are on prescription pain medicine unless otherwise instructed by your OB provider. Rise slowly from a lying to sitting and then a standing position. Climb stairs carefully. You may feel tired or have a lack of energy. You may continue your vitamin to replenish nutrients post-delivery. Nap when whenever you can to catch up on sleep. EMOTIONS You may feel stiles, sad, teary, & overwhelmed for the first 2 weeks ; however, feelings of depression may occur any time within the first year after delivery. Contact your OB provider if you feel you may be showing signs of depression, or have thoughts of harming yourself or or anyone.. WOUND CARE For Vaginal Delivery: Shower daily, and cleanse your perineum (bottom) with mild soap from front to back. Use the plastic squirt bottle until bleeding stops each time you use the restroom instead of wiping with toilet paper. Ease soreness of hemorrhoids and the area between your vagina and rectum with ice compresses or witch veronica pads. If used, stitches will dissolve in 4-6 weeks on their own. You may use a sitz bath or soak in a clean tub with drain open and water running for comfort. Kegel exercises will help restore bladder control. To do these tighten your muscles as if you were stopping your urine flow. Hold for a few seconds and then relax. Do these throughout the day. For Section Delivery: Keep your incision clean and dry. If you had steri-strips you may remove these once they start falling off. If you have ashia they need to be removed 3-10 daysafter delivery. If you have steri-strips, remove after 7 - 10 days. Do not wear clothing that irritates the incision line. If your incision is in a crease that is not dry, use a hair-dryer to dry the area 3 times a day. If you develop fever, shaking chills, redness, swelling, drainage or discharge from your wound, or if your wound looks like it is coming apart call your provider immediately. BREAST CARE If you develop a warm, red, tender area on your breast or develop a fever contact your OB provider. If your breasts become engorged ask your provider because treatment can vary according to your needs. DIET & CONSTIPATION Eat a well-balanced diet focusing on foods high in fiber and protein such as: whole grain cereals and breads, fruits and vegetables and legumes (eg, beans, lentils) Drink 8-10 glasses of fluids daily, especially water. Limit caffeine. To avoid constipation you may take a mild jcgw-zau-wqdwfiz stool softener (such as colace) as recommended by your OB provider. SWELLING Try to keep your legs elevated when you are sitting or lying down. Stay hydrated and take walks. If you had high blood pressure, weigh yourself at the same time each day. Write down your weight and take the record to your OB provider appointment. MEDICATIONS Take all medications prescribed for you exactly as ordered. Don't take any drugs not prescribed to you or over the counter medicines unless recommended by your provider. Don't smoke. WHEN TO CALL THE OB PROVIDER Signs of infection, including fever and chills Increased bleeding: soaking more than one pad an hour or passing clots the size of an egg or larger. Wounds that become red, swollen or drain pus Vaginal discharge that smells foul New pain, swelling, or tenderness in your legs Pain that you can't control with the medications you've been given Pain, burning, urgency or frequency of urination, or persistent bleeding in the urine Cough, shortness of breath, or serious difficulty catching your breath Chest pain or pain in the upper right area of your belly Headache (very painful) or vision changes like blurry or double vision, seeing spots or 'auras' Swelling that is worse or weight gain of more than 3 pounds in 3 days Depression, suicidal thoughts, or feelings of harming someone else Breasts that are hot, red and accompanied by fever Any cracking or bleeding from the nipple or areola (the dark-colored area of the breast) SAVE YOUR LIFE: Get Care for these POST- Warning Signs: Call 911 if you have: Pain in chest Obstructed breathing or shortness of breath Seizures Thoughts of hurting yourself or your baby Call your healthcare provider if you have: (if you can't reach your healthcare provider, call 911 or go to an emergency room) Bleeding, soaking through one pad/hour, or blood clots the size of an egg or bigger Incision that is not healing Red or swollen leg, that is painful or warm to touch Temperature of 100.4 F or higher Headache that does not get better, even after taking medicine, or bad headache with vision changes. Contact your healthcare provider and tell them: I delivered on 04/20/2024 and I am having ____(specific warning signs) In case of an emergency, call 911 immediately. documented in this encounter [facility] 04-22-2024 Note Department of Obstet rics and Gynecology Delivery Discharge Summary Admission on 04/20/2024 5:28 AM Reason for admission: AOL-PROM. Intrapartum Course: Her labor course Pitocin and AROM with clear fluidand progressed to complete. Surgical Operations & Procedures: Date of delivery: 04/20/23 Delivery Type: Vaginal, Spontaneous Delivery Anesthesia: none Laceration(s): none Delivery Complications: none EBL: 100 cc Pertinent Findings & Procedures: Information for the patient's : Fabian Lara [[id number]] male 6 lb 4.7 oz (2.855 kg) Apgars: Information for the patient's : Fabian Lara [[id number]] Course: Uncomplicated Infant: male, s/p circumcision Blood Type/Rh: A Antibody Screen: No results found for: LABANTI Rubella: No results found for: RUBELLAIGG Contraception: abstinence : yes VTE Prophylaxis: Not Indicated Meds: Medication List ASK your doctor about these medications aspirin 81 MG EC tablet ferrous sulfate 325 (65 Fe) MG EC tablet Vitamins 28-0.8 MG tablet Take 1 tablet by mouth daily. sertraline 25 MG tablet Commonly known as: Zoloft Activity: Activity as tolerated Diet: Regular diet Follow up Care: Follow up appointment in 4 weeks with [facility] Condition on discharge: Stable Discharge to: Home Discharge date: 04/22/23 Discharge Dx: Instructions to Patient:: Pelvic Rest (no intercourse, tampons, douching, etc) x 6 weeks Specific discharge instruction printed 39 weeks gestation of [Z3A.39] Patient Active Problem List Diagnosis Trichomonal vaginitis during in first trimester Tetrahydrocannabinol (THC) use disorder, mild, abuse High risk due to smoking in first trimester 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 Rubella non-immune status, antepartum Acute alcoholic intoxication (HCC) Hx of drug abuse (CMS/HCC) (HCC) Tetrahydrocannabinol (THC) use disorder, moderate, dependence (HCC) Trichomoniasis Choroid plexus cyst of fetus affecting care of mother, antepartum care, antepartum 39 weeks gestation of Comments: Home care, Follow-up care and control were reviewed. Signs and symptoms of mastitis and Post Depression were reviewed. The patient is to notify her physician if any of these occur. Mono Gifford MD on 04/22/2024 at 10:33 AM [facility] 04-22-2024 Hospital course Narrative Department of Obstetrics and Gynecology Delivery Discharge Summary Admission on 04/20/2024 5:28 AM Reason for admission: AOL-PROM. Intrapartum Course: Her labor course Pitocin and AROM with clear fluidand progressed to complete. Surgical Operations & Procedures: Date of delivery: 04/20/23 Delivery Type: Vaginal, Spontaneous Delivery Anesthesia: none Laceration(s): none Delivery Complications: none EBL: 100 cc Pertinent Findings & Procedures: Information for the patient's : DomenicochanelleFabian haskins Guiradhadaniel [[id number]] male 6 lb 4.7 oz (2.855 kg) Apgars: Information for the patient's : Fabian Lara [[id number]] Course: Uncomplicated Infant: male, s/p circumcision Blood Type/Rh: A Antibody Screen: No results found for: LABANTI Rubella: No results found for: RUBELLAIGG Contraception: abstinence : yes VTE Prophylaxis: Not Indicated Meds: Medication List ASK your doctor about these medications aspirin 81 MG EC tablet ferrous sulfate 325 (65 Fe) MG EC tablet Vitamins 28-0.8 MG tablet Take 1 tablet by mouth daily. sertraline 25 MG tablet Commonly known as: Zoloft Activity: Activity as tolerated Diet: Regular diet Follow up Care: Follow up appointment in 4 weeks with [facility] Condition on discharge: Stable Discharge to: Home Discharge date: 04/22/23 Discharge Dx: Instructions to Patient:: Pelvic Rest (no intercourse, tampons, douching, etc) x 6 weeks Specific discharge instruction printed 39 weeks gestation of [Z3A.39] Patient Active Problem List Diagnosis Trichomonal vaginitis during in first trimester Tetrahydrocannabinol (THC) use disorder, mild, abuse High risk due to smoking in first trimester 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 Rubella non-immune status, antepartum Acute alcoholic intoxication (HCC) Hx of drug abuse (CMS/HCC) (HCC) Tetrahydrocannabinol (THC) use disorder, moderate, dependence (HCC) Trichomoniasis Choroid plexus cyst of fetus affecting care of mother, antepartum care, antepartum 39 weeks gestation of Comments: Home care, Follow-up care and control were reviewed. Signs and symptoms of mastitis and Post Depression were reviewed. The patient is to notify her physician if any of these occur. Mono Gifford MD on 04/22/2024 at 10:33 AM documented in this encounter [facility] 04-21-2024 Note Formatting of this n ote might be different from the original. 1330- SW consulted for HX of THC use. Patient does not have a positive screen at this time. SW presented to bedside to speak with patient, introduced self and explained role. Present at bedside was patients significant other James Capps. Patient was observed to be holding baby, a clear indicated reid observed. Patient reports living with her significant other. 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 Patient reports having [employer] for insurance and plans to add baby (baby's father will also add him to his private insurance). Patient reports having access to a working vehicle and has a car seat. Patient plan to get WIC and denies any current food stamps. Patient has [facility] in [place] as an OBGYN and denies a current scheduler maintenance at this time. Patient reports having 2 bassinets for baby to sleep in. Patient reports her plan is to breast feed. Patient reports a hx of mental health via diagnosis of PTSD, manic depression and Bipolar Disorder. Patient reports [facility] next appointment on 04/23/24. Patient is also reported to have a a hx of SI at 14 weeks. Patient reports a hx of alcohol abuse (she indicates she has been sober for 1 year), patient reports sober support; no current sponsor. Patient denies any hx of any detox or rehab. Patient also reports a hx of drug use methamphetamines and THC. Patient reports being sober from Meth for estimated a year and her last reported marijuana use was April 11 blunt form. Patient reports a hx with [facility] CPS 2 past cases; lost custody of her other 3 children (one with the child's father and the other two with patients father). - SW spoke with bedside RN Willow, no current safety issues or concerns noted at this time. Baby Name: Rober Capps : 04/20/24 Weight: 6 lb 4.7 oz TUSHAR contacted [facility] department [phone] to make a referral. TUSHAR spoke with Delicia. Delicia reports the case domenico be screened in. CPS will follow up with patient. Delicia will initiate contact with patient on this date via phone call. Patient is cleared from SW standpoint and can discharge once medically cleared. [facility] 04-21-2024 Note Formatting of this n ote might be different from the original. 1330- TUSHAR consulted for HX of THC use. Patient does not have a positive screen at this time. SW presented to bedside to speak with patient, introduced self and explained role. Present at bedside was patients significant other James Capsp. Patient was observed to be holding baby, a clear indicated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 01-23-2024 Note Addended by: MABEL NOEL on: 01/23/2024 10:28 AM Modules accepted: Orders [facility] 01-23-2024 Evaluation + Plan note Associated Problem(s): Rubella non-immune status, antepartum Gct and cbc today Rh pos Declined flu shot [facility] 12-26-2023 History of Present illness Narrative She is here for 22w5d OB visit. Denies cramping leaking or bleeding or LOF PHYSICAL EXAM: BP 111/68 Pulse 88 Wt 130 lb 3.2 oz (59.1 kg) LMP 07/03/2023 BMI 22.18 kg/m I have reviewed her pertinent history, lab results, medications and problem list. See episode for any changes. Denies cramping leaking or bleeding or LOF Well appearing, Alert & oriented Skin warm & dry Normal range of motion in all extremities. Abdomen soft nontender Normal resp effort ASSESSESMENT: Diagnosis Plan 1. Rubella non-immune status, antepartum 2. Trichomonal vaginitis during in first trimester 3. High risk due to smoking in first trimester 4. 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 5. Choroid plexus cyst of fetus affecting care of mother, antepartum, single or unspecified fetus 6. Tetrahydrocannabinol (THC) use disorder, moderate, dependence (HCC) 7. 22 weeks gestation of PLAN: Patient Active Problem List Diagnosis Trichomonal vaginitis during in first trimester Tetrahydrocannabinol (THC) use disorder, mild, abuse High risk due to smoking in first trimester 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 Rubella non-immune status, antepartum Acute alcoholic intoxication (HCC) Hx of drug abuse (CMS/HCC) (HCC) Tetrahydrocannabinol (THC) use disorder, moderate, dependence (HCC) Trichomoniasis Choroid plexus cyst of fetus affecting care of mother, antepartum Choroid plexus cyst of fetus affecting care of mother, antepartum FU anaotmy us normal MONICA Rhodes CNM 12/26/23 Follow up in about 4 weeks (around 01/23/2024) for VARGHESE. documented in this encounter [facility] 12-26-2023 Evaluation + Plan note Associated Problem(s): Choroid plexus cyst of fetus affecting care of mother, antepartum FU anaotmy us normal [facility] 12-26-2023 Miscellaneous Notes Associated Problem(s): Choroid plexus cyst of fetus affecting care of mother, antepartum FU anaotmy us normal documented in this encounter [facility] 12-12-2023 Evaluation + Plan note Associated Problem(s): Rubella non-immune status, antepartum Anatomy us today. Right Choroid plexus cyst, otherwise normal. NIPT normal. Fu 2 wks for non-vis anatomy. [facility] 12-12-2023 Miscellaneous Notes Associated Problem(s): Rubella non-immune status, antepartum Anatomy us today. Right Choroid plexus cyst, otherwise normal. NIPT normal. Fu 2 wks for non-vis anatomy. documented in this encounter [facility] 12-12-2023 History of Present illness Narrative She is here for 20w5d OB visit. Denies cramping leaking or bleeding or LOF PHYSICAL EXAM: BP 113/60 Pulse 76 Wt 123 lb 6.4 oz (56 kg) LMP 07/03/2023 BMI 21.02 kg/m I have reviewed her pertinent history, lab results, medications and problem list. See episode for any changes. Denies cramping leaking or bleeding or LOF Well appearing, Alert & oriented Skin warm & dry Normal range of motion in all extremities. Abdomen soft nontender Normal resp effort ASSESSESMENT: Diagnosis Plan 1. Rubella non-immune status, antepartum 2. Trichomonal vaginitis during in first trimester 3. High risk due to smoking in first trimester 4. 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 5. Choroid plexus cyst of fetus affecting care of mother, antepartum, single or unspecified fetus 6. Tetrahydrocannabinol (THC) use disorder, mild, abuse 7. Screening, , for anatomic survey US OB follow up transabdominal approach 8. Urinary frequency Urine culture PLAN: Patient Active Problem List Diagnosis Trichomonal vaginitis during in first trimester Tetrahydrocannabinol (THC) use disorder, mild, abuse High risk due to smoking in first trimester 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 Rubella non-immune status, antepartum Acute alcoholic intoxication (HCC) Hx of drug abuse (CMS/HCC) (HCC) Hx of delivery, currently Tetrahydrocannabinol (THC) use disorder, moderate, dependence (HCC) Trichomoniasis Choroid plexus cyst of fetus affecting care of mother, antepartum Rubella non-immune status, antepartum Anatomy us today. Right Choroid plexus cyst, otherwise normal. NIPT normal. Fu 2 wks for non-vis anatomy. MONICA Rhodes CNM 12/12/23 Follow up in about 2 weeks (around 12/26/2023) for fu anatomy and varghese. documented in this encounter [facility] 11-07-2023 Evaluation + Plan note Associated Problem(s): 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 Still hasn't restarted zoloft, plans to restart now. [facility] 11-07-2023 Miscellaneous Notes Associated Problem(s): 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 Still hasn't restarted zoloft, plans to restart now. Associated Problem(s): Trichomonal vaginitis during in first trimester Leno neg Associated Problem(s): Rubella non-immune status, antepartum Anatomy us nv documented in this encounter [facility] 11-07-2023 Evaluation + Plan note Associated Problem(s): Trichomonal vaginitis during in first trimester Leno neg [facility] [place] [facility] 11-07-2023 Evaluation + Plan note Associated Problem(s): Rubella non-immune status, antepartum [facility] History of Present illness Narrative She is here for 15w5d OB visit. Denies cramping leaking or bleeding or LOF PHYSICAL EXAM: BP 125/71 Pulse 88 Wt 119 lb 6.4 oz (54.2 kg) LMP 07/03/2023 BMI 20.34 kg/m I have reviewed her pertinent history, lab results, medications and problem list. See episode for any changes. Denies cramping leaking or bleeding or LOF Well appearing, Alert & oriented Skin warm & dry Normal range of motion in all extremities. Abdomen soft nontender Normal resp effort ASSESSESMENT: Diagnosis Plan 1. Rubella non-immune status, antepartum 2. Trichomonal vaginitis during in first trimester 3. High risk due to smoking in first trimester 4. 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 5. Tetrahydrocannabinol (THC) use disorder, mild, abuse 6. 15 weeks gestation of 7. Screening, , for anatomic survey US OB 14+ weeks anatomy scan US OB transvaginal PLAN: Patient Active Problem List Diagnosis Trichomonal vaginitis during in first trimester Tetrahydrocannabinol (THC) use disorder, mild, abuse High risk due to smoking in first trimester 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 Rubella non-immune status, antepartum Acute alcoholic intoxication (HCC) Hx of drug abuse (CMS/HCC) (HCC) Hx of delivery, currently Tetrahydrocannabinol (THC) use disorder, moderate, dependence (HCC) Trichomoniasis Rubella non-immune status, antepartum Anatomy us nv Trichomonal vaginitis during in first trimester Leno neg 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 Still hasn't restarted zoloft, plans to restart now. MONICA Rhodes CNM 11/07/23 Follow up in about 4 weeks (around 12/05/2023) for Anatomy us and varghese. documented in this encounter [facility] 11-06-2023 History of Present illness Narrative Images from the original note were not included. . [facility] [address] [facility] [address] [facility] [address] Dept: [phone] Dept Visit type: New Reason for Visit: New Patient (Establish) Assessment and Plan Patient has been counseled on and is up to date on immunizations and age appropriate screening or has refused. Encouraged avoidance of tobacco and alcohol, safe sex practices, eat a healthy diet with plenty of vegetables, whole grains, and lean proteins. Exercise 3-5 times per week for 30-45 minutes, wear seatbelts, sunscreen. Routine labs ordered. Will follow-up with results and amend plan of care as necessary. 1. Routine general medical examination at a health care facility - Comprehensive metabolic panel 2. Screening for diabetes mellitus - Hemoglobin A1c 3. Screening cholesterol level - Lipid panel 4. Polysubstance abuse (CMS/HCC) (HCC) 5. Recurrent major depressive disorder, remission status unspecified ([facility]) Follow up in about 1 year (around 11/05/2024). Subjective This is a pleasant 33-year-old female who presents today to establish provider. Patient is currently 15 weeks 4 days . She has history of major depression, PTSD, adjustment disorder, polysubstance abuse. Patient endorses multiple suicide attempts most recent in February 2023 she overdosed on furosemide that she obtained from a friend's grandmother who had . Patient states that suicide attempts consisted of overdosing on medication such as topiramate or aspirin. Patient verbalizes feelings of hopelessness helplessness. Patient states she has suicidal ideations almost daily but does not have a plan at this time. Patient has appoint with psychiatrist in 5 days. Patient has follow-up appointment with engineer automated equipment tomorrow. Patient reports 7 months of sobriety. Patient reports attending daily AA meetings and IOP. Review of Systems Constitutional: Negative. Respiratory: Negative. Cardiovascular: Negative. Gastrointestinal: Negative. Genitourinary: Negative. Musculoskeletal: Negative. Skin: Negative. Allergies Allergen Reactions Penicillins Hives Outpatient Medications Prior to Visit Medication Sig Dispense Refill Vit-Fe Fumarate-FA ( Vitamins) 28-0.8 MG tablet Take 1 tablet by mouth daily. 90 tablet 3 vitamin (Prenatabs Rx) 29-1 MG tablet Take 1 tablet by mouth in the morning. aspirin 81 MG EC tablet Take 81 mg by mouth in the morning. nicotine (Nicoderm, Step 2) 14 MG/24HR patch Place 1 patch on the skin Every 24 hours. 30 patch 0 nicotine (Nicoderm, Step 3) 7 MG/24HR patch Place 1 patch on the skin Every 24 hours. 30 patch 0 sertraline (Zoloft) 50 MG tablet Take 50 mg by mouth in the morning. No facility-administered medications prior to visit. Past Medical History: Diagnosis Date Bipolar 1 disorder (HCC) Depression Social History Tobacco Use Smoking status: Every Day Current packs/day: 0.50 Average packs/day: 0.5 packs/day for 17.0 years (8.5 ttl pk-yrs) Types: Cigarettes Smokeless tobacco: Never Substance Use Topics Alcohol use: Not Currently Past Surgical History: Procedure Laterality Date ARM SURGERY (HISTORICAL) Left WISDOM TOOTH EXTRACTION Family History Problem Relation Name Age of Onset No Known Problems Paternal Grandfather No Known Problems Paternal Grandmother No Known Problems Maternal Grandmother COPD Maternal Grandfather No Known Problems Father No Known Problems Mother No Known Problems Half-Brother No Known Problems Half-Brother Breast cancer Neg Hx Ovarian cancer Neg Hx Colon cancer Neg Hx Objective BP 94/59 Pulse 79 Resp 16 Ht 5' 4.25 (1.632 m) Wt 119 lb (54 kg) LMP 07/03/2023 SpO2 97% BMI 20.27 kg/m Physical Exam Vitals reviewed. Constitutional: Appearance: Normal appearance. Cardiovascular: Rate and Rhythm: Normal rate and regular rhythm. Heart sounds: Normal heart sounds. Pulmonary: Effort: Pulmonary effort is normal. Musculoskeletal: General: Normal range of motion. Neurological: General: No focal deficit present. Mental Status: She is alert. Data Reviewed and Summarized Labs: Imaging/Testing: Néstor Archer APRN - [facility] documented in this encounter [facility] 11-06-2023 History of Present illness Narrative Images from the original note were not included. . [facility] [address] [facility] [address] [facility] [address] Dept: [phone] Dept Visit type: New Reason for Visit: New Patient (Establish) Assessment and Plan Patient has been counseled on and is up to date on immunizations and age appropriate screening or has refused. Encouraged avoidance of tobacco and alcohol, safe sex practices, eat a healthy diet with plenty of vegetables, whole grains, and lean proteins. Exercise 3-5 times per week for 30-45 minutes, wear seatbelts, sunscreen. Routine labs ordered. Will follow-up with results and amend plan of care as necessary. 1. Routine general medical examination at a health care facility - Comprehensive metabolic panel 2. Screening for diabetes mellitus - Hemoglobin A1c 3. Screening cholesterol level - Lipid panel 4. Polysubstance abuse (CMS/HCC) ([facility]) 5. Recurrent major depressive disorder, remission status unspecified ([facility]) Follow up in about 1 year (around 11/05/2024). Subjective This is a pleasant 33-year-old female who presents today to establish provider. Patient is currently 15 weeks 4 days . She has history of major depression, PTSD, adjustment disorder, polysubstance abuse. Patient endorses multiple suicide attempts most recent in February 2023 she overdosed on furosemide that she obtained from a friend's grandmother who had . Patient states that suicide attempts consisted of overdosing on medication such as topiramate or aspirin. Patient verbalizes feelings of hopelessness helplessness. Patient states she has suicidal ideations almost daily but does not have a plan at this time. Patient has appoint with psychiatrist in 5 days. Patient has follow-up appointment with engineer automated equipment tomorrow. Patient reports 7 months of sobriety. Patient reports attending daily AA meetings and IOP. Review of Systems Constitutional: Negative. Respiratory: Negative. Cardiovascular: Negative. Gastrointestinal: Negative. Genitourinary: Negative. Musculoskeletal: Negative. Skin: Negative. Allergies Allergen Reactions Penicillins Hives Outpatient Medications Prior to Visit Medication Sig Dispense Refill Vit-Fe Fumarate-FA ( Vitamins) 28-0.8 MG tablet Take 1 tablet by mouth daily. 90 tablet 3 vitamin (Prenatabs Rx) 29-1 MG tablet Take 1 tablet by mouth in the morning. aspirin 81 MG EC tablet Take 81 mg by mouth in the morning. nicotine (Nicoderm, Step 2) 14 MG/24HR patch Place 1 patch on the skin Every 24 hours. 30 patch 0 nicotine (Nicoderm, Step 3) 7 MG/24HR patch Place 1 patch on the skin Every 24 hours. 30 patch 0 sertraline (Zoloft) 50 MG tablet Take 50 mg by mouth in the morning. No facility-administered medications prior to visit. Past Medical History: Diagnosis Date Bipolar 1 disorder (HCC) Depression Social History Tobacco Use Smoking status: Every Day Current packs/day: 0.50 Average packs/day: 0.5 packs/day for 17.0 years (8.5 ttl pk-yrs) Types: Cigarettes Smokeless tobacco: Never Substance Use Topics Alcohol use: Not Currently Past Surgical History: Procedure Laterality Date ARM SURGERY (HISTORICAL) Left WISDOM TOOTH EXTRACTION Family History Problem Relation Name Age of Onset No Known Problems Paternal Grandfather No Known Problems Paternal Grandmother No Known Problems Maternal Grandmother COPD Maternal Grandfather No Known Problems Father No Known Problems Mother No Known Problems Half-Brother No Known Problems Half-Brother Breast cancer Neg Hx Ovarian cancer Neg Hx Colon cancer Neg Hx Objective BP 94/59 Pulse 79 Resp 16 Ht 5' 4.25 (1.632 m) Wt 119 lb (54 kg) LMP 07/03/2023 SpO2 97% BMI 20.27 kg/m Physical Exam Vitals reviewed. Constitutional: Appearance: Normal appearance. Cardiovascular: Rate and Rhythm: Normal rate and regular rhythm. Heart sounds: Normal heart sounds. Pulmonary: Effort: Pulmonary effort is normal. Musculoskeletal: General: Normal range of motion. Neurological: General: No focal deficit present. Mental Status: She is alert. Data Reviewed and Summarized Labs: Imaging/Testing: MONICA Leonardo CNP documented in this encounter [facility] 10-10-2023 Evaluation + Plan note Associated Problem(s): Trichomonal vaginitis during in first trimester Leno today [facility] 10-10-2023 Miscellaneous Notes Associated Problem(s): Trichomonal vaginitis during in first trimester Leno today Associated Problem(s): 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 Pt had increased her dose of zoloft to 50mg but made her feel dizzy so she stopped it all together. Will restart back on 25 mg. Addended by: ROSMERY SUAREZ on: 10/10/2023 09:32 AM Modules accepted: Orders documented in this encounter [facility] 10-10-2023 Evaluation + Plan note Associated Problem(s): 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 Pt had increased her dose of zoloft to 50mg but made her feel dizzy so she stopped it all together. Will restart back on 25 mg. [facility] 10-10-2023 History of Present illness Narrative She is here for 11w5d OB visit. Denies cramping leaking or bleeding or LOF PHYSICAL EXAM: BP 116/62 Pulse 86 Wt 123 lb 6.4 oz (56 kg) LMP 07/03/2023 I have reviewed her pertinent history, lab results, medications and problem list. See episode for any changes. Denies cramping leaking or bleeding or LOF Well appearing, Alert & oriented Skin warm & dry Normal range of motion in all extremities. Abdomen soft nontender Normal resp effort ASSESSESMENT: Diagnosis Plan 1. Rubella non-immune status, antepartum 2. Trichomonal vaginitis during in first trimester Sureswab(R) Advanced Vaginitis Plus, TMA ([facility]) Sureswab(R) Advanced Vaginitis Plus, TMA ([facility]) 3. High risk due to smoking in first trimester 4. 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 5. 11 weeks gestation of PLAN: Patient Active Problem List Diagnosis Trichomonal vaginitis during in first trimester Tetrahydrocannabinol (THC) use disorder, mild, abuse High risk due to smoking in first trimester 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 Rubella non-immune status, antepartum 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 Pt had increased her dose of zoloft to 50mg but made her feel dizzy so she stopped it all together. Will restart back on 25 mg. Trichomonal vaginitis during in first trimester Leno today MONICA Rhodes CNM 10/10/23 Follow up in about 4 weeks (around 11/07/2023) for VARGHESE. documented in this encounter [facility] 10-10-2023 Note Addended by: ROSMERY SUAREZ on: 10/10/2023 09:32 AM Modules accepted: Orders [facility] 10-10-2023 Note Addended by: ROSMERY SUAREZ on: 10/10/2023 09:32 AM Modules accepted: Orders [facility] 10-10-2023 Note Addended by: ROSMERY SUAREZ on: 10/10/2023 09:32 AM Modules accepted: Orders [facility] 10-04-2023 Telephone encounter Note Mychart mssg sent [facility] 10-04-2023 Miscellaneous Notes Mychart mssg sent If she feels like she can safely decrease her zoloft dose to 25, she can. If she feels she needs to stay on 50, she should stay at 50. Routed call onto Nakul aMyer and baldemar mssg sent S: Patient spoke with [facility] nurse regarding medication question B: Onset of symptoms/concern today A: Patient states she called earlier today and was advised to go to Urgent Care so she did and was prescribed vistaril she is wanting to know if it is safe to take with her zoloft. Patient is also wanting to know if she should continue on her 50mg of zoloft or go down to her 25mg zoloft. This was a medication prescribe by her previous methods engineer through [facility] who patient states she was not happy with so she switched to [facility]. Patient set up a new patient appointment today with PCP but it is not until November. R: Patient advised it is safe to take both the vistaril and zolfot at the same time but that I could not give any recommendations on decreasing the zoloft or changing her medication at this time as that is not in my scope of practice. Advised patient I would scheduled her an appointment to discuss zoloft dosing with provider. Next available appointment scheduled for patient on 10/10/23. Patient asking for message to be sent to provider as well for any recommendations. Please advise. Thanks. Patient given care advice per protocol. Patient understands care advice. No further needs at this time. Patient instructed to call back with new or worsening symptoms. Reason for Disposition [1] Caller has medicine question about med NOT prescribed by PCP AND [2] triager unable to answer question (e.g., compatibility with other med, storage) Protocols used: Medication Question [id number] documented in this encounter [facility] 10-04-2023 Telephone encounter Note If she feels like she can safely decrease her zoloft dose to 25, she can. If she feels she needs to stay on 50, she should stay at 50. [facility] 10-02-2023 Telephone encounter Note Routed call onto Nakul Leyla and baldemar mssg sent [facility] 09-29-2023 Telephone encounter Note S: Patient spoke with [facility] nurse regarding medication question B: Onset of symptoms/concern today A: Patient states she called earlier today and was advised to go to Urgent Care so she did and was prescribed vistaril she is wanting to know if it is safe to take with her zoloft. Patient is also wanting to know if she should continue on her 50mg of zoloft or go down to her 25mg zoloft. This was a medication prescribe by her previous methods engineer through [facility] who patient states she was not happy with so she switched to [facility]. Patient set up a new patient appointment today with PCP but it is not until November. R: Patient advised it is safe to take both the vistaril and zolfot at the same time but that I could not give any recommendations on decreasing the zoloft or changing her medication at this time as that is not in my scope of practice. Advised patient I would scheduled her an appointment to discuss zoloft dosing with provider. Next available appointment scheduled for patient on 10/10/23. Patient asking for message to be sent to provider as well for any recommendations. Please advise. Thanks. Patient given care advice per protocol. Patient understands care advice. No further needs at this time. Patient instructed to call back with new or worsening symptoms. Reason for Disposition [1] Caller has medicine question about med NOT prescribed by PCP AND [2] triager unable to answer question (e.g., compatibility with other med, storage) Protocols used: Medication Question [id number] [facility] 09-29-2023 Telephone encounter Note 10w1d Patient called with c/o side effects from Zoloft. States she was taking 25 MG and then increased to 50 MG on Monday. Last night at 7 PM she took 50 MG dose and by 10 PM when she went to bed she experienced her throat feeling like it was closing, dizziness, and lethargic. States she spoke to another doctor and was advised to go to Urgent Care and to notify the original prescriber. Denies new foods, medication, or possible environmental causes to her symptoms. Advised that she be seen as directed by her doctor. Patient plans to transfer her OB care to [facility]. Asked that we cancel her upcoming visits. MEGHAN Bower RN [facility] 09-29-2023 Miscellaneous Notes 10w1d Patient called with c/o side effects from Zoloft. States she was taking 25 MG and then increased to 50 MG on Monday. Last night at 7 PM she took 50 MG dose and by 10 PM when she went to bed she experienced her throat feeling like it was closing, dizziness, and lethargic. States she spoke to another doctor and was advised to go to Urgent Care and to notify the original prescriber. Denies new foods, medication, or possible environmental causes to her symptoms. Advised that she be seen as directed by her doctor. Patient plans to transfer her OB care to [facility]. Asked that we cancel her upcoming visits. MEGHAN Bower RN documented in this encounter [facility] 09-29-2023 Telephone encounter Note S: Patient spoke with [facility] nurse regarding medication reaction question. B: Onset of symptoms/concern today A: Pt calling to go over abnormal labs 09.26.23. Pt then states not feeling well and feels like her throat is closing up. Pt endorses took Zoloft, prescribed by HOMA from [facility] on 09/14/23. Last evening took medication at 7:00 PM, around 10:00 PM, went to lay down and felt like your throat was closing, with difficulty breathing. Pt endorses went and sat on other sports coach or instructor, propped up with symptoms relieved at that time. Pt endorses since woke up this morning feeling tightness in throat, shortness of breath constant, dizziness with activity. Dizziness clearing after 10-15 seconds. R: Pt advised to contact prescriber of medication for further recommendations or go to at this time for further evaluation due to possilbe side effect of medication. Pt scheduled New Patient appointment 11/06/23 at 11:00 Am with Lamberto Archer CNP. Pt advsied to arrive 15 mins early with ID, Insurance card and list of current medication. Pt advised of date, time, provider, address and phone number to scheduled appointment. Home care advise given medication question. Patient understands care advice. No further needs at this time. Patient instructed to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 encounter [facility]* Diagnosis Trichomonal vaginitis during in first trimester- Primary High risk due to smoking in first trimester 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, mild, abuse 9 weeks gestation of Rubella non-immune status, antepartum- Primary Trichomonal vaginitis during in first trimester High risk due to smoking in first trimester 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 11 weeks gestation of Rubella non-immune status, antepartum- Primary Trichomonal vaginitis during in first trimester High risk due to smoking in first trimester 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, mild, abuse 15 weeks gestation of Screening, , for anatomic survey Encounter for anatomic survey Rubella non-immune status, antepartum- Primary Trichomonal vaginitis during in first trimester High risk due to smoking in first trimester 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 Choroid plexus cyst of fetus affecting care of mother, antepartum, single or unspecified fetus Tetrahydrocannabinol (THC) use disorder, mild, abuse Screening, , for anatomic survey Encounter for anatomic survey Urinary frequency Rubella non-immune status, antepartum- Primary Trichomonal vaginitis during in first trimester High risk due to smoking in first trimester 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 Choroid plexus cyst of fetus affecting care of mother, antepartum, single or unspecified fetus Tetrahydrocannabinol (THC) use disorder, moderate, dependence (HCC) 22 weeks gestation of Rubella non-immune status, antepartum- Primary Trichomonal vaginitis during in first trimester High risk due to smoking in first trimester 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 Choroid plexus cyst of fetus affecting care of mother, antepartum, single or unspecified fetus Tetrahydrocannabinol (THC) use disorder, moderate, dependence (HCC) 26 weeks gestation of care, antepartum- Primary Hx of drug abuse (CMS/HCC) (HCC) Choroid plexus cyst of fetus affecting care of mother, antepartum, fetus 1 of multiple gestation 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 28 weeks gestation of Encounter for screening for growth restriction [facility] Diagnosis Trichomonal vaginitis during in first trimester- Primary High risk due to smoking in first trimester 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, mild, abuse 9 weeks gestation of Rubella non-immune status, antepartum- Primary Trichomonal vaginitis during in first trimester High risk due to smoking in first trimester 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 11 weeks gestation of Rubella non-immune status, antepartum- Primary Trichomonal vaginitis during in first trimester High risk due to smoking in first trimester 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, mild, abuse 15 weeks gestation of Screening, , for anatomic survey Encounter for anatomic survey Rubella non-immune status, antepartum- Primary Trichomonal vaginitis during in first trimester High risk due to smoking in first trimester 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 Choroid plexus cyst of fetus affecting care of mother, antepartum, single or unspecified fetus Tetrahydrocannabinol (THC) use disorder, mild, abuse Screening, , for anatomic survey Encounter for anatomic survey Urinary frequency Rubella non-immune status, antepartum- Primary Trichomonal vaginitis during in first trimester High risk due to smoking in first trimester 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 Choroid plexus cyst of fetus affecting care of mother, antepartum, single or unspecified fetus Tetrahydrocannabinol (THC) use disorder, moderate, dependence (HCC) 22 weeks gestation of Rubella non-immune status, antepartum- Primary Trichomonal vaginitis during in first trimester High risk due to smoking in first trimester 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 Choroid plexus cyst of fetus affecting care of mother, antepartum, single or unspecified fetus Tetrahydrocannabinol (THC) use disorder, moderate, dependence (HCC) 26 weeks gestation of care, antepartum- Primary Hx of drug abuse (CMS/HCC) (HCC) Choroid plexus cyst of fetus affecting care of mother, antepartum, fetus 1 of multiple gestation 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 28 weeks gestation of Encounter for screening for growth restriction Rubella non-immune status, antepartum- Primary Trichomonal vaginitis during in first trimester High risk due to smoking in first trimester 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 Choroid plexus cyst of fetus affecting care of mother, antepartum, single or unspecified fetus Tetrahydrocannabinol (THC) use disorder, mild, abuse 30 weeks gestation of [facility]* Diagnosis Trichomonal vaginitis during in first trimester- Primary High risk due to smoking in first trimester 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, mild, abuse 9 weeks gestation of Rubella non-immune status, antepartum- Primary Trichomonal vaginitis during in first trimester High risk due to smoking in first trimester 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 11 weeks gestation of Rubella non-immune status, antepartum- Primary Trichomonal vaginitis during in first trimester High risk due to smoking in first trimester 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, mild, abuse 15 weeks gestation of Screening, , for anatomic survey Encounter for anatomic survey Rubella non-immune status, antepartum- Primary Trichomonal vaginitis during in first trimester High risk due to smoking in first trimester 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 Choroid plexus cyst of fetus affecting care of mother, antepartum, single or unspecified fetus Tetrahydrocannabinol (THC) use disorder, mild, abuse Screening, , for anatomic survey Encounter for anatomic survey Urinary frequency Rubella non-immune status, antepartum- Primary Trichomonal vaginitis during in first trimester High risk due to smoking in first trimester 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 Choroid plexus cyst of fetus affecting care of mother, antepartum, single or unspecified fetus Tetrahydrocannabinol (THC) use disorder, moderate, dependence (HCC) 22 weeks gestation of Rubella non-immune status, antepartum- Primary Trichomonal vaginitis during in first trimester High risk due to smoking in first trimester 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 Choroid plexus cyst of fetus affecting care of mother, antepartum, single or unspecified fetus Tetrahydrocannabinol (THC) use disorder, moderate, dependence (HCC) 26 weeks gestation of care, antepartum- Primary Hx of drug abuse (CMS/HCC) (HCC) Choroid plexus cyst of fetus affecting care of mother, antepartum, fetus 1 of multiple gestation 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 28 weeks gestation of Encounter for screening for growth restriction Rubella non-immune status, antepartum- Primary Trichomonal vaginitis during in first trimester High risk due to smoking in first trimester 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 Choroid plexus cyst of fetus affecting care of mother, antepartum, single or unspecified fetus Tetrahydrocannabinol (THC) use disorder, mild, abuse 30 weeks gestation of care, antepartum- Primary Choroid plexus cyst of fetus affecting care of mother, antepartum, fetus 1 of multiple gestation Hx of drug abuse (CMS/HCC) (HCC) 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 33 weeks gestation of [facility] Diagnosis Trichomonal vaginitis during in first trimester- Primary High risk due to smoking in first trimester 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, mild, abuse 9 weeks gestation of Rubella non-immune status, antepartum- Primary Trichomonal vaginitis during in first trimester High risk due to smoking in first trimester 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 11 weeks gestation of Rubella non-immune status, antepartum- Primary Trichomonal vaginitis during in first trimester High risk due to smoking in first trimester 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, mild, abuse 15 weeks gestation of Screening, , for anatomic survey Encounter for anatomic survey Rubella non-immune status, antepartum- Primary Trichomonal vaginitis during in first trimester High risk due to smoking in first trimester 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 Choroid plexus cyst of fetus affecting care of mother, antepartum, single or unspecified fetus Tetrahydrocannabinol (THC) use disorder, mild, abuse Screening, , for anatomic survey Encounter for anatomic survey Urinary frequency Rubella non-immune status, antepartum- Primary Trichomonal vaginitis during in first trimester High risk due to smoking in first trimester 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 Choroid plexus cyst of fetus affecting care of mother, antepartum, single or unspecified fetus Tetrahydrocannabinol (THC) use disorder, moderate, dependence (HCC) 22 weeks gestation of Rubella non-immune status, antepartum- Primary Trichomonal vaginitis during in first trimester High risk due to smoking in first trimester 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 Choroid plexus cyst of fetus affecting care of mother, antepartum, single or unspecified fetus Tetrahydrocannabinol (THC) use disorder, moderate, dependence (HCC) 26 weeks gestation of care, antepartum- Primary Hx of drug abuse (CMS/HCC) (HCC) Choroid plexus cyst of fetus affecting care of mother, antepartum, fetus 1 of multiple gestation 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 28 weeks gestation of Encounter for screening for growth restriction Rubella non-immune status, antepartum- Primary Trichomonal vaginitis during in first trimester High risk due to smoking in first trimester 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 Choroid plexus cyst of fetus affecting care of mother, antepartum, single or unspecified fetus Tetrahydrocannabinol (THC) use disorder, mild, abuse 30 weeks gestation of care, antepartum- Primary Choroid plexus cyst of fetus affecting care of mother, antepartum, fetus 1 of multiple gestation Hx of drug abuse (CMS/HCC) (HCC) 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 33 weeks gestation of care, antepartum- Primary Hx of drug abuse (CMS/HCC) (HCC) Choroid plexus cyst of fetus affecting care of mother, antepartum, fetus 1 of multiple gestation 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 Trichomonal vaginitis during in first trimester 36 weeks gestation of Abnormal ultrasound [facility] Diagnosis Trichomonal vaginitis during in first trimester- Primary High risk due to smoking in first trimester 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, mild, abuse 9 weeks gestation of Rubella non-immune status, antepartum- Primary Trichomonal vaginitis during in first trimester High risk due to smoking in first trimester 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 11 weeks gestation of Rubella non-immune status, antepartum- Primary Trichomonal vaginitis during in first trimester High risk due to smoking in first trimester 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, mild, abuse 15 weeks gestation of Screening, , for anatomic survey Encounter for anatomic survey Rubella non-immune status, antepartum- Primary Trichomonal vaginitis during in first trimester High risk due to smoking in first trimester 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 Choroid plexus cyst of fetus affecting care of mother, antepartum, single or unspecified fetus Tetrahydrocannabinol (THC) use disorder, mild, abuse Screening, , for anatomic survey Encounter for anatomic survey Urinary frequency Rubella non-immune status, antepartum- Primary Trichomonal vaginitis during in first trimester High risk due to smoking in first trimester 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 Choroid plexus cyst of fetus affecting care of mother, antepartum, single or unspecified fetus Tetrahydrocannabinol (THC) use disorder, moderate, dependence (HCC) 22 weeks gestation of Rubella non-immune status, antepartum- Primary Trichomonal vaginitis during in first trimester High risk due to smoking in first trimester 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 Choroid plexus cyst of fetus affecting care of mother, antepartum, single or unspecified fetus Tetrahydrocannabinol (THC) use disorder, moderate, dependence (HCC) 26 weeks gestation of care, antepartum- Primary Hx of drug abuse (CMS/HCC) (HCC) Choroid plexus cyst of fetus affecting care of mother, antepartum, fetus 1 of multiple gestation 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 28 weeks gestation of Encounter for screening for growth restriction Rubella non-immune status, antepartum- Primary Trichomonal vaginitis during in first trimester High risk due to smoking in first trimester 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 Choroid plexus cyst of fetus affecting care of mother, antepartum, single or unspecified fetus Tetrahydrocannabinol (THC) use disorder, mild, abuse 30 weeks gestation of care, antepartum- Primary Choroid plexus cyst of fetus affecting care of mother, antepartum, fetus 1 of multiple gestation Hx of drug abuse (CMS/HCC) (HCC) 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 33 weeks gestation of care, antepartum- Primary Hx of drug abuse (CMS/HCC) (HCC) Choroid plexus cyst of fetus affecting care of mother, antepartum, fetus 1 of multiple gestation 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 Trichomonal vaginitis during in first trimester 36 weeks gestation of Abnormal ultrasound care, antepartum- Primary Hx of drug abuse (CMS/HCC) (HCC) Choroid plexus cyst of fetus affecting care of mother, antepartum, fetus 1 of multiple gestation Abnormal ultrasound 37 weeks gestation of [facility]* Diagnosis Trichomonal vaginitis during in first trimester- Primary High risk due to smoking in first trimester 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, mild, abuse 9 weeks gestation of Rubella non-immune status, antepartum- Primary Trichomonal vaginitis during in first trimester High risk due to smoking in first trimester 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 11 weeks gestation of Rubella non-immune status, antepartum- Primary Trichomonal vaginitis during in first trimester High risk due to smoking in first trimester 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, mild, abuse 15 weeks gestation of Screening, , for anatomic survey Encounter for anatomic survey Rubella non-immune status, antepartum- Primary Trichomonal vaginitis during in first trimester High risk due to smoking in first trimester 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 Choroid plexus cyst of fetus affecting care of mother, antepartum, single or unspecified fetus Tetrahydrocannabinol (THC) use disorder, mild, abuse Screening, , for anatomic survey Encounter for anatomic survey Urinary frequency Rubella non-immune status, antepartum- Primary Trichomonal vaginitis during in first trimester High risk due to smoking in first trimester 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 Choroid plexus cyst of fetus affecting care of mother, antepartum, single or unspecified fetus Tetrahydrocannabinol (THC) use disorder, moderate, dependence (HCC) 22 weeks gestation of Rubella non-immune status, antepartum- Primary Trichomonal vaginitis during in first trimester High risk due to smoking in first trimester 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 Choroid plexus cyst of fetus affecting care of mother, antepartum, single or unspecified fetus Tetrahydrocannabinol (THC) use disorder, moderate, dependence (HCC) 26 weeks gestation of care, antepartum- Primary Hx of drug abuse (CMS/HCC) (HCC) Choroid plexus cyst of fetus affecting care of mother, antepartum, fetus 1 of multiple gestation 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 28 weeks gestation of Encounter for screening for growth restriction Rubella non-immune status, antepartum- Primary Trichomonal vaginitis during in first trimester High risk due to smoking in first trimester 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 Choroid plexus cyst of fetus affecting care of mother, antepartum, single or unspecified fetus Tetrahydrocannabinol (THC) use disorder, mild, abuse 30 weeks gestation of care, antepartum- Primary Choroid plexus cyst of fetus affecting care of mother, antepartum, fetus 1 of multiple gestation Hx of drug abuse (CMS/HCC) (HCC) 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 33 weeks gestation of care, antepartum- Primary Hx of drug abuse (CMS/HCC) (HCC) Choroid plexus cyst of fetus affecting care of mother, antepartum, fetus 1 of multiple gestation 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 Trichomonal vaginitis during in first trimester 36 weeks gestation of Abnormal ultrasound care, antepartum- Primary Hx of drug abuse (CMS/HCC) (HCC) Choroid plexus cyst of fetus affecting care of mother, antepartum, fetus 1 of multiple gestation Abnormal ultrasound 37 weeks gestation of Supervision of high risk in third trimester- Primary 38 weeks gestation of Trichomonal vaginitis during in first trimester [facility]* Diagnosis Trichomonal vaginitis during in first trimester- Primary High risk due to smoking in first trimester 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, mild, abuse 9 weeks gestation of Rubella non-immune status, antepartum- Primary Trichomonal vaginitis during in first trimester High risk due to smoking in first trimester 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 11 weeks gestation of Rubella non-immune status, antepartum- Primary Trichomonal vaginitis during in first trimester High risk due to smoking in first trimester 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, mild, abuse 15 weeks gestation of Screening, , for anatomic survey Encounter for anatomic survey Rubella non-immune status, antepartum- Primary Trichomonal vaginitis during in first trimester High risk due to smoking in first trimester 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 Choroid plexus cyst of fetus affecting care of mother, antepartum, single or unspecified fetus Tetrahydrocannabinol (THC) use disorder, mild, abuse Screening, , for anatomic survey Encounter for anatomic survey Urinary frequency Rubella non-immune status, antepartum- Primary Trichomonal vaginitis during in first trimester High risk due to smoking in first trimester 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 Choroid plexus cyst of fetus affecting care of mother, antepartum, single or unspecified fetus Tetrahydrocannabinol (THC) use disorder, moderate, dependence (HCC) 22 weeks gestation of Rubella non-immune status, antepartum- Primary Trichomonal vaginitis during in first trimester High risk due to smoking in first trimester 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 Choroid plexus cyst of fetus affecting care of mother, antepartum, single or unspecified fetus Tetrahydrocannabinol (THC) use disorder, moderate, dependence (HCC) 26 weeks gestation of care, antepartum- Primary Hx of drug abuse (CMS/HCC) (HCC) Choroid plexus cyst of fetus affecting care of mother, antepartum, fetus 1 of multiple gestation 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 28 weeks gestation of Encounter for screening for growth restriction Rubella non-immune status, antepartum- Primary Trichomonal vaginitis during in first trimester High risk due to smoking in first trimester 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 Choroid plexus cyst of fetus affecting care of mother, antepartum, single or unspecified fetus Tetrahydrocannabinol (THC) use disorder, mild, abuse 30 weeks gestation of care, antepartum- Primary Choroid plexus cyst of fetus affecting care of mother, antepartum, fetus 1 of multiple gestation Hx of drug abuse (CMS/HCC) (HCC) 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 33 weeks gestation of care, antepartum- Primary Hx of drug abuse (CMS/HCC) (HCC) Choroid plexus cyst of fetus affecting care of mother, antepartum, fetus 1 of multiple gestation 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 Trichomonal vaginitis during in first trimester 36 weeks gestation of Abnormal ultrasound care, antepartum- Primary Hx of drug abuse (CMS/HCC) (HCC) Choroid plexus cyst of fetus affecting care of mother, antepartum, fetus 1 of multiple gestation Abnormal ultrasound 37 weeks gestation of Supervision of high risk in third trimester- Primary 38 weeks gestation of Trichomonal vaginitis during in first trimester 39 weeks gestation of - Primary [facility]* Diagnosis Trichomonal vaginitis during in first trimester- Primary High risk due to smoking in first trimester 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, mild, abuse 9 weeks gestation of Rubella non-immune status, antepartum- Primary Trichomonal vaginitis during in first trimester High risk due to smoking in first trimester 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 11 weeks gestation of Rubella non-immune status, antepartum- Primary Trichomonal vaginitis during in first trimester High risk due to smoking in first trimester 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, mild, abuse 15 weeks gestation of Screening, , for anatomic survey Encounter for anatomic survey Rubella non-immune status, antepartum- Primary Trichomonal vaginitis during in first trimester High risk due to smoking in first trimester 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 Choroid plexus cyst of fetus affecting care of mother, antepartum, single or unspecified fetus Tetrahydrocannabinol (THC) use disorder, mild, abuse Screening, , for anatomic survey Encounter for anatomic survey Urinary frequency Rubella non-immune status, antepartum- Primary Trichomonal vaginitis during in first trimester High risk due to smoking in first trimester 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 Choroid plexus cyst of fetus affecting care of mother, antepartum, single or unspecified fetus Tetrahydrocannabinol (THC) use disorder, moderate, dependence (HCC) 22 weeks gestation of Rubella non-immune status, antepartum- Primary Trichomonal vaginitis during in first trimester High risk due to smoking in first trimester 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 Choroid plexus cyst of fetus affecting care of mother, antepartum, single or unspecified fetus Tetrahydrocannabinol (THC) use disorder, moderate, dependence (HCC) 26 weeks gestation of care, antepartum- Primary Hx of drug abuse (CMS/HCC) (HCC) Choroid plexus cyst of fetus affecting care of mother, antepartum, fetus 1 of multiple gestation 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 28 weeks gestation of Encounter for screening for growth restriction Rubella non-immune status, antepartum- Primary Trichomonal vaginitis during in first trimester High risk due to smoking in first trimester 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 Choroid plexus cyst of fetus affecting care of mother, antepartum, single or unspecified fetus Tetrahydrocannabinol (THC) use disorder, mild, abuse 30 weeks gestation of care, antepartum- Primary Choroid plexus cyst of fetus affecting care of mother, antepartum, fetus 1 of multiple gestation Hx of drug abuse (CMS/HCC) (HCC) 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 33 weeks gestation of care, antepartum- Primary Hx of drug abuse (CMS/HCC) (HCC) Choroid plexus cyst of fetus affecting care of mother, antepartum, fetus 1 of multiple gestation 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 Trichomonal vaginitis during in first trimester 36 weeks gestation of Abnormal ultrasound care, antepartum- Primary Hx of drug abuse (CMS/HCC) (HCC) Choroid plexus cyst of fetus affecting care of mother, antepartum, fetus 1 of multiple gestation Abnormal ultrasound 37 weeks gestation of Supervision of high risk in third trimester- Primary 38 weeks gestation of Trichomonal vaginitis during in first trimester care and examination- Primary (spontaneous vaginal delivery) Normal delivery Consultation for sterilization Other general counseling and advice for contraceptive management Encounter for sterilization Sterilization [facility]* Diagnosis Trichomonal vaginitis during in first trimester- Primary High risk due to smoking in first trimester 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, mild, abuse 9 weeks gestation of Rubella non-immune status, antepartum- Primary Trichomonal vaginitis during in first trimester High risk due to smoking in first trimester 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 11 weeks gestation of Rubella non-immune status, antepartum- Primary Trichomonal vaginitis during in first trimester High risk due to smoking in first trimester 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, mild, abuse 15 weeks gestation of Screening, , for anatomic survey Encounter for anatomic survey Rubella non-immune status, antepartum- Primary Trichomonal vaginitis during in first trimester High risk due to smoking in first trimester 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 Choroid plexus cyst of fetus affecting care of mother, antepartum, single or unspecified fetus Tetrahydrocannabinol (THC) use disorder, mild, abuse Screening, , for anatomic survey Encounter for anatomic survey Urinary frequency Rubella non-immune status, antepartum- Primary Trichomonal vaginitis during in first trimester High risk due to smoking in first trimester 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 Choroid plexus cyst of fetus affecting care of mother, antepartum, single or unspecified fetus Tetrahydrocannabinol (THC) use disorder, moderate, dependence (HCC) 22 weeks gestation of Rubella non-immune status, antepartum- Primary Trichomonal vaginitis during in first trimester High risk due to smoking in first trimester 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 Choroid plexus cyst of fetus affecting care of mother, antepartum, single or unspecified fetus Tetrahydrocannabinol (THC) use disorder, moderate, dependence (HCC) 26 weeks gestation of Encounter for screening for growth restriction Hx of drug abuse (HCC) Choroid plexus cyst of fetus affecting care of mother, antepartum, fetus 1 of multiple gestation 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 28 weeks gestation of Rubella non-immune status, antepartum- Primary Trichomonal vaginitis during in first trimester High risk due to smoking in first trimester 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 Choroid plexus cyst of fetus affecting care of mother, antepartum, single or unspecified fetus Tetrahydrocannabinol (THC) use disorder, mild, abuse 30 weeks gestation of care, antepartum- Primary Choroid plexus cyst of fetus affecting care of mother, antepartum, fetus 1 of multiple gestation Hx of drug abuse (HCC) 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 33 weeks gestation of care, antepartum- Primary Hx of drug abuse (HCC) Choroid plexus cyst of fetus affecting care of mother, antepartum, fetus 1 of multiple gestation 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 Trichomonal vaginitis during in first trimester 36 weeks gestation of Abnormal ultrasound care, antepartum- Primary Hx of drug abuse (HCC) Choroid plexus cyst of fetus affecting care of mother, antepartum, fetus 1 of multiple gestation Abnormal ultrasound 37 weeks gestation of Supervision of high risk in third trimester- Primary 38 weeks gestation of Trichomonal vaginitis during in first trimester Enteritis- Primary Other and unspecified noninfectious gastroenteritis and colitis [facility] Diagnosis Trichomonal vaginitis during in first trimester- Primary High risk due to smoking in first trimester 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, mild, abuse 9 weeks gestation of Rubella non-immune status, antepartum- Primary Trichomonal vaginitis during in first trimester High risk due to smoking in first trimester 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 11 weeks gestation of Rubella non-immune status, antepartum- Primary Trichomonal vaginitis during in first trimester High risk due to smoking in first trimester 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, mild, abuse 15 weeks gestation of Screening, , for anatomic survey Encounter for anatomic survey Rubella non-immune status, antepartum- Primary Trichomonal vaginitis during in first trimester High risk due to smoking in first trimester 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 Choroid plexus cyst of fetus affecting care of mother, antepartum, single or unspecified fetus Tetrahydrocannabinol (THC) use disorder, mild, abuse Screening, , for anatomic survey Encounter for anatomic survey Urinary frequency Rubella non-immune status, antepartum- Primary Trichomonal vaginitis during in first trimester High risk due to smoking in first trimester 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 Choroid plexus cyst of fetus affecting care of mother, antepartum, single or unspecified fetus Tetrahydrocannabinol (THC) use disorder, moderate, dependence (HCC) 22 weeks gestation of Rubella non-immune status, antepartum- Primary Trichomonal vaginitis during in first trimester High risk due to smoking in first trimester 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 Choroid plexus cyst of fetus affecting care of mother, antepartum, single or unspecified fetus Tetrahydrocannabinol (THC) use disorder, moderate, dependence (HCC) 26 weeks gestation of Encounter for screening for growth restriction Hx of drug abuse (HCC) Choroid plexus cyst of fetus affecting care of mother, antepartum, fetus 1 of multiple gestation 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 28 weeks gestation of Rubella non-immune status, antepartum- Primary Trichomonal vaginitis during in first trimester High risk due to smoking in first trimester 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 Choroid plexus cyst of fetus affecting care of mother, antepartum, single or unspecified fetus Tetrahydrocannabinol (THC) use disorder, mild, abuse 30 weeks gestation of care, antepartum- Primary Choroid plexus cyst of fetus affecting care of mother, antepartum, fetus 1 of multiple gestation Hx of drug abuse (HCC) 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 33 weeks gestation of care, antepartum- Primary Hx of drug abuse (HCC) Choroid plexus cyst of fetus affecting care of mother, antepartum, fetus 1 of multiple gestation 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 Trichomonal vaginitis during in first trimester 36 weeks gestation of Abnormal ultrasound care, antepartum- Primary Hx of drug abuse (HCC) Choroid plexus cyst of fetus affecting care of mother, antepartum, fetus 1 of multiple gestation Abnormal ultrasound 37 weeks gestation of Supervision of high risk in third trimester- Primary 38 weeks gestation of Trichomonal vaginitis during in first trimester Routine general medical examination at a health care facility- Primary Dizziness Dizziness and giddiness Recurrent major depressive disorder, remission status unspecified (HCC) [facility]* Diagnosis Trichomonal vaginitis during in first trimester- Primary High risk due to smoking in first trimester 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, mild, abuse 9 weeks gestation of Rubella non-immune status, antepartum- Primary Trichomonal vaginitis during in first trimester High risk due to smoking in first trimester 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 11 weeks gestation of Rubella non-immune status, antepartum- Primary Trichomonal vaginitis during in first trimester High risk due to smoking in first trimester 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, mild, abuse 15 weeks gestation of Screening, , for anatomic survey Encounter for anatomic survey Rubella non-immune status, antepartum- Primary Trichomonal vaginitis during in first trimester High risk due to smoking in first trimester 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 Choroid plexus cyst of fetus affecting care of mother, antepartum, single or unspecified fetus Tetrahydrocannabinol (THC) use disorder, mild, abuse Screening, , for anatomic survey Encounter for anatomic survey Urinary frequency Rubella non-immune status, antepartum- Primary Trichomonal vaginitis during in first trimester High risk due to smoking in first trimester 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 Choroid plexus cyst of fetus affecting care of mother, antepartum, single or unspecified fetus Tetrahydrocannabinol (THC) use disorder, moderate, dependence (HCC) 22 weeks gestation of Rubella non-immune status, antepartum- Primary Trichomonal vaginitis during in first trimester High risk due to smoking in first trimester 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 Choroid plexus cyst of fetus affecting care of mother, antepartum, single or unspecified fetus Tetrahydrocannabinol (THC) use disorder, moderate, dependence (HCC) 26 weeks gestation of Encounter for screening for growth restriction Hx of drug abuse (HCC) Choroid plexus cyst of fetus affecting care of mother, antepartum, fetus 1 of multiple gestation 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 28 weeks gestation of Rubella non-immune status, antepartum- Primary Trichomonal vaginitis during in first trimester High risk due to smoking in first trimester 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 Choroid plexus cyst of fetus affecting care of mother, antepartum, single or unspecified fetus Tetrahydrocannabinol (THC) use disorder, mild, abuse 30 weeks gestation of care, antepartum- Primary Choroid plexus cyst of fetus affecting care of mother, antepartum, fetus 1 of multiple gestation Hx of drug abuse (HCC) 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 33 weeks gestation of care, antepartum- Primary Hx of drug abuse (HCC) Choroid plexus cyst of fetus affecting care of mother, antepartum, fetus 1 of multiple gestation 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 Trichomonal vaginitis during in first trimester 36 weeks gestation of Abnormal ultrasound care, antepartum- Primary Hx of drug abuse (HCC) Choroid plexus cyst of fetus affecting care of mother, antepartum, fetus 1 of multiple gestation Abnormal ultrasound 37 weeks gestation of Supervision of high risk in third trimester- Primary 38 weeks gestation of Trichomonal vaginitis during in first trimester Essential thrombocythemia (HCC)- Primary Essential thrombocythemia documented in this encounter [facility] note* Diagnosis Trichomonal vaginitis during in first trimester- Primary High risk due to smoking in first trimester 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, mild, abuse 9 weeks gestation of Rubella non-immune status, antepartum- Primary Trichomonal vaginitis during in first trimester High risk due to smoking in first trimester 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 11 weeks gestation of Rubella non-immune status, antepartum- Primary Trichomonal vaginitis during in first trimester High risk due to smoking in first trimester 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, mild, abuse 15 weeks gestation of Screening, , for anatomic survey Encounter for anatomic survey Rubella non-immune status, antepartum- Primary Trichomonal vaginitis during in first trimester High risk due to smoking in first trimester 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 Choroid plexus cyst of fetus affecting care of mother, antepartum, single or unspecified fetus Tetrahydrocannabinol (THC) use disorder, mild, abuse Screening, , for anatomic survey Encounter for anatomic survey Urinary frequency Rubella non-immune status, antepartum- Primary Trichomonal vaginitis during in first trimester High risk due to smoking in first trimester 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 Choroid plexus cyst of fetus affecting care of mother, antepartum, single or unspecified fetus Tetrahydrocannabinol (THC) use disorder, moderate, dependence (HCC) 22 weeks gestation of Rubella non-immune status, antepartum- Primary Trichomonal vaginitis during in first trimester High risk due to smoking in first trimester 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 Choroid plexus cyst of fetus affecting care of mother, antepartum, single or unspecified fetus Tetrahydrocannabinol (THC) use disorder, moderate, dependence (HCC) 26 weeks gestation of Encounter for screening for growth restriction Hx of drug abuse (HCC) Choroid plexus cyst of fetus affecting care of mother, antepartum, fetus 1 of multiple gestation 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 28 weeks gestation of Rubella non-immune status, antepartum- Primary Trichomonal vaginitis during in first trimester High risk due to smoking in first trimester 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 Choroid plexus cyst of fetus affecting care of mother, antepartum, single or unspecified fetus Tetrahydrocannabinol (THC) use disorder, mild, abuse 30 weeks gestation of care, antepartum- Primary Choroid plexus cyst of fetus affecting care of mother, antepartum, fetus 1 of multiple gestation Hx of drug abuse (HCC) 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 33 weeks gestation of care, antepartum- Primary Hx of drug abuse (HCC) Choroid plexus cyst of fetus affecting care of mother, antepartum, fetus 1 of multiple gestation 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 Trichomonal vaginitis during in first trimester 36 weeks gestation of Abnormal ultrasound care, antepartum- Primary Hx of drug abuse (HCC) Choroid plexus cyst of fetus affecting care of mother, antepartum, fetus 1 of multiple gestation Abnormal ultrasound 37 weeks gestation of Supervision of high risk in third trimester- Primary 38 weeks gestation of Trichomonal vaginitis during in first trimester Diarrhea, unspecified type- Primary Hemorrhoids, unspecified hemorrhoid type documented in this [facility]* Diagnosis Trichomonal vaginitis during in first trimester- Primary High risk due to smoking in first trimester 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, mild, abuse 9 weeks gestation of Rubella non-immune status, antepartum (HHS/HCC)- Primary Trichomonal vaginitis during in first trimester High risk due to smoking in first trimester 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 11 weeks gestation of Rubella non-immune status, antepartum (HHS/HCC)- Primary Trichomonal vaginitis during in first trimester High risk due to smoking in first trimester 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, mild, abuse 15 weeks gestation of Screening, , for anatomic survey Encounter for anatomic survey Rubella non-immune status, antepartum (HHS/HCC)- Primary Trichomonal vaginitis during in first trimester High risk due to smoking in first trimester 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 Choroid plexus cyst of fetus affecting care of mother, antepartum, single or unspecified fetus Tetrahydrocannabinol (THC) use disorder, mild, abuse Screening, , for anatomic survey Encounter for anatomic survey Urinary frequency Rubella non-immune status, antepartum (HHS/HCC)- Primary Trichomonal vaginitis during in first trimester High risk due to smoking in first trimester 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 Choroid plexus cyst of fetus affecting care of mother, antepartum, single or unspecified fetus Tetrahydrocannabinol (THC) use disorder, moderate, dependence (HCC) 22 weeks gestation of Rubella non-immune status, antepartum (HHS/HCC)- Primary Trichomonal vaginitis during in first trimester High risk due to smoking in first trimester 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 Choroid plexus cyst of fetus affecting care of mother, antepartum, single or unspecified fetus Tetrahydrocannabinol (THC) use disorder, moderate, dependence (HCC) 26 weeks gestation of Encounter for screening for growth restriction Hx of drug abuse (CMS/HCC) Choroid plexus cyst of fetus affecting care of mother, antepartum, fetus 1 of multiple gestation 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 28 weeks gestation of Rubella non-immune status, antepartum (HHS/HCC)- Primary Trichomonal vaginitis during in first trimester High risk due to smoking in first trimester 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 Choroid plexus cyst of fetus affecting care of mother, antepartum, single or unspecified fetus Tetrahydrocannabinol (THC) use disorder, mild, abuse 30 weeks gestation of care, antepartum (HHS/HCC)- Primary Choroid plexus cyst of fetus affecting care of mother, antepartum, fetus 1 of multiple gestation Hx of drug abuse (CMS/HCC) 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 33 weeks gestation of care, antepartum (HHS/HCC)- Primary Hx of drug abuse (CMS/HCC) Choroid plexus cyst of fetus affecting care of mother, antepartum, fetus 1 of multiple gestation 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 Trichomonal vaginitis during in first trimester 36 weeks gestation of Abnormal ultrasound care, antepartum (HHS/HCC)- Primary Hx of drug abuse (CMS/HCC) Choroid plexus cyst of fetus affecting care of mother, antepartum, fetus 1 of multiple gestation Abnormal ultrasound 37 weeks gestation of Supervision of high risk in third trimester- Primary 38 weeks gestation of Trichomonal vaginitis during in first trimester Women's annual routine gynecological examination- Primary Vaginal discharge Leukorrhea, not specified as infective Encounter for initial prescription of contraceptive pills [facility]* Attachments The following attachments cannot be sent through Care Everywhere. * Colitis Discharge Instructions ([place]) documented in this [facility] for referral (narrative)* Diagnostic Procedure Only (Routine) - Pending Review Specialty Diagnoses / Procedures Referred By Chanel henao Referred To Contact [facility] Diagnoses 8 weeks gestation of Procedures NUCHAL TRANSLUCENCY WHI US NUCHAL TRANSLUCENCY 1ST GESTATION Leda Costa APRN.ELECTRICIAN FRONT [address] [place] [address] [address] Referral ID Status Reason Start Date Expiration Date Visits Requested Visits Authorized [id number] Pending Review Auto-Generat ed Referral 09/14/2023 09/13/2024 1 1 * Diagnostic Procedure Only (Routine) - Authorized Specialty Diagnoses / Procedures Referred By Chanel henao Referred To Contact [facility] Diagnoses with uncertain dates in first trimester Procedures OBSTETRIC ULTRASOUND WHI US PREG UTERUS AFTER 1ST TRIMEST 1/ GESTATION Leda Costa APRN.ELECTRICIAN FRONT [address] [place] [address] [address] Referral ID Status Reason Start Date Expiration Date Visits Requested Visits Authorized [id number] Authorized Auto-Generat ed Referral 09/14/2023 09/13/2024 1 1 [facility] for referral (narrative)No reason for referral [facility] Work Phone: Summary Purpose Family History No Family History Records FoundNo Family History Records FoundNo Family History Records FoundNo Family History Records FoundNo Family History Records FoundNo Family History Records FoundNo Family History Records FoundNo Family History Records Found Advance Directives No Advanced Directives Records Found Advance Directive Response Recorded Date/ Time Advance Directives No March 2:53am Living Will No June 10, 2023 3:31pm Power of Automatic Clipper And Stripper No June 09 3:31pm Date Activated Date Inactivated Comments 04/20/2024 6:01 AM 04/22/2024 4:38 PM Advance Directive Response Recorded Date/ Time Advance Directives No March 3:53am Date Activated Date Inactivated Comments 04/20/2024 6:01 AM 04/22/2024 4:38 PM Chief Complaint and Reason for Visit Chief Complaint foot pain Chief Complaint Admit Date PE NON DOT DRUG SCREEN/ [employer] August 15, 2024 10:25am Reason for Referral Specialty Diagnoses / Procedures Referred By Chanel henao Referred To Contact Diagnoses History of depression Procedures CONSULT TO [facility] OFFICE/OUTPATIENT [facility] 60 MINUTES Lakisha Vigil MD [address] [place] [address] Referral ID Status Reason Start Date Expiration Date Visits Requested Visits Authorized [id number] Authorized PCP Requested Referral 09/11/2023 09/10/2024 1 1 Additional Source Comments INFORMATION SOURCE (unrecogn ized section and content) DATE CREATED AUTHOR 06/16/2018 [facility] ([place]) DATE CREATED AUTHOR AUTHOR'S ORGANIZ ATION 12/05/2021 [facility] DATE CREATED AUTHOR AUTHOR'S ORGANIZ ATION 09/01/2023 [facility] DATE CREATED AUTHOR AUTHOR'S ORGANIZ ATION 10/02/2023 [facility] DATE CREATED AUTHOR AUTHOR'S ORGANIZ ATION 04/20/2024 [facility] DATE CREATED AUTHOR AUTHOR'S ORGANIZ ATION 08/20/2024 [facility] DATE CREATED AUTHOR AUTHOR'S ORGANIZ ATION 11/04/2024 [facility] DATE CREATED AUTHOR AUTHOR'S ORGANIZ ATION 01/24/2025 [facility] Scheduled Active and Recently Administ ered Medications (unrecognized section and content) Medication Order 02/09/2023 02/10/2023 02/11/2023 potassium chloride (Klor-Con) packet 60 mEq (COMPLETED) 60 mEq, Oral, Once, On 02/11/23 at 1450, For 1 dose, Dissolve each tablet in 3-4 ounces of cold water before administering. Dissolve each packet in 4 ounces of water = 5 mEq per 1 oz fluid. 1457 (Given - Provid er: Kita Saul LPN) potassium chloride IVPB 10 mEq (COMPLETED) 10 mEq, IntraVENous, at 100 mL/hr, Administer over 1 Hours, Every 1 hour, First dose on 02/11/23 at 1450, For 2 doses, Total dose: 20 mEq 1505 (New Bag - Prov ider: Willow Brooks RN)1610 (Stopped - Provider: Willow Brooks RN)1617 (New Bag - Provider: Willow Brooks RN)1717 (Stopped - Provider: Kita Saul LPN) sodium chloride 0.9 % bolus 1,000 mL (COMPLETED) 1,000 mL, IntraVENous, at 1,000 mL/hr, Administer over 1 Hours, Once, On 02/11/23 at 1350, For 1 dose 1357 (New Bag - Prov ider: Kita Saul LPN)1457 (Stopped - Provider: Willow Brooks RN) Scheduled Medication Order 04/20/2024 04/21/2024 04/22/2024 chlorhexidine (Hibiclens) 4 % solution 1 Application (CANCELED) 1 Application, Topical, Daily, First dose on 04/20/24 at 0615, Pre-Delivery, Use solution to clean abdomen upon admission then once daily until delivered 0639 (Given - Provider: Kya Rogers, JV) ferrous sulfate tablet 325 mg 325 mg, Oral, 2 times daily with meals, First dose on 04/20/24 at 2100, , Start if Hgb less than 10. Hold oral ferrous sulfate dose if receiving IV iron sucrose (Venofer) 2100 (Not Given - Provider: Mirlande Rdz RN - Reason: Order parameters not met) 0800 (Not Given - Provider: Kay Mancini RN - Reason: Order parameters not met)1700 (Canceled Entry - Provider: Automatic Discharge Provider - Comment: Automatically canceled at discontinue of medication order) 0800 (Not Given - Provider: Ania Vinson RN - Reason: Order parameters not met) sertraline (Zoloft) tablet 25 mg 25 mg, Oral, 2 times daily, First dose on 04/20/24 at 0900 0904 (Given - Provider: Nevin Martin, RN)2020 (Given - Provider: Alana Baltazar, RN) 0800 (Given - Provider: Kay Mancini, JV)204 (Given - Provider: Mirlande Rdz, RN) 0856 (Given - Provider: Ania Vinson, RN) Continuous Medication Order 04/20/2024 04/21/2024 04/22/2024 lactated ringers infusion (CANCELED) 125 mL/hr, IntraVENous, Continuous, Starting on 04/20/24 at 0615, Pre-Delivery 0651 (New Bag - Provider: Kya Rogers, JV)1453 (New Bag - Provider: Nevin Martin RN) oxytocin (Pitocin) 30 units in 500 mL infusion (CANCELED) 1-20 annmarie-units/min (1-20 mL/hr), IntraVENous, Continuous, Starting on 04/20/24 at 0945, Begin infusion at 1 annmarie-unit/min (1 annmarie-unit per min = 1 mL per hour) and increase by 1 annmarie-unit/min after 30 minutes. Then increase by 2 annmarie-units/min as needed, no faster than every 30 minutes, until labor is achieved. Labor is defined as contractions every 2-3 minutes with cervical changes or [place] units (MVU) greater than 200 in a 10-minute window. Maximum infusion rate: 20 annmarie-unit/min. Contact provider if maximum rate does not achieve desired response. Provider may order alternative titration goal or other clinically appropriate goal of titration rate (s). Smaller titration increments of 1 annmarie-units/min, not faster than every 30 minutes, may be used when approaching therapeutic goal. 1104 (New Bag - Provider: Nevin Martin RN)1139 (Rate/Dose Change - Provider: Nevin Martin RN)1214 (Rate/Dose Change - Provider: Nevin Martin RN)1801 (Rate/Dose Change - Provider: Nevin Martin RN)1817 (Rate/Dose Change - Provider: Nevin Martin RN) PRN Medication Order 04/20/2024 04/21/2024 04/22/2024 acetaminophen (Tylenol) tablet 650 mg 650 mg, Oral, Every 6 hours PRN, other, pain (1-10), Starting on 04/20/24 at 2050, Give in addition to any other pain medication ordered at same time for any pain indication. Maximum dose of acetaminophen is 4000 mg from all sources in 24 hours. Alternate ibuprofen and acetaminophen every 3 hours. Give ibuprofen first in the sequence. 0856 (Not Given - Provider: Ania Vinson, JV - Reason: Patient/family refused) benzocaine 20% containing (Dermoplast) spray Topical, As needed, pain, , Starting on 04/20/24 at 2050, , Apply to perineal area. Patient is capable and may self administer at bedside. 1655 (Given - Provider: Willow Reyes, JV) famotidine (Pepcid) tablet 20 mg 20 mg, Oral, 2 times daily PRN, heartburn, Starting on 04/20/24 at 2050, , Renal dose per pharmacy for peptic ulcer prophylaxis. ibuprofen tablet 600 mg 600 mg, Oral, Every 6 hours PRN, other, pain (1-10), Starting on 04/20/24 at 1822, Alternate ibuprofen and acetaminophen every 3 hours. Give ibuprofen first in the sequence. 2020 (Given - Provider: Alana Baltazar RN) 0759 (Given - Provider: Kay Mancini, JV)1434 (Given - Provider: Kay Mancini, JV)204 (Given - Provider: Mirlande Rdz, JV) 0855 (Given - Provider: Ania Vinson RN) lanolin (Lansinoh) cream Topical, As needed, dry skin, nipple discomfort, Starting on 04/20/24 at 2050, , Apply to affected area. 1655 (Given - Provider: Willow Reyes RN) ondansetron (Zofran) injection 4 mg(Linked Group 1) 4 mg, IntraVENous, Every 6 hours PRN, nausea, vomiting, Starting on 04/20/24 at 2050, 1st Line. Give IV if patient is unable to take orally. If inadequate response within 60 minutes, proceed to next-line agent or contact provider if no further options ordered. ondansetron ODT (Zofran-ODT) disintegrating tablet 4 mg(Linked Group 1) 4 mg, Oral, Every 8 hours PRN, nausea, vomiting, Starting on 04/20/24 at 2050, 1st Line. If inadequate response within 60 minutes, proceed to next-line agent or contact provider if no further options ordered. Patient should allow tablet to dissolve on tongue. Do not remove from blister pack until just before administering. oxytocin (Pitocin) 30 units in 500 mL infusion 250-999 annmarie-units/min (250-999 mL/hr), IntraVENous, Continuous PRN, bleeding, Starting on 04/20/24 at 1822, Post-Delivery, For Immediate Post Use Only. Give after delivery of placenta. Bag 1 of 2: Bolus for bag to infuse at 999 ml/hour for 15 minutes (15 units in 250cc). After initial bolus then decrease rate to 250cc/hr for 1 hour. Then discontinue oxytocin (Pitocin) 30 units in 500 mL infusion 125 annmarie-units/min (125 mL/hr), IntraVENous, Continuous PRN, bleeding, Starting on 04/20/24 at 1912, For 48 hours, , For Immediate Post Use Only. Give after delivery of placenta and initial 30 unit bolus. Bag 2 of 2: 125cc/hr (125 mu/min) for an additional infusion of 500cc (30 units). 1912 (New Bag - Provider: Nevin Martin RN) phenylephrine-mineral oil-petrolatum (Preparation H) ointment Rectal, 2 times daily PRN, hemorrhoids, Starting on Mon04/22/24 at 0537 0912 (Given - Provider: Ania Vinson RN) senna-docusate sodium (Senokot-S) 8.6-50 MG tablet 2 tablet 2 tablet, Oral, Daily PRN, constipation, Starting on 04/22/24 at 0536 0912 (Given - Provider: Ania Vinson, JV) witch veronica-glycerin (Tucks) pad Topical, As needed, hemorrhoids, For perineal pain or discomfort, Starting on 04/20/24 at 2050, , Apply to perineal area. Patient is capable and may self administer at bedside. 1655 (Given - Provider: Willow Reyes RN) Linked Groups Order Group 1: ondansetron ODT (Zofran-ODT) disintegrating tablet 4 mgJump to med 4 mg, Oral, Every 8 hours PRN, nausea, vomiting, Starting on 04/20/24 at 2050, 1st Line. If inadequate response within 60 minutes, proceed to next-line agent or contact provider if no further options ordered. Patient should allow tablet to dissolve on tongue. Do not remove from blister pack until just before administering. Or ondansetron (Zofran) injection 4 mgJump to med 4 mg, IntraVENous, Every 6 hours PRN, nausea, vomiting, Starting on 04/20/24 at 2050, 1st Line. Give IV if patient is unable to take orally. If inadequate response within 60 minutes, proceed to next-line agent or contact provider if no further options ordered. Scheduled Medication Order 10/27/2024 10/28/2024 10/29/2024 ciprofloxacin (Cipro) tablet 500 mg (COMPLETED) 500 mg, Oral, Once, On Mon10/29/24 at 1545, For 1 dose, Separate at least 2 hours before or 6 hours after antacids or other products containing calcium, iron, or zinc., Suspected Indication (Select all that apply): Intra-Abdominal Infection 1551 (Given - Provid er: Hanane Triana RN) metroNIDAZOLE (Flagyl) tablet 500 mg (COMPLETED) 500 mg, Oral, Once, On Mon10/29/24 at 1545, For 1 dose, Suspected Indication (Select all that apply): Intra-Abdominal Infection 1551 (Given - Provid er: Hanane Triana RN) PRN Medication Order 10/27/2024 10/28/2024 10/29/2024 iopamidol (Isovue-370) 76 % injection 75 mL (COMPLETED) 75 mL, IntraVENous, IMG once PRN, contrast, Starting on Mon10/29/24 at 1229, For 1 dose 1351 (Given - Provid er: Ritu Kaminski RT (R)(CT)) Scheduled Medication Order 11/16/2024 11/17/2024 11/18/2024 ketorolac (Toradol) injection 15 mg (COMPLETED) 15 mg, IntraVENous, Once, On Mon11/18/24 at 2015, For 1 dose 2032 (Given - Provid er: Jil Saravia, JV) potassium chloride (Klor-Con) packet 40 mEq (COMPLETED) 40 mEq, Oral, Once, On Mon11/18/24 at 2124, For 1 dose, Dissolve each packet in 4 ounces of water = 5 mEq per 1 oz fluid., Indications: Hypokalemia 2143 (Given - Provid er: Jil Saravia, JV) sodium chloride 0.9 % bolus 1,000 mL (COMPLETED) 1,000 mL, IntraVENous, at 1,000 mL/hr, Administer over 1 Hours, Once, On Mon11/18/24 at 2014, For 1 dose 2032 (New Bag - Prov ider: Jil Saravia RN)2137 (Stopped - Provider: Jil Saravia RN) Care Teams (unrecognized sec tion and content) Front End Loader Driver Relationship Specialty Start Date End Date [facility] [address] [place] [address] PCP - General 02/11/23 Team Status: Active Member Role Status Dates Alice Solares STEP DOWN SPECIALIST, STEP DOWN SPECIALIST-C Family Provider Active No Primary Care Physician Primary Care Provider Active Team Status: Inactive Member Role Status Dates Dr. Radha Manrique , DO Emergency Provider Active No Primary Care Physician Primary Care Provider Active Front End Loader Driver Relationship Specialty Start Date End Date Kar Deluca MD [address] [facility] [address] [place] [address] PCP - General Family Medicine 07/31/23 Front End Loader Driver Relationship Specialty Start Date End Date [facility] [address] [place] [address] PCP - General 02/11/23 Front End Loader Driver Relationship Specialty Start Date End Date [facility] [address] [place] [address] PCP - General 02/11/23 Front End Loader Driver Relationship Specialty Start Date End Date [facility] [address] [place] [address] PCP - General 02/11/23 Front End Loader Driver Relationship Specialty Start Date End Date [facility] [address] [place] [address] PCP - General 02/11/23 Front End Loader Driver Relationship Specialty Start Date End Date [facility] [address] [place] [address] PCP - General 02/11/23 Front End Loader Driver Relationship Specialty Start Date End Date Melisa Woodard MD [address] [phone] PCP - General Obstetrics and Gynecology 11/06/23 Néstor Archer, LEAD BLENDER - ELECTRICIAN FRONT [address] [phone] Nurse Practitioner Nurse Practitioner 11/06/23 Front End Loader Driver Relationship Specialty Start Date End Date Melisa Woodard MD [address] [place] [phone] PCP - General Obstetrics and Gynecology 11/06/23 Néstor Archer, LEAD BLENDER - ELECTRICIAN FRONT [address] [phone] Nurse Practitioner Nurse Practitioner 11/06/23 Front End Loader Driver Relationship Specialty Start Date End Date Melisa Woodard MD [address] [place] [phone] PCP - General Obstetrics and Gynecology 11/06/23 Néstor Archer, LEAD BLENDER - ELECTRICIAN FRONT [address] [facility] [address] [place] [address] Nurse Practitioner Nurse Practitioner 11/06/23 Front End Loader Driver Relationship Specialty Start Date End Date Melisa Woodard MD [address] [phone] PCP - General Obstetrics and Gynecology 11/06/23 Néstor Archer APRN - ELECTRICIAN FRONT [address] [facility] [address] [place] [phone] Nurse Practitioner Nurse Practitioner 11/06/23 Front End Loader Driver Relationship Specialty Start Date End Date Melisa Woodard MD [address] [phone] PCP - General Obstetrics and Gynecology 11/06/23 Néstor Archer LEAD BLENDER - ELECTRICIAN FRONT [address] [phone] Nurse Practitioner Nurse Practitioner 11/06/23 Front End Loader Driver Relationship Specialty Start Date End Date [facility] [address] [place] [phone] PCP - General 02/11/23 11/02/23 Melisa Woodard MD [address] [place] [phone] PCP - General Obstetrics and Gynecology 11/06/23 Néstor Archer, LEAD BLENDER - ELECTRICIAN FRONT [address] [phone] Nurse Practitioner Nurse Practitioner 11/06/23 Front End Loader Driver Relationship Specialty Start Date End Date Melisa Woodard MD [address] [phone] PCP - General Obstetrics and Gynecology 11/06/23 Néstor Archer, LEAD BLENDER - ELECTRICIAN FRONT [address] [facility] [address] [place] [address] Nurse Practitioner Nurse Practitioner 11/06/23 Front End Loader Driver Relationship Specialty Start Date End Date Melisa Woodard MD [address] [place] [phone] PCP - General Obstetrics and Gynecology 11/06/23 Néstor Archer LEAD BLENDER - ELECTRICIAN FRONT [address] [phone] Nurse Practitioner Nurse Practitioner 11/06/23 Front End Loader Driver Relationship Specialty Start Date End Date Melisa Woodard MD [address] [place], [place] [phone] PCP - General Obstetrics and Gynecology 11/06/23 Néstor Archer, LEAD BLENDER - ELECTRICIAN FRONT [address] [place] [phone] Nurse Practitioner Nurse Practitioner 11/06/23 Front End Loader Driver Relationship Specialty Start Date End Date Melias Woodard MD [address] [place] [phone] PCP - General Obstetrics and Gynecology 11/06/23 Néstor Archer, LEAD BLENDER - ELECTRICIAN FRONT [address] [place] [phone] Nurse Practitioner Nurse Practitioner 11/06/23 Front End Loader Driver Relationship Specialty Start Date End Date Melisa Woodard MD [address] [place] [phone] PCP - General Obstetrics and Gynecology 11/06/23 Néstor Archer, LEAD BLENDER - ELECTRICIAN FRONT [address] [place] [address] Nurse Practitioner Nurse Practitioner 11/06/23 Front End Loader Driver Relationship Specialty Start Date End Date Melisa Woodard MD [address] [place] [phone] PCP - General Obstetrics and Gynecology 11/06/23 Néstor Archer LEAD BLENDER - ELECTRICIAN FRONT [address] [facility] [address] [place] [address] Nurse Practitioner Nurse Practitioner 11/06/23 Front End Loader Driver Relationship Specialty Start Date End Date Melisa Woodard MD [address] [place] [phone] PCP - General Obstetrics and Gynecology 11/06/23 Néstor Archer, LEAD BLENDER - ELECTRICIAN FRONT [address] [phone] Nurse Practitioner Nurse Practitioner 11/06/23 Front End Loader Driver Relationship Specialty Start Date End Date Melisa Woodard MD [address] [place] [phone] PCP - General Obstetrics and Gynecology 11/06/23 Néstor Archer, LEAD BLENDER - ELECTRICIAN FRONT [address] [phone] Nurse Practitioner Nurse Practitioner 11/06/23 Front End Loader Driver Relationship Specialty Start Date End Date Melisa Woodard MD [address] [place] [phone] PCP - General Obstetrics and Gynecology 11/06/23 Néstor Archer APRN - ELECTRICIAN FRONT [address] [phone] Nurse Practitioner Nurse Practitioner 11/06/23 Front End Loader Driver Relationship Specialty Start Date End Date Melisa Woodard MD [address] [phone] PCP - General Obstetrics and Gynecology 11/06/23 Néstor Archer LEAD BLENDER - ELECTRICIAN FRONT [address] [phone] Nurse Practitioner Nurse Practitioner 11/06/23 Front End Loader Driver Relationship Specialty Start Date End Date Melisa Woodard MD [address] [place] [phone] PCP - General Obstetrics and Gynecology 11/06/23 Néstor Archer APRN - ELECTRICIAN FRONT [address] [phone] Nurse Practitioner Nurse Practitioner 11/06/23 Team Status: Inactive Member Role Status Dates No Primary Care Physician Primary Care Provider Active Start: August 15, 2024 End: August 15, 2024 No Primary Care Physician Referring Provider Active Start: August 15, 2024 End: August 15, 2024 Alvarado JEFFERSON PA Attending Provider Active Sta rt: August 15, 2024 End: August 15, 2024 Front End Loader Driver Relationship Specialty Start Date End Date Néstor Archer, LEAD BLENDER - ELECTRICIAN FRONT [address] [phone] Nurse Practitioner Nurse Practitioner 11/06/23 Front End Loader Driver Relationship Specialty Start Date End Date Melisa Woodard MD [address] [place] [address] PCP - General Internal Medicine 11/04/24 Néstor Archer LEAD BLENDER - ELECTRICIAN FRONT [address] [place] [address] Nurse Practitioner Nurse Practitioner 11/06/23 Néstor Archer LEAD BLENDER - ELECTRICIAN FRONT [address] [place] [address] Nurse Practitioner Nurse Practitioner 11/04/24 Front End Loader Driver Relationship Specialty Start Date End Date Melisa Woodard MD [address] [facility] [address] [place] [address] PCP - General Internal Medicine 11/04/24 Néstor Archer, LEAD BLENDER - ELECTRICIAN FRONT [address] [place] [address] Nurse Practitioner Nurse Practitioner 11/06/23 Néstor Archre, LEAD BLENDER - ELECTRICIAN FRONT [address] [place] [address] Nurse Practitioner Nurse Practitioner 11/04/24 Front End Loader Driver Relationship Specialty Start Date End Date Melisa Woodard MD [address] [address] [place] [address] PCP - General Internal Medicine 11/04/24 Néstor Archer, LEAD BLENDER - ELECTRICIAN FRONT [address] [place] [address] Nurse Practitioner Nurse Practitioner 11/06/23 Néstor Archer APRN - ELECTRICIAN FRONT [address] [facility] [address] [place] [address] Nurse Practitioner Nurse Practitioner 11/04/24 Front End Loader Driver Relationship Specialty Start Date End Date Melisa Woodard MD [address] [facility] [address] [place] [address] PCP - General Internal Medicine 11/04/24 Néstor Archer APRN - ELECTRICIAN FRONT [address] [facility] [address] [place] [address] Nurse Practitioner Nurse Practitioner 11/06/23 Néstor Archer APRN - ELECTRICIAN FRONT [address] [facility] [address] [place] [address] Nurse Practitioner Nurse Practitioner 11/04/24 Front End Loader Driver Relationship Specialty Start Date End Date Melisa Woodard MD [address] [facility] [address] [place] [address] PCP - General Internal Medicine 11/04/24 Néstor Archer APRN - ELECTRICIAN FRONT [address] [facility] [address] [place] [address] Nurse Practitioner Nurse Practitioner 11/06/23 Néstor Archer APRN - ELECTRICIAN FRONT [address] [facility] [address] [place] [address] Nurse Practitioner Nurse Practitioner 11/04/24 Front End Loader Driver Relationship Specialty Start Date End Date Melisa Woodard MD [address] [facility] [address] [place] [address] PCP - General Internal Medicine 11/04/24 Néstor Archer APRN - CHECO [address] [facility] [address] [place] [address] Nurse Practitioner Nurse Practitioner 11/06/23 Néstor Archer APRN - CHECO [address] [facility] [address] [place] [address] Nurse Practitioner Nurse Practitioner 11/04/24 Goals (unrecognized section and content) Goals may be documented in a n alternate sectionGoals may be documented in an alternate section Reason for Visit (unrecogniz ed section and content) Reason Comments Flank Pain EP. Here for kidney pain and possible . 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 Reason Comments Initial Visit 9w5d NEW OB, gave urine sample, had a pap done on 09-13 and had an abnormal results of Trich, already had GC/CT done, wants to do genetic testing for both and wants gender reported, gave lab location paper to patient Reason Onset Date Comments Error (VOID this visit) 09/29/2023 Reason Onset Date Comments Medication Reaction 09/29/2023 Reason Comments Medication Problem Reason Onset Date Comments medication quesiton 09/29/2023 Reason Comments Routine Visit 11w5d discuss zol oft, wants to know if she could lower the dose to 25mg instead of 50 Reason Comments New Patient Establish Reason Comments Routine Visit 15w5d has wanda lagunas about taking the aspirin 81. Is there any other medication for depression in other than zoloft? Reason Comments Follow-up 20w5d Anatomy US FU Reason Comments Follow-up 22w5d anatomy us fu, Reason Comments Routine Visit 26w5d Reason Onset Date Comments Med Refill 01/25/2024 Reason Comments Routine Visit Reason Comments Routine Visit 30w5d, has been h aving diarrhea for a month, has only had one solid BM for I day, stopped taking the aspirin because it was making her disoriented and her cognitive thinking was distorted. Reason Comments Routine Visit 38 varghese Reason Comments Abdominal Pain Reason Comments Rupture of Membranes Specialty Diagnoses / Procedures Referred By Chanel henao Referred To Contact Diagnoses 39 weeks gestation of Procedures Z3A.39 GayMarii, DO [address] [place] [address] Phone: tel: fax: [facility] [address] [facility] [place] [address] Phone: tel: Referral ID Status Reason Start Date Expiration Date Visits Re quested Visits Authorized [id number] 1 1 Reason Comments Care Reason Onset Date Comments Complications 05/07/2024 Reason Comments Abdominal Pain X 1 day Reason Comments Annual Exam Wellness visit Dizziness Was seen in ED for E nterisit, present today with dizziness and fatigue Reason Onset Date Comments Results 11/15/2024 Release of Information 11/15/2024 Reason Comments Abdominal Pain Painful urination x 5 days Reason Comments Annual Exam Contraception Source Comments (unrecognize d section and content) In the event this informatio n is protected by the Federal Confidentiality of Alcohol and Drug Abuse Patient Records regulations: The Federal rules restrict any use of the information to criminally investigate or prosecute any alcohol or drug abuse patient.[facility] the event this information is protected by the Federal Confidentiality of Alcohol and Drug Abuse Patient Records regulations: The Federal rules restrict any use of the information to criminally investigate or prosecute any alcohol or drug abuse patient.[facility] the event this information is protected by the Federal Confidentiality of Alcohol and Drug Abuse Patient Records regulations: The Federal rules restrict any use of the information to criminally investigate or prosecute any alcohol or drug abuse patient.[facility] the event this information is protected by the Federal Confidentiality of Alcohol and Drug Abuse Patient Records regulations: The Federal rules restrict any use of the information to criminally investigate or prosecute any alcohol or drug abuse patient.[facility] the event this information is protected by the Federal Confidentiality of Alcohol and Drug Abuse Patient Records regulations: The Federal rules restrict any use of the information to criminally investigate or prosecute any alcohol or drug abuse patient.[facility] the event this information is protected by the Federal Confidentiality of Alcohol and Drug Abuse Patient Records regulations: The Federal rules restrict any use of the information to criminally investigate or prosecute any alcohol or drug abuse patient.[facility] the event this information is protected by the Federal Confidentiality of Alcohol and Drug Abuse Patient Records regulations: The Federal rules restrict any use of the information to criminally investigate or prosecute any alcohol or drug abuse patient.[facility] FOR RECORDS PERTAINING TO PATIENTS WHO ARE [...] BE BASED ON THE PRIMARY CLINICAL RECORDS. [facility] [employer] provides no warranty or guarantee of the accuracy or completeness of information in this document.
[2025-01-26 11:27] LABS: Alcohol, Blood (Medical)-Serum < 10.1 mg/dL (<=10.0); Anion Gap 14 (5-15); BUN 13 mg/dL (4-19); BUN/Creat Ratio 17.3 RATIO (10-20); Calcium,Total 10.0 mg/dL (7.6-11.0); Carbon Dioxide 21.7 mmol/L (21.0-32.0); Chloride 103 mmol/L (98-108); Estimated Creatinine Clearance 93.26 ml/min (50-250); Glucose 100 mg/dL (70-99); Potassium 3.9 mmol/L (3.3-5.1)
[2025-01-26 11:28] LABS: Barbiturate Urine NEGATIVE (< 200 ng/mL); Benzodiazepine Urine NEGATIVE (< 200 ng/mL); PCP Urine NEGATIVE (< 25 ng/mL); THC Urine PRESUMPTIVE POSITIVE (< 50 ng/mL)
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
[2025-01-26 14:55] VITALS: BP 116/68; PULSE 50; RESP 16; TEMP 36.6; O2SAT 98
--- NOTE | 2025-01-27 15:53 | CM.ED ---
Social work Reason for referral: safety plan follow up SW received handoff from Erika GUDINO via email to follow up with patient today (01/27/25) due to receiving safety plan in ED yesterday (01/26/25). Per email, SW called patient's father (Cirilo Lara, ph: [phone]) due to patient not having patient's phone. TUSHAR left a with return phone number at [phone]. At 1445, TUSHAR received a phone call from Cec[facility] (ext [phone]) stating Cirilo had called Cecilia rather than this TUSHAR at [phone]. TUSHAR called Cirilo again at [phone] and got in contact with Cirilo. Cirilo stated patient appeared to be in a better state of mind today and went to work. Patient reportedly called Cirilo earlier in the day and Cirilo stated patient seemed good. Per Cirilo, patient appears motivated again and Cirilo stated Cirilo would be taking patient to patient's home to gather some belongings today after work. Cirilo was reminded of resources available should patient/Cirilo need and Cirilo expressed understanding. Cirilo denied further needs at this current time. Jaqueline Joy, VINEYARD WORKER, GAME PRESERVE MANAGER
== END 2025-01-26 14:55 | disposition home or self-care (01) ==
PROVIDERS: Emergency Provider Emergency Medicine; Visit Provider Emergency Medicine
DX: F32.A Depression, unspecified (principal); R45.851 Suicidal ideations; Z79.899 Other long term (current) drug therapy; F17.210 Nicotine dependence, cigarettes, uncomplicated
CPT/HCPCS: 80048; 80307; 82077; 84703; 85025; 99283